=== PATIENT | female | born 1950 | race Two or more races ===

== ENCOUNTER 2023-10-11 14:41 | Outpatient (AMB) | payer OTHER, SELFPAY ==
--- NOTE | 2023-10-11 14:37 | HO.NEPHOV ---
HPI HPI Comments History of Present Illness Details 72-year-old woman with a history of for diabetes mellitus hypertension and CKD is here for follow-up. Her baseline serum creatinine is around 1.8-1.9 mg/dL with EGFR of about 30 mL/minute. Serum creatinine has been stable for the last several months. She was prescribed Farxiga several months ago but she did not tolerated due to itching and she has stopped taking it. She underwent colpocleisis She is complaining of constipation and she attributes this to amlodipine PFSH Surgical History (Updated 10/11/23 @ 14:47 by Vibha Alberto MA) Hx of cholecystectomy Family History (Updated 10/11/23 @ 14:48 by Vibha Alberto MA) Mother Diabetes Father Liver failure Social History (Updated 10/11/23 @ 14:47 by Vibha Alberto MA) Household Members: None Housing: Apartment Alcohol intake: never Patient Tobacco Use Status: Never used Tobacco Vital Signs 10/11/23 14:41 Height 5 ft 2 in Weight 143 lb BMI 26.2 BP 160/72 H Blood Pressure Location Rt brachial Position Sitting Pulse 68 Pulse Source Pulse Oximeter Pulse Oximetry (%) 98 Oxygen Delivery Method Room Air Physical Exam Vital Signs: Last Vital Signs Pulse 68 10/11/23 14:41 BP 160/72 H 10/11/23 14:41 Pulse Ox 98 10/11/23 14:41 Oxygen Delivery Method Room Air 10/11/23 14:41 BMI result Body Mass Index 26.2 Const General: comfortable; No acute distress Orientation/consciousness: patient oriented x3 Eyes General: appearance normal, both eyes and all related structures Visual Otero: normal visual otero by confrontation Neck Neck: Yes supple and Yes no JVD Resp Effort & Inspection: normal respiratory effort and respiratory effort not decreased Auscultation: rhonchi Cardio Palpation: no palpable S3 and no palpable S4 Heart sounds: no rubs GI Inspection: Yes normal to inspection Palpation (GI): Soft to palpation Percussion: Yes normal to percussion Auscultation: normal bowel sounds General: Yes no CVA tenderness Back/Spine/Pelvis Back: no CVA tenderness Skin General skin exam: no petechiae and no purpura Neuro General: patient oriented x3 and no focal motor deficits Extrem General: No clubbing and No edema Assessment & Plan Assessment & Plan (1) HTN (hypertension): Code(s): I10 - Essential (primary) hypertension (2) CKD (chronic kidney disease) stage 3, GFR 30-59 ml/min: Code(s): N18.30 - Chronic kidney disease, stage 3 unspecified (3) Proteinuria: Code(s): R80.9 - Proteinuria, unspecified (4) Anemia: Code(s): D64.9 - Anemia, unspecified Plan Elderly woman with CKD 3B in the setting of longstanding diabetes mellitus and hypertension. She has nephrotic range proteinuria most likely due to diabetic kidney disease. Currently renal function is stable. Goal is to slow the progression of disease. Continue with Gómez inhibition. Goals maintain the blood pressure is under 130/80 mmHg. Since she is unable tolerate amlodipine I will discontinue amlodipine. She will try hydralazine 20 mg p.o. twice a day and if he tolerates we can titrate the dose. Encouraged to stand low-sodium diet. Anemia is multifactorial. This may be due to underlying CKD. No indication for Epogen at this time. Orders: Orders Blood Urea Nitrogen 2 Weeks I10 - Essential (primary) hypertension, N18.30 - Chronic kidney disease, stage 3 unspecified Complete Blood Count no Diff 2 Weeks I10 - Essential (primary) hypertension, N18.30 - Chronic kidney disease, stage 3 unspecified Electrolytes 2 Weeks I10 - Essential (primary) hypertension, N18.30 - Chronic kidney disease, stage 3 unspecified Creatinine 2 Weeks I10 - Essential (primary) hypertension, N18.30 - Chronic kidney disease, stage 3 unspecified Calcium 2 Weeks I10 - Essential (primary) hypertension, N18.30 - Chronic kidney disease, stage 3 unspecified Parathyroid Hormone Intact 2 Weeks I10 - Essential (primary) hypertension, N18.30 - Chronic kidney disease, stage 3 unspecified Medications: New hydralazine 25 mg PO BID 60 tabs 1RF Coding Level of Care Code Est Pt Level 4 (41974) Diagnoses HTN (hypertension) I10 CKD (chronic kidney disease) stage 3, GFR 30-59 ml/min N18.30 Proteinuria R80.9 Anemia D64.9 Results Reviewed Results Reviewed: Lab results from August 23 was reviewed potassium 4.2 BUN 31 creatinine 1.8 Urine protein creatinine ratio was 4.3 back in August 2023 Nephrology Results: No Data to Display
[2023-10-11 14:41] VITALS: BP 160/72; PULSE 68; O2SAT 98; BMI 26.2
== END 2023-10-11 15:03 | disposition home or self-care (01) ==
LOC: HO.HKAS 14:41
PROVIDERS: PCP Internal Medicine; Visit Provider Internal Medicine Hypertension Specialist
DX: I10 Essential (primary) hypertension (principal); N18.30 Chronic kidney disease, stage 3 unspecified; R80.9 Proteinuria, unspecified; D64.9 Anemia, unspecified
CPT/HCPCS: 99214

== ENCOUNTER → 2023-10-11 14:41 | Outpatient (BNVA) | payer OTHER, SELFPAY | PROVIDERS: PCP Internal Medicine; Visit Provider Internal Medicine Hypertension Specialist | DX: I12.9 Hypertensive chronic kidney disease with stage 1 through stage 4 chronic kidney disease, or unspecified chronic kidney disease (principal); N18.30 Chronic kidney disease, stage 3 unspecified; R80.9 Proteinuria, unspecified; D64.9 Anemia, unspecified | CPT/HCPCS: 99212 ==

== ENCOUNTER → 2023-11-08 10:57 | Outpatient (BNVA) | payer OTHER, SELFPAY | PROVIDERS: PCP Internal Medicine; Visit Provider Internal Medicine Hypertension Specialist ==

== ENCOUNTER 2024-10-16 10:24 | Outpatient (AMB) | payer OTHER, SELFPAY ==
[2024-10-16 10:30] VITALS: BP 200/60; PULSE 62; O2SAT 99; BMI 24.1
--- NOTE | 2024-10-16 10:30 | HO.NEPHOV ---
Vital Signs 10/16/24 10:30 Height 5 ft 2 in Weight 132 lb BMI 24.1 BP 200/60 H Blood Pressure Location Lt brachial Position Sitting Pulse 62 Pulse Source Pulse Oximeter Pulse Oximetry (%) 99 Oxygen Delivery Method Room Air Intake Visit Reasons: Anemia/ LVM Project Geophysicist Required: No Accompanied by: Self / Same As Patient Allergies Iodinated Contrast Media Allergy (Intermediate, Verified 10/16/24 10:32) Rash Penicillins Allergy (Intermediate, Verified 10/16/24 10:32) thrush sulfamethoxazole [From Bactrim] Allergy (Intermediate, Verified 10/16/24 10:32) thrush trimethoprim [From Bactrim] Allergy (Intermediate, Verified 10/16/24 10:32) thrush Medication List - Last Reconciled 10/16/24 by Alexander Tavares MD acetaminophen ER 1,300 mg PO Q8H atorvastatin 40 mg PO DAILY dapagliflozin propanediol (Farxiga) 10 mg PO DAILY doxazosin mg PO esomeprazole magnesium 40 mg PO DAILY ferrous sulfate 325 mg PO Q OTHER DAY furosemide 20 mg PO DAILY PRN hydralazine 25 mg PO BID insulin aspart U-100 (Novolog FlexPen U-100 Insulin aspart) subcut insulin degludec (Tresiba FlexTouch U-100 insulin) units subcut levothyroxine 112 mcg PO DAILY lisinopril 40 mg PO DAILY metoprolol succinate ER 50 mg PO DAILY nifedipine ER 90 mg PO DAILY omega 5-iip-jzw-fish oil 300 mg (120 mg- 180mg)-1,000 mg caps PO HPI Comments Details: 72-year-old woman with a history of for diabetes mellitus hypertension and CKD is here for follow-up. Her baseline serum creatinine was around 1.8-1.9 mg/dL with EGFR of about 30 mL/minute back in 2021. She was prescribed Farxiga several months ago but she did not tolerated due to itching and she has stopped taking it. In May EGFR was 17 mL/minute and the recent EGFR is about 13 mL/minute. Creatinine is 3.67. She continues to have leg edema. Overall blood sugar seems to be well controlled. Blood pressure in the office has all he has been elevated however she tells me that home readings have been good and she has been monitoring it regularly. [facility] Surgical History Hx of cholecystectomy Family History Mother Diabetes Father Liver failure Social History Household Members: None Housing: Apartment Alcohol intake: never Patient Tobacco Use Status: Never used Tobacco Physical Exam Vital Signs: Last Vital Signs Pulse 62 10/16/24 10:30 BP 200/60 H 10/16/24 10:30 Pulse Ox 99 10/16/24 10:30 Oxygen Delivery Method Room Air 10/16/24 10:30 BMI result Body Mass Index 24.1 Comfortable Neck supple no JVD. Lungs entry equal no rales. Heart S1-S2 heard no gallop or rub. Abdomen soft nontender. Neuro alert awake oriented. No asterixis. Extremities 1+ edema. Results Reviewed Results Reviewed: Recent EGFR 13 mL/minute Hemoglobin 9.8. Iron stores are low. Urine protein creatinine ratio was 4.3 back in August 2023 Nephrology Results: No Data to Display Assessment & Plan Assessment & Plan (1) HTN (hypertension): Code(s): I10 - Essential (primary) hypertension Category: Medical (2) Proteinuria: Code(s): R80.9 - Proteinuria, unspecified Category: Medical (3) Anemia: Code(s): D64.9 - Anemia, unspecified Category: Medical (4) CKD (chronic kidney disease): Code(s): N18.9 - Chronic kidney disease, unspecified Category: Medical Plan Elderly woman with CKD 4 approaching CKD 5 in the setting of longstanding diabetes mellitus and hypertension. She has nephrotic range proteinuria most likely due to diabetic kidney disease. Goal is to slow the progression of disease. Continue with Farxiga Goals maintain the blood pressure is under 130/80 mmHg. Keep on current antihypertensive medications Office readings elevated most likely due to superimposed white coat effect. I have asked her to monitor blood pressure at home if home blood pressure readings are elevated with a systolic blood pressure more than 140 mm Hg I would increase hydralazine from 20 mg up to 50 mg t.i.d.. Encouraged to stand low-sodium diet. Anemia is multifactorial. This may be due to underlying CKD. No indication for Epogen at this time. Replace iron and recheck hemoglobin. Given the advanced CKD I discussed the possibility of requiring renal replacement therapy in the very near future. I will discuss this again in the next 6 weeks when she returns Orders: Orders Complete Blood Count no Diff 6 Weeks N18.9 - Chronic kidney disease, unspecified Parathyroid Hormone Intact 6 Weeks N18.9 - Chronic kidney disease, unspecified Basic Metabolic Panel 6 Weeks N18.9 - Chronic kidney disease, unspecified Coding Level of Care Code Est Pt Level 5 (20794) Diagnoses HTN (hypertension) I10 Proteinuria R80.9 Anemia D64.9 CKD (chronic kidney disease) N18.9
--- OUTSIDE RECORDS SUMMARY | 2024-10-17 00:25 | XMS_ITS | Data Portability ---
Author Organization [employer] [place] - [employer] Address [address] [place] [id number] Care Team Providers Care Pharmacy Informatics Specialist Name Role Phone NICOLMELISSA ALEKSANDRA Primary Care Provider [facility] Referring Provider [phone] Assessment Encounter Date Assessment Date Assessment LastModified by Organization Details LastModified Time 08/13/2023 08/13/2023 I provided real -time medical direction via phone for this encounter, and was available for additional phone based assistance as needed. I have reviewed and agree with the Assessment and Plan as documented by the Computer [employer] Markup Clerk. Patient given the opportunity to ask questions. Advised if develops CP/severe SOB/turning blue/severe headache or focal neuro changes /uncontrolled n/v/d or black/bloody emesis or stool/ AMS/ syncope/ hi fever to call 911- verbalized understanding of instructions [email or web address] Not available 08/14/2023 15:53:22 01/26/2024 01/26/2024 I provided real -time medical direction via phone for this encounter, and was available for additional phone based assistance as needed. I have reviewed and agree with the Assessment and Plan as documented by the Computer Forwarding System Markup Clerk. We discussed the diagnostic uncertainty of home visits and the risk associated with this. In this case the patient and I felt this to be an acceptable and reasonable amount of risk given the benefit of avoiding an ED visit. The patient /son given the opportunity to ask questions. Advised if develops CP/severe SOB/turning blue/uncontrolle d n/v/d or black/bloody emesis or stool/ AMS/ syncope/ hi fever / severe painful swelling or redness to legs to call 911- she verbalized understanding of instruction to the medic [email or web address] Not available 01/26/2024 13:52:56 Plan of Treatment Reminders Order Date Submit Date Provider Last Modified By Organization Details Last Modified Time Details Appointments None recorded. Lab urinalysis , dipstick 2022 023 [email or web address] 0 [facility], [address] [place] [address], [phone], 15:56:08 BMP, serum or plasma 2023 024 [email or web address] 0 [facility], [address] [place] [address], [phone], 13:51:39 Referral None recorded. Procedures None recorded. Surgeries None recorded. Imaging None recorded. Medication Orders Lasix 20 mg tablet 2023 024 [email or web address] 0 Not available 13:52:18 Patient TargetsNo targets recorded. Patient InstructionsNo instructions recorded. Reason for Referral None Reported. Results Created Date Observation Date Name Description Value Unit Range Abnormal Flag Note LastModifiedBy Organization Detail LastModifiedTime 08/14/2008/14/2023 urina lysis , dipst ick Leukocytes neg Not Available [facility] [address] [place] [address], [address], 08/14/2023 15:51:08 08/14/2008/14/2023 urina lysis , dipst ick Nitrite negati ve Not Available [facility] [address] [place] [address], [phone], 08/14/2023 15:51:08 08/14/2008/14/2023 urina lysis , dipst ick Urobilinogen neg Not Available [facility] [address] [place] [address], [phone], 08/14/2023 15:51:08 08/14/2008/14/2023 urina lysis , dipst ick Protein 2+ Not Available [facility] [address] [place] [address], [address], 08/14/2023 15:51:08 08/14/20 23 08/14/2023 urina lysis , dipst ick pH 7 Not Available [facility] [address] [place] [address], [address], 08/14/2023 15:51:08 08/14/20 23 08/14/2023 urina lysis , dipst ick Blood trace Not Available [facility] [address], [address], 08/14/2023 15:51:08 08/14/20 23 08/14/2023 urina lysis , dipst ick Specific [place] 1.005 Not Available [facility] [address] [place] [address], [address], 08/14/2023 15:51:08 08/14/20 23 08/14/2023 urina lysis , dipst ick Ketone neg Not Available [facility] [address], [address], 08/14/2023 15:51:08 08/14/20 23 08/14/2023 urina lysis , dipst ick Bilirubin neg Not Available [facility] [address] [place] [address], [address], 08/14/2023 15:51:08 08/14/20 23 08/14/2023 urina lysis , dipst ick Glucose neg Not Available [facility] [address], [address], 08/14/2023 15:51:08 08/14/20 23 08/14/2023 urina lysis , dipst ick Appearance Clear Not Available [facility] [address] [place] [address], [address], 08/14/2023 15:51:08 08/14/20 23 08/14/2023 urina lysis , dipst ick Color Pale yellow Not Available [facility] [address] [place] [address], [address], 08/14/2023 15:51:08 01/26/20 24 01/26/2024 BMP, serum or plasm a BUN 33(simone n from 40 on 3/19) Not Available [facility] [address] [place] [address], [address], 01/26/2024 13:16:10 01/26/20 24 01/26/2024 BMP, serum or plasm a Ca Ionize d calciu m 1.1 Not Available [facility] [address] [place] [address], [address], 01/26/2024 13:16:10 01/26/20 24 01/26/2024 BMP, serum or plasm a CI- 98 Not Available [facility] [address], [address], 01/26/2024 13:16:10 01/26/20 24 01/26/2024 BMP, serum or plasm a CRE 2.35( was 2.45- was 1.9 08/28) Not Available [facility] [address] [place] [address], [address], 01/26/2024 13:16:10 01/26/20 24 01/26/2024 BMP, serum or plasm a GLU 158 Not Available [facility] [address], [address], 01/26/2024 13:16:10 01/26/20 24 01/26/2024 BMP, serum or plasm a K+ 4.8 Not Available [facility] [address], [address], 01/26/2024 13:16:10 01/26/20 24 01/26/2024 BMP, serum or plasm a Na+ 129 Not Available [facility] [address], [address], 01/26/2024 13:16:10 01/26/20 24 01/26/2024 BMP, serum or plasm a tCO2 21.3 Not Available [facility] [address], [address], 01/26/2024 13:16:10 Result Notes None recorded. Medical Equipment None Reported. Allergies Allergen ID Allergen Name Allergen Category Reaction Reaction Severity Criticality Documentation Date Start Date Code Code System Note Provider Name and Address Organization Details Recorded Time 3467 Medicinal product containin g penicilli n and acting as antibacte rial agent (product) medicatio n Not available Not available Not available 08/13/2023 04764 05 SNOMED Not Available [facility] 4 03:42:03 3468 Bactrim medicatio n Not available Not available Not available 08/13/2023 55317 9 [facility] 03:42[facility]03 3469 codeine medicatio n Not available Not available Not available 08/13/2023 2670 RxNorm Justine Espinoza MD [address] [place] [address],[address], [place], [address], [email or web address] 3 15:37:47 3470 Iodinated contrast media (substanc e) medicatio n Not available Not available Not available 08/13/2023 53690 2004 SNOMED Justine Espinoza MD [address] [place] [address],[address], [place], [address], [email or web address] 3 15:38:00 8114 prednison e medicatio n Not available Not available Not available 09/03/2024 8640 RxNorm [facility] Available [facility] 03:[facility]:03 Medications Name Sig Start Date Stop Date Status Note LastModified by Organization Details LastModified Time nifedipine ER 30 mg tablet,exten ded release 24 hr TAKE 1 TABLET BY MOUTH DAILY active Not Available Not Available Not Available atorvastatin 40 mg tablet TAKE ONE TABLET BY MOUTH EVERY DAY AT BEDTIME active Not Available Not Available No t Available atorvastatin 80 mg tablet TAKE 1 TABLET BY MOUTH ONCE DAILY AT BEDTIME active Not Available Not Available No t Available metoprolol succinate ER 50 mg tablet,exten ded release 24 hr TAKE ONE TABLET BY MOUTH EVERY DAY active Not Available Not Available No t Available FreeStyle Lancets 28 gauge USE TO TEST BLOOD GLUCOSE THREE TIMES A DAY active Not Available Not Available No t Available acetaminophe n 500 mg tablet TAKE ONE TABLET BY MOUTH EVERY 4 HOURS NEEDED FOR PAIN active Not Available Not Available No t Available acetaminophe n ER 650 mg tablet,exten ded release TAKE TWO TABLETS BY MOUTH EVERY 8 HOURS DIRECTED active Not Available Not Available No t Available levothyroxin e 88 mcg tablet TAKE ONE TABLET BY MOUTH EVERY DAY active Not Available Not Available No t Available Deep Sea Nasal 0.65 % spray aerosol USE TWO SPRAYS IN EACH NOSTRIL FOUR TIMES A DAY NEEDED FOR DRY NASAL PASSAGES FOR 7 DAYS active Not Available Not Available N ot Available nifedipine ER 60 mg tablet,exten ded release 24 hr TAKE ONE TABLET BY MOUTH EVERY DAY DIRECTED active Not Available Not Available No t Available metronidazol e 0.75 % lotion APPLY A THIN LAYER TO AFFECTED AREAS TWO TIMES A DAY IN THE MORNING AND IN THE EVENING active Not Available Not Available No t Available amlodipine 10 mg tablet TAKE ONE TABLET BY MOUTH EVERY DAY active Not Available Not Available No t Available levothyroxin e 50 mcg tablet TAKE TWO TABLETS BY MOUTH TWICE A DAY active Not Available Not Available No t Available Lasix 20 mg tablet Take 1 tablet by oral route. 2023 active Not Available Not Available Not Avai lable cephalexin 500 mg capsule TAKE ONE CAPSULE BY MOUTH THREE TIMES A DAY DIRECTED FOR 7 DAYS active Not Available Not Available N ot Available esomeprazole magnesium 40 mg capsule,osiel yed release TAKE ONE CAPSULE BY MOUTH EVERY DAY active Not Available Not Available No t Available dexamethason e 4 mg tablet TAKE ONE TABLET BY MOUTH EVERY DAY DIRECTED FOR 5 DAYS active Not Available Not Available N ot Available metronidazol e 0.75 % topical cream APPLY A THIN LAYER TO AFFECTED AREAS TWO TIMES A DAY IN THE MORNING AND IN THE EVENING active Not Available Not Available No t Available docusate sodium 100 mg capsule TAKE ONE CAPSULE BY MOUTH TWICE A DAY NEEDED FOR CONSTIPATIO N active Not Available Not Available No t Available hydrocortiso ne 2.5 % topical cream APPLY TO THE FACE AND AFFECTED SKIN TWICE DAILY FOR 1 WEEK, BREAK 1 WEEK THEN REPEAT NEEDED FOR FLARES active Not Available Not Available No t Available bisacodyl 5 mg tablet,delay ed release TAKE 2 TABLETS BY MOUTH EVERY DAY NEEDED active Not Available Not Available No t Available alcohol swabs USE WITH EACH INJECTION FOUR TIMES A DAY active Not Available Not Available No t Available lisinopril 40 mg tablet TAKE ONE TABLET BY MOUTH EVERY DAY active Not Available Not Available No t Available oxycodone 5 mg tablet active Not Available Not Available No t Available Novolog FlexPen U-100 Insulin aspart 100 unit/mL (3 mL) subcutaneous INJECT 10 UNITS UNDER THE SKIN 3 TIMES PER DAY active Not Available Not Available No t Available Lubricant Eye Drops 0.5 % INSTILL TWO DROPS IN EACH EYE EVERY 4 TO 6 HOURS DIRECTED FOR 14 DAYS active Not Available Not Available Not Available BD Ultra-Fine Short Pen Needle 31 gauge x 5/16 USE TO INJECT INSULIN 3 TIMES DAILY active Not Available Not Available Not Available Fish Oil 340 mg-1,000 mg capsule TAKE ONE CAPSULE BY MOUTH EVERY DAY active Not Available Not Available No t Available FreeStyle Lite Strips USE TO TEST BLOOD GLUCOSE 5 TIMES DAILY active Not Available Not Available Not Available diclofenac 1 % topical gel APPLY 2 GRAMS TOPICALLY TO AFFECTED AREA S) FOUR TIMES DAILY active Not Available Not Available No t Available cholecalcife rol (vitamin D3) 50 mcg (2,000 unit) capsule TAKE ONE CAPSULE BY MOUTH EVERY DAY active Not Available Not Available No t Available ClearLax 17 gram/dose oral powder DISSOLVE 17 GRAMS IN WATER AND DRINK ONCE DAILY active Not Available Not Available No t Available Tresiba FlexTouch U-100 insulin 100 unit/mL (3 mL) subcutaneous pen INJECT 45 UNITS UNDER THE SKIN ONCE A DAY AT BEDTIME. BOX ____ OF 2 active Not Available Not Available No t Available Procto-Med HC 2.5 % topical cream perineal applicator APPLY A SMALL AMOUNT TO AFFECTED AREA TWO TIMES A DAY FOR HEMMERHOIDS active Not Available Not Available Not Available Rybelsus 3 mg tablet TAKE ONE TABLET BY MOUTH EVERY DAY DIRECTED active Not Available Not Available No t Available omega-3 300 mg-dha 120 mg-epa 180 mg-fish oil 1,000 mg capsule TAKE ONE CAPSULE BY MOUTH EVERY DAY active Not Available Not Available No t Available Vitals Date Recorded Oxygen saturation Oxygen saturation in Arterial blood by Pulse oximetry Body temperature Respiratory rate Heart rate Systolic blood pressure Diastolic blood pressure Provider Name and Address Organization Details Last Updated DateTime 3 98 % 98 % 98.6 [degF] 14 /min 66 /min 226 mm[Hg] 73 mm[Hg] Not Available [facility] 3 14:56:44 Date Recorded Respiratory rate Body temperature Body weight Heart rate Oxygen saturation Oxygen saturation in Arterial blood by Pulse oximetry Systolic blood pressure Diastolic blood pressure Provider Name and Address Organization Details Last Updated DateTime 4 16 /min 97.6 [degF] 95886.2 48 g 86 /min 96 % 96 % 160 mm[Hg] 68 mm[Hg] Not Available [facility] 13:11:29 Social History None recorded. Functional Status None recorded. Mental Status None recorded. Family History Nothing Reported. Medical History No medical history recorded. Gynecological HistoryNo gynecological history recorded. Obstetrics History GPAL:G 0 P 0 0 0 0 Past Encounters Encounter ID Performer Location Encounter Start Date Encounter Closed Date Diagnosis/Indication Diagnosis SNOMED-CT Code Diagnosis ICD10 Code [id number] Justine Espinoza MD [facility] [address] [place] [phone] 08/13/2023 14:56:36 08/15/2023 00:46:02 Acute retention of urine 958238268 R33.8 [id number] Justine Espinoza MD [facility] [address] [place] [phone] 01/26/2024 13:11:25 01/26/2024 17:59:41 Peripheral edema 630662593 R60.9 Health Concerns Section Related Observation LastModified by Organization Detai ls LastModified Time None Recorded Concern Status LastModified by Organization Details LastModified Time None Recorded Advance Directives Directive None Recorded Payers Encounter Date Sequence Insurance Name Policy Number Policy Tam Covered Member ID Tam Member ID Guarantor Name 08/13/2023 1 [facility] - DOS ON OR AFTER 2023 - DUAL ELIGIBLE - USP OPTIONS AND ONE CARE (MEDICARE REPLACEMENT/ADV ANTAGE - HMO) [employer] [id number] [employer] 01/26/2024 1 [facility] - DOS ON OR AFTER 2023 - DUAL ELIGIBLE - USP OPTIONS AND ONE CARE (MEDICARE REPLACEMENT/ADV ANTAGE - HMO) [employer] [id number] [employer] Notes Date Note Type Note Provider Name and Address Organization Details Recorded Time 08/13/2023 text/html [facility] Nursing Assessment: Reason For Request: UTI Chief Complaints: UTI/Pyelonephritis PMH: Diabetes, Hypertension, Other Allergies: Unknown Pain Assessment: Level 10 out of 10 Comments: Verified identity / address Member had SX on and was d/c Monday even. Member has a holder in place . Member has c/o abd pain and full bladder feeling . Urine C/y/u , no strong smell Member had bladder sling placed , does have a follow up next week. ................... ................... ................... ................... ................... ................... ................... ........ Computer [employer] System Markup Clerk Note From Taco Tobar: Pt reports bladder surgery last and began experiencing suprapubic pain and upper left thigh pain late evening. Pt sts she adjusted the Holder bag last night when re-dressing. Holder collection bag was emptied today at 11:00 am (unknown output). Pt currently has 20 cc of pale yellow urine in the collection bag. Pt denies CP, SOB, f/n/v/d. Surgeons office is supposed to call tomorrow for f/u appointment. Pt is alert, NAD. Hypertensive, VS otherwise stable. Afebrile. Lungs CTA. Suprapubic ABD feels firm and is tender on palpating. No CVAT. No LLE. [place] cath tubing was kinked when pt attatched it to the upper leg securing device. Tubing was realigned and pt had 900 cc of urine output. UA not indicative of infection. Pt endorses feeling much better after urine was drained. BP reassessed and is trending down. Pt instructed to seek emergent medical care for new or worsening sx, which are reviewed with her and to f/u with PCP later this week. ................... ................... ................... ................... ................... ................... ................... ........ Disposition: Janneth WEINER patient apparently had a bladder sling/mesh last . Not currently on antibiotics. Has a history of hypertension. Has taken all of her meds today. /She Complains of abdominal pain but no chest pain, no shortness of breath, no headache or neuro changes Justine Espinoza MD [address] [facility],[address], [place], [address], [employer] 08/14/2023 15:56:17 01/26/2024 text/html HPI: Call transferred to [facility] from [facility]. Member daughter in law, Gail calling with Greenlandic speaking member, c/o BLE edema. Reports first started Monday but has worsened since. Reports PCP visit Monday but legs were not that swollen at time, [facility] states members PCP told her that her kidney labs were elevated and was advised to increase fluids. Reports worsening sx since. Reports swelling extends from feet to thighs, equal bilaterally. Mbr is able to ambulate with difficulty d/t discomfort and heaviness of legs. Denies SOB, CP, open wounds or discoloration to legs. Agreeable to [employer] referral. Advised to call CRU back for new or worsening of sx. PMH includes but not limited: HTN hypertensive renal disease, HLD, CKD stg 3a, DM2, group home insulin use, mild mitral regurgitation, retinopathy, OA, GERD, Anemia, hypothyroid ................... ................... ................... ................... ................... ................... ................... ........ [facility] Nurse Triage Notes (Victorino Lares): Comments: Reviewed HPI ................... ................... ................... ................... ................... ................... ................... ........ Computer Forward[employer] System Markup Clerk Note From Keenan Rae: Pt co lower extremity edema. Pt seen on Monday by PCP. Swelling worse today. Pt denies fever sob cough cp redness or wheeping. Baseline vital? s assessed. No redness or wheeping visible. +1 pitting edema. Lungs clear bilaterally POc bloodwork. C contacted and 20mg lasix po. Pt advised to follow up with pcp. Pt sts has appt Monday. Pt education on signs indicating the ER. Computer [employer] System Markup Clerk Allergies: Penicillin, Prednisone, Bactrim ................... ................... ................... ................... ................... ................... ................... ........ Disposition: Fulfilled, The mL is 16 ounces hide there morning okay see you right but always find all of sorry I get that Genta going to obviously I did Yeah I think is not happening with the board the way of looking right 1 shift 70 Chito is the active I read back on sorry okay thanks navin right sleep SEGMD:. 08/08/2023 creatinine 1.9 BUN 29 with GFR 28 per old records. Patient is on nifedipine 90 mg daily for hypertension. She was taken off amlodipine due to edema. She does report she has edema with nifedipine but she was given the medication in the past. She denies fever, chills, chest pain, shortness of breath at rest or with exertion she denies orthopnea. She denies nausea, vomiting, diarrhea. Her legs are swollen but they are not painful or red.She states the edema began gradually 2 to 3 weeks ago. She saw her PCP on 01/22 and was told her labs were abnormal so she should increase her fluid intake and her edema has gotten worse sincePatient has been consuming 6- 8 x16 ounce bottles of water and extra Powerades a day, which is far more than her baseline fluid consumption. She does admit to being thirsty Justine Espinoza MD [address] [facility],[address], [place], [address], [employer] 01/26/2024 14:07:09 OBGyn Episode No OBEpisode recorded.
--- OUTSIDE RECORDS SUMMARY | 2024-10-17 00:27 | XMS_ITS | Continuity of Care Document ---
Author Organization [facility], Main Office Address [address] [facility] [address] [place] [address] Care Team Providers Care Police Superintendent Name Role Phone [facility] ORDERS Refe rring Provider CAMERON RAMSEY Circle Beveler JACK GUERIN Otr Van [employer] Truck Driver [facility] Urologist [facility] Orthopedist JULIANO KLINE Prefabricated Houses Trimmer RADHA HARO Referring Provider [phone] Beveler CAMILLA PALOMARES Contact Acid Plant Operator [phone] LAURA PARRISH Cashier Receptionist DEBBIE DRIVER Urologist CHEYANNE PAZ Primary Care Provider MAN BALLARD Urogynecologist [phone] Beveler Assessment No assessment recorded. Plan of Treatment Reminders Order Date Submit Date Provider Last Modified By Organization Details Last Modified Time Details Appointments UV30 2023 09:15A M Cheyanne Paz PA-C Not available Not available Not available Follow Up DM 30 2024 09:15A M Cheyanne Paz PA-C Not available Not available Not available Lab urinalysi s, complete 2023 024 [facility], [address], [address] , [place], [address], 09/27/2024 14:07:05 culture, urine 2023 024 [facility], [address] [facility], [address], [place], [address], 09/27/2024 14:07:08 hemoglobi n A1C, fingersti ck 2023 024 [email or web address] In-Office Order, Internal Use Only DO Not Attach Compendium DO Not Attach Compendium, Do Not Delete/merge, [id number] 09/25/2024 09:26:27 BMP, serum or plasma 2023 024 [facility], [address] , [facility] [address], [place], [address], 09/27/2024 14:07:01 microalbu min, urine 2023 024 [facility], [address] , [facility] [address], [place], [address], 09/27/2024 14:07:07 CBC w/ auto diff 2023 024 [facility], [address] , [facility] [address], [place], [address], 09/27/2024 14:07:05 vitamin B12 + folate, serum or blood 2023 024 [facility], [address] , [address], [place], [address], 09/27/2024 14:07:06 iron + TIBC + ferritin, serum 2023 024 [facility], [address] , [address], [place], [address], 09/27/2024 14:07:02 TSH + free T4, serum 2023 024 [facility], [address] , [address], [place], [address], 09/27/2024 14:07:03 Referral None recorded. Procedures None recorded. Surgeries None recorded. Imaging None recorded. Medication Orders Humalog KwikPen (U-100) Insulin 100 unit/mL subcutane ous 2023 [facility], [address] [place], [address], 09/25/2024 09:48:44 Tresiba FlexTouch U-100 insulin 100 unit/mL (3 mL) subcutane ous pen 2023 024 [email or web address] [facility], [address] [place], [address], 09/25/2024 10:59:36 Patient TargetsNo targets recorded. Patient Instructions Encounter Date Encounter Id Patient Instructions Last Modified By Organization Details Last Modified Time 09/25/2024 [id number] To call or retur n for worsening or concerns [email or web address] Not available 09/25/2024 09:49:59 Medications (OTC , herbal therapies, supplements) reviewed and reconciled with patient and or caregiver, including potential side effects, drug interactions, instructions, and the consequences of not taking medication. Reviewed potential barriers to medication adherence, such as side effects from medication or cost of medication. [email or web address] Not available 09/25/2024 09:11:14 Reason for Referral None Reported. Results Created Date Observation Date Name Description Value Unit Range Abnormal Flag Note LastModifiedBy Organization Detail LastModifiedTime 09/25/2009/25/2024 hemog lobin A1C, finge rstic k A1C 6.3 % 4-6 abnormal Not Available In-Office Order Internal Use Only DO Not Attach Compendium DO Not Attach Compendium, Do Not Delete/merge, [id number] 09/25/2024 09:11:51 09/27/2009/27/2024 H&P No observ ation record ed. [address], [address], 09/27/2024 12:39:46 Result Notes None recorded. Problems Name Problem SNOMED Code Status Onset Date Resolution Date Notes Provider Name and Address Organization Details Recorded Time Epigastr ic pain 17721139 Completed 200705/27/2014 RECORDED 10/01/20 08 2:26PM BY ISAÍAS HARDING, DANITA ON/ADDEN MEDHAT Paz, [facility] [address] [facility] [address], [place], [address], [facility] 6 13:35:33 Generali zed abdomina l pain 112314369 Completed 200705/27/2014 RECORDED 07/25/20 08 3:44PM BY JUANY DURANTATI ON/ADDEN MEDHAT Paz, [facility] [address] [facility] [address], [place], [address], [facility] 6 13:35:33 Abdomina l pain 28463583 Completed 201105/27/2014 RECORDED 06/07/20 12 10:02AM BY ALVIN OLMOS MA, DANITA ON/ADDEN DUM Alvin johnson MA [facility] 4 13:10:58 Diarrhea 53727407 Completed 201105/27/2014 RECORDED 06/07/20 12 10:02AM BY ALVIN OLMOS MA, JUANYATI ON/ADDEN DUM Aleksandra galeana MD [address] [facility] [address], [place], [address], [facility] 2 08:34:24 Acute lymphade nitis 91190777 Completed 200805/27/2014 RESOLVED DATE: 04/15/20 09; RECORDED 04/15/20 09 8:36AM BY ALEKSANDRA TORRES MD, ANNOTATI ON/ADDREBECCA Paz, [facility] [address] [facility] [address], [place], [address], [facility] 6 13:35:32 Patient status finding [id number] Completed 201205/27/2014 RECORDED 02/20/20 13 9:01AM BY CHARLENE KAY MA, ANNOTATI ON/ADDEN DUM Cheyanne Paz, [facility] [address] [facility] [address], [place], [address], [facility] 6 13:35:33 Retinopa thy Completed 08/03/2021 Removal Reason: Veronica galeana MD [address], [place], [address], [facility] 1 20:38:46 Digestiv e symptom [id number] Completed 201105/27/2014 RECORDED 06/07/20 12 10:02AM BY ALVIN OLMOS MA, ANNOTATI ON/ADDEN DUM Cheyanne Paz, [facility] [address] [facility] [address], [place], [address], [facility] 6 13:35:33 Screenin g for malignan t neoplasm of breast Completed 201105/27/2014 RECORDED 06/07/20 12 10:01AM BY ALVIN OLMOS MA, ANNOTATI ON/ADDEN DUM Cheyanne Paz, [facility] [address] [facility] [address], [place], [address], [facility] 6 13:35:33 Disorder of bursa of shoulder region 45854974 Active 2020 Ainsley Alva [place] null, [facility] 3 14:15:16 Kidney stone 98674078 Completed 201205/27/2014 RECORDED 11/19/19 13 9:28AM BY ALVIN OLMOS MA, ANNOTATI ON/ADDEN DUM Aleksandra galeana MD [address] [facility] [address], [place], [address], [facility] 2 08:35:45 Screenin g for malignan t neoplasm of cervix Completed 201105/27/2014 RECORDED 06/07/20 12 10:01AM BY ALVIN OLMOS MA, JUANYATI ON/ADDEN DUM Cheyanne Paz, [facility] [address] [facility] [address], [place], [address], [facility] 6 13:35:33 Chest pain 31562565 Completed 200805/27/2014 RECORDED 04/09/20 09 12:51PM BY ALVIN OLMOS MA, JUANYATI ON/ADDEN DUM Cheyanne Paz, [facility] [address] [facility] [address], [place], [address], [facility] 6 13:35:33 Chronic kidney disease stage 1 [id number] Completed 08/01/[address] Derrell Melvin CTJayson [address] [facility] [address], [place], [address], [facility] 8 16:02:06 Contact dermatit is [id number] Completed 201205/27/2014 RECORDED 01/17/20 13 12:53PM BY DANITA ALEX ON/ADDEN DUM Cheyanne Paz, [facility] [address] [facility] [address], [place], [address], [facility] 6 13:35:32 Cough 48972031 Completed 201205/27/2014 IMPRESSI ON: PT IS ALLERGIC TO CODEINE SO WILL STICK WIOTH OTC EXPECTOR ANT/COUG H SUPPRESS ANT. NO CURRENT EVIDENCE FOR BACTERIA L PROCESS BUT IF PERSISTA NT/WORSE OVER NEXT WEEK FURTHER EVAL AND COURSE OF ABX MAY BE WARRANTE D.; RECORDED 12/11/19 13 11:16AM BY DANITA ALEX ON/ADDEN DUM Kalpana Quigley MA null, [facility] 7 14:11:51 Disorder of eye due to type 2 diabetes mellitus 550831722 Active Ainsley Alva MA null, [facility] 3 14:15:16 Dizzines s and giddines s 265292113 Completed 200705/27/2014 RECORDED 07/25/20 08 3:44PM BY ADARSH OLMOS, JUANYATI ON/ADDEN DUM Cheyanne Paz, [facility] [address] [facility] [address], [place], [address], [facility] 6 13:35:33 Dysphagi a 84276073 Completed 200705/27/2014 RECORDED 10/24/20 08 10:16AM BY ALVIN OLMOS MA, DANITA ON/ADDEN DUM [facility]yanne Paz, [facility] [address] [address], [place], [address], [facility] 6 13:35:33 Dysuria 03413727 Completed 200705/27/2014 RECORDED 09/04/20 08 9:10AM BY ISAÍAS STEARNS, JUANYATI ON/ADDEN DUM Aleksandra galeana MD [address] [address], [place], [address], [facility] 2 08:34:36 Lymphade nopathy 67737498 Completed 200805/27/2014 RESOLVED DATE: 04/15/20 09; IMPRESSI ON: LEFT SIDED, MILD, NO CONCERNS , SEEMS VIRAL; RECORDED 04/15/20 09 8:37AM BY ALEKSANDRA TORRES MD, ANNOTATI ON/ADDEN DUM Cheyanne Paz, [facility] [address] [address], [place], [address], [facility] 6 13:35:33 Enthesop athy of hip region 54730233 Completed 200705/27/2014 RECORDED 09/04/20 08 9:32AM BY ISAÍAS HARDING, ANNOTATI ON/ADDEN DUM Cheyanne Paz, [facility] [address] [facility] [address], [place], [address], [facility] 6 13:35:33 Yvette black 40573912 Completed 201105/27/2014 RECORDED 06/07/20 12 10:02AM BY ALVIN OLMOS MA, ANNOTATI ON/ADDEN DUM Aileen Marcos null, [facility] 4 13:29:40 Ganglion and cyst of synovium , tendon and bursa Completed 201105/27/2014 RECORDED 07/10/20 12 1:49PM BY JENIFER PEACOCK I, JUANYATI ON/ADDEN DUM Cheyanne Paz, [facility] [address] [facility] [address], [place], [address], [facility] 6 13:35:33 Alopecia [id number] Completed 201309/18/2014 RECORDED 04/07/20 14 2:21PM BY JENIFER PEACOCK I, OFFICE VISIT Cheyanne Paz, [facility] [address] [facility] [address], [place], [address], [facility] 6 13:35:32 Headache 75362921 Active 2020 Ainsley Alva [place] null, [facility] 3 14:15:15 Headache 93049914 Completed 201105/27/2014 RECORDED 06/07/20 12 10:01AM BY ALVIN OLMOS MA, ANNOTATI ON/ADDEN DUM Aleksandra galeana MD [address] [facility] [address], [place], [address], [facility] 2 08:34:43 Hyperlip idemia 48560717 Active 2020 Aleksadnra galeana MD [address] [facility] [address], [place], [address], [facility] 3 09:54:26 Hypothyr oidism 09434882 Active 2020 Ainsley Alva [place] null, [facility] 3 14:15:16 Influenz a with respirat ory manifest ation other than pneumoni a Completed 201305/27/2014 IMPRESSI ON: RECOMMEN D SUPPORTI VE TX INCL. REST AND HYDRATIO N, START TAMIFLU; RECORDED 12/25/19 14 8:51AM BY DANITA ALEX ON/GORDON Paz, [facility] [address] [address], [place], [address], [facility] 6 13:35:32 Amputate d at hip 627330344 Completed 201105/27/2014 RECORDED 07/10/20 12 1:49PM BY DANITA ALEX ON/GORDON Paz, [facility] [address] [address], [place], [address], [facility] 6 13:35:33 Knee pain Completed 201105/27/2014 RECORDED 06/07/20 12 10:02AM BY ALVIN OLMOS MA, DANITA ON/GORDON Paz, [facility] [address] [address], [place], [address], [facility] 6 13:35:32 Sciatica 52833345 Completed 201105/27/2014 IMPRESSI ON: A HANDOUT WAS GIVEN WITH EXERCISE S. IF THIS DOESN'T HELP WE WILL DO A REFERRAL FOR A POSSIBLE INJECTIO N.; RECORDED 10/10/20 12 12:43PM BY DANITA ALEX ON/GORDON Paz, [facility] [address] [address], [place], [address], [facility] 6 13:35:32 Low back pain 124299280 Completed 201105/27/2014 IMPRESSI ON: X 2 DAYS, APPEARS MUSCULAR ; RECORDED 06/07/20 12 10:02AM BY ALVIN OLMOS MA, DANITA ON/ADDEN DUM Cheyanne Paz [facility] [address] [facility] [address], [place], [address], [facility] 6 13:35:32 Low back pain 253945600 Active 2020 Ainsley Alva [place] null, [facility] 3 14:15:15 Pain of breast 89847534 Completed 201205/27/2014 RECORDED 07/09/20 13 9:06AM BY JENIFER PEACOCK I, DANITA ON/ADDEN DUM Aleksandra galeana MD [address] [facility] [address], [place], [address], [facility] 3 09:55:20 Fibromyo sitis 15366483 Active 2020 Ainsley Alva [place] null, [facility] 3 14:15:15 Influenz a vaccine needed 94925319828 06 Completed 200905/27/2014 RECORDED 09/02/20 10 2:35PM BY ERICH GOMEZ , OFFICE VISIT [facility]az [facility] [address] [facility] [address], [place], [address], [facility] 6 13:35:33 Patient status finding [id number] Completed 201309/18/2014 RECORDED 04/07/20 14 2:21PM BY JENIFER PEACOCK I, OFFICE VISIT CATHIE Le [address] [facility] [address], [place], [address], [facility] 6 13:35:33 Examinat ion for suspecte d mental disorder Completed 201105/27/2014 RECORDED 06/07/20 12 10:01AM BY ALVIN OLMOS MA, DANITA ON/ADDEN DUM Cheyanne Paz, [facility] [address] [facility] [address], [place], [address], [facility] 6 13:35:33 Disorder of upper respirat ory system 958221015 Completed 200705/27/2014 RECORDED 09/04/20 08 9:11AM BY DANITA COLE ON/ADDEN DUM Cheyanne Paz, [facility] [address] [address], [place], [address], [facility] 6 13:35:33 Shoulder joint pain 659760744 Completed 201105/27/2014 IMPRESSI ON: PROBABLE ROTATOR CUFF TENDINIT IS. WE DISCUSSE D A REFERRAL FOR AN INJECTIO N AND PT BUT SHE IS NOT INTEREST ED IN EITHER. INSTEAD SHE WAS GIVEN A HANDOUT WITH EXERCISE S AND SHE WILL TRY THESE AT HOME.; RECORDED 06/07/20 12 10:02AM BY ALVIN OLMOS MA, DANITA ON/ADDEN DUM Cheyanne Paz, [facility] [address] [address], [place], [address], [facility] 6 13:35:32 Onychia of finger 31406941 Completed 200805/27/2014 RECORDED 05/07/20 09 11:41AM BY DANITA FINNEY ON/ADDEN DUM Cheyanne Paz, [facility] [address] [address], [place], [address], [facility] 6 13:35:32 Paronych ia of finger 088472695 Completed 200809/18/2014 RECORDED 05/07/20 09 11:41AM BY DANITA FINNEY ON/ADDEN DUM Cheyanne Paz, [facility] [address] [address], [place], [address], [facility] 6 13:35:32 Pneumoni a 207443942 Completed 200705/27/2014 RESOLVED DATE: 03/17/20 08; RECORDED 03/17/20 08 5:11PM BY ALEKSANDRA TORRES MD, ANNOTATI ON/ADDREBECCA Paz, [facility] [address] [facility] [address], [place], [address], [facility] 6 13:35:32 Pre-surg gonzalo evaluati on Completed 200705/27/2014 RECORDED 03/17/20 08 5:11PM BY ALEKSANDRA TORRES MD, ANNOTATI ON/ADDEN MEDHAT Paz, [facility] [address] [facility] [address], [facility] [place], [address], [facility] 6 13:35:33 Proteinu rogerio 83299871 Completed 200805/27/2014 RECORDED 10/21/20 09 10:20AM BY ALEKSANDRA TORRES MD, ANNOTATI ON/GORDON Paz, [facility] [address] [facility] [address], [place], [address], [facility] 6 13:35:33 Eruption [id number] Completed 201205/27/2014 IMPRESSI ON: WE WILL REFER HER TO HAKEEM BARRERA; RECORDED 07/09/20 13 9:06AM BY JENIFER PEACOCK I, JUANYATI ON/ADDEN MEDHAT Paz, [facility] [address] [facility] [address], [place], [address], [facility] 4 11:21:43 Pain in limb 73201043 Completed 201105/27/2014 RECORDED 06/07/20 12 10:02AM BY ALVIN OLMOS MA, ANNOTATI ON/ADDEN MEDHAT Paz, [facility] [address] [facility] [address], [place], [address], [facility] 6 13:35:33 Sulemasiddhartha 404472984 Active 2020 Ainsley Alva [place] [facility], [facility] 3 14:15:16 Adult health examinat ion Completed 201105/27/2014 RECORDED 06/07/20 12 10:02AM BY ALVIN OLMOS MA, DANITA ON/ADDEN DUM Cheyanne Paz, [facility] [address] [facility] [address], [place], [address], [facility] 6 13:35:33 Screenin g for malignan t neoplasm of colon Completed 200805/27/2014 RECORDED 07/16/20 09 9:24AM BY ISAÍAS NEVAREZ, DANITA ON/ADDEN DUM Cheyanne Paz, [facility] [address] [facility] [address], [place], [address], [facility] 6 13:35:33 Type 2 diabetes mellitus without complica tion 148271703 Completed 201205/27/2014 RECORDED 02/20/20 13 9:00AM BY CHARLENE KAY MA, DANITA ON/ADDEN MEDHAT Paz, [facility] [address] [facility] [address], [place], [address], [facility] 6 13:35:32 Uncontro lled type 2 diabetes mellitus 140024903 Completed 201205/27/2014 RECORDED 02/20/20 13 9:01AM BY CHARLENE KAY MA, DANITA ON/GORDON Paz, [facility] [address] [facility] [address], [place], [address], [facility] 4 11:58:55 Derangem ent of knee 23925727 Completed 200805/27/2014 RECORDED 05/07/20 09 11:41AM BY ISAÍAS NEVAREZ, JUANYATI ON/ADDEN DUM Cheyanne Paz, [facility] [address] [facility] [address], [place], [address], [facility] 6 13:35:32 Urinary tract infectio us disease 15719281 Completed 200705/27/2014 RECORDED 09/04/20 08 9:10AM BY ISAÍAS STEARNS, DANITA ON/ADDEN DUM Cheyanne Paz, [facility] [address] [facility] [address], [place], [address], [facility] 4 09:57:04 Immuniza tion refused Completed 201105/27/2014 RECORDED 06/07/20 12 10:02AM BY ALVIN OLMOS MA, DANITA ON/ADDEN DUM Cheyanne Paz, [facility] [address] [facility] [address], [place], [address], [facility] 6 13:35:33 Candidal vulvovag initis 11600413 Completed 200705/27/2014 RECORDED 07/25/20 08 3:44PM BY DANITA DURANT ON/ADDEN DUM Cheyanne Paz, [facility] [address] [facility] [address], [place], [address], [facility] 6 13:35:32 Eruption [id number] Completed 09/18/2014 Cheyanne Paz, [facility] [address] [facility] [address], [place], [address], [facility] 4 11:21:43 Epigastr ic pain 18952940 Completed 200706/16/2014 RECORDED 10/01/20 08 2:26PM BY DANITA ELLIOTT ON/ADDEN DUM Cheyanne Paz, [facility] [address], [place], [address], [facility] 6 13:35:33 Generali zed abdomina l pain 762783460 Completed 200706/16/2014 RECORDED 07/25/20 08 3:44PM BY JUANY DURANTATI ON/ADDEN DUM Cheyanne Paz, [facility] [address] [facility] [address], [place], [address], [facility] 6 13:35:33 Abdomina l pain 98771014 Completed 201106/16/2014 RECORDED 06/07/20 12 10:02AM BY ALVIN OLMOS MA, JUANYATI ON/ADDEN DUM Alvin johnson MA null, [facility] 4 13:10:58 Diarrhea 16817361 Completed 201106/16/2014 RECORDED 06/07/20 12 10:02AM BY ALVIN OLMOS MA, JUANYATI ON/ADDEN DUM Aleksandra galeana MD [address] [facility] [address], [place], [address], [facility] 2 08:34:24 Acute lymphade nitis 10956688 Completed 200806/16/2014 RESOLVED DATE: 04/15/20 09; RECORDED 04/15/20 09 8:36AM BY ALEKSANDRA TORRES MD, ANNOTATI ON/ADDEN DUM Cheyanne Paz, [facility] [address] [facility] [address], [place], [address], [facility] 6 13:35:32 Patient status finding [id number] Completed 201206/16/2014 RECORDED 02/20/20 13 9:01AM BY CHARLENE KAY MA, DANITA ON/ADDEN DUM Cheyanne Paz, [facility] [address] [facility] [address], [place], [address], [facility] 6 13:35:33 Digestiv e symptom 133350920 Completed 201106/16/2014 RECORDED 06/07/20 12 10:02AM BY ALVIN OLMOS MA, ANNOTATI ON/ADDEN DUM Cheyanne Paz, [facility] [address], [place], [address], [facility] 6 13:35:33 Screenin g for malignan t neoplasm of breast Completed 201106/16/2014 RECORDED 06/07/20 12 10:01AM BY ALVIN OLMOS MA, ANNOTATI ON/ADDEN DUM Cheyanne Paz, [facility] [address], [place], [address], [facility] 6 13:35:33 Kidney stone 55310713 Completed 201206/16/2014 RECORDED 11/19/19 13 9:28AM BY ALVIN OLMOS MA, ANNOTATI ON/ADDEN DUM Aleksandra galeana MD [address], [place], [address], [facility] 2 08:35:45 Screenin g for malignan t neoplasm of cervix Completed 201106/16/2014 RECORDED 06/07/20 12 10:01AM BY ALVIN OLMOS MA, ANNOTATI ON/ADDEN DUM Cheyanne Paz, [facility] [address], [place], [address], [facility] 6 13:35:33 Chest pain 80576910 Completed 200806/16/2014 RECORDED 04/09/20 09 12:51PM BY ALVIN OLMOS MA, ANNOTATI ON/ADDEN DUM Cheyanne Paz, [facility] [address], [place], [address], [facility] 6 13:35:33 Contact dermatit is 50894391 Completed 201206/16/2014 RECORDED 01/17/20 13 12:53PM BY DANITA ALEX ON/ADDEN DUM [facility]yanne Paz, [facility] [address] [facility] [address], [place], [address], [facility] 6 13:35:32 Cough [id number] Completed 201206/16/2014 IMPRESSI ON: PT IS ALLERGIC TO CODEINE SO WILL STICK WIOTH OTC EXPECTOR ANT/COUG H SUPPRESS ANT. NO CURRENT EVIDENCE FOR BACTERIA L PROCESS BUT IF PERSISTA NT/WORSE OVER NEXT WEEK FURTHER EVAL AND COURSE OF ABX MAY BE WARRANTE D.; RECORDED 12/11/19 13 11:16AM BY DANITA ALEX ON/ADDEN DUM Kalpana Quigley MA null, [facility] 7 14:11:51 Dizzines s and giddines s 221799205 Completed 200706/16/2014 RECORDED 07/25/20 08 3:44PM BY DANITA DURANT ON/ADDEN DUM Cheyanne Paz, [facility] [address] [facility] [address], [place], [address], [facility] 6 13:35:33 Dysphagi a 09964022 Completed 200706/16/2014 RECORDED 10/24/20 08 10:16AM BY ALVIN OLMOS MA, ANNOTATI ON/ADDEN DUM Cheyanne Paz, [facility] [address] [facility] [address], [place], [address], [facility] 6 13:35:33 Dysuria 87444674 Completed 200706/16/2014 RECORDED 09/04/20 08 9:10AM BY DANITA COLE ON/ADDEN MEDHAT galeana MD [address], [place], [address], [facility] 2 08:34:36 Lymphade nopathy 69478173 Completed 200806/16/2014 RESOLVED DATE: 04/15/20 09; IMPRESSI ON: LEFT SIDED, MILD, NO CONCERNS , SEEMS VIRAL; RECORDED 04/15/20 09 8:37AM BY ALEKSANDRA TORRES MD, ANNOTATI ON/ADDEN MEDHAT Paz, [facility] [address] [facility] [address], [place], [address], [facility] 6 13:35:33 Enthesop athy of hip region 42335414 Completed 200706/16/2014 RECORDED 09/04/20 08 9:32AM BY ISAÍAS HARDING, DANITA ON/GORDON Paz, [facility] [address] [facility] [address], [place], [address], [facility] 6 13:35:33 Ganglion and cyst of synovium , tendon and bursa Completed 201106/16/2014 RECORDED 07/10/20 12 1:49PM BY DANITA ALEX/GORDON Paz, [facility] [address] [facility] [address], [place], [address], [facility] 6 13:35:33 Alopecia [id number] Completed 201306/16/2014 RECORDED 04/07/20 14 8:04AM BY DANITA ALEX/GORDON Paz, [facility] [address] [facility] [address], [place], [address], [facility] 6 13:35:32 Headache [id number] Completed 201306/16/2014 RECORDED 04/07/20 14 8:04AM BY DANITA ALEX ON/ADDEN DUM Aleksandra galeana MD [address] [facility] [address], [place] [place], [address], [facility] 2 08:34:43 Influenz a with respirat ory manifest ation other than pneumoni a Completed 201306/16/2014 IMPRESSI ON: RECOMMEN D SUPPORTI VE TX INCL. REST AND HYDRATIO N, START TAMIFLU; RECORDED 12/25/19 14 8:51AM BY DANITA ALEX ON/ADDEN DUM Cheyanne Paz, [facility] [address] [facility] [address], [place], [address], [facility] 6 13:35:32 Amputate d at hip 130387169 Completed 201106/16/2014 RECORDED 07/10/20 12 1:49PM BY DANITA ALEX ON/GORDON Paz, [facility] [address] [facility] [address], [place], [address], [facility] 6 13:35:33 Knee pain Completed 201106/16/2014 RECORDED 06/07/20 12 10:02AM BY ALVIN OLMOS MA, DANITA ON/ADDEN DUM Cheyanne Paz, [facility] [address] [facility] [address], [place], [address], [facility] 6 13:35:32 Sciatica 47802977 Completed 201106/16/2014 IMPRESSI ON: A HANDOUT WAS GIVEN WITH EXERCISE S. IF THIS DOESN'T HELP WE WILL DO A REFERRAL FOR A POSSIBLE INJECTIO N.; RECORDED 10/10/20 12 12:43PM BY DANITA ALEX ON/GORDON Paz, [facility] [address] [facility] [address], [place], [address], [facility] 6 13:35:32 Low back pain 157855705 Completed 201106/16/2014 IMPRESSI ON: X 2 DAYS, APPEARS MUSCULAR ; RECORDED 06/07/20 12 10:02AM BY ALVIN OLMOS MA, JUANYATI ON/ADDEN DUM Cheyanne Paz, [facility] [address], [place], [address], [facility] 6 13:35:32 Pain of breast 38750099 Completed 201206/16/2014 RECORDED 07/09/20 13 9:06AM BY DANITA ALEX ON/ADDEN DUM Aleksandra galeana MD [address] [facility] [address], [place], [address], [facility] 3 09:55:20 Influenz a vaccine needed 15133523303 06 Completed 200906/16/2014 RECORDED 09/02/20 10 2:35PM BY ERICH GOMEZ , OFFICE VISIT Cheyanne Paz, [facility] [address] [facility] [address], [place], [address], [facility] 6 13:35:33 Examinat ion for suspecte d mental disorder Completed 201106/16/2014 RECORDED 06/07/20 12 10:01AM BY ALVIN OLMOS MA, DANITA ON/ADDEN DUM Cheyanne Paz, [facility] [address] [facility] [address], [place], [address], [facility] 6 13:35:33 Disorder of upper respirat ory system 190083714 Completed 200706/16/2014 RECORDED 09/04/20 08 9:11AM BY DANITA COLE ON/ADDEN DUM Cheyanne Paz, [facility] [address] [facility] [address], [place], [address], [facility] 6 13:35:33 Shoulder joint pain 557873465 Completed 201106/16/2014 IMPRESSI ON: PROBABLE ROTATOR CUFF TENDINIT IS. WE DISCUSSE Papito A REFERRAL FOR AN INJECTIO N AND PT BUT SHE IS NOT INTEREST ED IN EITHER. INSTEAD SHE WAS GIVEN A HANDOUT WITH EXERCISE S AND SHE WILL TRY THESE AT HOME.; RECORDED 06/07/20 12 10:02AM BY ALVIN OLMOS MA, JUANYATI ON/ADDREBECCA Paz, [facility] [address] [facility] [address], [place], [address], [facility] 6 13:35:32 Onychia of finger 04530554 Completed 200806/16/2014 RECORDED 05/07/20 09 11:41AM BY JUANY FINNEYATI ON/GORDON Paz, [facility] [address] [address], [place], [address], [facility] 6 13:35:32 Pneumoni a 385244864 Completed 200706/16/2014 RESOLVED DATE: 03/17/20 08; RECORDED 03/17/20 08 5:11PM BY ALEKSANDRA TORRES MD, ANNOTATI ON/GORDON Paz, [facility] [address] [address], [place], [address], [facility] 6 13:35:32 Pre-surg gonzalo evaluati on Completed 200706/16/2014 RECORDED 03/17/20 08 5:11PM BY ALEKSANDRA TORRES MD, ANNOTATI ON/GORDON Paz, [facility] [address] [address], [place], [address], [facility] 6 13:35:33 Proteinu rogerio 30836573 Completed 200806/16/2014 RECORDED 10/21/20 09 10:20AM BY ALEKSANDRA TORRES MD, ANNOTATI ON/ADDEN DUM Cheyanne Paz, [facility] [address], [place], [address], [facility] 6 13:35:33 Eruption 899490905 Completed 201206/16/2014 AKOSUAI ON: WE WILL REFER HER TO HAKEEM BARRERA; RECORDED 07/09/20 13 9:06AM BY JENIFER PEACOCK I, ANNOTATI ON/ADDEN DUM Cheyanne Paz, [facility] [address] [facility] [address], [place], [address], [facility] 4 11:21:43 Pain in limb 31374837 Completed 201106/16/2014 RECORDED 06/07/20 12 10:02AM BY ALVIN OLMOS MA, ANNOTATI ON/ADDEN MEDHAT Paz, [facility] [address] [facility] [address], [place], [address], [facility] 6 13:35:33 Adult health examinat ion Completed 201106/16/2014 RECORDED 06/07/20 12 10:02AM BY ALVIN OLMOS MA, DANITA ON/ADDEN DUM Cheyanne Paz, [facility] [address] [facility] [address], [place], [address], [facility] 6 13:35:33 Screenin g for malignan t neoplasm of colon Completed 200806/16/2014 RECORDED 07/16/20 09 9:24AM BY ISAÍAS NEVAREZ, JUANYATI ON/ADDREBECCA Paz, [facility] [address] [facility] [address], [place], [address], [facility] 6 13:35:33 Telogen effluviu m 11652397 Active 2020 Ainsley Alva MA null, [facility] 3 14:15:15 Type 2 diabetes mellitus without complica tion 642023168 Completed 201206/16/2014 RECORDED 02/20/20 13 9:00AM BY CHARLENE KAY MA, DANITA ON/ADDEN DUM Cheyanne Paz, [facility] [address], [place], [address], [facility] 6 13:35:32 Uncontro lled type 2 diabetes mellitus 005237847 Completed 201206/16/2014 RECORDED 02/20/20 13 9:01AM BY HCARLENE KAY MA, DANITA ON/ADDEN DUM Cheyanne Paz, [facility] [address], [place], [address], [facility] 4 11:58:55 Derangem ent of knee 20925179 Completed 200806/16/2014 RECORDED 05/07/20 09 11:41AM BY ISAÍAS NEVAREZ, DANITA ON/ADDEN DUM Cheyanne Pza, [facility] [address], [place], [address], [facility] 6 13:35:32 Urinary tract infectio us disease 68408359 Completed 200706/16/2014 RECORDED 09/04/20 08 9:10AM BY ISAÍAS STEARNS, DANITA ON/ADDEN DUM Cheyanne Paz, [facility] [address], [place], [address], [facility] 4 09:57:04 Immuniza tion refused Completed 201106/16/2014 RECORDED 06/07/20 12 10:02AM BY ALVIN OLMOS MA, DANITA ON/ADDEN DUM Cheyanne Paz, [facility] [address], [place], [address], [facility] 6 13:35:33 Candidal vulvovag initis 67781856 Completed 200706/16/2014 RECORDED 07/25/20 08 3:44PM BY DANITA DURANT ON/GORDON Paz [facility] [address], [place], [address], [facility] 6 13:35:32 Allergic rhinitis 74931214 Active 2020 ISAÍAS Manuel, [facility] 3 14:15:16 Otitis media 42655987 Completed 03/02/2017 ISAÍAS Contreras, [facility] 7 14:12:06 Acute allergic reaction 148994081 Completed 03/02/2017 ISAÍAS Contreras, [facility] 7 14:11:26 Peripher al neuropat hy due to type 2 diabetes mellitus 31728037176 07 Active 2020 ISAÍAS Manuel, [facility] 3 14:15:15 Muscle pain 13485727 Completed 03/02/2017 ISAÍAS Contreras, [facility] 7 14:12:10 Heel pain 9865722 Active 2014 Seen at [facility] ISAÍAS Manuel, [facility] 3 14:15:15 Calcanea l spur 25603640 Active 2020 ISAÍAS Manuel, [facility] 3 14:15:16 Pain of breast 08440401 Completed 202005/03/2023 Removal Reason: resolved Aleksandra galeana MD [address], [place], [address], [facility] 3 09:55:20 Acute upper respirat ory infectio n 09019785 Completed 03/02/2017 ISAÍAS Contreras, [facility] 7 14:11:55 Cough 98671750 Completed 03/02/2017 ISAÍAS Contreras, [facility] 7 14:11:51 Achilles tendinit is 97548460 Active 2014 Seen at [facility] and referred to PT ISAÍAS Manuel, [facility] 3 14:15:15 Abdomina l pain 72640137 Completed 12/11/2018 ISAÍAS Bradshaw, [facility] 4 13:10:58 Type 2 diabetes mellitus 99783168 Completed 02/09/2017 Aleksandra galeana MD [address], [place], [address], [facility] 7 06:38:11 Vitamin D deficien cy 98395067 Active 2015 on Vit D suppleme nt ISAÍAS Bradshaw, [facility] 7 09:12:15 Acute pharyngi tis 865716880 Completed 03/02/2017 ISAÍAS Contreras, [facility] 7 14:11:35 Diarrhea 49310053 Completed 03/02/2017 Aleksandra galeana MD [address], [place], [address], [facility] 2 08:34:24 Clostrid ioides difficil e infectio n 307188199 Completed 202005/03/2023 Removal Reason: resolved Aleksandra galeana MD [address], [place], [address], [facility] 3 09:54:06 Gastroes ophageal reflux disease 755906564 Active 2020 Aleksandra galeana MD [address], [place], [address], [facility] 3 09:54:21 Chronic diarrhea of unknown origin 27993215 Completed 202008/03/2021 Removal Reason: resolved Aleksandra galeana MD [address] [facility] [address], [facility] [place], [address], [facility] 1 20:24:38 Dysuria 15299928 Completed 03/02/2017 Aleksandra galeana MD [address] [facility] [address], [facility] [place], [address], [facility] 2 08:34:36 Uncontro lled type 2 diabetes mellitus 202688944 Completed 02/09/2017 Cheyanne Paz [facility] [address] [facility] [address], [facility] [place], [address], [facility] 4 11:58:55 Hyperten sive renal disease 77604568 Completed 08/03/2021 Removal Reason: duplicat e Aileen Rodríguez null, [facility] 1 14:20:22 Inflamma tion of joints of bilatera l shoulder regions 95068816107 91426 Active 2016 arthriti s L>R ISAÍAS Manuel, [facility] 3 14:15:15 Lumbar spondylo sis 788625948 Active 2017 Seen at [facility] and treated with medrol. ISAÍAS Manuel, [facility] 3 14:15:15 Dupuytre n's disease of palm 095343122 Active 2017 Left index finger. Seen at [facility] ISAÍAS Manuel [facility] 3 14:15:15 Acquired trigger finger 6566494 Active 2017 Right index and right small finger; injected . 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 24224179217 1 Completed 201708/03/2021 Removal Reason: differen t stage Aleksandra galeana MD [address] [facility] [address], [place], [address], [facility] 1 20:25:11 Chronic kidney disease stage 2 847733725 Completed 201705/04/2021 Removal Reason: CKD 3 based on GFRs Brando Samuels MD null, [facility] 1 16:16:03 Kidney stone 03269914 Active 2018 Followed by urology Ainsley Alva MA null, [facility] 3 14:15:16 Recurren t major depressi on in full remissio n 43074961 Active 2019 Ainsley Alva MA null, [facility] 3 14:15:16 Bilatera l arthriti s of knees 78932046910 44562 Active 2019 Seen at [facility] and injected ISAÍAS Manuel, [facility] 3 14:15:15 Cataract 190133136 Active 2020 ISAÍAS Manuel, [facility] 3 14:15:15 Mitral valve disorder 47407632 Active 2020 Ainsley Alva MA null, [facility] 3 14:15:15 Dupuytre n's contract ure of finger 861543626 Completed 202008/03/2021 bilatera l hands Removal Reason: Veronica galeana MD [address] [facility] [address], [place], [address], [facility] 1 20:37:59 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 42809304887 9109 Active 2020 Ainsley Alva MA null, [facility] 3 14:15:15 Proteinu rogerio 20960563 Completed 202005/28/2021 Kalpana Quigley MA null, [facility] 4 11:36:13 Renal osteodys trophy 81324926 Completed 202005/31/2021 Kalpana Quigley MA null, [facility] 4 11:36:13 Retinopa thy due to diabetes mellitus 0059323 Active 2020 Ainsley Alva MA null, [facility] 3 14:15:16 Chronic kidney disease due to benign hyperten sofia 64347415878 9106 Completed 202008/03/2021 Removal Reason: Veronica galeana MD [address] [facility] [address] [address], [facility] 3 09:53:49 Lichen sclerosu s 813775560 Active 2020 Ainsley Alva MA null, [facility] 3 14:15:16 Cystocel e 417470518 Active 2020 mild ISAÍAS Manuel, [facility] 3 14:15:15 Angiomyo lipoma of right kidney 01627281034 03553 Active 2020 ISAÍAS Manuel, [facility] 2 10:11:25 Hyperten sive renal disease 16809343 Active 2020 Ainsley Alva MA null, [facility] 3 14:15:15 Palpitat ions 75041989 Active 2021 Ainsley Alva MA null, [facility] 2 10:11:25 Constipa tion 31173174 Active 2021 Ainsley Alva MA null, [facility] 2 10:11:25 Iron deficien cy anemia 81875594 Active 2021 Ainsley Alva MA null, [facility] 2 10:11:25 Otalgia 31173402 Completed 202103/21/2024 Alvin johnson MA null, [facility] 4 10:02:07 Bilatera l cataract s 75105098 Active 2021 ISAÍAS Manuel, [facility] 2 09:54:06 Loss of hair 506363035 Active 2021 ISAÍAS Manuel, [facility] 2 09:54:06 Renal disorder due to type 2 diabetes mellitus 475644075 Active 2021 ISAÍAS Manuel, [facility] 3 14:15:16 Chronic kidney disease stage 3B 410882172 Active 2021 Followed by renal. 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 19664132 Active 2021 ISAÍAS Bradshaw, [facility] 2 09:24:54 Graves' disease 431483991 Active 2008 ISAÍAS Bradshaw, [facility] 2 09:24:54 Diarrhea 34666756 Completed 202109/05/2022 Removal Reason: resolved Aleksandra galeana MD [address], [place], [address], [facility] 2 08:34:24 Abdomina l pain 87804256 Completed 202102/01/2024 ISAÍAS Bradshaw, [facility] 4 13:10:58 Mitral valve stenosis 98857768 Active 2021 ISAÍAS Manuel, [facility] 3 14:15:16 Prolifer ative retinopa thy due to diabetes mellitus 45000603 Active 2021 ISAÍAS Manuel, [facility] 3 14:15:16 Dysuria 81330751 Completed 202109/05/2022 Removal Reason: resolved Aleksandra galeana MD [address], [place], [address], [facility] 2 08:34:36 Pain of right shoulder joint 58618036982 195461 Active 2021 ISAÍAS Manuel, [facility] 3 14:15:15 Bilatera l shoulder joint pain 74953645834 517675 Active 2021 Seen at [facility]. No treatmen t offered. She will return if she develops pain. ISAÍAS Manuel, [facility] 3 14:15:15 Pain in right foot 25377179930 9107 Completed 202103/21/2024 ISAÍAS Bradshaw, [facility] 4 10:02:16 Cellulit is of right foot 41637485506 462960 Completed 202105/03/2023 Removal Reason: resolved Aleksandra galeana MD [address], [place], [address], [facility] 3 09:53:57 Bone density finding 275652852 Active 2022 Ainsley Alva MA null, [facility] 3 14:15:15 Pain in left foot 52017819195 9107 Completed 202203/21/2024 Alvin johnson MA null, [facility] 4 10:02:30 Fatigue 12592978 Active 2022 Ainsley Alva MA null, [facility] 3 14:15:[address] [facility] [facility] calc[facility] 115851489 Active 2022 Ainsley Alva MA null, [facility] 3 14:15:15 Allergic reaction 558638011 Active 2022 Ainsley Alva MA null, [facility] 3 14:15:16 Cellulit is of periorbi rekha region of left eye 63820397673 9109 Active 2022 Ainsley Alva MA null, [facility] 3 14:15:15 Tear film insuffic iency 88802464 Active 2022 Ainsley Alva MA null, [facility] 3 14:15:16 Urinary tract infectio us disease 66852988 Completed 202203/21/2024 Cheyanne Paz, [facility] [address], [place], [address], [facility] 4 09:57:04 Atypical facial pain 56637900 Active 2022 Ainsley Alva MA null, [facility] 3 14:15:16 Pruritic rash 49247358 Active 2022 Ainsley Alva MA null, [facility] 3 14:15:16 Glaucoma suspect 304208356 Active [address] Guerin. Aleksandra galeana MD [address], [place], [address], [facility] 3 21:22:57 Pain in pelvis 21466989 Active 2022 Cheyanne Paz, [facility] [address] [facility] [address], [place], [address], [facility] 3 13:27:00 Uterovag inal prolapse 54528978 Active 2022 Cheyanne Paz, [facility] [address] [facility] [address], [place], [address], [facility] 3 13:31:37 Thyroid stimulat ing hormone level above referenc e range 798635346 Active 2022 Cheyanne Paz, [facility] [address] [facility] [address], [place], [address], [facility] 3 09:52:13 Pain in left lower limb 719544864 Completed 202203/21/2024 Alvin johnson MA null, [facility] 4 10:02:22 Pain of left knee joint 08047330955 4107 Active 2022 Cheyanne Paz, [facility] [address] [facility] [address], [place], [address], [facility] 3 14:17:10 Effusion of joint of left knee 24946505886 9105 Active 2022 CATHIE Le [address], [place], [address], [facility] 3 15:22:51 Herpes zoster 6327534 Active 2023 Avel Melvin PA-C [address], [place], [address], [facility] 4 20:19:57 Anemia 387740258 Active 2020 Kalpana Quigley MA null, [facility] 4 10:02:45 Chronic kidney disease due to benign hyperten sofia 88880252461 9106 Active 2020 Kalpana Quigley MA null, [facility] 4 10:02:45 Type 2 diabetes mellitus 18633913 Active 1981 Kalpana Quigley MA null, [facility] 4 10:02:45 Hypercal ciuria 62921674 Active 2021 Kalpana Quigley MA null, [facility] 4 10:02:46 Chronic kidney 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 94027088700 8 Completed 202005/31/2021 Kalpana Quigley MA null, [facility] 4 11:36:13 Postherp etic neuralgi a 4376619 Active 2023 CATHIE Le [address] [facility] [address], [place], [address], [facility] 4 10:38:04 Injury of toe 497783747 Active 2023 CATHIE Le [address] [facility] [address], [place], [address], [facility] 4 10:43:12 Edema of lower extremit y 282733290 Active 2023 CATHIE Le [address], [place], [address], [facility] 4 13:40:37 Posterio r rhinorrh ea 09746051 Active 2023 Cheyanne Paz, [facility] [address] [facility] [address], [place], [address], [facility] 4 13:43:26 Hyponatr emia 99216074 Active 2023 Cheyanne Paz, [facility] [address] [facility] [address], [place], [address], [facility] 4 11:57:03 Sacroili ac joint pain 917887655 Active 2023 [facility] [address] [facility] [address], [place], [address], [facility] 4 13:49:18 Heart murmur 92458120 Active 2023 Cheyanne Paz, [facility] [address] [facility] [address], [place], [address], [facility] 4 13:50:04 Abdomina l pain 58021422 Active 2021 Kalpana Quigley MA null, [facility] 4 11:30:12 Hyperten sofia monitori ng status 075790988 Active 2021 Kalpana Quigley MA null, [facility] 4 11:30:12 Unintent ional weight loss 490810926 Active 2023 Cheyanne Paz, [facility] [address] [facility] [address], [place], [address], [facility] 4 13:03:19 Eruption 379514255 Active 2023 [facility] P[facility] [address] [facility] [address], [place], [address], [facility] 4 11:21:43 Rosacea, papular type 62569323 Active 2023 Cheyanne Paz, [address] [facility] [address], [place], [address], [facility] 4 11:55:54 Chronic hoarsene ss 37861710987 05 Active 2023 Cheyanne Paz, [address], [place], [address], [facility] 4 10:27:37 Urinary tract infectio us disease 66298493 Active 2023 Cheyanne Paz, [address], [place], [address], [facility] 4 09:57:03 Urinary incontin ence 312587983 Active 2023 Cheyanne Paz, [address], [place], [address], [facility] 4 11:01:59 Uncontro lled type 2 diabetes mellitus 671039443 Active 2023 Cheyanne Paz, [address], [place], [address], [facility] 4 11:58:54 Notes:Some problems listed i n Documents: #[id number], #[id number] could not be added to this patient's chart. Please review these documents and add these problems to the patient's chart manually as needed. Problem Notes None recorded. Procedures Surgical History Date Name Laterality Status Provider Name and Address Organization Details Recorded Time 08/10 colpocleisis completed Alvin durán MA [facility] 3 13:19:53 05/03 Advanced Care Planning completed Aleksandra Polk MD [address] [facility] [address], [place], [address] , [facility] 3 09:57:20 05/03 Diabetic Foot Exam (Monofilament) completed Aleksandra Polk MD [address] [facility] [address], [place], [address] , [facility] 3 09:57:16 01/09 Most Recent Mammogram completed Luda Hurd [facility] 3 12:27:40 01/09 Mammogram Screening completed Luda Hurd [facility] 3 12:27:29 07/05 Date of Last Pap Smear completed Vika Kumar [facility] 2 14:54:53 12/30 esophagogastroduodenoscopy completed Grace Kumar [facility] 2 13:50:11 05/27 Diabetic Foot Exam (Monofilament) completed Mariaelena Stearns MA [facility] 1 09:15:50 11/11 Diabetic Foot Exam (Monofilament) completed Aleksandra Polk MD [address] [facility] [address], [place], [address] , [facility] 1 06:38:29 07/29 Diabetic Foot Exam (Monofilament) completed Aleksandra Polk MD [address] [facility] [address], [place], [address] , [facility] 0 12:59:27 04/28 Six-Item Cognitive Test completed Kalpana Quigley MA [facility] 0 11:43:00 02/13 Diabetic Foot Exam (Monofilament) completed iGssell Mccann [facility] 0 09:21:20 10/17 Gastric emptying imag study completed Minal Clayton [facility] 9 14:59:57 01/17 Mini-Cog Test completed Jenifer Guevara [facility] 9 14:26:04 03/27 Diabetic Foot Exam (Monofilament) completed Jenifer Guevara [facility] 8 14:37:59 12/18 Mini-Cog Test completed Jenifer Guevara [facility] 8 14:28:52 10/23 Fall Risk Assessment completed Jenifer Guevara [facility] 7 14:40:42 10/23 Mini-Cog Test completed Jenifer Guevara [facility] 7 14:40:54 11/18 Most Recent Bone Density completed Alvin durán MA [facility] 7 14:10:33 11/18 Dxa bone density study completed Alvin durán MA [facility] 7 14:10:24 05/18 Sigmoidoscopy for bleeding completed Janes Gudino [facility] 6 10:51:50 05/18 transabdominal gastroscopy completed Nelia durán MA [facility] 0 09:39:06 10/17 Date of Last Colonoscopy completed Merlyn Wahl [facility] 6 14:39:37 10/17 Colonoscopy completed Charlene Kay MA [facility] 6 13:11:33 11/06 lithotripsy completed Alvin durán MA [facility] 9 10:54:38 Cholecystectomy completed Alvin durán MA [facility] 1 10:29:35 Imaging Results None recorded. Procedure Notes None recorded. Medical Equipment None Reported. Allergies Allergen ID Allergen Name Allergen Category Reaction Reaction Severity Criticality Documentation Date Start Date Code Code System Note Provider Name and Address Organization Details Recorded Time 71478 codeine medicatio n other Not available Not available 05/20/20142020 2670 RxNorm Maria Teresa Nicholas mack [facility] 1 11:54:07 09163 Medicinal product containin g penicilli n and acting as antibacte rial agent (product) medicatio n Not available Not available Not available 05/20/2014 59798 05 SNOMED Cheyanne Paz, [address], [place], [address], [facility] 5 16:02:19 10366 Substance with sulfonami de structure and antibacte rial mechanism of action (substanc e) medicatio n Not available Not available Not available 12/19/2014 24009 8003 SNOMED Cheyanne Paz, [address] [facility] [address], [place], [phone], [facility] 5 16:02:19 82479 Iodinated contrast media (substanc e) medicatio n Not available Not available Not available 01/05/2016 77628 2004 SNOMED Anya giron [facility] 6 12:59:58 78282 prednison e medicatio n other Not available Not available 06/16/20172020 8640 RxNorm Maria Teresa Ferreirageorge giron [facility] 1 11:54:07 52759 blue dye medicatio n Not available Not available Not available 05/01/2020 ISAÍAS Bradshaw [facility] 0 16:28:50 52832 red dye food,medi cation Not available Not available Not available 05/01/2020 ISAÍAS Bradshaw [facility] 0 16:28:55 20520 yellow dye medicatio n Not available Not available Not available 05/01/2020 Alvin johnson ISAÍAS mack, [facility] 0 16:28:59 33165 amlodipin e medicatio n other Not available Not available 09/23/20202020 94449 RxNorm Kalpana Quigley MA mack, [facility] 4 10:02:32 30345 cortisone medicatio n other Not available Not available 05/31/20212020 2878 RxNorm Maria Teresa Nicholas mack, [facility] 1 11:54:07 52903 quinoline yellow Not available Not available Not available Not available 05/31/20212020 76579 64 [facility] Medications Name Sig Start Date Stop Date Status Note LastModified by Organization Details LastModified Time Prescript ion - Prior Authoriza tion Request 06/13 completed Not Available Not Available Not Available Pravachol 40 mg tablet Take 1 tablet every day by oral route for 90 days. 2013 active Not Available Not Available Not Avai lable losartan 50 mg tablet Take 1 tablet every day by oral route for 30 days. 2014 active Not Available Not Available Not Avai lable nifedipin e ER 30 mg tablet,ex tended release 24 hr TAKE 3 TABLETS BY MOUTH EVERY DAY 05/28 completed Not Available Not Available Not Available cyclobenz aprine 10 mg tablet Take 1 tablet 3 times a day by oral route for 7 days. 07/27 completed Not Available Not Available Not Available furosemid e 40 mg tablet TAKE 1 TABLET BY MOUTH EVERY DAY 06/27 completed Not Available Not Available Not Available atorvasta tin 40 mg tablet TAKE ONE TABLET BY MOUTH DAILY AT BEDTIME active Not Available Not Available No t Available ivermecti n 3 mg tablet TAKE 4 TABLETS BY MOUTH AND THEN REPEAT IN 1 WEEK 04/28 completed Not Available Not Available Not Available betametha sone valerate 0.1 % topical ointment Apply 1 applicat ion as needed by topical route as directed for 14 days. 07/24 completed Not Available Not Available Not Available atorvasta tin 80 mg tablet TAKE 1 TABLET BY MOUTH ONCE DAILY AT BEDTIME 11/22 completed Not Available Not Available Not Available ascorbic acid (vitamin C) 1,000 mg tablet Take 1 tablet every day by oral route. active Not Available Not Available No t Available rosiglita zone 8 mg tablet DAILY 2006 active RECORDED 09/25/20 07 8:53AM BY ALEKSANDRA TORRES MD, REFILL REQUEST; Not Available Not Available Not Available clonidine HCl 0.1 mg tablet Take 1 tablet twice a day by oral route. 01/17 completed Not Available Not Available Not Available doxycycli ne hyclate 100 mg capsule TAKE ONE CAPSULE BY MOUTH TWICE A DAY 05/02 completed Not Available Not Available Not Available atorvasta tin 20 mg tablet TAKE ONE TABLET BY MOUTH EVERY DAY 08/14 completed Not Available Not Available Not Available carvedilo l 12.5 mg tablet TAKE ONE TABLET BY MOUTH EVERY MORNING AND TAKE ONE TABLET BY MOUTH EVERY EVENING WITH MEALS active Not Available Not Available No t Available ketoconaz ole 2 % shampoo USE A SHAMPOO 2-3 TIMES A WEEK 02/23 completed Not Available Not Available Not Available torsemide 20 mg tablet TAKE ONE TABLET BY MOUTH EVERY DAY 02/23 completed Not Available Not Available Not Available clindamyc in HCl 300 mg capsule TAKE ONE CAPSULE BY MOUTH TWICE A DAY 07/19 completed Not Available Not Available Not Available Cardura 4 mg tablet Take 2 mg every day by oral route in the evening. 05/01 completed Not Available Not Available Not Available trazodone 50 mg tablet 09/08 completed RECORDED 09/08/20 10 10:38AM BY DANITA FLORES ON/GORDON DUM; Not Available Not Available Not Available diltiazem ER (XR/XT) 240 mg capsule,e xtended release 24 hr, controlle d 240 mg by oral route. 05/28 completed Not Available Not Available Not Available cetirizin e 10 mg tablet Take 1 tablet every day by oral route as directed for 30 days. 01/17 completed Not Available Not Available Not Available azithromy kierra 250 mg tablet TAKE 2 TABLETS ON FIRST DAY , THEN 1 TABLET DAILY FOR 4 DAYS 09/30 completed Not Available Not Available Not Available lidocaine 5 % topical cream APPLY THREE TIMES A DAY NEEDED 07/19 completed Not Available Not Available Not Available glyburide 5 mg tablet TWO TIMES DAILY 02/24 completed RECORDED 02/25/20 14 8:45AM BY ALEKSANDRA TORRES MD, ANNOTATI ON/ADDEN DUM; Not Available Not Available Not Available ibuprofen 800 mg tablet TAKE 1 TABLET 3 TIMES A DAY WITH MEALS 05/21 completed Not Available Not Available Not Available nifedipin e ER 90 mg tablet,ex tended release TAKE ONE TABLET BY MOUTH EVERY DAY DIRECTED active Not Available Not Available No t Available fluconazo le 150 mg tablet BERENICE AND PRN 08/29 completed RECORDED 09/01/20 08 7:41PM BY KADY RANGEL, MEDICATI ON AUTO-TONO CTIVATIO N; Not Available Not Available Not Available benzonata te 200 mg capsule Take 1 capsule 3 times a day by oral route as directed for 14 days. 2014 active Not Available Not Available Not Avai lable metoprolo l succinate ER 50 mg tablet,ex tended release 24 hr Take 1 tablet every day by oral route as directed for 30 days. 07/20 completed Not Available Not Available Not Available valacyclo vir 1 gram tablet TAKE ONE TABLET BY MOUTH THREE TIMES A DAY 12/08 completed Not Available Not Available Not Available hydrocodo ne 5 mg-acetam inophen 325 mg tablet TAKE 1 TABLET BY MOUTH EVERY 4 TO 6 HOURS NEEDED FOR SEVERE PAIN 01/02 completed Not Available Not Available Not Available senna 8.6 mg tablet TAKE TWO TABLETS BY MOUTH EVERY DAY NEEDED active Not Available Not Available No t Available diltiazem CD 240 mg capsule,e xtended release 24 hr TAKE ONE CAPSULE BY MOUTH EVERY DAY DIRECTED 05/21 completed Not Available Not Available Not Available sucralfat e 1 gram tablet Take 1 tablet twice a day by oral route for 7 days. 08/01 completed Not Available Not Available Not Available spironola ctone 25 mg-hydroc hlorothia zide 25 mg tablet TAKE 1 TABLET BY MOUTH ONCE DAILY 04/28 completed Not Available Not Available Not Available FreeStyle Lancets 28 gauge USE TO TEST BLOOD SUGAR 3 TIMES DAILY active Not Available Not Available No t Available ondansetr on HCl 4 mg tablet 02/06 completed Not Available Not Available Not Available famotidin e 40 mg tablet Take 1 tablet every day by oral route for 30 days. 04/28 completed Not Available Not Available Not Available prednison e 20 mg tablet Take 2 tablets every day by oral route as directed for 5 days. 2015 active Not Available Not Available Not Avai lable lovastati n 40 mg tablet DAILY 05/13 completed RECORDED 05/13/20 14 8:54AM BY ALEKSANDRA TORRES MD, DANITA ON/ DUM; Not Available Not Available Not Available doxycycli ne hyclate 50 mg capsule 04/28 completed Not Available Not Available Not Available pimecroli mus 1 % topical cream 04/28 completed Not Available Not Available Not Available clobetaso l 0.05 % topical cream APPLY A THIN LAYER TO THE AFFECTED AREA(S) BY TOPICAL ROUTE 2 TIMES PER DAY x 30 days 07/24 completed Not Available Not Available Not Available Lantus U-100 Insulin 100 unit/mL subcutane ous solution 6-18 units per sliding scale at night 06/27 completed Not Available Not Available Not Available clindamyc in HCl 150 mg capsule 09/23 completed Not Available Not Available Not Available pioglitaz one 45 mg tablet QD 02/25 completed RECORDED 02/26/20 08 1:18PM BY SRIDHAR Mcgaryr NP, DANITA ON/ DUM; Not Available Not Available Not Available topiramat e 25 mg tablet 04/28 completed Not Available Not Available Not Available hydralazi ne 25 mg tablet TAKE TWO TABLET BY MOUTH THREE TIMES A DAY 01/02 completed Not Available Not Available Not Available amlodipin e 2.5 mg tablet Take 1 tablet every day by oral route for 90 days. 01/18 completed Not Available Not Available Not Available Sudafed Sinus Extra Strength 30 mg-500 mg tablet BID 04/07 completed RECORDED 04/07/20 07 10:21AM BY ALEKSANDRA TORRES MD, MEDICATI ON AUTO-TONO CTIVATIO N; Not Available Not Available Not Available metronida zole 500 mg tablet Take by oral route for 14 days. 09/02 completed Not Available Not Available Not Available chlorthal idone 25 mg tablet Take 1 tablet every day by oral route. 04/10 completed Not Available Not Available Not Available ciproflox acin 250 mg tablet TAKE ONE TABLET BY MOUTH TWICE A DAY FOR 3 DAYS 05/27 completed Not Available Not Available Not Available amlodipin e 5 mg tablet TAKE ONE TABLET BY MOUTH EVERY DAY 03/29 completed Not Available Not Available Not Available chlorthal idone 50 mg tablet Take 1 tablet every day by oral route for 90 days. 04/10 completed Not Available Not Available Not Available Westcort 0.2 % topical cream TWO TIMES DAILY 09/08 completed RECORDED 09/08/20 10 10:38AM BY ALEXIS SIMON, ANNOTATI ON/GORDON MELÉNDEZ;THIS ORDER DISCONTI NUED PER MEDI-SPA N. Not Available Not Available Not Available valacyclo vir 500 mg tablet 1 tablet tid 01/22 completed Not Available Not Available Not Available ciproflox acin 500 mg tablet Take 1 tablet every 12 hours by oral route as directed for 5 days. 08/01 completed Not Available Not Available Not Available omeprazol e 40 mg capsule,d elayed release Take 1 capsule every day by oral route for 30 days. 04/28 completed Not Available Not Available Not Available doxycycli ne monohydra te 100 mg tablet 04/28 completed Not Available Not Available Not Available tramadol 50 mg tablet TAKE ONE TABLET BY MOUTH EVERY 6 HOURS DIRECTED FOR 5 DAYS FOR PAIN 01/02 completed Not Available Not Available Not Available acetamino phen 500 mg tablet TAKE ONE TABLET BY MOUTH EVERY 4 HOURS NEEDED FOR PAIN 05/28 completed Not Available Not Available Not Available triamcino lone acetonide 0.1 % topical cream Apply 1 applicat ion every day by topical route for 30 days. 05/21 completed Not Available Not Available Not Available spironola ctone 25 mg tablet 25 mg by oral route. 05/28 completed Not Available Not Available Not Available simvastat in 40 mg tablet DAILY 06/13 completed RECORDED 06/13/20 11 8:47AM BY ALEKSANDRA TORRES MD, DANITA ON/ADD DUM; Not Available Not Available Not Available carvedilo l 3.125 mg tablet TAKE ONE TABLET BY MOUTH TWICE A DAY WITH FOOD 06/27 completed Not Available Not Available Not Available levothyro xine 25 mcg tablet TAKE ONE TABLET BY MOUTH EVERY DAY 04/03 completed also takes 50 mcg tablet for total of 75 mcg Not Available Not Available Not Available acetamino phen ER 650 mg tablet,ex tended release TAKE TWO TABLETS BY MOUTH EVERY 8 HOURS DIRECTED active Not Available Not Available No t Available levothyro xine 75 mcg tablet TAKE ONE TABLET BY MOUTH EVERY DAY DIRECTED 05/27 completed Not Available Not Available Not Available ketorolac 0.5 % eye drops Instill 1 drop 4 times a day by ophthalm ic route for 40 days. 01/11 completed Not Available Not Available Not Available tetracycl ine 250 mg capsule BID 2007 active RECORDED 02/26/20 08 1:17PM BY SRIDHAR Mcgarry NP, DANITA ON/ADD DUM; Not Available Not Available Not Available meloxicam 7.5 mg tablet TAKE ONE TABLET BY MOUTH TWICE A DAY DIRECTED 10/12 completed Not Available Not Available Not Available levothyro xine 100 mcg tablet TAKE 1 TABLET BY MOUTH EVERY DAY 08/14 completed Not Available Not Available Not Available levothyro xine 88 mcg tablet TAKE ONE TABLET BY MOUTH EVERY DAY 03/03 completed Not Available Not Available Not Available Sure Comfort Insulin Syringe 1 mL 28 gauge x 1/2 USE TO INJECT INSULIN THREE TIMES DAILY 2014 active Not Available Not Available Not Avai lable clonidine HCl 0.2 mg tablet 1 tablet given in office 2014 active Not Available Not Available Not Avai lable Deep Sea Nasal 0.65 % spray aerosol USE TWO SPRAYS IN EACH NOSTRIL FOUR TIMES A DAY NEEDED FOR DRY NASAL PASSAGES FOR 7 DAYS 03/22 completed Not Available Not Available Not Available famotidin e 20 mg tablet Take 20 mg by oral route. 08/03 completed Headache s Not Available Not Available Not Available prednisol one acetate 1 % eye drops,[employer] INSTILL 1 DROP IN EACH EYE THREE TIMES DAILY FOR 1 WEEK THEN DECREASE TO TWICE DAILY 05/28 completed Not Available Not Available Not Available methocarb tata 750 mg tablet Take by oral route for 10 days. 02/25 completed Not Available Not Available Not Available famciclov ir 500 mg tablet TAKE ONE TABLET BY MOUTH TWICE A DAY 08/14 completed Not Available Not Available Not Available nifedipin e ER 60 mg tablet,ex tended release 24 hr TAKE ONE TABLET BY MOUTH EVERY MORNING 08/14 completed Not Available Not Available Not Available IBU 600 mg tablet TAKE 1 TABLET BY MOUTH EVERY 6 HOURS NEEDED FOR MODERATE PAIN SCALE 4-6 03/04 completed Not Available Not Available Not Available sodium bicarbona te 650 mg tablet DISSOLVE AND TAKE ONE TABLET BY MOUTH EVERY MORNING AND DISSOLVE AND TAKE ONE TABLET BY MOUTH EVERY EVENING active 07/04/24 pt is doing this 3 x daily Not Available Not Available Not Available metronida zole 0.75 % lotion APPLY A THIN LAYER TO AFFECTED AREAS EVERY MORNING AND EVERY EVENING NEEDED active Not Available Not Available No t Available amlodipin e 10 mg tablet 10 mg by oral route. 07/12 completed Not Available Not Available Not Available torsemide 5 mg tablet TAKE ONE TABLET BY MOUTH EVERY DAY 03/04 completed Not Available Not Available Not Available hydrocort isone 1 % topical cream APPLY TO THE AFFECTED AREA(S) BY TOPICAL ROUTE ONCE DAILY 01/21 completed Not Available Not Available Not Available gemfibroz il 600 mg tablet 03/02 completed RECORDED 03/02/20 10 9:13AM BY ISAÍAS STEARNS, OFFICE VISIT; Not Available Not Available Not Available levothyro xine 50 mcg tablet TAKE TWO TABLETS BY MOUTH TWICE A DAY active Not Available Not Available No t Available cephalexi n 500 mg capsule TAKE ONE CAPSULE BY MOUTH THREE TIMES A DAY 01/02 completed Not Available Not Available Not Available pantopraz ole 40 mg tablet,de layed release Take 1 tablet every day by oral route as needed. active Not Available Not Available No t Available erythromy kierra 5 mg/gram (0.5 %) eye ointment APPLY TO THE EYELIDS FOUR TIMES A DAY 01/22 completed Not Available Not Available Not Available oseltamiv ir 75 mg capsule TWO TIMES DAILY 12/15 completed RECORDED 12/25/19 14 8:51AM BY MEMO GAYLE PA-C, MEDICATI ON AUTO-TONO CTIVATIO N; Not Available Not Available Not Available ferrous sulfate 325 mg (65 mg iron) tablet Take 1 tablet every day by oral route. 08/14 completed Not Available Not Available Not Available metformin 1,000 mg tablet TAKE ONE TABLET(S ) BY MOUTH TWICE DAILY 2013 active Not Available Not Available Not Avai lable esomepraz ole magnesium 40 mg capsule,d elayed release TAKE ONE CAPSULE BY MOUTH EVERY DAY active Not Available Not Available No t Available ranitidin e 150 mg tablet Take 1 {tbl} by oral route. 02/23 completed Not Available Not Available Not Available dexametha sone 4 mg tablet TAKE ONE TABLET BY MOUTH EVERY DAY DIRECTED FOR 5 DAYS 03/22 completed Not Available Not Available Not Available ranitidin e 300 mg capsule Take 1 capsule every day by oral route for 90 days. 07/27 completed Not Available Not Available Not Available lidocaine 5 % topical patch APPLY ONE PATCH TOPICALL Y ONCE A DAY. MAY WEAR UP TO 12 HOURS active Not Available Not Available No t Available metronida zole 0.75 % topical cream APPLY A THIN LAYER TOPICALL Y TWICE DAILY TO AFFECTED AREAS IN THE MORNING AND EVENING NEEDED active Not Available Not Available No t Available hydrochlo rothiazid e 12.5 mg capsule 12.5 mg by oral route. 05/28 completed Not Available Not Available Not Available Demadex 10 mg tablet Take 1 tablet every day by oral route. 05/02 completed Not Available Not Available Not Available hydrocodo ne-homatr opine 5 mg-1.5 mg/5 mL oral syrup Take 5 mL every 4 hours by oral route as directed for 5 days. 2015 active Not Available Not Available Not Avai lable docusate sodium 100 mg capsule TAKE ONE CAPSULE BY MOUTH EVERY DAY NEEDED active Not Available Not Available No t Available gabapenti n 300 mg capsule TAKE ONE CAPSULE( S) TWICE A DAY DIRECTED 12/18 completed Not Available Not Available Not Available omeprazol e 20 mg capsule,d elayed release Take 1 capsule twice a day by oral route. 01/02 completed Not Available Not Available Not Available cephalexi n 500 mg tablet TID 02/14 completed RECORDED 02/15/20 07 10:44AM BY ALEKSANDRA TORRES MD, MEDICATI ON AUTO-TONO CTIVATIO N; Not Available Not Available Not Available hydrocort isone 2.5 % topical cream Apply 1 applicat ion every day by topical route as needed for 30 days. active Not Available Not Available No t Available Culturell e 10 billion cell capsule Take 1 capsule every day by oral route as directed for 30 days. 01/17 completed Not Available Not Available Not Available halobetas ol propionat e 0.05 % topical cream Apply 1 applicat ion every day by topical route for 7 days. 07/24 completed Not Available Not Available Not Available bisacodyl 5 mg tablet,de layed release TAKE 2 TABLETS BY MOUTH EVERY DAY NEEDED 11/22 completed Not Available Not Available Not Available hydralazi ne 50 mg tablet Take 1 tablet 3 times a day by oral route. active taking once daily Not Available Not Available Not Available desonide 0.05 % lotion 03/07 completed Not Available Not Available Not Available alcohol swabs USE WITH EACH INJECTIO N FOUR TIMES A DAY ___ OF 3 active Not Available Not Available No t Available hydrochlo rothiazid e 25 mg tablet Take 1 tablet every day by oral route for 90 days. 09/21 completed Not Available Not Available Not Available Diabetic Tussin DM 10 mg-100 mg/5 mL oral liquid EVERY FOUR HOURS, NEEDED 11/02 completed RECORDED 11/12/19 13 8:38AM BY GIRISH Hernandez MD, MEDICATI ON AUTO-TONO CTIVATIO N; Not Available Not Available Not Available furosemid e 20 mg tablet TAKE ONE TABLET BY MOUTH EVERY DAY DIRECTED active on hold Not Available Not Available No t Available gabapenti n 100 mg capsule TAKE ONE CAPSULE BY MOUTH EVERY DAY DIRECTED 05/01 completed Not Available Not Available Not Available clobetaso l 0.05 % topical ointment Apply 1 applicat ion every day by topical route for 30 days. active Not Available Not Available No t Available azelastin e 137 mcg (0.1 %) nasal spray 09/23 completed Not Available Not Available Not Available insulin lispro (U-100) 100 unit/mL subcutane ous solution 2-10 UX SC TID AC, PER SLIDING SCALE: 150-199= 2 UX, 200-249= 4 UX, 250-299= 6 UX, 300-349= 8 UX, 350-399= 10 UX, CALL MD IF 400 OR HIGHER 05/08 completed Not Available Not Available Not Available diazepam 10 mg tablet 1 po qd 12/01 completed Not Available Not Available Not Available Nasonex 50 mcg/actua tion Morning Sun EACH NOSTRIL DAILY 11/22 completed RECORDED 11/22/19 12 10:32AM BY ALEKSANDRA TORRES MD, MEDICATI ON AUTO-TONO CTIVATIO N; Not Available Not Available Not Available levofloxa kierra 500 mg tablet Take 1 tablet every 24 hours by oral route as directed for 10 days. 2015 active Not Available Not Available Not Avai lable scopolami ne 1 mg over 3 days transderm al patch Apply 1 patch every 72 hours by transder mal route as directed for 10 days. 04/28 completed Not Available Not Available Not Available ferrous sulfate 325 mg (65 mg iron) tablet,de layed release TAKE ONE TABLET BY MOUTH EVERY OTHER DAY. DO NOT CRUSH, CHEW OR SPLIT active Not Available Not Available No t Available hydrocort isone 2.5 % topical ointment APPLY A THIN LAYER TO AFFECTED AREA S) TWICE DAILY active Not Available Not Available No t Available ketoconaz ole 2 % topical cream TWO TIMES DAILY 09/08 completed RECORDED 09/08/20 10 10:38AM BY ALEXIS SIMON ANNOTATI ON/GORDON DUM; Not Available Not Available Not Available clobetaso l 0.05 % scalp solution APPLY TO SCALP ONCE DAILY FOR 2 WEEKS THEN APPLY AFTER SHAMPOOI NG FOR 2-3 TIMES WEEKLY 07/19 completed Not Available Not Available Not Available lisinopri l 40 mg tablet TAKE ONE TABLET BY MOUTH DAILY active Not Available Not Available No t Available ondansetr on 4 mg disintegr ating tablet DISSOLVE ONE TABLET BY MOUTH THREE TIMES A DAY NEEDED FOR 10 DAYS 01/02 completed Not Available Not Available Not Available fluticaso ne propionat e 50 mcg/actua tion nasal spray,[employer] INSTILL 2 SPRAYS INTO EACH NOSTRIL DAILY DIRECTED 05/08 completed Not Available Not Available Not Available dicyclomi ne 10 mg capsule 04/28 completed Not Available Not Available Not Available loratadin e 10 mg tablet Take 1 tablet every day by oral route. 01/17 completed Not Available Not Available Not Available naproxen 500 mg tablet Take 1 tablet twice a day by oral route as needed for 30 days. 08/01 completed Not Available Not Available Not Available mometason e 0.1 % topical cream TWO TIMES DAILY 01/10 completed RECORDED 01/17/20 13 12:53PM BY ALEKSANDRA TORRES MD, MEDICATI ON AUTO-TONO CTIVATIO N; Not Available Not Available Not Available diazepam 5 mg tablet Take 1 tablet twice a day by oral route as needed for 30 days. 11/19 completed Not Available Not Available Not Available doxazosin 2 mg tablet TAKE HALF TABLET BY MOUTH EVERY EVENING active Not Available Not Available No t Available levothyro xine 112 mcg tablet Take 1 tablet every day by oral route before meal(s) for 90 days. 01/22 completed Not Available Not Available Not Available minoxidil 2 % topical solution TWO TIMES DAILY 04/08 completed RECORDED 04/08/20 14 10:53AM BY ALEKSANDRA TORRES MD, ANNOTATI ON/GORDON DUM; Not Available Not Available Not Available Ventolin HFA 90 mcg/actua tion aerosol inhaler Inhale 2 puffs every 4 hours by inhalati on route as needed. 12/14 completed As needed Not Available Not Available Not Available tobramyci n 0.3 %-dexamet hasone 0.1 % eye drops,[employer] INSTILL ONE DROP INTO THE RIGHT EYE THREE TIMES A DAY FOR 2 WEEKS THEN TWO TIMES A DAY FOR 1 WEEK THEN ONE DROP DAILY FOR ONE WEEK, THEN STO active Not Available Not Available No t Available oxycodone 5 mg tablet TAKE ONE TABLET BY MOUTH EVERY SIX HOURS NEEDED FOR PAIN FOR 3 DAYS 08/24 completed Not Available Not Available Not Available neomycin 3.5 mg/g-poly myxin B 10,000 unit/g-de xameth 0.1 % eye oint APPLY TO THE AFFECTED EYE LID TWO TIMES A DAY 11/16 completed Not Available Not Available Not Available Stomach Relief 262 mg chewable tablet CHEW AND SWALLOW ONE TABLET BY MOUTH FOUR TIMES A DAY 05/02 completed nausea Not Available Not Available Not Available ezetimibe 10 mg tablet DAILY 11/12 completed RECORDED 11/12/19 13 12:48PM BY ALEKSANDRA TORRES MD, ANNOTATI ON/ADDEN DUM; Not Available Not Available Not Available Vitamin D3 25 mcg (1,000 unit) capsule Take 1 capsule every day by oral route. active Not Available Not Available No t Available Novolog FlexPen U-100 Insulin aspart 100 unit/mL (3 mL) subcutane ous Inject 6 units every day by sub-q route in the morning. 05/01 completed Not Available Not Available Not Available cyclobenz aprine 5 mg tablet 3 TIMES A DAY 05/17 completed RECORDED 06/12/20 09 11:12AM BY EL FELICIANO PA-C, MEDICATI ON AUTO-TONO CTIVATIO N; Not Available Not Available Not Available azelaic acid 15 % topical gel APPLY A THIN LAYER TOPICALL Y TO THE AFFECTED AREA(S) TWICE DAILY 02/25 completed Not Available Not Available Not Available minocycli ne 100 mg tablet TAKE ONE TABLET BY MOUTH TWICE A DAY 04/28 completed Not Available Not Available Not Available docosahex aenoic acid (dha)-epa 120 mg-180 mg capsule Take 1 {capsule } every day by oral route. 11/26 completed Not Available Not Available Not Available Premarin 0.625 mg/gram vaginal cream Insert 1 applicat ion every week by vaginal route for 30 days. 05/02 completed Not Available Not Available Not Available rosuvasta tin 10 mg tablet DAILY 06/13 completed RECORDED 06/13/20 11 8:47AM BY ALEKSANDRA TORRES MD, ANNOTATI ON/ADDEN DUM; Not Available Not Available Not Available rosuvasta tin 20 mg tablet DAILY 02/24 completed RECORDED 02/25/20 14 8:45AM BY ALEKSANDRA TORRES MD, DANITA ON/ADD DUM; Not Available Not Available Not Available Florastor 250 mg capsule 07/27 completed Not Available Not Available Not Available nitrofura ntoin monohydra te/macroc rystals 100 mg capsule TAKE ONE CAPSULE BY MOUTH EVERY 12 HOURS DIRECTED FOR 7 DAYS active Not Available Not Available No t Available Flovent HFA 110 mcg/actua tion aerosol inhaler Inhale 1 puff twice a day by inhalati on route as directed for 30 days. 01/17 completed Not Available Not Available Not Available Lubricant Eye Drops 0.5 % INSTILL TWO DROPS IN EACH EYE EVERY 4 TO 6 HOURS DIRECTED FOR 14 DAYS active prn Not Available Not Available No t Available pregabali n 50 mg capsule Take 1 capsule 3 times a day by oral route as needed for 30 days. 05/21 completed Not Available Not Available Not Available chlorhexi dine gluconate 0.12 % mouthwash RINSE WITH 15 MLS TWO TIMES A DAY active Not Available Not Available No t Available levothyro xine 75mcg daily by mouth 03/02 completed Not Available Not Available Not Available Flonase QD 04/02 completed RECORDED 04/03/20 09 12:59PM BY EL FELICIANO, SELVINC, MEDICATI ON AUTO-TONO CTIVATIO N; Not Available Not Available Not Available amitripty line QHS / HS 02/25 completed RECORDED 02/26/20 08 1:21PM BY SRIDHAR Mcgarry NP, DANITA ON/ADD DUM; Not Available Not Available Not Available FreeStyle Lancets THREE TIMES DAILY 2012 active RECORDED 04/18/20 13 11:28AM BY ALEKSANDRA TORRES MD, DANITA ON/ADD DUM; Not Available Not Available Not Available blood pressure monitor DAILY MONITORI NG OF BP FOR HTN 04/11 completed RECORDED 04/11/20 11 10:02AM BY DANITA FLORES ON/ADDEN DUM; Not Available Not Available Not Available Triamcino lone Acetate TWO TIMES DAILY 05/11 completed RECORDED 05/23/20 12 3:13PM BY ALEKSANDRA TORRES MD, MEDICATI ON AUTO-TONO CTIVATIO N; Not Available Not Available Not Available BD Syringe 1 mL DIRECTED 07/26 completed RECORDED 07/26/20 09 5:06PM BY ALEKSANDRA TORRES MD, REFILL REQUEST; THIS ORDER DISCONTI NUED PER MEDI-SPA N. Not Available Not Available Not Available BD Ultra-Fin e Short Pen Needle 31 gauge x 5/16 USE TO INJECT INSULIN THREE TIMES A DAY active Not Available Not Available No t Available Fish Oil 340 mg-1,000 mg capsule TAKE ONE CAPSULE BY MOUTH EVERY DAY 08/24 completed Not Available Not Available Not Available FreeStyle [place]cho kit DAILY 11/12 completed RECORDED 11/12/19 13 11:26AM BY DANITA FLORES ON/ADDEN DUM;DX=D M2 Not Available Not Available Not Available hydrochlo rothiazid e 12.5 mg tablet Take 1 tablet every day by oral route for 30 days. 10/18 completed Not Available Not Available Not Available esomepraz ole magnesium DR 40 mg granules delayed release for susp 03/02 completed RECORDED 03/02/20 10 9:14AM BY ISAÍAS STEARNS, OFFICE VISIT; Not Available Not Available Not Available FreeStyle Lite Strips USE TO TEST BLOOD SUGAR 5 TIMES DAILY active Not Available Not Available No t Available FreeStyle Lite Meter DAILY 01/30 completed RECORDED 04/11/20 11 10:03AM BY DANITA FLORES ON/ADDEN DUM;DX=D M2 USING INSULIN Not Available Not Available Not Available FreeStyle Lite Strips THREE TIMES DAILY 2013 active RECORDED 02/19/20 14 1:48PM BY ALEKSANDRA TORRES MD, REFILL REQUEST; Not Available Not Available Not Available Lantus Solostar U-100 Insulin 100 unit/mL (3 mL) subcutane ous pen Inject 20 units every day by sub-q route at bedtime for 30 days. 05/02 completed Not Available Not Available Not Available Cholestyr amine Light 4 gram oral powder Take 1 scoop 3 times a day by oral route. 2015 active Not Available Not Available Not Avai lable Lantus Solostar U-100 Insulin sliding scale 04/28 completed Not Available Not Available Not Available Stool Softener- Stimulant Laxative 8.6 mg-50 mg tablet Take 2 tablets every day by oral route for 30 days. 05/21 completed Not Available Not Available Not Available Humalog Mix 75-25 KwikPen U-100 insulin 100 unit/mL subcutane ous pen 07/27 completed Not Available Not Available Not Available trospium ER 60 mg capsule,e xtended release 24 hr TAKE ONE CAPSULE BY MOUTH EVERY MORNING active Not Available Not Available No t Available Humalog KwikPen (U-100) Insulin 100 unit/mL subcutane ous INJECT 5 UNITS 2 TO 10 PER SLIDING SCALE) UNDER THE SKIN 3 TIMES DAILY DIRECTED active Not Available Not Available No t Available omeprazol e 20 mg tablet,de layed release Take 1 tablet every day by oral route before meals for 30 days. 12/01 completed Not Available Not Available Not Available diclofena c 1 % topical gel APPLY 2 GRAMS TOPICALL Y TO AFFECTED AREA S) FOUR TIMES DAILY active Not Available Not Available No t Available cholecalc iferol (vitamin D3) 50 mcg (2,000 unit) capsule TAKE ONE CAPSULE BY MOUTH EVERY DAY active Not Available Not Available No t Available fenofibra te 54 mg tablet DAILY 11/12 completed RECORDED 11/12/19 13 12:48PM BY ALEKSANDRA TORRES MD, ANNOTATI ON/ADDEN DUM; Not Available Not Available Not Available bimatopro st 0.03 % drops with applicato r, eyelash base DAILY ALONG UPPER EYELID MARGIN AT BASE OF EYELASH 2012 active RECORDED 12/10/19 14 9:59AM BY ERICH FELICIANO MA, OFFICE VISIT; Not Available Not Available Not Available GaviLyte- G 236 gram-22.7 4 gram-6.74 gram-5.86 gram oral solution TAKE 8 OUNCES BY MOUTH DIRECTED PER PREP INSTRUCT IONS GIVEN BY DOCTORS OFFICE active COLON 09/27/24 Not Available Not Available Not Available ClearLax 17 gram/dose oral powder DISSOLVE 17 GRAMS IN WATER AND DRINK ONCE DAILY IF NEEDED 06/27 completed Not Available Not Available Not Available ClearLax 17 gram oral powder packet 08/03 completed Not Available Not Available Not Available Mucus Relief ER 600 mg tablet, extended release Take 1 tablet every 6 hours by oral route as needed for 5 days. 03/02 completed Not Available Not Available Not Available Fish Oil 100 mg-160 mg-1,000 mg capsule Take 1 capsule every day by oral route as directed for 90 days. 12/06 completed Not Available Not Available Not Available Farxiga 10 mg tablet TAKE ONE TABLET BY MOUTH EVERY DAY IN THE MORNING active Not Available Not Available No t Available Farxiga 5 mg tablet TAKE 1 TABLET BY MOUTH EVERY DAY 06/27 completed Not Available Not Available Not Available Levemir FlexTouch U-100 Insulin 100 unit/mL (3 mL) subcutane ous pen 07/27 completed Not Available Not Available Not Available Trulicity 0.75 mg/0.5 mL subcutane ous pen injector INJECT 0.5ML SUBCUTAN EOUSLY ONCE WEEKLY DIRECTED 04/28 completed Not Available Not Available Not Available ivermecti n 1 % topical cream APPLY A PEA-SIZE D AMOUNT BY TOPICAL ROUTE ONCE DAILY TO COVER AREAS OF FACE WITH THIN LAYER AVOIDING THE EYES AND LIPS 06/16 completed Not Available Not Available Not Available Jean Pierre SoloStar U-300 Insulin 300 unit/mL (1.5 mL) subcutane ous pen Inject 30 units every day by subcutan eous route for 30 days. 08/29 completed Not Available Not Available Not Available Tresiba FlexTouch U-100 insulin 100 unit/mL (3 mL) subcutane ous pen INJECT 5 UNITS UNDER THE SKIN AT BEDTIME active Not Available Not Available No t Available Aspercrem e (lidocain e HCl) 4 % topical Apply 1 applicat ion 3 times a day by topical route as directed for 30 days. 01/21 completed Not Available Not Available Not Available Procto-Me d HC 2.5 % topical cream perineal applicato r APPLY A SMALL AMOUNT TO AFFECTED AREA TWO TIMES A DAY FOR HEMMERHO IDS active prn Not Available Not Available No t Available Fish Oil 1,000 mg (120 mg-180 mg) capsule Take 1 capsule every day by oral route as directed for 90 days. 05/01 completed Not Available Not Available Not Available Tresiba U-100 Insulin 5 UX SC DAILY AT HS active Not Available Not Available No t Available Rybelsus 3 mg tablet TAKE ONE TABLET BY MOUTH EVERY DAY DIRECTED 01/11 completed Not Available Not Available Not Available Ensure Plant-Bas ed Protein oral liquid Take 300 mL every day by oral route as directed for 30 days. 08/14 completed Not Available Not Available Not Available omega-3 300 mg-dha 120 mg-epa 180 mg-fish oil 1,000 mg capsule TAKE ONE CAPSULE BY MOUTH EVERY DAY 06/27 completed Not Available Not Available Not Available Kerendia 10 mg tablet Take 1 tablet every day by oral route in the morning. 07/19 completed Not Available Not Available Not Available Vitals Date Recorded Body height Body mass index (BMI) Body weight Heart rate Oxygen saturation Oxygen saturation in Arterial blood by Pulse oximetry Body temperature Systolic blood pressure Diastolic blood pressure Provider Name and Address Organization Details Last Updated DateTime 4 156.21 cm 23.4 kg/m2 19616.3 4 g 68 /min 97 % 97 % 98.5 [degF] 200 mm[Hg] 63 mm[Hg] Nohemi Quinonez LPN [facility] 4 09:19:49 Date Recorded Systolic blood pressure Diastolic blood pressure Provider Name and Address Organization Details Last Updated DateTime 09/25/2024 140 mm[Hg] 60 mm[Hg] Cheyanne Paz, [facility] [address], [address], [facility] 09/25/2024 11:00:26 Social History Question Answer Notes LastModified by Organizat ion Details LastModified Time Tobacco Smoking Status Never Smoker Not Available [facility] 09/08/2020 03:36:40 Do You Have An Advance Directive? No [id number] Information not available 09/08/2020 What Is Your Level Of Alcohol Consumption? None [id number] Information not available 09/08/2020 Is Blood Transfusion Acceptable In An Emergency? Yes [id number] Information not available 09/08/2020 What Is Your Level Of Caffeine Consumption? Occasional Soda, Tea Information not available 05/02/2022 How Much Tobacco Do You Chew? None [id number] Information not available 09/08/2020 Are You Currently Employed? No Disabled [id number] Information not available 09/08/2020 What Type Of Diet Are You Following? VEGETARIAN Information not available 03/21/2024 Which Illicit Or Recreational Drugs Have You Used? None [id number] Information not available 09/08/2020 Do You Or Have You Ever Used E-cigarettes Or Vape? Never Used Electronic Cigarettes [id number] Information not available 09/08/2020 What Is Your Occupation? N/a [id number] Information not available 09/08/2020 Live Alone Or With Others? Alone [email or web address] Information not available 01/21/2015 Do You Take Precautions To Prevent Distracted Driving? Yes Information not available 02/09/2016 How Often Do You Need To Have Someone Help You When You Read Instructions, Pamphlets, Or Other Written Material From Your Doctor Or Pharmacy? Never Information not available 02/09/2016 Have You Served In The ? No [email or web address] Information not available 10/18/2016 Have You Or Anyone In Your Household Had Any Of The Following Symptoms In The Last 14 Days: Sore Throat, Cough, Chills, Body Aches For Unknown Reasons, Shortness Of Breath For Unknown Reasons, Loss Of Smell, Loss Of Taste, Fever At Or Greater Than 100 Degrees Fahrenheit? No [email or web address] Information not available 05/19/2020 Are You Or Anyone In Your Household A Health Care Provider Or Emergency Responder? No [email or web address] Information not available 05/19/2020 To The Best Of Your Knowledge Have You Been In Close Proximity To Any Individual Who Tested Positive For COVID-19? No [email or web address] Information not available 05/19/2020 *AWV ONLY* Are You Presently Prescribed Opioid Medication By PCP Or Specialist? If YES -Provider Assess The Benefit For Other, Non-opioid Pain Therapies Instead, Even If The Patient Does Not Have OUD But Is Possibly At Risk. No Information not available 01/07/2021 Have You Recently Traveled To A [place] [address] High Risk Area Or Gathering In The Last 10 Days? No Information not available 11/19/2020 What Was The Date Of Your Most Recent Tobacco Screening? 03/21/2024 Information not available 03/21/2024 How Many Children Do You Have? 6 5 Sons And 1 Daughter [email or web address] Information not available 05/04/2023 Do You Use Protection During Sex? No [id number] Information not available 09/08/2020 Seat Belts Used Routinely Yes Information not available 02/09/2016 Are You Sexually Active? Yes [id number] Information not available 09/08/2020 Smoke Alarm In Home Yes Information not available 02/09/2016 At What Age Did You Start Smoking Tobacco? 1 [id number] Information not available 09/08/2020 Are You Passively Exposed To Smoke? No Information not available 02/09/2016 Do You Or Have You Ever Used Smokeless Tobacco? Never Used Smokeless Tobacco [id number] Information not available 09/08/2020 How Much Tobacco Do You Smoke? No [id number] Information not available 09/08/2020 Do You Use Any Illicit Or Recreational Drugs? No Information not available 03/29/2022 Do You Use Sunscreen Routinely? No [id number] Information not available 09/08/2020 How Many Years Have You Smoked Tobacco? 0 [id number] Information not available 09/08/2020 Do You Or Have You Ever Used Any Other Forms Of Tobacco Or Nicotine? No Information not available 05/03/2023 Sex: Unknown Functional Status Question Answer Note LastModified by Organization D etails LastModified Time Are you able to walk? [email or web address] Information not available 08/19/2021 Are you able to care for yourself? Yes [id number] Information not available 09/08/2020 What is your exercise level? None [id number] Information not available 09/08/2020 Mental Status None recorded. Family History Relationship Description Onset Age of this Age Resolved Age Notes LastModified by Organization Details LastModified Time Mother Diabetes mellitus [email or web address] Not available 04/07 06:42:06 Mother History of hypertension 72 [email or web address] Not available 0 05/03/2023 10:03:09 Mother Coronary arterioscler osis 72 [email or web address] Not available 04/07 10:03:24 Father Hypertensive disorder [email or web address] Not available 2015 13:09:40 Father Cerebrovascu lar accident 47 [email or web address] Not available 0 05/03/2023 10:02:46 Brother Diabetes mellitus [email or web address] Not available 04/07 06:42:11 Brother Hypertensive disorder [email or web address] Not available 04/07 06:43:36 Brother Suicide 65 [email or web address] Not availa ble 05/03/2022 06:44:37 Daughter Diabetes mellitus [email or web address] Not available 04/07 06:42:16 Daughter Hypertensive disorder [email or web address] Not available 04/07 06:43:21 Son Diabetes mellitus [email or web address] Not available 04/07 06:42:24 Son Diabetes mellitus [email or web address] Not available 04/07 06:42:31 Son Diabetes mellitus [email or web address] Not available 04/07 06:42:38 Son Diabetes mellitus [email or web address] Not available 04/07 06:42:44 Son Diabetes mellitus [email or web address] Not available 04/07 06:42:52 Son Hypertensive disorder [email or web address] Not available 04/07 06:43:55 Son Hypertensive disorder [email or web address] Not available 04/07 06:43:44 Son Hypertensive disorder [email or web address] Not available 04/07 06:43:50 Son Hypertensive disorder [email or web address] Not available 04/07 06:44:03 Son Hypertensive disorder [email or web address] Not available 04/07 06:44:16 Medical History Condition Response Diabetes Y Hypertension Y Gynecological History Statement/Question Response Abnormal Pap N Age at Menarche 15 Current Control Method None Most Recent Mammogram 01/09/2023 Age at First Child 20 Date of Last Colonoscopy 10/17/2014 Most Recent Bone Density 11/18/2016 Sexually Active? Y Menses Monthly N Date of Last Pap Smear 07/05/2022 Sexual Problems? N LMP Unknown Desired Control Method N/A Obstetrics History GPAL:G 6 P 6 0 0 6 Type Value Full Term 6 Living 6 Total 6 Immunizations Vaccine Type Date Status Provider Name and Address Organization Details Recorded Time Pneumococcal conjugate PCV 13 03/27/2018 [facility]:03:05 pneumococcal polysaccharide PPV23 01/21/2015 [facility] 15:03:05 Tdap 09/17/2014 [facility] 15:03:05 pneumococcal polysaccharide PPV23 11/11/2020 [facility] 15:03:05 COVID-19, mRNA, LNP-S, PF, 30 mcg/0.3 mL dose 09/24/2021 [facility] 07:51:52 COVID-19, mRNA, LNP-S, PF, 30 mcg/0.3 mL dose 01/12/2021 [facility] 07:51:52 COVID-19, mRNA, LNP-S, PF, 30 mcg/0.3 mL dose 02/02/2021 [facility] 07:51:52 COVID-19, mRNA, LNP-S, PF, 30 mcg/0.3 mL dose 01/12/2021 [facility] 09:57:53 COVID-19, mRNA, LNP-S, PF, 30 mcg/0.3 mL dose 01/12/2021 completed Alvin Pinto MA null, [facility] 06/27/2024 09:57:53 COVID-19, mRNA, LNP-S, PF, 30 mcg/0.3 mL dose 02/02/2021 completed Katharine Ellis CPPM null, [facility] 09/25/2024 07:52:17 COVID-19, mRNA, LNP-S, PF, 30 mcg/0.3 mL dose 02/02/2021 completed Nohemi Quinonez LPN null, [facility] 09/25/2024 09:20:28 Influenza, high-dose, trivalent, PF 12/29/2017 cancelled Not Available [facility] 2019 02:22:04 Influenza, split virus, quadrivalent, PF 12/29/2017 cancelled Not Available [facility] 2019 02:22:08 Influenza, high-dose, quadrivalent, PF 09/03/2020 cancelled Mariaelena Stearns MA null, [facility] 09/03/2020 09:54:51 Past Encounters Encounter ID Performer Location Encounter Start Date Encounter Closed Date Diagnosis/Indication Diagnosis SNOMED-CT Code Diagnosis ICD10 Code [id number] CATHIE Le Main Office [address] [facility] [address] [facility] [place] [address] 09/25/2024 08:57:50 09/25/2024 10:04:58 Renal disorder due to type 2 diabetes mellitus 245469095 E11.22 Uncontroll ed type 2 diabetes mellitus 503913566 E11.65 Hypothyroidism 48007503 E03.9 Anemia 499876006 D64.9 Urinary tr act infectious disease 87688462 N39.0 Urinary incontinence 165 044949 R32 [facility] for falls 842073164 Z91.81 Health Concerns Section Related Observation LastModified by Organization Detai ls LastModified Time None Recorded Concern Status LastModified by Organization Details LastModified Time None Recorded Payers Encounter Date Sequence Insurance Name Policy Number Policy Tam Covered Member ID Tam Member ID Guarantor Name 09/25/2024 1 [facility] - DOS ON OR AFTER 2023 - DUAL ELIGIBLE - PENITENTIARY OPTIONS AND ONE CARE (MEDICARE REPLACEMENT/ADV ANTAGE - HMO) [employer] [id number] [employer] Notes Date Note Type Note Provider Name and Address Organization Details Recorded Time 09/25/2024 text/html Diabetes F/UReported bypatient.Notes: Presents for DM follow-up. and HTN follow-up. takes doxazosin in the morning and only 1/2 tab as she feels weak and her BP drops too low.BP on RPM has been normal. BP elevated today systolic but normal on RPM. Eating all day, eating well but losing weight, hoarse, feels like her thyroid is off again. sometimes has diarrhea. she is eating sweets, bread and high calorie foods but keeps losing weight. Lost 11 lbs since last visit. A1C today 6.3, has noticed if she takes insulin her sugar drops too much. Sometimes she does not take it, sometimes takes 1-2 units if needed. colo and endoscopy scheduled on monday CATHIE Le [address] [address], [place], [address], [place] [facility] 09/25/2024 11:59:15 OBGyn Episode No OBEpisode recorded.
--- OUTSIDE RECORDS SUMMARY | 2024-10-17 00:27 | XMS_ITS | Data Portability ---
Author Organization [facility], Main Office Address [address] [facility] [address] [place] [address] Care Team Providers Care Spike Machine Feeder Name Role Phone [facility] Refe rring Provider CAMERON RAMSEY Business Mail Entry Clerk JACK GUERIN Industrial Spraypainter [facility] Urologist [phone] [facility] Orth[facility]ist JULIANO KLINE Supervisor [employer] RADHA HARO Referring Provider SAGE MAYER Business Mail Entry Clerk CAMILLA PALOMARES Confectionery Drops Machine Operator [phone] LAURA PARRISH Sr. Manager DEBBIE DRIVER Urologist CHEYANNE PAZ Primary Care Provider [phone] MAN BALLARD Urogynecologist [phone] LYNN WYNN Business Mail Entry Clerk Assessment No assessment recorded. Plan of Treatment Reminders Order Date Submit Date Provider Last Modified By Organization Details Last Modified Time Details Appointments UV30 2023 09:15A M Cheyanne Paz PA-C Not available Not available Not available Follow Up DM 30 2024 09:15A M Cheyanne Paz PA-C Not available Not available Not available Lab BMP, serum or plasma 2023 024 [place] [facility], [address] [facility] [facility] [address], [place], [address], 06/15/2024 08:08:33 TSH + free T4, serum 2023 024 [facility], [address], [place], [address], 06/15/2024 08:08:34 T3, free, serum or plasma 2023 024 [place] [facility], [address], [address], [place], [address], 06/15/2024 08:08:34 CMP, serum or plasma 2023 024 [email or web address] [facility], [address], [address], [place], [address], 07/25/2024 09:05:32 CMP, serum or plasma 2023 024 [place] [facility], [address], [address], [place], [address], 07/02/2024 12:06:08 lipid panel, serum 2023 024 [place] [facility], [address], [address], [place], [address], 07/02/2024 12:06:15 microa lbumin , urine 2023 024 [place] [facility], [address], [address], [place], [address], 07/02/2024 12:06:17 HbA1c (hemog lobin A1c), blood 2023 024 [place] [facility], [address], [address], [place], [address], 07/02/2024 12:06:16 TSH + free T4, serum 2023 024 [place], [address], [address], [place], [address], 07/02/2024 12:06:11 CBC w/ auto diff 2023 024 [place] [facility], [address], [address], [place], [address], 07/02/2024 12:06:13 iron + TIBC + ferrit in, serum 2023 024 [place] [facility], [address], [address], [place], [address], 07/02/2024 12:06:10 BMP, serum or plasma 2023 024 [place] [facility], [address], [address], [place], [address], 08/15/2024 08:09:02 CBC w/ auto diff 2023 024 [place] [facility], [address], [address], [place], [address], 08/15/2024 08:09:05 iron + TIBC + ferrit in, serum 2023 024 [place] [facility], [address], [address], [place], [address], 08/15/2024 08:09:03 TSH + free T4, serum 2023 024 [place] [facility], [address], [address], [place], [address], 08/15/2024 08:09:04 urinal ysis, comple te 2023 024 [place] [facility], [address], [address], [place], [address], 09/27/2024 14:07:05 cultur e, urine 2023 024 [place] [facility], [address], [address], [place], [address], 09/27/2024 14:07:08 hemogl obin A1C, finger stick 2023 024 [email or web address] In-Office Order, Internal Use Only DO Not Attach Compendium DO Not Attach Compendium, Do Not Delete/merge, [id number] 09/25/2024 09:26:27 BMP, serum or plasma 2023 024 [place] [facility], [address], [address], [place], [address], 09/27/2024 14:07:01 microa lbumin , urine 2023 024 [place] [facility], [address], [address], [place], [address], 09/27/2024 14:07:07 CBC w/ auto diff 2023 024 [place] [facility], [address], [address], [place], [address], 09/27/2024 14:07:05 vitami n B12 + folate , serum or blood 2023 024 [place] [facility], [address], [address], [place], [address], 09/27/2024 14:07:06 iron + TIBC + ferrit in, serum 2023 024 [place] [facility], [address], [address], [place], [address], 09/27/2024 14:07:02 TSH + free T4, serum 2023 024 [place] [facility], [address], [address], [place], [address], 09/27/2024 14:07:03 Referral orthop jessica hernandez n referr al - left knee pain 2023 024 [facility], [address], [place], [address], 07/02/2024 10:32:50 Procedures None record ed. Surgeries None record ed. Imaging XR, lumbar spine - low back pain 2023 024 [facility], [address] , [place], [address], 07/02/2024 13:00:28 Medication Orders Ensure Plant- Based Protei n oral liquid 2023 024 [facility], [address] [place] [address], [address], 08/14/2024 10:37:34 metron idazol e 0.75 % lotion 2023 024 [place] [address] [facility], [address] [place] [address], [address], 09/25/2024 09:23:03 nifedi pine ER 90 mg tablet ,exten ded releas e 2023 024 [place] [facility], [address] [place] [address], [address], 06/27/2024 10:35:38 lidoca ine 5 % topica l patch 2023 024 [place] [facility], [address] [place] [address], [address], 06/27/2024 10:48:56 senna 8.6 mg tablet 2023 024 [place] [address] [facility], [address] [place] [address], [address], 09/25/2024 09:23:45 docusa te sodium 100 mg capsul e 2023 024 [place] [address] [facility], [address] [place] [address], [address], 09/25/2024 09:21:31 acetam inophe n ER 650 mg tablet ,exten ded releas e 2023 024 [place] [facility], [address] [place] [address], [address], 06/27/2024 10:41:29 furose mide 20 mg tablet 2023 [facility], [facility] [place], [address], 09/25/2024 09:56:41 Humalo g KwikPe n (U-100 ) Insuli n 100 unit/m L subcut aneous 2023 024 [place] [facility], [address] [place] [address], [address], 09/25/2024 09:48:44 Tresib a FlexTo uch U-100 insuli n 100 unit/m L (3 mL) subcut aneous pen 2023 024 [facility], [address] [place] [address], [address], 09/25/2024 10:59:36 Patient TargetsNo targets recorded. Patient Instructions Encounter Date Encounter Id Patient Instructions Last Modified By Organization Details Last Modified Time 05/28/2024 [id number] To call or retur n for worsening or concerns [email or web address] Not available 05/28/2024 15:24:10 At [facility] follow up visit, all current and discharge medications (OTC, herbal therapies, supplements) reviewed and reconciled with patient and or caregiver, including potential side effects, drug interactions, instructions, and the consequences of not taking medication. Reviewed potential barriers to medication adherence, such as side effects from medication or cost of medication. [email or web address] Not available 05/28/2024 14:44:50 06/27/2024 [id number] aprenda sobre la presi??n arterial kwadwo - [learning about high blood pressure] [email or web address] Not available 06/27/2024 10:35:33 presi??n arteria l kwadwo: instrucciones de cuidado - [high blood pressure: care instructions] jthabet Not available 06/27/2024 10:35:34 herpes z??ster (culebrilla): instrucciones de cuidado - [shingles: care instructions] jthabet Not available 06/27/2024 10:41:24 culebrilla del alessandro: instrucciones de cuidado - [shingles of the eye: care instructions] [email or web address] Not available 06/27/2024 10:41:24 neuralgia del trig??lisbeth: instrucciones de cuidado - [trigeminal neuralgia: care instructions] jthabet Not available 06/27/2024 10:41:24 low back pain: exercises jthabet Not available 06/27/2024 10:39:22 aprenda sobre el alivio del dolor de espalda - [learning about relief for back pain] jthabet Not available 06/27/2024 10:39:22 cuidado de la espalda y prevenci??n de lesiones: instrucciones de cuidado - [back care and preventing injuries: care instructions] jthabet Not available 06/27/2024 10:39:23 dolor en la part e baja de la espalda (lumbalgia): ejercicios - [low back pain: exercises] jthabet Not available 06/27/2024 10:39:23 enfermedad de reflujo gastroesof??gico (GERD): instrucciones de cuidado - [gastroesophageal reflux disease (GERD): care instructions] jthabet Not available 06/27/2024 10:35:33 preventing falls : care instructions jthabet Not available 06/27/2024 10:35:32 well visit, over 65: care instructions jthabet Not available 06/27/2024 10:35:33 medicare preventive services guide (female 74yrs and under) jthabet Not available 06/27/2024 10:35:34 colesterol alto: instrucciones de cuidado - [high cholesterol: care instructions] jthabet Not available 06/27/2024 10:35:33 dieta para personas con diabetes y enfermedad renal: instrucciones de cuidado - [diabetic renal diet: care instructions] jthabet Not available 06/27/2024 10:37:11 aprenda sobre la enfermedad renal cr??lisette y el potasio - [learning about chronic kidney disease and potassium] jthabet Not available 06/27/2024 10:37:11 aprenda sobre la enfermedad renal cr??lisette - [learning about chronic kidney disease] jthabet Not available 06/27/2024 10:37:11 diet for chronic kidney disease (before dialysis): care instructions jthabet Not available 06/27/2024 10:37:11 hipotiroidismo: instrucciones de cuidado - [hypothyroidism: care instructions] jthabet Not available 06/27/2024 10:35:33 anemia por deficiencia de usama: instrucciones de cuidado - [iron deficiency anemia: care instructions] jthabet Not available 06/27/2024 10:35:33 To call or retur n for worsening or concerns jthabet Not available 06/27/2024 10:39:42 08/14/2024 [id number] To call or retur n for worsening or concerns jthabet Not available 08/14/2024 10:27:22 09/25/2024 [id number] To call or retur n for worsening [...] Not available 09/25/2024 09:11:14 Reason for Referral Orthopedic Surgeon Referral for Pain of left knee joint left knee pain Referring Physician: Cheyanne Paz, Family Medicine, Encounter Date: 06/27/2024 Results Created Date Observation Date Name Description Value Unit Range Abnormal Flag Note LastModifiedBy Organization Detail LastModifiedTime 05/20/20 24 05/21/2024 TSH+F REE T4 TSH 0.585 uIU/m L 0.450- 4.500 Not Available [facility] ([facility]) [address] [facility], [place], [address], 05/21/2024 08:08:36 05/20/20 24 05/21/2024 TSH+F REE T4 T4,free(dire ct) 1.76 NG/dL 0.82-1 .77 Not Available [facility] ([facility]) [address] [facility], [place], [address], 05/21/2024 08:08:36 05/20/20 24 05/21/2024 CBC WITH DIFFE RENTI AL/PL ATELE T WBC 7.2 x10e3 /uL 3.4-10 .8 Not Available [facility] ([facility]) [address] [facility], [place], [address], 05/21/2024 08:08:38 05/20/20 24 05/21/2024 CBC WITH DIFFE RENTI AL/PL ATELE T RBC 3.35 x10e6 /uL 3.77-5 .28 below low normal Not Available [facility] ([facility]) [address] [facility], [place], [address], 05/21/2024 08:08:38 05/20/20 24 05/21/2024 CBC WITH DIFFE RENTI AL/PL ATELE T hemoglobin 9.6 g/dL 11.1-1 5.9 below low normal Not Available [facility] ([facility]) [address] [place], [address], 05/21/2024 08:08:38 05/20/20 24 05/21/2024 CBC WITH DIFFE RENTI AL/PL ATELE T hematocrit 30.2 % 34.0-4 6.6 below low normal Not Available [facility] ([facility]) [address] [place], [address], 05/21/2024 08:08:38 05/20/20 24 05/21/2024 CBC WITH DIFFE RENTI AL/PL ATELE T MCV 90 fL 79-97 Not Available [facility] ([facility]) [address] [facility], [place], [address], 05/21/2024 08:08:38 05/20/20 24 05/21/2024 CBC WITH DIFFE RENTI AL/PL ATELE T MCH 28.7 pg 26.6-3 3.0 Not Available [facility] ([facility]) [address] [facility], [place], [address], 05/21/2024 08:08:38 05/20/20 24 05/21/2024 CBC WITH DIFFE RENTI AL/PL ATELE T MCHC 31.8 g/dL 31.5-3 5.7 Not Available [facility] ([facility]) [address] [facility], [place], [address], 05/21/2024 08:08:38 05/20/20 24 05/21/2024 CBC WITH DIFFE RENTI AL/PL ATELE T RDW 13.2 % 11.7-1 5.4 Not Available [facility] ([facility]) [address] [facility], [place], [address], 05/21/2024 08:08:38 05/20/20 24 05/21/2024 CBC WITH DIFFE RENTI AL/PL ATELE T platelets 270 x10e3 /uL 150-45 0 Not Available [facility] ([facility]) [address] [facility], [place], [address], 05/21/2024 08:08:38 05/20/20 24 05/21/2024 CBC WITH DIFFE RENTI AL/PL ATELE T neutrophils 76 % not estab. Not Available [facility] ([facility]) [address] [facility], [place], [address], 05/21/2024 08:08:38 05/20/20 24 05/21/2024 CBC WITH DIFFE RENTI AL/PL ATELE T lymphs 16 % not estab. Not Available [facility] ([facility]) [address] [facility], [place], [address], 05/21/2024 08:08:38 05/20/20 24 05/21/2024 CBC WITH DIFFE RENTI AL/PL ATELE T monocytes 5 % not estab. Not Available [facility] ([facility]) [address] [facility], [place], [address], 05/21/2024 08:08:38 05/20/20 24 05/21/2024 CBC WITH DIFFE RENTI AL/PL ATELE T eos 2 % not estab. Not Available [facility] ([facility]) [address] [facility], [place], [address], 05/21/2024 08:08:38 05/20/20 24 05/21/2024 CBC WITH DIFFE RENTI AL/PL ATELE T basos 1 % not estab. Not Available [facility] ([facility]) [address] [facility], [place], [address], 05/21/2024 08:08:38 05/20/20 24 05/21/2024 CBC WITH DIFFE RENTI AL/PL ATELE T immature cells HEAD OF SALES Not Available [facility] ([facility]) [address] [facility], [place], [address], 05/21/2024 08:08:38 05/20/20 24 05/21/2024 CBC WITH DIFFE RENTI AL/PL ATELE T neutrophils (absolute) 5.5 x10e3 /uL 1.4-7. 0 Not Available [facility] ([facility]) [address] [facility], [place], [address], 05/21/2024 08:08:38 05/20/20 24 05/21/2024 CBC WITH DIFFE RENTI AL/PL ATELE T lymphs (absolute) 1.2 x10e3 /uL 0.7-3. 1 Not Available [facility] ([facility]) [address] [place], [address], 05/21/2024 08:08:38 05/20/20 24 05/21/2024 CBC WITH DIFFE RENTI AL/PL ATELE T monocytes(ab solute) 0.4 x10e3 /uL 0.1-0. 9 Not Available [facility] ([facility]) [address] [facility], [place], [address], 05/21/2024 08:08:38 05/20/20 24 05/21/2024 CBC WITH DIFFE RENTI AL/PL ATELE T eos (absolute) 0.2 x10e3 /uL 0.0-0. 4 Not Available [facility] ([facility]) [address] [facility], [place], [address], 05/21/2024 08:08:38 05/20/20 24 05/21/2024 CBC WITH DIFFE RENTI AL/PL ATELE T baso (absolute) 0.1 x10e3 /uL 0.0-0. 2 Not Available [facility] ([facility]) [address] [facility], [place], [address], 05/21/2024 08:08:38 05/20/20 24 05/21/2024 CBC WITH DIFFE RENTI AL/PL ATELE T immature granulocytes 0 % not estab. Not Available [facility] ([facility]) [address] [facility], [place], [address], 05/21/2024 08:08:38 05/20/20 24 05/21/2024 CBC WITH DIFFE RENTI AL/PL ATELE T immature grans (abs) 0.0 x10e3 /uL 0.0-0. 1 Not Available [facility] ([facility]) [address] [facility], [place], [address], 05/21/2024 08:08:38 05/20/20 24 05/21/2024 CBC WITH DIFFE RENTI AL/PL ATELE T NRBC HEAD OF SALES Not Available [facility] ([facility]) [address] [facility], [place], [address], 05/21/2024 08:08:38 05/20/20 24 05/21/2024 CBC WITH DIFFE ONOFRE AL/SEFERINO Stevens hematology comments: HEAD OF SALES Not Available [facility] ([facility]) [address] [facility], [place], [address], 05/21/2024 08:08:38 05/20/20 24 05/21/2024 COMP. METAB OLIC PANEL (14) glucose 135 mg/dL 70-99 above high normal Not Available [facility] ([facility]) [address] [facility], [place], [address], 05/21/2024 08:08:39 05/20/20 24 05/21/2024 COMP. METAB OLIC PANEL (14) BUN 57 mg/dL 8-27 above high normal Not Available [facility] ([facility]) [address] [facility], [place], [address], 05/21/2024 08:08:39 05/20/20 24 05/21/2024 COMP. METAB OLIC PANEL (14) creatinine 3.54 mg/dL 0.57-1 .00 above high normal Not Available [facility] ([facility]) [address] [facility], [place], [address], 05/21/2024 08:08:39 05/20/20 24 05/21/2024 COMP. METAB OLIC PANEL (14) eGFR 13 mL/mi n/1.7 3 >59 below low normal Not Available [facility] ([facility]) [address] [facility], [place], [address], 05/21/2024 08:08:39 05/20/20 24 05/21/2024 COMP. METAB OLIC PANEL (14) BUN/creatini ne ratio 16 12-28 Not Available [facility] ([facility]) [address] [facility], [place], [address], 05/21/2024 08:08:39 05/20/20 24 05/21/2024 COMP. METAB OLIC PANEL (14) sodium 129 mmol/ L 134-14 4 below low normal Not Available [facility] ([facility]) [address] [facility] [place], [address], 05/21/2024 08:08:39 05/20/20 24 05/21/2024 COMP. METAB OLIC PANEL (14) potassium 4.2 mmol/ L 3.5-5. 2 Not Available [facility] ([facility]) [address] [facility] [place], [address], 05/21/2024 08:08:39 05/20/20 24 05/21/2024 COMP. METAB OLIC PANEL (14) chloride 93 mmol/ L 96-106 below low normal Not Available [facility] ([facility]) [address] [facility] [place], [address], 05/21/2024 08:08:39 05/20/20 24 05/21/2024 COMP. METAB OLIC PANEL (14) carbon dioxide, total 22 mmol/ L 20-29 Not Available [facility] ([facility]) [address] [facility] [place], [address], 05/21/2024 08:08:39 05/20/20 24 05/21/2024 COMP. METAB OLIC PANEL (14) calcium 8.8 mg/dL 8.7-10 .3 Not Available [facility] ([facility]) [address] [facility] [place], [address], 05/21/2024 08:08:39 05/20/20 24 05/21/2024 COMP. METAB OLIC PANEL (14) protein, total 5.6 g/dL 6.0-8. 5 below low normal Not Available [facility] ([facility]) [address] [facility] [place], [address], 05/21/2024 08:08:39 05/20/20 24 05/21/2024 COMP. METAB OLIC PANEL (14) albumin 3.6 g/dL 3.8-4. 8 below low normal Not Available [facility] ([facility]) [address] [facility] [place], [address], 05/21/2024 08:08:39 05/20/20 24 05/21/2024 COMP. METAB OLIC PANEL (14) globulin, total 2.0 g/dL 1.5-4. 5 Not Available [facility] ([facility]) [address] [facility] [place], [address], 05/21/2024 08:08:39 05/20/20 24 05/21/2024 COMP. METAB OLIC PANEL (14) bilirubin, total 0.2 mg/dL 0.0-1. 2 Not Available [facility] ([facility]) [address] [facility] [place], [address], 05/21/2024 08:08:39 05/20/20 24 05/21/2024 COMP. METAB OLIC PANEL (14) alkaline phosphatase 52 IU/L 44-121 Not Available [facility] ([facility]) [address] [facility] [place], [address], 05/21/2024 08:08:39 05/20/20 24 05/21/2024 COMP. METAB OLIC PANEL (14) AST (SGOT) 16 IU/L 0-40 Not Available [facility] ([facility]) [address] [facility] [place], [address], 05/21/2024 08:08:39 05/20/20 24 05/21/2024 COMP. METAB OLIC PANEL (14) ALT (SGPT) 11 IU/L 0-32 Not Available [facility] ([facility]) [address] [facility] [place], [address], 05/21/2024 08:08:39 05/20/20 24 05/21/2024 IRON AND TIBC iron bind.cap.(TI BC) 245 ug/dL 250-45 0 below low normal Not Available [facility] ([facility]) [address] [facility], [place], [address], 05/21/2024 08:08:39 05/20/20 24 05/21/2024 IRON AND TIBC UIBC 206 ug/dL 118-36 9 Not Available [facility] ([facility]) [address] [facility] [place], [address], 05/21/2024 08:08:39 05/20/20 24 05/21/2024 IRON AND TIBC iron 39 ug/dL 27-139 Not Available [facility] ([facility]) [address] [facility] [place], [address], 05/21/2024 08:08:39 05/20/20 24 05/21/2024 IRON AND TIBC iron saturation 16 % 15-55 Not Available [facility] ([facility]) [address] [place], [address], 05/21/2024 08:08:39 05/20/20 24 05/21/2024 VITAM IN B12 AND FOLAT E vitamin B12 778 pg/mL 232-12 45 Not Available [facility] ([facility]) [address] [place], [address], 05/21/2024 08:08:40 05/20/20 24 05/21/2024 VITAM IN B12 AND FOLAT E folate (folic acid), serum 15.8 NG/mL >3.0 A serum folat e farzad ntrat ion of less than 3.1 ng/mL is consi dered to repre sent clini singh defic iency . Not Available [facility] ([facility]) [address] [place], [address], 05/21/2024 08:08:40 05/20/20 24 05/21/2024 HEMOG LOBIN A1C hemoglobin A1C 6.4 % 4.8-5. 6 above high normal Predi abete s: 5.7 - 6.4 Diabe stefanie: >6.4 Glyce pj contr ol for adult s with diabe stefanie: <7.0 Not Available [facility] ([facility]) [address] [place], [address], 05/21/2024 08:08:41 05/20/20 24 05/21/2024 SEAN TIN ferritin 41 NG/mL 15-150 Not Available [facility] ([facility]) [address] [place], [address], 05/21/2024 08:08:41 05/20/20 24 05/21/2024 TRIIO DOTHY SUZY E (T3), FREE triiodothyro nine (T3), free 1.6 pg/mL 2.0-4. 4 below low normal Not Available [facility] ([facility]) [address] [place], [address], 05/21/2024 08:08:42 06/14/20 24 06/15/2024 BMP7+ EGFR glucose 125 mg/dL 70-99 above high normal Not Available [facility] ([facility]) [address] [place], [address], 06/15/2024 08:08:33 06/14/20 24 06/15/2024 BMP7+ EGFR BUN 52 mg/dL 8-27 above high normal Not Available [facility] ([facility]) [address] [place], [address], 06/15/2024 08:08:33 06/14/20 24 06/15/2024 BMP7+ EGFR creatinine 3.11 mg/dL 0.57-1 .00 above high normal Not Available [facility] ([facility]) [address] [place], [address], 06/15/2024 08:08:33 06/14/20 24 06/15/2024 BMP7+ EGFR eGFR 15 mL/mi n/1.7 3 >59 below low normal Not Available [facility] ([facility]) [address] [facility] [place], [address], 06/15/2024 08:08:33 06/14/20 24 06/15/2024 BMP7+ EGFR sodium 139 mmol/ L 134-14 4 normal Not Available [facility] ([facility]) [address] [facility] [place], [address], 06/15/2024 08:08:33 06/14/20 24 06/15/2024 BMP7+ EGFR potassium 4.6 mmol/ L 3.5-5. 2 normal Not Available [facility] ([facility]) [address] [facility] [place], [address], 06/15/2024 08:08:33 06/14/2006/15/2024 BMP7+ EGFR chloride 101 mmol/ L 96-106 normal Not Available [facility] ([facility]) [address] [facility] [place], [address], 06/15/2024 08:08:33 06/14/20 24 06/15/2024 BMP7+ EGFR carbon dioxide, total 23 mmol/ L 20-29 normal Not Available [facility] ([facility]) [address] [facility] [place], [address], 06/15/2024 08:08:33 06/14/20 24 06/15/2024 TSH+F REE T4 TSH 0.915 uIU/m L 0.450- 4.500 normal Not Available [facility] ([facility]) [address] [facility] [place], [address], 06/15/2024 08:08:34 06/14/20 24 06/15/2024 TSH+F REE T4 T4,free(dire ct) 1.39 NG/dL 0.82-1 .77 normal Not Available [facility] ([facility]) [address] [facility] [place], [address], 06/15/2024 08:08:34 06/14/20 24 06/15/2024 TRIIO DOTHY SUZY E (T3), FREE triiodothyro nine (T3), free 1.7 pg/mL 2.0-4. 4 below low normal Not Available [facility] ([facility]) [address] [place], [address], 06/15/2024 08:08:34 07/01/20 24 07/01/2024 CMP14 +EGFR glucose 51 mg/dL 70-99 below low normal Not Available [facility] ([facility]) [address] [place], [address], 07/02/2024 12:06:08 07/01/20 24 07/01/2024 CMP14 +EGFR BUN 43 mg/dL 8-27 above high normal Not Available [facility] ([facility]) [address] [place], [address], 07/02/2024 12:06:08 07/01/20 24 07/01/2024 CMP14 +EGFR creatinine 3.34 mg/dL 0.57-1 .00 above high normal Not Available [facility] ([facility]) [address] [place], [address], 07/02/2024 12:06:08 07/01/20 24 07/01/2024 CMP14 +EGFR eGFR 14 mL/mi n/1.7 3 >59 below low normal Not Available [facility] ([facility]) [address] [place], [address], 07/02/2024 12:06:08 07/01/20 24 07/01/2024 CMP14 +EGFR BUN/creatini ne ratio 13 12-28 normal Not Available [facility] ([facility]) [address] [place], [address], 07/02/2024 12:06:08 07/01/20 24 07/01/2024 CMP14 +EGFR sodium 132 mmol/ L 134-14 4 below low normal Not Available [facility] ([facility]) [address] [place], [address], 07/02/2024 12:06:08 07/01/20 24 07/01/2024 CMP14 +EGFR potassium 5.0 mmol/ L 3.5-5. 2 normal Not Available [facility] ([facility]) [address] [facility] [place], [address], 07/02/2024 12:06:08 07/01/20 24 07/01/2024 CMP14 +EGFR chloride 99 mmol/ L 96-106 normal Not Available [facility] ([facility]) [address] [facility] [place], [address], 07/02/2024 12:06:08 07/01/20 24 07/01/2024 CMP14 +EGFR carbon dioxide, total 21 mmol/ L 20-29 normal Not Available [facility] ([facility]) [address] [facility] [place], [address], 07/02/2024 12:06:08 07/01/20 24 07/01/2024 CMP14 +EGFR calcium 8.7 mg/dL 8.7-10 .3 normal Not Available [facility] ([facility]) [address] [facility], [place], [address], 07/02/2024 12:06:08 07/01/20 24 07/01/2024 CMP14 +EGFR protein, total 5.8 g/dL 6.0-8. 5 below low normal Not Available [facility] ([facility]) [address] [facility] [place], [address], 07/02/2024 12:06:08 07/01/20 24 07/01/2024 CMP14 +EGFR albumin 3.5 g/dL 3.8-4. 8 below low normal Not Available [facility] ([facility]) [address] [facility] [place], [address], 07/02/2024 12:06:08 07/01/20 24 07/01/2024 CMP14 +EGFR globulin, total 2.3 g/dL 1.5-4. 5 Not Available [facility] ([facility]) [address] [place], [address], 07/02/2024 12:06:08 07/01/20 24 07/01/2024 CMP14 +EGFR bilirubin, total <0.2 mg/dL 0.0-1. 2 Not Available [facility] ([facility]) [address] [place], [address], 07/02/2024 12:06:08 07/01/20 24 07/01/2024 CMP14 +EGFR alkaline phosphatase 65 IU/L 44-121 normal Not Available [facility] ([facility]) [address] [facility], [place], [address], 07/02/2024 12:06:08 07/01/20 24 07/01/2024 CMP14 +EGFR AST (SGOT) 28 IU/L 0-40 normal Not Available [facility] ([facility]) [address] [facility], [place], [address], 07/02/2024 12:06:08 07/01/20 24 07/01/2024 CMP14 +EGFR ALT (SGPT) 27 IU/L 0-32 normal Not Available [facility] ([facility]) [address] [facility], [place], [address], 07/02/2024 12:06:08 07/01/20 24 07/02/2024 FE+TI BC+FE R iron bind.cap.(TI BC) 249 ug/dL 250-45 0 below low normal Not Available [facility] ([facility]) [address] [place], [address], 07/02/2024 12:06:10 07/01/20 24 07/02/2024 FE+TI BC+FE R UIBC 207 ug/dL 118-36 9 normal Not Available [facility] ([facility]) [address] [place], [address], 07/02/2024 12:06:10 07/01/20 24 07/02/2024 FE+TI BC+FE R iron 42 ug/dL 27-139 normal Not Available [facility] ([facility]) [address] [place], [address], 07/02/2024 12:06:10 07/01/20 24 07/02/2024 FE+TI BC+FE R iron saturation 17 % 15-55 normal Not Available [facility] ([facility]) [address] [place], [address], 07/02/2024 12:06:10 07/01/20 24 07/02/2024 FE+TI BC+FE R ferritin 40 NG/mL 15-150 normal Not Available [facility] ([facility]) [address] [place], [address], 07/02/2024 12:06:10 07/01/20 24 07/02/2024 TSH+F REE T4 TSH 4.500 uIU/m L 0.450- 4.500 normal Not Available [facility] ([facility]) [address] [place], [address], 07/02/2024 12:06:11 07/01/20 24 07/02/2024 TSH+F REE T4 T4,free(dire ct) 1.30 NG/dL 0.82-1 .77 normal Not Available [facility] ([facility]) [address] [place], [address], 07/02/2024 12:06:11 07/01/20 24 07/01/2024 CBC WITH DIFFE RENTI AL/PL ATELE T WBC 6.6 x10e3 /uL 3.4-10 .8 normal Not Available [facility] ([facility]) [address] [place], [address], 07/02/2024 12:06:13 07/01/20 24 07/01/2024 CBC WITH DIFFE RENTI AL/PL ATELE T RBC 3.27 x10e6 /uL 3.77-5 .28 below low normal Not Available [facility] ([facility]) [address] [place], [address], 07/02/2024 12:06:13 07/01/20 24 07/01/2024 CBC WITH DIFFE RENTI AL/PL ATELE T hemoglobin 9.2 g/dL 11.1-1 5.9 below low normal Not Available [facility] ([facility]) [address] [place], [address], 07/02/2024 12:06:13 07/01/20 24 07/01/2024 CBC WITH DIFFE RENTI AL/PL ATELE T hematocrit 29.0 % 34.0-4 6.6 below low normal Not Available [facility] ([facility]) [address] [place], [address], 07/02/2024 12:06:13 07/01/20 24 07/01/2024 CBC WITH DIFFE RENTI AL/PL ATELE T MCV 89 fL 79-97 normal Not Available [facility] ([facility]) [address] [place], [address], 07/02/2024 12:06:13 07/01/20 24 07/01/2024 CBC WITH DIFFE RENTI AL/PL ATELE T MCH 28.1 pg 26.6-3 3.0 normal Not Available [facility] ([facility]) [address] [place], [address], 07/02/2024 12:06:13 07/01/20 24 07/01/2024 CBC WITH DIFFE RENTI AL/PL ATELE T MCHC 31.7 g/dL 31.5-3 5.7 normal Not Available [facility] ([facility]) [address] [place], [address], 07/02/2024 12:06:13 07/01/20 24 07/01/2024 CBC WITH DIFFE RENTI AL/PL ATELE T RDW 13.2 % 11.7-1 5.4 Not Available [facility] ([facility]) [address] [facility], [place], [address], 07/02/2024 12:06:13 07/01/20 24 07/01/2024 CBC WITH DIFFE RENTI AL/PL ATELE T platelets 255 x10e3 /uL 150-45 0 normal Not Available [facility] ([facility]) [address] [facility], [place], [address], 07/02/2024 12:06:13 07/01/20 24 07/01/2024 CBC WITH DIFFE RENTI AL/PL ATELE T neutrophils 74 % not estab. normal Not Available [facility] ([facility]) [address] [facility], [place], [address], 07/02/2024 12:06:13 07/01/20 24 07/01/2024 CBC WITH DIFFE RENTI AL/PL ATELE T lymphs 17 % not estab. normal Not Available [facility] ([facility]) [address] [facility], [place], [address], 07/02/2024 12:06:13 07/01/20 24 07/01/2024 CBC WITH DIFFE RENTI AL/PL ATELE T monocytes 5 % not estab. normal Not Available [facility] ([facility]) [address] [facility], [place], [address], 07/02/2024 12:06:13 07/01/20 24 07/01/2024 CBC WITH DIFFE RENTI AL/PL ATELE T eos 3 % not estab. normal Not Available [facility] ([facility]) [address] [facility], [place], [address], 07/02/2024 12:06:13 07/01/20 24 07/01/2024 CBC WITH DIFFE RENTI AL/PL ATELE T basos 1 % not estab. normal Not Available [facility] ([facility]) [address] [place], [address], 07/02/2024 12:06:13 07/01/20 24 07/01/2024 CBC WITH DIFFE RENTI AL/PL ATELE T immature cells HEAD OF SALES Not Available [facility] ([facility]) [address] [place], [address], 07/02/2024 12:06:13 07/01/20 24 07/01/2024 CBC WITH DIFFE RENTI AL/PL ATELE T neutrophils (absolute) 4.8 x10e3 /uL 1.4-7. 0 normal Not Available [facility] ([facility]) [address] [place], [address], 07/02/2024 12:06:13 07/01/20 24 07/01/2024 CBC WITH DIFFE RENTI AL/PL ATELE T lymphs (absolute) 1.1 x10e3 /uL 0.7-3. 1 normal Not Available [facility] ([facility]) [address] [place], [address], 07/02/2024 12:06:13 07/01/20 24 07/01/2024 CBC WITH DIFFE RENTI AL/PL ATELE T monocytes(ab solute) 0.4 x10e3 /uL 0.1-0. 9 normal Not Available [facility] ([facility]) [address] [place], [address], 07/02/2024 12:06:13 07/01/20 24 07/01/2024 CBC WITH DIFFE RENTI AL/PL ATELE T eos (absolute) 0.2 x10e3 /uL 0.0-0. 4 normal Not Available [facility] ([facility]) [address] [place], [address], 07/02/2024 12:06:13 07/01/20 24 07/01/2024 CBC WITH DIFFE RENTI AL/PL ATELE T baso (absolute) 0.1 x10e3 /uL 0.0-0. 2 normal Not Available [facility] ([facility]) [address] [facility], [place], [address], 07/02/2024 12:06:13 07/01/20 24 07/01/2024 CBC WITH DIFFE RENTI AL/PL ATELE T immature granulocytes 0 % not estab. Not Available [facility] ([facility]) [address] [facility], [place], [address], 07/02/2024 12:06:13 07/01/20 24 07/01/2024 CBC WITH DIFFE RENTI AL/PL ATELE T immature grans (abs) 0.0 x10e3 /uL 0.0-0. 1 Not Available [facility] ([facility]) [address] [facility], [place], [address], 07/02/2024 12:06:13 07/01/20 24 07/01/2024 CBC WITH DIFFE RENTI AL/PL ATELE T NRBC [employer] OF SALES Not Available [facility] ([facility]) [address] [facility], [place], [address], 07/02/2024 12:06:13 07/01/20 24 07/01/2024 CBC WITH DIFFE RENTI AL/PL ATELE T hematology comments: HEAD OF SALES Not Available [facility] ([facility]) [address] [facility], [place], [address], 07/02/2024 12:06:13 07/01/20 24 07/01/2024 LIPID PANEL cholesterol, total 148 mg/dL 100-19 9 normal Not Available [facility] ([facility]) [address] [facility], [place], [address], 07/02/2024 12:06:15 07/01/20 24 07/01/2024 LIPID PANEL triglyceride s 65 mg/dL 0-149 normal Not Available [facility] ([facility]) [address] [place], [address], 07/02/2024 12:06:15 07/01/20 24 07/01/2024 LIPID PANEL HDL cholesterol 60 mg/dL >39 normal Not Available [facility] ([facility]) [address] [place], [address], 07/02/2024 12:06:15 07/01/20 24 07/01/2024 LIPID PANEL VLDL cholesterol singh 13 mg/dL 5-40 Not Available [facility] ([facility]) [address] [place], [address], 07/02/2024 12:06:15 07/01/20 24 07/01/2024 LIPID PANEL LDL chol calc ([facility]) 75 mg/dL 0-99 Not Available [facility] ([facility]) [address] [place], [address], 07/02/2024 12:06:15 07/01/20 24 07/01/2024 LIPID PANEL LDL calc comment: [employer] OF SALES Not Available [facility] ([facility]) [address] [place], [address], 07/02/2024 12:06:15 07/01/20 24 07/02/2024 HEMOG LOBIN A1C hemoglobin A1C 6.7 % 4.8-5. 6 above high normal Predi abete s: 5.7 - 6.4 Diabe stefanie: >6.4 Glyce pj contr ol for adult s with diabe stefanie: <7.0 Not Available [facility] ([facility]) [address] [place], [address], 07/02/2024 12:06:16 07/01/20 24 07/02/2024 ALBUM IN, RANDO M URINE albumin, urine 1100.2 ug/mL not estab. Resul ts confi rmed on dilut ion. Not Available [facility] ([facility]) [address] [facility], [place], [address], 07/02/2024 12:06:17 08/14/20 24 08/15/2024 BMP7+ EGFR glucose 172 mg/dL 70-99 above high normal Not Available [facility] ([facility]) [address] [facility] [place], [address], 08/15/2024 08:09:02 08/14/2008/15/2024 BMP7+ EGFR BUN 38 mg/dL 8-27 above high normal Not Available [facility] ([facility]) [address] [facility] [place], [address], 08/15/2024 08:09:02 08/14/20 24 08/15/2024 BMP7+ EGFR creatinine 3.09 mg/dL 0.57-1 .00 above high normal Not Available [facility] ([facility]) [address] [facility], [place], [address], 08/15/2024 08:09:02 08/14/2008/15/2024 BMP7+ EGFR eGFR 15 mL/mi n/1.7 3 >59 below low normal Not Available [facility] ([facility]) [address] [facility] [place], [address], 08/15/2024 08:09:02 08/14/2008/15/2024 BMP7+ EGFR sodium 137 mmol/ L 134-14 4 normal Not Available [facility] ([facility]) [address] [facility] [place], [address], 08/15/2024 08:09:02 08/14/2008/15/2024 BMP7+ EGFR potassium 5.0 mmol/ L 3.5-5. 2 normal Not Available [facility] ([facility]) [address] [facility] [place], [address], 08/15/2024 08:09:02 08/14/2008/15/2024 BMP7+ EGFR chloride 101 mmol/ L 96-106 normal Not Available [facility] ([facility]) [address] [place], [address], 08/15/2024 08:09:02 08/14/20 24 08/15/2024 BMP7+ EGFR carbon dioxide, total 19 mmol/ L 20-29 below low normal Not Available [facility] ([facility]) [address] [place], [address], 08/15/2024 08:09:02 08/14/2008/15/2024 FE+TI BC+FE R iron bind.cap.(TI BC) 246 ug/dL 250-45 0 below low normal Not Available [facility] ([facility]) [address] [place], [address], 08/15/2024 08:09:03 08/14/2008/15/2024 FE+TI BC+FE R UIBC 197 ug/dL 118-36 9 normal Not Available [facility] ([facility]) [address] [place], [address], 08/15/2024 08:09:03 08/14/20 24 08/15/2024 FE+TI BC+FE R iron 49 ug/dL 27-139 normal Not Available [facility] ([facility]) [address] [place], [address], 08/15/2024 08:09:03 08/14/2008/15/2024 FE+TI BC+FE R iron saturation 20 % 15-55 normal Not Available [facility] ([facility]) [address] [place], [address], 08/15/2024 08:09:03 08/14/20 24 08/15/2024 FE+TI BC+FE R ferritin 55 NG/mL 15-150 normal Not Available [facility] ([facility]) [address] [place], [address], 08/15/2024 08:09:03 08/14/2008/15/2024 TSH+F REE T4 TSH 9.830 uIU/m L 0.450- 4.500 above high normal Not Available [facility] ([facility]) [address] [facility], [place], [address], 08/15/2024 08:09:03 08/14/2008/15/2024 TSH+F REE T4 T4,free(dire ct) 1.19 NG/dL 0.82-1 .77 normal Not Available [facility] ([facility]) [address] [facility], [place], [address], 08/15/2024 08:09:03 08/14/20 24 08/14/2024 CBC WITH DIFFE RENTI AL/PL ATELE T WBC 6.6 x10e3 /uL 3.4-10 .8 normal Not Available [facility] ([facility]) [address] [facility], [place], [address], 08/15/2024 08:09:04 08/14/20 24 08/14/2024 CBC WITH DIFFE RENTI AL/PL ATELE T RBC 3.19 x10e6 /uL 3.77-5 .28 below low normal Not Available [facility] ([facility]) [address] [place], [address], 08/15/2024 08:09:04 08/14/20 24 08/14/2024 CBC WITH DIFFE RENTI AL/PL ATELE T hemoglobin 9.2 g/dL 11.1-1 5.9 below low normal Not Available [facility] ([facility]) [address] [place], [address], 08/15/2024 08:09:04 08/14/20 24 08/14/2024 CBC WITH DIFFE RENTI AL/PL ATELE T hematocrit 28.8 % 34.0-4 6.6 below low normal Not Available [facility] ([facility]) [address] [facility], [place], [address], 08/15/2024 08:09:04 08/14/20 24 08/14/2024 CBC WITH DIFFE RENTI AL/PL ATELE T MCV 90 fL 79-97 normal Not Available [facility] ([facility]) [address] [facility], [place], [address], 08/15/2024 08:09:04 08/14/20 24 08/14/2024 CBC WITH DIFFE RENTI AL/PL ATELE T MCH 28.8 pg 26.6-3 3.0 normal Not Available [facility] ([facility]) [address] [facility], [place], [address], 08/15/2024 08:09:04 08/14/20 24 08/14/2024 CBC WITH DIFFE RENTI AL/PL ATELE T MCHC 31.9 g/dL 31.5-3 5.7 normal Not Available [facility] ([facility]) [address] [facility], [place], [address], 08/15/2024 08:09:04 08/14/20 24 08/14/2024 CBC WITH DIFFE RENTI AL/PL ATELE T RDW 13.6 % 11.7-1 5.4 Not Available [facility] ([facility]) [address] [facility], [place], [address], 08/15/2024 08:09:04 08/14/20 24 08/14/2024 CBC WITH DIFFE RENTI AL/PL ATELE T platelets 247 x10e3 /uL 150-45 0 normal Not Available [facility] ([facility]) [address] [facility], [place], [address], 08/15/2024 08:09:04 08/14/20 24 08/14/2024 CBC WITH DIFFE RENTI AL/PL ATELE T neutrophils 73 % not estab. normal Not Available [facility] ([facility]) [address] [facility], [place], [address], 08/15/2024 08:09:04 08/14/20 24 08/14/2024 CBC WITH DIFFE RENTI AL/PL ATELE T lymphs 18 % not estab. normal Not Available [facility] ([facility]) [address] [facility], [place], [address], 08/15/2024 08:09:04 08/14/20 24 08/14/2024 CBC WITH DIFFE RENTI AL/PL ATELE T monocytes 6 % not estab. normal Not Available [facility] ([facility]) [address] [facility], [place], [address], 08/15/2024 08:09:04 08/14/20 24 08/14/2024 CBC WITH DIFFE RENTI AL/PL ATELE T eos 2 % not estab. normal Not Available [facility] ([facility]) [address] [facility], [place], [address], 08/15/2024 08:09:04 08/14/20 24 08/14/2024 CBC WITH DIFFE RENTI AL/PL ATELE T basos 1 % not estab. normal Not Available [facility] ([facility]) [address] [facility], [place], [address], 08/15/2024 08:09:04 08/14/20 24 08/14/2024 CBC WITH DIFFE RENTI AL/PL ATELE T immature cells HEAD OF SALES Not Available [facility] ([facility]) [address] [facility], [place], [address], 08/15/2024 08:09:04 08/14/20 24 08/14/2024 CBC WITH DIFFE RENTI AL/PL ATELE T neutrophils (absolute) 4.8 x10e3 /uL 1.4-7. 0 normal Not Available [facility] ([facility]) [address] [facility], [place], [address], 08/15/2024 08:09:04 08/14/20 24 08/14/2024 CBC WITH DIFFE RENTI AL/PL ATELE T lymphs (absolute) 1.2 x10e3 /uL 0.7-3. 1 normal Not Available [facility] ([facility]) [address] [facility], [place], [address], 08/15/2024 08:09:04 08/14/20 24 08/14/2024 CBC WITH DIFFE RENTI AL/PL ATELE T monocytes(ab solute) 0.4 x10e3 /uL 0.1-0. 9 normal Not Available [facility] ([facility]) [address] [facility], [place], [address], 08/15/2024 08:09:04 08/14/20 24 08/14/2024 CBC WITH DIFFE RENTI AL/PL ATELE T eos (absolute) 0.2 x10e3 /uL 0.0-0. 4 normal Not Available [facility] ([facility]) [address] [facility], [place], [address], 08/15/2024 08:09:04 08/14/20 24 08/14/2024 CBC WITH DIFFE RENTI AL/PL ATELE T baso (absolute) 0.1 x10e3 /uL 0.0-0. 2 normal Not Available [facility] ([facility]) [address] [facility], [place], [address], 08/15/2024 08:09:04 08/14/20 24 08/14/2024 CBC WITH DIFFE RENTI AL/PL ATELE T immature granulocytes 0 % not estab. Not Available [facility] ([facility]) [address] [facility], [place], [address], 08/15/2024 08:09:04 08/14/20 24 08/14/2024 CBC WITH DIFFE RENTI AL/PL ATELE T immature grans (abs) 0.0 x10e3 /uL 0.0-0. 1 Not Available [facility] ([facility]) [address], [place], [address], 08/15/2024 08:09:04 08/14/20 24 08/14/2024 CBC WITH DIFFE RENTI AL/PL ATELE T NRBC HEAD OF SALES Not Available [facility] ([facility]) [address], [place], [address], 08/15/2024 08:09:04 08/14/20 24 08/14/2024 CBC WITH DIFFE RENTI AL/PL ATELE T hematology comments: HEAD OF SALES Not Available [facility] ([facility]) [address], [place], [address], 08/15/2024 08:09:04 09/25/20 24 09/25/2024 BMP8+ EGFR creatinine 3.67 mg/dL 0.57-1 .00 above high normal Not Available [facility] ([facility]) [address] [facility], [place], [address], 09/27/2024 14:07:01 09/25/20 24 09/25/2024 BMP8+ EGFR eGFR 13 mL/mi n/1.7 3 >59 below low normal Not Available [facility] ([facility]) [address], [place], [address], 09/27/2024 14:07:01 09/25/20 24 09/25/2024 BMP8+ EGFR sodium 138 mmol/ L 134-14 4 normal Not Available [facility] ([facility]) [address] [facility], [place], [address], 09/27/2024 14:07:01 09/25/20 24 09/25/2024 BMP8+ EGFR chloride 104 mmol/ L 96-106 normal Not Available [facility] ([facility]) [address] [facility], [place], [address], 09/27/2024 14:07:01 09/25/20 24 09/26/2024 BMP8+ EGFR glucose 183 mg/dL 70-99 above high normal Not Available [facility] ([facility]) [address] [place], [address], 09/27/2024 14:07:01 09/25/20 24 09/26/2024 BMP8+ EGFR BUN 42 mg/dL 8-27 above high normal Not Available [facility] ([facility]) [address] [place], [address], 09/27/2024 14:07:01 09/25/20 24 09/26/2024 BMP8+ EGFR BUN/creatini ne ratio 11 12-28 below low normal Not Available [facility] ([facility]) [address] [place], [address], 09/27/2024 14:07:01 09/25/20 24 09/26/2024 BMP8+ EGFR potassium 4.4 mmol/ L 3.5-5. 2 normal Not Available [facility] ([facility]) [address] [place], [address], 09/27/2024 14:07:01 09/25/20 24 09/26/2024 BMP8+ EGFR carbon dioxide, total 18 mmol/ L 20-29 below low normal Not Available [facility] ([facility]) [address] [place], [address], 09/27/2024 14:07:01 09/25/20 24 09/26/2024 BMP8+ EGFR calcium 9.1 mg/dL 8.7-10 .3 normal Not Available [facility] ([facility]) [address] [place], [address], 09/27/2024 14:07:01 09/25/20 24 09/26/2024 FE+TI BC+FE R iron bind.cap.(TI BC) 222 ug/dL 250-45 0 below low normal Not Available [facility] ([facility]) [address] [facility], [address], 09/27/2024 14:07:02 09/25/20 24 09/26/2024 FE+TI BC+FE R UIBC 193 ug/dL 118-36 9 normal Not Available [facility] ([facility]) [address] [place], [address], 09/27/2024 14:07:02 09/25/20 24 09/26/2024 FE+TI BC+FE R iron 29 ug/dL 27-139 normal Not Available [facility] ([facility]) [address] [place], [address], 09/27/2024 14:07:02 09/25/20 24 09/26/2024 FE+TI BC+FE R iron saturation 13 % 15-55 below low normal Not Available [facility] ([facility]) [address] [place], [address], 09/27/2024 14:07:02 09/25/20 24 09/26/2024 FE+TI BC+FE R ferritin 74 NG/mL 15-150 normal Not Available [facility] ([facility]) [address] [place], [address], 09/27/2024 14:07:02 09/25/20 24 09/26/2024 TSH+F REE T4 TSH 3.010 uIU/m L 0.450- 4.500 normal Not Available [facility] ([facility]) [address] [place], [address], 09/27/2024 14:07:03 09/25/20 24 09/26/2024 TSH+F REE T4 T4,free(dire ct) 1.30 NG/dL 0.82-1 .77 normal Not Available [facility] ([facility]) [address] [place], [address], 09/27/2024 14:07:03 09/25/20 24 09/25/2024 CBC WITH DIFFE RENTI AL/PL ATELE T WBC 6.6 x10e3 /uL 3.4-10 .8 normal Eff ectiv e Decem junaid 2023 profi olena [id number] WBC will be made* * non-o rdera ble as a stand -ava e order code. Not Available [facility] ([facility]) [address] [facility], [place], [address], 09/27/2024 14:07:04 09/25/20 24 09/25/2024 CBC WITH DIFFE RENTI AL/PL ATELE T RBC 3.24 x10e6 /uL 3.77-5 .28 below low normal Not Available [facility] ([facility]) [address] [facility], [place], [address], 09/27/2024 14:07:04 09/25/20 24 09/25/2024 CBC WITH DIFFE RENTI AL/PL ATELE T hemoglobin 9.3 g/dL 11.1-1 5.9 below low normal Not Available [facility] ([facility]) [address] [place], [address], 09/27/2024 14:07:04 09/25/20 24 09/25/2024 CBC WITH DIFFE RENTI AL/PL ATELE T hematocrit 29.3 % 34.0-4 6.6 below low normal Not Available [facility] ([facility]) [address] [place], [address], 09/27/2024 14:07:04 09/25/20 24 09/25/2024 CBC WITH DIFFE RENTI AL/PL ATELE T MCV 90 fL 79-97 normal Not Available [facility] ([facility]) [address] [place], [address], 09/27/2024 14:07:04 09/25/20 24 09/25/2024 CBC WITH DIFFE RENTI AL/PL ATELE T MCH 28.7 pg 26.6-3 3.0 normal Not Available [facility] ([facility]) [address] [facility], [place], [address], 09/27/2024 14:07:04 09/25/20 24 09/25/2024 CBC WITH DIFFE RENTI AL/PL ATELE T MCHC 31.7 g/dL 31.5-3 5.7 normal Not Available [facility] ([facility]) [address] [facility], [place], [address], 09/27/2024 14:07:04 09/25/20 24 09/25/2024 CBC WITH DIFFE RENTI AL/PL ATELE T RDW 13.4 % 11.7-1 5.4 Not Available [facility] ([facility]) [address] [facility], [place], [address], 09/27/2024 14:07:04 09/25/20 24 09/25/2024 CBC WITH DIFFE RENTI AL/PL ATELE T platelets 267 x10e3 /uL 150-45 0 normal Not Available [facility] ([facility]) [address] [facility], [place], [address], 09/27/2024 14:07:04 09/25/20 24 09/25/2024 CBC WITH DIFFE RENTI AL/PL ATELE T neutrophils 72 % not estab. normal Not Available [facility] ([facility]) [address] [place], [address], 09/27/2024 14:07:04 09/25/20 24 09/25/2024 CBC WITH DIFFE RENTI AL/PL ATELE T lymphs 19 % not estab. normal Not Available [facility] ([facility]) [address] [place], [address], 09/27/2024 14:07:04 09/25/20 24 09/25/2024 CBC WITH DIFFE RENTI AL/PL ATELE T monocytes 6 % not estab. normal Not Available [facility] ([facility]) [address] [facility] [place], [address], 09/27/2024 14:07:04 09/25/20 24 09/25/2024 CBC WITH DIFFE RENTI AL/PL ATELE T eos 2 % not estab. normal Not Available [facility] ([facility]) [address] [facility], [place], [address], 09/27/2024 14:07:04 09/25/20 24 09/25/2024 CBC WITH DIFFE RENTI AL/PL ATELE T basos 1 % not estab. normal Not Available [facility] ([facility]) [address] [place], [address], 09/27/2024 14:07:04 09/25/20 24 09/25/2024 CBC WITH DIFFE RENTI AL/PL ATELE T immature cells HEAD OF SALES Not Available [facility] ([facility]) [address] [place], [address], 09/27/2024 14:07:04 09/25/20 24 09/25/2024 CBC WITH DIFFE RENTI AL/PL ATELE T neutrophils (absolute) 4.7 x10e3 /uL 1.4-7. 0 normal Not Available [facility] ([facility]) [address] [place], [address], 09/27/2024 14:07:04 09/25/20 24 09/25/2024 CBC WITH DIFFE RENTI AL/PL ATELE T lymphs (absolute) 1.2 x10e3 /uL 0.7-3. 1 normal Not Available [facility] ([facility]) [address] [place], [address], 09/27/2024 14:07:04 09/25/20 24 09/25/2024 CBC WITH DIFFE RENTI AL/PL ATELE T monocytes(ab solute) 0.4 x10e3 /uL 0.1-0. 9 normal Not Available [facility] ([facility]) [address] [place], [address], 09/27/2024 14:07:04 09/25/20 24 09/25/2024 CBC WITH DIFFE RENTI AL/PL ATELE T eos (absolute) 0.1 x10e3 /uL 0.0-0. 4 normal Not Available [facility] ([facility]) [address] [facility], [place], [address], 09/27/2024 14:07:04 09/25/20 24 09/25/2024 CBC WITH DIFFE RENTI AL/PL ATELE T baso (absolute) 0.0 x10e3 /uL 0.0-0. 2 normal Not Available [facility] ([facility]) [address] [facility], [place], [address], 09/27/2024 14:07:04 09/25/20 24 09/25/2024 CBC WITH DIFFE RENTI AL/PL ATELE T immature granulocytes 0 % not estab. Not Available [facility] ([facility]) [address] [facility], [place], [address], 09/27/2024 14:07:04 09/25/20 24 09/25/2024 CBC WITH DIFFE RENTI AL/PL ATELE T immature grans (abs) 0.0 x10e3 /uL 0.0-0. 1 Not Available [facility] ([facility]) [address] [place], [address], 09/27/2024 14:07:04 09/25/20 24 09/25/2024 CBC WITH DIFFE RENTI AL/PL ATELE T NRBC HEAD OF SALES Not Available [facility] ([facility]) [address] [place], [address], 09/27/2024 14:07:04 09/25/20 24 09/25/2024 CBC WITH DIFFE RENTI AL/PL ATELE T hematology comments: HEAD OF SALES Not Available [facility] ([facility]) [address] [place], [address], 09/27/2024 14:07:04 09/25/20 24 09/26/2024 URINA LYSIS , COMPL ETE specific gravity 1.011 1.005- 1.030 normal Not Available [facility] ([facility]) [address] [facility], [place], [address], 09/27/2024 14:07:05 09/25/2009/26/2024 URINA LYSIS , COMPL ETE pH 6.5 5.0-7. 5 normal Not Available [facility] ([facility]) [address] [place], [address], 09/27/2024 14:07:05 09/25/2009/26/2024 URINA LYSIS , COMPL ETE urine-color Yellow yellow Not Available [facility] ([facility]) [address] [place], [address], 09/27/2024 14:07:05 09/25/20 24 09/26/2024 URINA LYSIS , COMPL ETE appearance Clear clear Not Available [facility] ([facility]) [address] [place], [address], 09/27/2024 14:07:05 09/25/20 24 09/26/2024 URINA LYSIS , COMPL ETE WBC esterase Negati ve negati ve Not Available [facility] ([facility]) [address] [place], [address], 09/27/2024 14:07:05 09/25/20 24 09/26/2024 URINA LYSIS , COMPL ETE protein 3+ negati ve/tra ce abnormal Not Available [facility] ([facility]) [address] [place], [address], 09/27/2024 14:07:05 09/25/20 24 09/26/2024 URINA LYSIS , COMPL ETE glucose 2+ negati ve abnormal Not Available [facility] ([facility]) [address] [facility], [place], [address], 09/27/2024 14:07:05 09/25/20 24 09/26/2024 URINA LYSIS , COMPL ETE ketones Negati ve negati ve Not Available [facility] ([facility]) [address] [facility], [place], [address], 09/27/2024 14:07:05 09/25/20 24 09/26/2024 URINA LYSIS , COMPL ETE occult blood Negati ve negati ve Not Available [facility] ([facility]) [address] [facility], [place], [address], 09/27/2024 14:07:05 09/25/20 24 09/26/2024 URINA LYSIS , COMPL ETE bilirubin Negati ve negati ve Not Available [facility] ([facility]) [address] [facility], [place], [address], 09/27/2024 14:07:05 09/25/20 24 09/26/2024 URINA LYSIS , COMPL ETE urobilinogen ,semi-qn 0.2 mg/dL 0.2-1. 0 normal Not Available [facility] ([facility]) [address] [facility], [place], [address], 09/27/2024 14:07:05 09/25/20 24 09/26/2024 URINA LYSIS , COMPL ETE nitrite, urine Negati ve negati ve Not Available [facility] ([facility]) [address] [place], [address], 09/27/2024 14:07:05 09/25/20 24 09/26/2024 URINA LYSIS , COMPL ETE microscopic examination See below: Micro scopi c was indic ated and was perfo rmed. Not Available [facility] ([facility]) [address] [place], [address], 09/27/2024 14:07:05 09/25/20 24 09/26/2024 URINA LYSIS , COMPL ETE WBC 0-5 /hpf 0 - 5 Not Available [facility] ([facility]) [address] [facility], [place], [address], 09/27/2024 14:07:05 09/25/20 24 09/26/2024 URINA LYSIS , COMPL ETE RBC None seen /hpf 0 - 2 Not Available [facility] ([facility]) [address] [facility], [place], [address], 09/27/2024 14:07:05 09/25/20 24 09/26/2024 URINA LYSIS , COMPL ETE epithelial cells (non renal) None seen /hpf 0 - 10 Not Available [facility] ([facility]) [address] [facility], [place], [address], 09/27/2024 14:07:05 09/25/20 24 09/26/2024 URINA LYSIS , COMPL ETE epithelial cells (renal) HEAD OF SALES Not Available [facility] ([facility]) [address] [facility], [place], [address], 09/27/2024 14:07:05 09/25/20 24 09/26/2024 URINA LYSIS , COMPL ETE casts None seen /lpf none seen Not Available [facility] ([facility]) [address] [facility], [place], [address], 09/27/2024 14:07:05 09/25/20 24 09/26/2024 URINA LYSIS , COMPL ETE cast type HEAD OF SALES Not Available [facility] ([facility]) [address] [facility], [place], [address], 09/27/2024 14:07:05 09/25/20 24 09/26/2024 URINA LYSIS , COMPL ETE crystals HEAD OF SALES Not Available [facility] ([facility]) [address] [facility], [place], [address], 09/27/2024 14:07:05 09/25/20 24 09/26/2024 URINA LYSIS , COMPL ETE crystal type HEAD OF SALES Not Available [facility] ([facility]) [address] [facility], [place], [address], 09/27/2024 14:07:05 09/25/20 24 09/26/2024 URINA LYSIS , COMPL ETE mucus threads HEAD OF SALES Not Available [facility] ([facility]) [address] [facility], [place], [address], 09/27/2024 14:07:05 09/25/2009/26/2024 URINA LYSIS , COMPL ETE bacteria None seen none seen/f ew Not Available [facility] ([facility]) [address] [facility], [place], [address], 09/27/2024 14:07:05 09/25/20 24 09/26/2024 URINA LYSIS , COMPL ETE yeast HEAD OF SALES Not Available [facility] ([facility]) [address] [facility], [place], [address], 09/27/2024 14:07:05 09/25/20 24 09/26/2024 URINA LYSIS , COMPL ETE trichomonas HEAD OF SALES Not Available [facility] ([facility]) [address] [facility], [place], [address], 09/27/2024 14:07:05 09/25/20 24 09/26/2024 URINA LYSIS , COMPL ETE comment HEAD OF SALES Not Available [facility] ([facility]) [address] [facility], [place], [address], 09/27/2024 14:07:05 09/25/20 24 09/26/2024 URINA LYSIS , COMPL ETE microscopic examination HEAD OF SALES Not Available [facility] ([facility]) [address] [facility], [place], [address], 09/27/2024 14:07:05 09/25/20 24 09/26/2024 VITAM IN B12 AND FOLAT E vitamin B12 662 pg/mL 232-12 45 normal Not Available [facility] ([facility]) [address] [facility], [place], [address], 09/27/2024 14:07:06 09/25/20 24 09/26/2024 VITAM IN B12 AND FOLAT E folate (folic acid), serum 13.3 NG/mL >3.0 normal A serum folat e farzad ntrat ion of less than 3.1 ng/mL is consi dered to repre sent clini singh defic iency . Not Available [facility] ([facility]) [address] [facility], [place], [address], 09/27/2024 14:07:06 09/25/20 24 09/26/2024 ALBUM IN, RANDO M URINE albumin, urine 1972.5 ug/mL not estab. Resul ts confi rmed on dilut ion. Not Available [facility] ([facility]) [address] [facility], [place], [address], 09/27/2024 14:07:07 09/25/20 24 09/27/2024 URINE CULTU RE,CO MPREH ENSIV E urine culture,comp rehensive Final report abnormal Not Available [facility] ([facility]) [address] [facility], [place], [address], 09/27/2024 14:07:08 09/25/20 24 09/27/2024 URINE CULTU RE,CO MPREH ENSIV E result 1 COMMEN T abnormal Beta hemol ytic Strep tococ cus, group B 10,00 0-25, 000 colon y formi ng units per mL The CLSI does not advis e routi ne susce ptibi lity testi ng of urina ry tract isola stefanie of Staph yloco ccus sapro phyti cus, becau se acute , uncom plica rhoda urina ry tract infec tions cause d by this organ ism respo nd to farzad ntrat ions achie gerardo in urine of antim icrob ial agent s commo nly used to treat these infec tions , such as nitro furan toin, a fluor oquin olone , or trime thopr im with or witho ut sulfa metho xazol e. CLSI, M100- S15, 2005. Not Available [facility] ([facility]) [address] [facility], [place], [address], 09/27/2024 14:07:08 09/25/20 24 09/25/2024 hemog lobin A1C, finge rstic k A1C 6.3 % 4-6 abnormal Not Available In-Office Order Internal Use Only DO Not Attach Compendium DO Not Attach Compendium, Do Not Delete/merge, [id number] 09/25/2024 09:11:51 09/30/20 24 10/01/2024 TSH+F REE T4 TSH 6.350 uIU/m L 0.450- 4.500 above high normal Not Available [facility] ([facility]) [address] [facility], [place], [address], 10/01/2024 06:07:37 09/30/20 24 10/01/2024 TSH+F REE T4 T4,free(dire ct) 1.23 NG/dL 0.82-1 .77 normal Not Available [facility] ([facility]) [address] [place], [address], 10/01/2024 06:07:37 05/30/20 24 05/30/2024 US, head + neck, soft tissu e US Soft Tissue Head/N ghassan Reason : Hypoth yroidi sm. Clinic al Questi on(s): Thyroi d nodule s. COMPAR BEATRIZ: None FINDIN GS: RIGHT THYROI D LOBE: 2.9 x 0.8 x 0.6 cm, volume 0.7 cc. Diffus jie hetero geneou s echote xture. Diffus jie decrea sed parenc hymal vascul arity. No right nodule s. LEFT THYROI D LOBE: 2.3 x 0.9 x 0.7 cm, volume 0.8 cc. Diffus jie hetero geneou s echote xture. Diffus jie decrea sed parenc hymal vascul arity. No left nodule s. ISTHMU S: Thickn ess: 0.2 cm. ADDITI ONAL FINDIN GS: A few scatte red bilate ral echoge jena foci, likely repres enting small calcif icatio ns. IMPRES SOFIA: Diminu tive, hetero geneou s thyroi d gland with decrea sed vascul arity. Findin gs can be seen in the settin g of late chroni c thyroi ditis. Correl ation with thyroi d labora tory values is recomm ended. No nodule s. I have person ally review ed the images and I agree with this report . WSN: [id number] Orderi ng Physic jessica: Brandi MELENDEZ, Zeferino Hensley Dictat ed By: Linh Garcia MD Dictat ed Date/T yovana: 2:55 pm Review ed By: Burke Porter MD Signed By: Burke Porter MD Signed Date/T yovana: 3:00 pm Transc ribed By: CHARMAINE Transc ribed Date/T yovana: 1:13 pm Patien t Class: Outpat ient [facility] (Outpt Imaging) [address] [place] [address], [address], 06/05/2024 14:55:50 07/02/20 24 07/01/2024 XR, lumba r spine PROCED URE: Lumbar Spine 2 or 3 Views CLINIC AL INDICA TION: 73 years old Female with Reason : low back pain. TECHNI QUE: AP, latera l and latera l spot views of the lumbar spine are obtain ed. COMPAR BEATRIZ: Lumbar spine radiog raphs April 18, 2023.. FINDIN GS: Bones: Five lumbar type non-ri b-bear ing verteb joaquin are noted. No eviden ce of fractu re or disloc ation. No eviden ce of spondy lolist hesis. Mild dextro scolio sis. Mild diffus e osteop enia again noted. Mild degene rative endpla te change s again seen at L2-L3 withou t loss of disc height . Unchan ged grade 1 spondy losis is likely degene rative at L4-L5 second lorna to facet degene rative change s. Mild to modera te bilate ral facet hypert rophy seen at L4-L5 and L5-S1 unchan ged. Soft Tissue s: Modera te arteri al calcif icatio ns. LEFT pelvic phlebo liths. Surgic al clips noted to the RIGHT of the L2 verteb ral body and in the RIGHT pelvis . IMPRES SOFIA: 1. No eviden ce of acute bony injuri es. 2. Mild degene rative change s in the lumbar spine. 3. Mild dextro scolio sis. 4. Mild osteop enia. 5. Modera te arteri al calcif icatio ns. 6. Postop erativ e change s RIGHT pelvis and RIGHT parasp inal region . Thank you for alec hill me to partic ipate in the care of this patien t. WSN: [id number] Orderi ng Physic jessica: Zeferino Paz Dictat ed By: Shree Oswald MD Dictat ed Date/T yovana: 12:42 p Review ed By: Shree Oswald MD Signed By: Shree Oswald MD Signed Date/T yovana: 12:42 pm Transc ribed By: CHARMAINE Transc ribed Date/T yovana: 12:40 pm Patien t Class: Outpat ient [facility] ([facility]) [address] [place], [address], 07/03/2024 14:37:39 09/27/20 24 09/27/2024 H&P No observ ation record ed. [address], [address], 09/27/2024 12:39:46 Result Notes None recorded. Problems Name Problem SNOMED Code Status Onset Date Resolution Date Notes Provider Name and Address Organization Details Recorded Time Epigastr ic pain 19322856 Completed 200705/27/2014 RECORDED 10/01/20 08 2:26PM BY ISAÍAS HARDING, JUANYATI ON/ADDEN DUM Cheyanne Paz, [facility] [address] [facility] [address], [place], [address], [facility] 6 13:35:33 Generali zed abdomina l pain [id number] Completed 200705/27/2014 RECORDED 07/25/20 08 3:44PM BY ADARSH OLMOS, ANNOTATI ON/ADDEN DUM Cheyanne Paz, [facility] [address] [facility] [address], [place], [address], [facility] 6 13:35:33 Abdomina l pain 82462551 Completed 201105/27/2014 RECORDED 06/07/20 12 10:02AM BY ALVIN OLMOS MA, ANNOTATI ON/ADDEN DUM Alvin johnson MA [facility], [facility] 4 13:10:58 Diarrhea 81981739 Completed 201105/27/2014 RECORDED 06/07/20 12 10:02AM BY ALVIN OLMOS MA, ANNOTATI ON/ADDEN DUM Aleksandra galeana MD [address] [facility] [address], [place], [address], [facility] 2 08:34:24 Acute lymphade nitis 03216981 Completed 200805/27/2014 RESOLVED DATE: 04/15/20 09; RECORDED 04/15/20 09 8:36AM BY ALEKSANDRA TORRES MD, ANNOTATI ON/ADDEN DUM Cheyanne Paz, [facility] [address] [facility] [address], [place], [address], [facility] 6 13:35:32 Patient status finding [id number] Completed 201205/27/2014 RECORDED 02/20/20 13 9:01AM BY CHARLENE MOBLEY MA, ANNOTATI ON/ADDEN DUM Cheyanne Paz, [facility] [address] [facility] [address], [place], [address], [facility] 6 13:35:33 Retinopa thy Completed 08/03/2021 Removal Reason: jenniferlicantionette Jose Carlos galeana MD [address] [facility] [address], [place], [address], [facility] 1 20:38:46 Digestiv e symptom [id number] Completed 201105/27/2014 RECORDED 06/07/20 12 10:02AM BY ALVIN OLMOS MA, ANNOTATI ON/ADDEN DUM Cheyanne Paz, [facility] [address] [facility] [address], [place], [address], [facility] 6 13:35:33 Screenin g for malignan t neoplasm of breast Completed 201105/27/2014 RECORDED 06/07/20 12 10:01AM BY ALVIN OLMOS MA, ANNOTATI ON/ADDEN DUM Cheyanne Paz, [facility] [address] [facility] [address], [place], [address], [facility] 6 13:35:33 Disorder of bursa of shoulder region 12196590 Active 2020 Ainsley Alva MA [facility], [facility] 3 14:15:16 Kidney stone 54882875 Completed 201205/27/2014 RECORDED 11/19/19 13 9:28AM BY ALVIN OLMOS MA, ANNOTATI ON/ADDEN DUM Aleksandra galeana MD [address] [facility] [address], [place], [address], [facility] 2 08:35:45 Screenin g for malignan t neoplasm of cervix Completed 201105/27/2014 RECORDED 06/07/20 12 10:01AM BY ALVIN OLMOS MA, DANITA ON/ADDEN DUM Cheyanne Paz, [facility] [address], [place], [address], [facility] 6 13:35:33 Chest pain 08950410 Completed 200805/27/2014 RECORDED 04/09/20 09 12:51PM BY ALVIN OLMOS MA, DANITA ON/ADDEN DUM Cheyanne Paz, [facility] [address], [place], [address], [facility] 6 13:35:33 Chronic kidney disease stage 1 951189805 Completed 08/01/[address] Derrell Melvin [facility] [address] [facility] [address], [place], [address], [facility] 8 16:02:06 Contact dermatit is [id number] Completed 201205/27/2014 RECORDED 01/17/20 13 12:53PM BY DANITA ALEX ON/ADDEN DUM Cheyanne Paz, [facility] [address] [facility], [place], [address], [facility] 6 13:35:32 Cough 58043686 Completed 201205/27/2014 IMPRESSI ON: PT IS ALLERGIC TO CODEINE SO WILL STICK WIOTH OTC EXPECTOR ANT/COUG H SUPPRESS ANT. NO CURRENT EVIDENCE FOR BACTERIA L PROCESS BUT IF PERSISTA NT/WORSE OVER NEXT WEEK FURTHER EVAL AND COURSE OF ABX MAY BE WARRANTE D.; RECORDED 12/11/19 13 11:16AM BY DANITA ALEX ON/ADDEN MEDHAT Quigley MA null, [facility] 7 14:11:51 Disorder of eye due to type 2 diabetes mellitus 556934859 Active Ainsley Alva MA null, [facility] 3 14:15:16 Dizzines s and giddines s 250424737 Completed 200705/27/2014 RECORDED 07/25/20 08 3:44PM BY DANITA DURANT ON/ADDEN DUM Cheyanne Paz, [facility] [address], [place], [address], [facility] 6 13:35:33 Dysphagi a [id number] Completed 200705/27/2014 RECORDED 10/24/20 08 10:16AM BY ALVIN LOMOS MA, DANITA ON/ADDEN DUM Cheyanne Paz, [facility] [address], [place], [address], [facility] 6 13:35:33 Dysuria 58905561 Completed 200705/27/2014 RECORDED 09/04/20 08 9:10AM BY ISAÍAS STEARNS, DANITA ON/ADDEN DUM Aleksandra galeana MD [address], [place], [address], [facility] 2 08:34:36 Lymphade nopathy 58846729 Completed 200805/27/2014 RESOLVED DATE: 04/15/20 09; IMPRESSI ON: LEFT SIDED, MILD, NO CONCERNS , SEEMS VIRAL; RECORDED 04/15/20 09 8:37AM BY ALEKSANDRA TORRES MD, DANITA ON/ADDEN DUM Cheyanne Paz, [facility] [address], [place], [address], [facility] 6 13:35:33 Enthesop athy of hip region 12762596 Completed 200705/27/2014 RECORDED 09/04/20 08 9:32AM BY ISAÍAS HARDING, DANITA ON/ADDEN DUM Cheyanne Paz, [facility] [address], [place], [address], [facility] 6 13:35:33 Essentia l hyperten sofia 40113940 Completed 201105/27/2014 RECORDED 06/07/20 12 10:02AM BY ALVIN OLMOS MA, ANNOTATI ON/ADDEN DUM Aileen Rodríguez null, [facility] 4 13:29:40 Ganglion and cyst of synovium , tendon and bursa Completed 201105/27/2014 RECORDED 07/10/20 12 1:49PM BY JENIFER PEACOCK I, JUANYATI ON/ADDEN DUM Cheyanne Paz, [facility] [address], [place], [address], [facility] 6 13:35:33 Alopecia [id number] Completed 201309/18/2014 RECORDED 04/07/20 14 2:21PM BY JENIFER PEACOCK I, OFFICE VISIT Cheyanne Paz, [facility] [address], [place], [address], [facility] 6 13:35:32 Headache 17321965 Active 2020 Ainsley Alva MA null, [facility] 3 14:15:15 Headache 83680252 Completed 201105/27/2014 RECORDED 06/07/20 12 10:01AM BY ALVIN OLMOS MA, ANNOTATI ON/ADDEN DUM Aleksandra galeana MD [address], [place], [address], [facility] 2 08:34:43 Hyperlip idemia 19019798 Active 2020 Aleksandra galeana MD [address], [place], [address], [facility] 3 09:54:26 Hypothyr oidism 50189293 Active 2020 Ainsley Alva MA null, [facility] 3 14:15:16 Influenz a with respirat ory manifest ation other than pneumoni a Completed 201305/27/2014 IMPRESSI ON: RECOMMEN D SUPPORTI VE TX INCL. REST AND HYDRATIO N, START TAMIFLU; RECORDED 12/25/19 14 8:51AM BY DANITA ALEX ON/GORDON Paz, [facility] [address] [facility] [address], [place], [address], [facility] 6 13:35:32 Amputate d at hip 987425446 Completed 201105/27/2014 RECORDED 07/10/20 12 1:49PM BY DANITA ALEX ON/GORDON Paz, [facility] [address] [facility] [address], [place], [address], [facility] 6 13:35:33 Knee pain Completed 201105/27/2014 RECORDED 06/07/20 12 10:02AM BY ALVIN OLMOS MA, DANITA ON/GORDON Paz, [facility] [address] [facility] [address], [place], [address], [facility] 6 13:35:32 Sciatica 39529612 Completed 201105/27/2014 IMPRESSI ON: A HANDOUT WAS GIVEN WITH EXERCISE S. IF THIS DOESN'T HELP WE WILL DO A REFERRAL FOR A POSSIBLE INJECTIO N.; RECORDED 10/10/20 12 12:43PM BY DANITA ALEX/GORDON Paz, [facility] [address] [facility] [address], [facility] [place], [address], [facility] 6 13:35:32 Low back pain 563564949 Completed 201105/27/2014 IMPRESSI ON: X 2 DAYS, APPEARS MUSCULAR ; RECORDED 06/07/20 12 10:02AM BY ALVIN OLMOS MA, JUANYATI ON/ADDEN DUM CATHIE Le [address] [facility] [address], [place], [phone], [facility] 6 13:35:32 Low back pain [id number] Active 2020 Ainsley Alva MA null, [facility] 3 14:15:15 Pain of breast [id number] Completed 201205/27/2014 RECORDED 07/09/20 13 9:06AM BY JENIFER PEACOCK I, JUANYATI ON/ADDEN Aleksandra galeana MD [address] [facility] [address], [place], [phone], [facility] 3 09:55:20 Fibromyo sitis [id number] Active 2020 Ainsley Alva MA null, [place] [facility] 14:15:15 Influenz a vaccine needed [id number] 06 Completed 200905/27/2014 RECORDED 09/02/20 10 2:35PM BY ERICH GOMEZ , OFFICE VISIT Cheyanne Paz [facility] [address] [address], [place], [address], [facility] 6 13:35:33 Patient status finding [id number] Completed 201309/18/2014 RECORDED 04/07/20 14 2:21PM BY JENIFER PEACOCK I, OFFICE VISIT CATHIE Le [address] [address], [place], [address], [facility] 6 13:35:33 Examinat ion for suspecte d mental disorder Completed 201105/27/2014 RECORDED 06/07/20 12 10:01AM BY ALVIN OLMOS MA, ANNOTATI ON/ADDEN DUM Cheyanne Paz, [facility] [address] [facility] [address], [place], [address], [facility] 6 13:35:33 Disorder of upper respirat ory system 490267270 Completed 200705/27/2014 RECORDED 09/04/20 08 9:11AM BY DANITA COLE ON/ADDEN DUM Cheyanne Paz, [facility] [address] [facility] [address], [place], [address], [facility] 6 13:35:33 Shoulder joint pain 564310122 Completed 201105/27/2014 IMPRESSI ON: PROBABLE ROTATOR CUFF TENDINIT IS. WE DISCUSSE D A REFERRAL FOR AN INJECTIO N AND PT BUT SHE IS NOT INTEREST ED IN EITHER. INSTEAD SHE WAS GIVEN A HANDOUT WITH EXERCISE S AND SHE WILL TRY THESE AT HOME.; RECORDED 06/07/20 12 10:02AM BY ALVIN OLMOS MA, DANITA ON/ADDEN DUM Cheyanne Paz, [facility] [address] [facility] [address], [place], [address], [facility] 6 13:35:32 Onychia of finger 44349368 Completed 200805/27/2014 RECORDED 05/07/20 09 11:41AM BY DANITA FINNEY ON/ADDEN MEDHAT Paz, [facility] [address] [facility] [address], [place], [address], [facility] 6 13:35:32 Paronych ia of finger 525328781 Completed 200809/18/2014 RECORDED 05/07/20 09 11:41AM BY DANITA FINNEY ON/ADDEN DUM Cheyanne Paz, [facility] [address] [facility] [address], [place], [address], [facility] 6 13:35:32 Pneumoni a 434870155 Completed 200705/27/2014 RESOLVED DATE: 03/17/20 08; RECORDED 03/17/20 08 5:11PM BY ALEKSANDRA TORRES MD, ANNOTATI ON/ADDEN MEDHAT Paz, [facility] [address], [place], [place], [address], [facility] 6 13:35:32 Pre-surg gonzalo evaluati on Completed 200705/27/2014 RECORDED 03/17/20 08 5:11PM BY ALEKSANDRA TORRES MD, ANNOTATI ON/ADDEN MEDHAT Paz, [facility] [address], [place], [address], [facility] 6 13:35:33 Proteinu rogerio [id number] Completed 200805/27/2014 RECORDED 10/21/20 09 10:20AM BY ALEKSANDRA TORRES MD, ANNOTATI ON/ADDEN MEDHAT Paz, [facility] [address], [place], [address], [facility] 6 13:35:33 Eruption [id number] Completed 201205/27/2014 IMPRESSI ON: WE WILL REFER HER TO HAKEEM BARRERA; RECORDED 07/09/20 13 9:06AM BY JENIFER PEACOCK I, JUANYATI ON/ADDEN MEDHAT Paz, [facility] [address], [place], [address], [facility] 4 11:21:43 Pain in limb 53840932 Completed 201105/27/2014 RECORDED 06/07/20 12 10:02AM BY ALVIN OLMOS MA, ANNOTATI ON/ADDEN MEDHAT Paz, [facility] [address], [place], [address], [facility] 6 13:35:33 Dm [id number] Active 2020 Ainsley Alva MA null, [facility] 3 14:15:16 Adult health examinat ion Completed 201105/27/2014 RECORDED 06/07/20 12 10:02AM BY ALVIN OLMOS MA, JUANYATI ON/ADDEN MEDHAT Paz, [facility] [address], [place], [address], [facility] 6 13:35:33 Screenin g for malignan t neoplasm of colon Completed 200805/27/2014 RECORDED 07/16/20 09 9:24AM BY ISAÍAS NEVAREZ, DANITA ON/ADDEN MEDHAT Paz, [facility] [address] [facility] [address], [place], [address], [facility] 6 13:35:33 Type 2 diabetes mellitus without complica tion 145008255 Completed 201205/27/2014 RECORDED 02/20/20 13 9:00AM BY CHARLENE MOBLEY MA, DANITA ON/GORDON Paz, [facility] [address] [facility] [address], [place], [address], [facility] 6 13:35:32 Uncontro lled type 2 diabetes mellitus 946820832 Completed 201205/27/2014 RECORDED 02/20/20 13 9:01AM BY CHARLENE MOBLEY MA, DANITA ON/ADDEN MEDHAT Paz, [facility] [address] [facility] [address], [place], [address], [facility] 4 11:58:55 Derangem ent of knee 67111234 Completed 200805/27/2014 RECORDED 05/07/20 09 11:41AM BY DANITA FINNEY ON/ADDEN DUM Cheyanne Paz, [facility] [address] [facility] [address], [place], [address], [facility] 6 13:35:32 Urinary tract infectio us disease 35203285 Completed 200705/27/2014 RECORDED 09/04/20 08 9:10AM BY ISAÍAS STEARNS, DANITA ON/ADDEN DUM Cheyanne Paz, [facility] [address] [facility] [address], [place], [address], [facility] 4 09:57:04 Immuniza tion refused Completed 201105/27/2014 RECORDED 06/07/20 12 10:02AM BY ALVIN OLMOS MA, DANITA ON/ADDEN DUM Cheyanne Paz, [facility] [address] [facility] [address], [place], [address], [facility] 6 13:35:33 Candidal vulvovag initis 95382681 Completed 200705/27/2014 RECORDED 07/25/20 08 3:44PM BY DANITA DURANT ON/ADDREBECCA DUM Cheyanne Paz, [facility] [address] [facility] [address], [place], [address], [facility] 6 13:35:32 Eruption 798153033 Completed 09/18/2014 Cheyanne Paz, [facility] [address] [facility] [address], [place], [address], [facility] 4 11:21:43 Epigastr ic pain 38051413 Completed 200706/16/2014 RECORDED 10/01/20 08 2:26PM BY DANITA ELLIOTT ON/ADDEN DUM Cheyanne Paz, [facility] [address] [facility] [address], [place], [address], [facility] 6 13:35:33 Generali zed abdomina l pain 091893405 Completed 200706/16/2014 RECORDED 07/25/20 08 3:44PM BY DANITA DURANT ON/ADDEN DUM Cheyanne Paz, [facility] [address] [facility] [address], [place], [address], [facility] 6 13:35:33 Abdomina l pain 23699775 Completed 201106/16/2014 RECORDED 06/07/20 12 10:02AM BY ALVIN OLMOS MA, ANNOTATI ON/ADDEN DUM Alvin johnson MA [facility] 4 13:10:58 Diarrhea 69788495 Completed 201106/16/2014 RECORDED 06/07/20 12 10:02AM BY ALVIN OLMOS MA, JUANYATI ON/ADDEN DUM Aleksandra galeana MD [address], [place], [address], [facility] 2 08:34:24 Acute lymphade nitis 64524310 Completed 200806/16/2014 RESOLVED DATE: 04/15/20 09; RECORDED 04/15/20 09 8:36AM BY ALEKSANDRA TORRES MD, DANITA ON/ADDEN DUM Cheyanne Paz, [facility] [address] [facility] [address], [place], [address], [facility] 6 13:35:32 Patient status finding [id number] Completed 201206/16/2014 RECORDED 02/20/20 13 9:01AM BY CHARLENE MOBLEY MA, DANITA ON/ADDEN DUM Cheyanne Paz, [facility] [address] [facility] [address], [place], [address], [facility] 6 13:35:33 Digestiv e symptom 705053200 Completed 201106/16/2014 RECORDED 06/07/20 12 10:02AM BY ALVIN OLMOS MA, ANNOTATI ON/ADDEN DUM Cheyanne Paz, [facility] [address], [place], [address], [facility] 6 13:35:33 Screenin g for malignan t neoplasm of breast Completed 201106/16/2014 RECORDED 06/07/20 12 10:01AM BY ALVIN OLMOS MA, ANNOTATI ON/ADDEN DUM Cheyanne Paz, [facility] [address], [place], [address], [facility] 6 13:35:33 Kidney stone 61691387 Completed 201206/16/2014 RECORDED 11/19/19 13 9:28AM BY ALVIN OLMOS MA, ANNOTATI ON/ADDEN DUM Aleksandra galeana MD [address], [facility] [place], [address], [facility] 2 08:35:45 Screenin g for malignan t neoplasm of cervix Completed 201106/16/2014 RECORDED 06/07/20 12 10:01AM BY ALVIN OLMOS MA, DANITA ON/ADDEN DUM Cheyanne Paz, [facility] [address], [facility] [place], [address], [facility] 6 13:35:33 Chest pain 32457471 Completed 200806/16/2014 RECORDED 04/09/20 09 12:51PM BY ALVIN OLMOS MA, ANNOTATI ON/ADDEN DUM Cheyanne Paz, [facility] [address], [place], [address], [facility] 6 13:35:33 Contact dermatit is 41005405 Completed 201206/16/2014 RECORDED 01/17/20 13 12:53PM BY DANITA ALEX ON/ADDEN DUM Cheyanne Paz, [facility] [address] [facility] [address], [place], [address], [facility] 6 13:35:32 Cough 04605968 Completed 201206/16/2014 IMPRESSI ON: PT IS ALLERGIC TO CODEINE SO WILL STICK WIOTH OTC EXPECTOR ANT/COUG H SUPPRESS ANT. NO CURRENT EVIDENCE FOR BACTERIA L PROCESS BUT IF PERSISTA NT/WORSE OVER NEXT WEEK FURTHER EVAL AND COURSE OF ABX MAY BE WARRANTE D.; RECORDED 12/11/19 13 11:16AM BY DANITA ALEX ON/ADDEN DUM [facility] 7 14:11:51 Dizzines s and giddines s 702925608 Completed 200706/16/2014 RECORDED 07/25/20 08 3:44PM BY DANITA DURANT ON/ADDEN DUM Cheyanne Paz, [facility] [address] [facility] [address], [place], [address], [facility] 6 13:35:33 Dysphagi a 79017711 Completed 200706/16/2014 RECORDED 10/24/20 08 10:16AM BY ALVIN OLMOS MA, ANNOTATI ON/ADDEN DUM Cheyanne Paz, [facility] [address] [facility] [address], [place], [address], [facility] 6 13:35:33 Dysuria 30772030 Completed 200706/16/2014 RECORDED 09/04/20 08 9:10AM BY DANITA COLE ON/ADDEN DUM Aleksandra galeana MD [address] [facility] [address], [place], [address], [facility] 2 08:34:36 Lymphade nopathy 71538527 Completed 200806/16/2014 RESOLVED DATE: 04/15/20 09; IMPRESSI ON: LEFT SIDED, MILD, NO CONCERNS , SEEMS VIRAL; RECORDED 04/15/20 09 8:37AM BY ALEKSANDRA TORRES MD, ANNOTATI ON/ADDEN DUM Cheyanne Paz, [facility] [address] [facility] [address], [place], [address], [facility] 6 13:35:33 Enthesop athy of hip region 77425956 Completed 200706/16/2014 RECORDED 09/04/20 08 9:32AM BY ISAÍAS HARDING, DANITA ON/ADDEN DUM Cheyanne Paz, [facility] [address] [facility] [address], [place], [address], [facility] 6 13:35:33 Ganglion and cyst of synovium , tendon and bursa Completed 201106/16/2014 RECORDED 07/10/20 12 1:49PM BY DANITA ALEX ON/ADDEN MEDHAT Paz, [facility] [address] [facility] [address], [place], [address], [facility] 6 13:35:33 Alopecia 62564091 Completed 201306/16/2014 RECORDED 04/07/20 14 8:04AM BY DANITA ALEX ON/ADDEN DUM Cheyanne Paz, [facility] [address] [facility] [address], [place], [address], [facility] 6 13:35:32 Headache 89620501 Completed 201306/16/2014 RECORDED 04/07/20 14 8:04AM BY DANITA ALEX ON/ADDEN MEDHAT galeana MD [address] [facility] [address], [place], [address], [facility] 2 08:34:43 Influenz a with respirat ory manifest ation other than pneumoni a Completed 201306/16/2014 IMPRESSI ON: RECOMMEN D SUPPORTI VE TX INCL. REST AND HYDRATIO N, START TAMIFLU; RECORDED 12/25/19 14 8:51AM BY DANITA ALEX/GORDON Paz, [facility] [address] [facility] [address], [place], [address], [facility] 6 13:35:32 Amputate d at hip 314443961 Completed 201106/16/2014 RECORDED 07/10/20 12 1:49PM BY DANITA ALEX/GORDON Paz, [facility] [address] [address], [place], [address], [facility] 6 13:35:33 Knee pain Completed 201106/16/2014 RECORDED 06/07/20 12 10:02AM BY ALVIN OLMOS MA, DANITA ON/GORDON Paz, [facility] [address] [facility] [address], [place], [address], [facility] 6 13:35:32 Sciatica 00580562 Completed 201106/16/2014 IMPRESSI ON: A HANDOUT WAS GIVEN WITH EXERCISE S. IF THIS DOESN'T HELP WE WILL DO A REFERRAL FOR A POSSIBLE INJECTIO N.; RECORDED 10/10/20 12 12:43PM BY DANITA ALEX/GORDON Paz, [facility] [address] [facility] [address], [place], [address], [facility] 6 13:35:32 Low back pain 941594239 Completed 201106/16/2014 IMPRESSI ON: X 2 DAYS, APPEARS MUSCULAR ; RECORDED 06/07/20 12 10:02AM BY ALVIN OLMOS MA, ANNOTATI ON/ADDEN DUM Cheyanne Paz, [facility] [address] [facility] [address], [place], [address], [facility] 6 13:35:32 Pain of breast 43080062 Completed 201206/16/2014 RECORDED 07/09/20 13 9:06AM BY DANITA ALEX ON/ADDEN DUM Aleksandra galeana MD [address] [facility] [address], [place], [address], [facility] 3 09:55:20 Influenz a vaccine needed 28874185019 06 Completed 200906/16/2014 RECORDED 09/02/20 10 2:35PM BY ERICH GOMEZ , OFFICE VISIT Cheyanne Paz, [facility] [address] [facility] [address], [place], [address], [facility] 6 13:35:33 Examinat ion for suspecte d mental disorder Completed 201106/16/2014 RECORDED 06/07/20 12 10:01AM BY ALVIN OLMOS MA, DANITA ON/ADDEN DUM Cheyanne Paz, [facility] [address] [facility] [address], [place], [address], [facility] 6 13:35:33 Disorder of upper respirat ory system 964431101 Completed 200706/16/2014 RECORDED 09/04/20 08 9:11AM BY DANITA COLE ON/ADDEN MEDHAT Paz, [facility] [address] [facility] [address], [place], [address], [facility] 6 13:35:33 Shoulder joint pain 973335624 Completed 201106/16/2014 IMPRESSI ON: PROBABLE ROTATOR CUFF TENDINIT IS. WE DISCUSSE D A REFERRAL FOR AN INJECTIO N AND PT BUT SHE IS NOT INTEREST ED IN EITHER. INSTEAD SHE WAS GIVEN A HANDOUT WITH EXERCISE S AND SHE WILL TRY THESE AT HOME.; RECORDED 06/07/20 12 10:02AM BY ALVIN OLMOS MA, DANITA ON/ADDEN MEDHAT Paz, [facility] [address] [facility] [address], [place], [address], [facility] 6 13:35:32 Onychia of finger 44219691 Completed 200806/16/2014 RECORDED 05/07/20 09 11:41AM BY ISAÍAS NEVAREZ, DANITA ON/ADDREBECCA Paz, [facility] [address] [facility] [address], [place], [address], [facility] 6 13:35:32 Pneumoni a 914780200 Completed 200706/16/2014 RESOLVED DATE: 03/17/20 08; RECORDED 03/17/20 08 5:11PM BY ALEKSANDRA TORRES MD, DANITA ON/ADDREBECCA Paz, [address] [address], [place], [address], [facility] 6 13:35:32 Pre-surg gonzalo evaluati on Completed 200706/16/2014 RECORDED 03/17/20 08 5:11PM BY ALEKSANDRA TORRES MD, DANITA ON/GORDON Paz, [facility] [address] [facility] [address], [place], [address], [facility] 6 13:35:33 Proteinu rogerio 19521134 Completed 200806/16/2014 RECORDED 10/21/20 09 10:20AM BY ALEKSANDRA TORRES MD, DANITA ON/GORDON Paz, [facility] [address] [address], [facility] [place], [address], [facility] 6 13:35:33 Eruption 165816220 Completed 201206/16/2014 FRANCOIS ON: WE WILL REFER HER TO HAKEEM BARRERA; RECORDED 07/09/20 13 9:06AM BY DANITA ALEX ON/ADDRBEECCA Paz, [facility] [address], [place], [address], [facility] 4 11:21:43 Pain in limb 68501020 Completed 201106/16/2014 RECORDED 06/07/20 12 10:02AM BY ALVIN OLMOS MA, DANITA ON/ADDEN MEDHAT Paz, [facility] [address], [place], [address], [facility] 6 13:35:33 Adult health examinat ion Completed 201106/16/2014 RECORDED 06/07/20 12 10:02AM BY ALVIN OLMOS MA, DANITA ON/ADDEN MEDHAT Paz, [facility] [address], [place], [address], [facility] 6 13:35:33 Screenin g for malignan t neoplasm of colon Completed 200806/16/2014 RECORDED 07/16/20 09 9:24AM BY DANITA FINNEY ON/ADDEN DUM Cheyanne Paz, [facility] [address], [place], [address], [facility] 6 13:35:33 Telogen effluviu m 44137424 Active 2020 Ainsley Alva MA null, [facility] 3 14:15:15 Type 2 diabetes mellitus without complica tion 380880722 Completed 201206/16/2014 RECORDED 02/20/20 13 9:00AM BY CHARLENE MOBLEY MA, JUANYATI ON/ADDEN MEDHAT Paz, [facility] [address], [place], [address], [facility] 6 13:35:32 Uncontro lled type 2 diabetes mellitus 036216508 Completed 201206/16/2014 RECORDED 02/20/20 13 9:01AM BY CHARLENE MOBLEY MA, DANITA ON/ADDEN DUM Cheyanne Paz, [facility] [address] [facility] [address], [place], [address], [facility] 4 11:58:55 Derangem ent of knee 10215236 Completed 200806/16/2014 RECORDED 05/07/20 09 11:41AM BY ISAÍAS NEVAREZ, DANITA ON/GORDON Paz, [facility] [address] [facility] [address], [place], [address], [facility] 6 13:35:32 Urinary tract infectio us disease 25686269 Completed 200706/16/2014 RECORDED 09/04/20 08 9:10AM BY ISAÍAS STEARNS, DANITA ON/GORDON Paz, [facility] [address] [facility] [address], [place], [address], [facility] 4 09:57:04 Immuniza tion refused Completed 201106/16/2014 RECORDED 06/07/20 12 10:02AM BY ALVIN OLMOS MA, DANITA ON/GORDON Paz, [facility] [address] [facility] [address], [place], [address], [facility] 6 13:35:33 Candidal vulvovag initis 42416001 Completed 200706/16/2014 RECORDED 09/19/20 08 3:44PM BY DANITA DURANT ON/GORDON Paz [facility] [address], [place], [address], [facility] 6 13:35:32 Allergic rhinitis 70378453 Active 2020 ISAÍAS Manuel, [facility] 3 14:15:16 Otitis media 92243063 Completed 03/02/2017 ISAÍAS Contreras, [facility] 7 14:12:06 Acute allergic reaction 751865353 Completed 03/02/2017 ISAÍAS Contreras, [facility] 7 14:11:26 Peripher al neuropat hy due to type 2 diabetes mellitus 22248792422 07 Active 2020 ISAÍAS Manuel, [facility] 3 14:15:15 Muscle pain 72173415 Completed 03/02/2017 ISAÍAS Contreras, [facility] 7 14:12:10 Heel pain 3338549 Active 2014 [address] [facility] ISAÍAS Manuel, [facility] 3 14:15:15 Calcanea l spur 96172085 Active 2020 ISAÍAS Manuel, [facility] 3 14:15:16 Pain of breast 67569142 Completed 202005/03/2023 Removal Reason: resolved Aleksandra galeana MD [address], [place], [address], [facility] 3 09:55:20 Acute upper respirat ory infectio n 44940438 Completed 03/02/2017 ISAÍAS Contreras, [facility] 7 14:11:55 Cough 15016754 Completed 03/02/2017 ISAÍAS Contreras, [facility] 7 14:11:51 Achilles tendinit is 89119948 Active [address] [facility] and referred to PT [facility]AS Manuel, [facility] 3 14:15:15 Abdomina l pain 05314186 Completed 12/11/2018 ISAÍAS Bradshaw, [facility] 4 13:10:58 Type 2 diabetes mellitus 77548027 Completed 02/09/2017 Aleksandra galeana MD [address], [place], [address], [facility] 7 06:38:11 Vitamin D deficien cy 41701064 Active 2015 on Vit D suppleme nt ISAÍAS Bradshaw, [facility] 7 09:12:15 Acute pharyngi tis 828165015 Completed 03/02/2017 ISAÍAS Contreras, [facility] 7 14:11:35 Diarrhea 75612356 Completed 03/02/2017 Aleksandra galeana MD [address], [place], [address], [facility] 2 08:34:24 Clostrid ioides difficil e infectio n 325610614 Completed 202005/03/2023 Removal Reason: resolved Aleksandra galeana MD [address], [place], [address], [facility] 3 09:54:06 Gastroes ophageal reflux disease 101979438 Active 2020 Aleksandra galeana MD [address], [place], [address], [facility] 3 09:54:21 Chronic diarrhea of unknown origin 44080510 Completed 202008/03/2021 Removal Reason: resolved Aleksandra galeana MD [address], [place], [address], [facility] 1 20:24:38 Dysuria 53280128 Completed 03/02/2017 Aleksandra galeana MD [address], [place], [address], [facility] 2 08:34:36 Uncontro lled type 2 diabetes mellitus 443202598 Completed 02/09/2017 Cheyanne Paz [facility] [address], [place], [address], [facility] 4 11:58:55 Hyperten sive renal disease 51727045 Completed 08/03/2021 Removal Reason: duplicat e Aileen Rodríguez mack, [facility] 1 14:20:22 Inflamma tion of joints of bilatera l shoulder regions 00552947269 87557 Active 2016 arthriti s L>R ISAÍAS Manuel, [facility] 3 14:15:15 Lumbar spondylo sis 820721703 Active [address] [facility] and treated with medrol. ISAÍAS Manuel [facility] 3 14:15:15 Dupuytre n's disease of palm 015345071 Active 2017 Left index finger. Seen at [facility] ISAÍAS Manuel [facility] 3 14:15:15 Acquired trigger finger 9153174 Active 2017 Right index and right small finger; injected . Seen at [facility] ISAÍAS Manuel [facility] 3 14:15:15 Noncompl iance with medicati on regimen 775981610 Active 2017 ISAÍAS Manuel, [facility] 3 14:15:15 Chronic kidney disease stage 2 due to type 2 diabetes mellitus 83022424692 1 Completed 201708/03/2021 Removal Reason: differen t stage Aleksandra galeana MD [address] [facility] [address], [facility] [place], [address], [facility] 1 20:25:11 Chronic kidney disease stage 2 356295085 Completed 201705/04/2021 Removal Reason: CKD 3 based on GFRs Brando Samuels MD null, [facility] 1 16:16:03 Kidney stone 31024432 Active 2018 Followed by urology Ainsley Alva MA null, [facility] 3 14:15:16 Recurren t major depressi on in full remissio n 59284831 Active 2019 Ainsley Alva MA null, [facility] 3 14:15:16 Bilatera l arthriti s of knees 11822223296 [address]16 Active [address] 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 [id number] 9109 Active 2020 Ainsley Alva MA null, [facility] 3 14:15:15 Proteinu rogerio 98323693 Completed 202005/28/2021 Kalpana Quigley MA null, [facility] 4 11:36:13 Renal osteodys trophy 11383569 Completed 202005/31/2021 Kalpana Quigley MA null, [facility] 4 11:36:13 Retinopa thy due to diabetes mellitus 0652898 Active 2020 Ainsley Alva MA null, [facility] 3 14:15:16 Chronic kidney disease due to benign hyperten sofia [id number] 9106 Completed 202008/03/2021 Removal Reason: Veronica galeana MD [address] [facility] [address] [address], [facility] 3 09:53:49 Lichen sclerosu s 655239532 Active 2020 Ainsley Alva MA null, [facility] 3 14:15:16 Cystocel e 028703746 Active 2020 mild Ainsley Alva MA null, [facility] 3 14:15:15 Angiomyo lipoma of right kidney 31027161915 60201 Active 2020 Ainsley Alva MA null, [facility] 2 10:11:25 Hyperten sive renal disease 86431062 Active 2020 ISAÍAS Manuel, [facility] 3 14:15:15 Palpitat ions 74515896 Active 2021 Ainsley Alva MA null, [facility] 2 10:11:25 Constipa tion 54100583 Active 2021 Ainsley Alva MA null, [facility] 2 10:11:25 Iron deficien cy anemia 87462311 Active 2021 ISAÍAS Manuel, [facility] 2 10:11:25 Otalgia 63741792 Completed 202103/21/2024 ISAÍAS Bradshaw, [facility] 4 10:02:07 Bilatera l cataract s 25636876 Active 2021 ISAÍAS Manuel, [facility] 2 09:54:06 Loss of hair 513571657 Active 2021 ISAÍAS Manuel, [facility] 2 09:54:06 Renal disorder due to type 2 diabetes mellitus 392168527 Active 2021 ISAÍAS Manuel, [facility] 3 14:15:16 Chronic kidney disease stage 3B 201680532 Active 2021 Followed by renal. 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 69471371 Active 2021 ISAÍAS Bradshaw, [facility] 2 09:24:54 Graves' disease 805133456 Active 2008 Alvin johnson MA null, [facility] 2 09:24:54 Diarrhea 00699519 Completed 202109/05/2022 Removal Reason: resolved Aleksandra galeana MD [address], [place], [address], [facility] 2 08:34:24 Abdomina l pain 38679132 Completed 202102/01/2024 ISAÍAS Bradshaw, [facility] 4 13:10:58 Mitral valve stenosis 54568675 Active 2021 ISAÍAS Manuel, [facility] 3 14:15:16 Prolifer ative retinopa thy due to diabetes mellitus 72305487 Active 2021 ISAÍAS Manuel, [facility] 3 14:15:16 Dysuria 41305696 Completed 202109/05/2022 Removal Reason: resolved Aleksandra galeana MD [address], [place], [address], [facility] 2 08:34:36 Pain of right shoulder joint 39687407167 939816 Active 2021 ISAÍAS Manuel, [facility] 3 14:15:15 Bilatera l shoulder joint pain 10023662633 781185 Active 2021 [address] [facility]. No treatmen t offered. She will return if she develops pain. ISAÍAS Manuel, [facility] 3 14:15:15 Pain in right foot 18454193745 9107 Completed 202103/21/2024 ISAÍAS Bradshaw, [facility] 4 10:02:16 Cellulit is of right foot 16057224144 170152 Completed 202105/03/2023 Removal Reason: resolved Aleksandra galeana MD [address], [place], [address], [facility] 3 09:53:57 Bone density finding 397945217 Active 2022 Ainsley Alva MA null, [facility] 3 14:15:15 Pain in left foot 55024470930 9107 Completed 202203/21/2024 Alvin johnson MA null, [facility] 4 10:02:30 Fatigue 61254235 Active 2022 Ainsley Alva MA null, [facility] 3 14:15:16 Radiogra phic calcific ation 885876757 Active 2022 Ainsley Alva MA null, [facility] 3 14:15:15 Allergic reaction 046021588 Active 2022 Ainsley Alva MA null, [facility] 3 14:15:16 Cellulit is of periorbi rekha region of left eye 92074849636 9109 Active 2022 Ainsley Alva MA null, [facility] 3 14:15:15 Tear film insuffic iency 75626155 Active 2022 Ainsley Alva MA null, [facility] 3 14:15:16 Urinary tract infectio us disease 52354115 Completed 202203/21/2024 CATHIE Le [address] [facility] [address], [place], [address], [facility] 4 09:57:04 Atypical facial pain 22111249 Active 2022 Ainsley Alva MA null, [facility] 3 14:15:16 Pruritic rash 80905081 Active 2022 Ainsley Alva MA null, [facility] 3 14:15:16 Glaucoma suspect 946016785 Active [address] Guerin. Aleksandra galeana MD [address] [facility] [address], [place], [address], [facility] 3 21:22:57 Pain in pelvis 04153260 Active 2022 Cheyanne Paz PASUP [address] [facility] [address], [place], [address], [facility] 3 13:27:00 Uterovag inal prolapse 69485778 Active 2022 CATHIE Le [address] [facility] [address], [place], [address], [facility] 3 13:31:37 Thyroid stimulat ing hormone level above referenc e range 574592930 Active 2022 CATHIE Le [address] [facility] [address], [place], [address], [facility] 3 09:52:13 Pain in left lower limb 069627719 Completed 202203/21/2024 Alvin johnson MA null, [facility] 4 10:02:22 Pain of left knee joint 48421388191 4107 Active 2022 Cheyanne Paz PASUP [address] [facility] [address], [place], [address], [facility] 3 14:17:10 Effusion of joint of left knee 73347921274 9105 Active 2022 Cheyanne Paz PASJARRET [address] [facility] [address], [place], [address], [facility] 3 15:22:51 Herpes zoster 0030525 Active 2023 Avel Melvin PA-C [address] [facility] [address], [place], [address], [facility] 4 20:19:57 Anemia 285343553 Active 2020 Kalpana Quigley MA null, [facility] 4 10:02:45 Chronic kidney disease due to benign hyperten sofia 16857696844 9106 Active 2020 Kalpana Quigley MA null, [facility] 4 10:02:45 Type 2 diabetes mellitus 40642997 Active 1981 Kalpana Quigley MA null, [facility] 4 10:02:45 Hypercal ciuria 10813261 Active 2021 Kalpana uQigley MA null, [facility] 4 10:02:46 Chronic kidney 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 14053404082 8 Completed 202005/31/2021 Kalpana Quigley MA null, [facility] 4 11:36:13 Postherp etic neuralgi a 3315515 Active 2023 CATHIE Le [address] [facility] [address], [place], [address], [facility] 4 10:38:04 Injury of toe 081331723 Active 2023 CATHIE Le [address] [facility] [address], [place], [address], [facility] 4 10:43:12 Edema of lower extremit y 855798657 Active 2023 CATHIE Le [address] [facility] [address], [place], [address], [facility] 4 13:40:37 Posterio r rhinorrh ea 08604537 Active 2023 Cheyanne Paz, [facility] [address], [place], [address], [facility] 4 13:43:26 Hyponatr emia 13473266 Active 2023 Cheyanne Paz, [facility] [address] [facility] [address], [place], [address], [facility] 4 11:57:03 Sacroili ac joint pain 145490116 Active 2023 Cheyanne Paz, [facility] [address] [facility] [address], [place], [address], [facility] 4 13:49:18 Heart murmur 52010222 Active 2023 [facility]yanne Paz, [facility] [address] [facility] [address], [place], [address], [facility] 4 13:50:04 Abdomina l pain 01656782 Active 2021 Kalpana Quigley MA null, [facility] 4 11:30:12 Hyperten sofia monitori ng status 966717649 Active 2021 Kalpana Quigley MA null, [facility] 4 11:30:12 Unintent ional weight loss 219506437 Active 2023 Cheyanne Paz, [facility] [address] [facility] [address], [place], [address], [facility] 4 13:03:19 Eruption 616246049 Active 2023 Cheyanne Paz PASUP [address] [facility] [address], [place], [address], [facility] 4 11:21:43 Rosacea, papular type 28704194 Active 2023 Cheyanne Paz, [facility] [address] [facility] [address], [place], [address], [facility] 4 11:55:54 Chronic hoarsene ss 75180421372 05 Active 2023 Cheyanne Paz, [facility] [address] [facility] [address], [place], [address], [facility] 4 10:27:37 Urinary tract infectio us disease 06365463 Active 2023 Cheyanne Paz, [facility] [address] [facility] [address], [place], [address], [facility] 4 09:57:03 Urinary incontin ence 007834996 Active 2023 Cheyanne Paz [address], [place], [address], [facility] 4 11:01:59 Uncontro lled type 2 diabetes mellitus 679437649 Active 2023 Cheyanne Paz, [facility] [address] [place] [address], [place], [address], [facility] 4 11:58:54 Notes:Some problems listed i n Documents: #[id number], #[id number] could not be added to this patient's chart. Please review these documents and add these problems to the patient's chart manually as needed. Problem Notes None recorded. Procedures Surgical History Date Name Laterality Status Provider Name and Address Organization Details Recorded Time 08/10 colpocleisis completed Alvin durán MA [facility] 3 13:19:53 05/03 Advanced Care Planning completed Aleksandra Polk MD [address] [facility] [address], [place], [address] , [facility] 3 09:57:20 05/03 Diabetic Foot Exam (Monofilament) completed Aleksandra Polk MD [address], [place], [address] , [facility] 3 09:57:16 01/09 Most Recent Mammogram completed Luda Hurd [facility] 3 12:27:40 01/09 Mammogram Screening completed Luda Hurd [facility] 3 12:27:29 07/05 Date of Last Pap Smear completed Vika Kumar [facility] 2 14:54:53 12/30 esophagogastroduodenoscopy completed Grace Kumar [facility] 2 13:50:11 05/27 Diabetic Foot Exam (Monofilament) completed Mariaelena Stearns MA [facility] 1 09:15:50 11/11 Diabetic Foot Exam (Monofilament) completed Aleksandra Polk MD [address], [place], [address] , [facility] 1 06:38:29 07/29 Diabetic Foot Exam (Monofilament) completed Aleksandra Polk MD [address], [place], [address] , [facility] 0 12:59:27 04/28 Six-Item Cognitive Test completed Kalpana Quigley MA [facility] 0 11:43:00 02/13 Diabetic Foot Exam (Monofilament) completed Gissell Mccann [facility] 0 09:21:20 10/17 Gastric emptying imag study completed Minal Clayton [facility] 9 14:59:57 01/17 Mini-Cog Test completed Jenifer Guevara [facility] 9 14:26:04 03/27 Diabetic Foot Exam (Monofilament) completed Jenifer Guevara [facility] 8 14:37:59 12/18 Mini-Cog Test completed Jenifer Guevara [facility] 8 14:28:52 10/23 Fall Risk Assessment completed Jenifer Guevara [facility] 7 14:40:42 10/23 Mini-Cog Test completed Jenifer Guevara [facility] 7 14:40:54 11/18 Most Recent Bone Density completed Alvin durán MA [facility] 7 14:10:33 11/18 Dxa bone density study completed Alvin durán MA [facility] 7 14:10:24 05/18 Sigmoidoscopy for bleeding completed Janes Gudino [facility] 6 10:51:50 05/18 transabdominal gastroscopy completed Nelia durán MA [facility] 0 09:39:06 10/17 Date of Last Colonoscopy completed Merlyn Wahl [facility] 6 14:39:37 10/17 Colonoscopy completed Charlene Mobley MA [facility] 6 13:11:33 11/06 lithotripsy completed Alvin durán MA [facility] 9 10:54:38 Cholecystectomy completed Alvin durán MA [facility] 1 10:29:35 Imaging Results Imaging Date Name Status LastModified by Organiz ation Details LastModified Time 05/30/2024 US, head + neck, soft tissue completed [facility] [address] [place] [address], [address], 06/05/2024 14:55:50 07/01/2024 XR, lumbar spine completed [facility] [address] [facility] [place], [address], 07/03/2024 14:37:39 09/27/2024 H&P completed [facility] [address] [place], [address], 09/27/2024 12:39:46 Procedure Notes None recorded. Medical Equipment None Reported. Allergies Allergen ID Allergen Name Allergen Category Reaction Reaction Severity Criticality Documentation Date Start Date Code Code System Note Provider Name and Address Organization Details Recorded Time 10028 codeine medicatio n other Not available Not available 05/20/20142020 2670 RxNorm Maria Teresa giron [facility] 1 11:54:07 74520 Medicinal product containin g penicilli n and acting as antibacte rial agent (product) medicatio n Not available Not available Not available 05/20/2014 75284 05 SNOMED CATHIE Le [address] [facility] [address], [place], [address], [facility] 5 16:02:19 48365 Substance with sulfonami de structure and antibacte rial mechanism of action (substanc e) medicatio n Not available Not available Not available 12/19/2014 38328 8003 SNVICTORIANO Paz PASUP [address] [facility] [address], [place], [address], [facility] 5 16:02:19 17844 Iodinated contrast media (substanc e) medicatio n Not available Not available Not available 01/05/2016 40072 2004 SNVICTORIANO giron [facility] 6 12:59:58 89288 prednison e medicatio n other Not available Not available 06/16/20172020 8640 RxNorm Maria Teresa giron [facility] 1 11:54:07 49282 blue dye medicatio n Not available Not available Not available 05/01/2020 Alvin Chandan johnson ISAÍAS mack, [facility] 0 16:28:50 78034 red dye food,medi cation Not available Not available Not available 05/01/2020 Alvin johnson ISAÍAS mack, [facility] 0 16:28:55 41948 yellow dye medicatio n Not available Not available Not available 05/01/2020 Alvinfernanda johnson ISAÍAS mack, [facility] 0 16:28:59 29705 amlodipin e medicatio n other Not available Not available 09/23/20202020 43479 RxNorm [facility]ISA[facility]AS [facility] 4 10:02:32 96919 cortisone medicatio n other Not available Not available 05/31/20212020 2878 RxNorm Maria Teresa giron [facility] 1 11:54:07 70451 quinoline yellow Not available Not available Not available Not available 05/31/20212020 83413 64 RxNorm [facility] 1 11:54:07 Medications Name Sig Start Date [...] RECORDED 09/08/20 10 10:38AM BY ALEXIS SIMON, JUANYATI ON/ADDEN DUM; Not Available Not Available Not [...] 02/25/20 14 8:45AM BY ALEKSANDRA TORRES MD, JUANYATI ON/ADDEN DUM; Not Available Not Available Not [...] 05/13/20 14 8:54AM BY ALEKSANDRA TORRES MD, ANNOTATI ON/GORDON MELÉNDEZ; Not Available Not Available Not Available doxycycli [...] completed RECORDED 02/26/20 08 1:18PM BY SRIDHAR Mcgarry NP, JUANYATI ON/ADDEN DUM; Not Available Not Available Not [...] RECORDED 09/08/20 10 10:38AM BY ALEXIS SIMON, DANTIA ON/ADD DUM;THIS ORDER DISCONTI NUED PER MEDI-SPA N. Not [...] 11 8:47AM BY ALEKSANDRA TORRES MD, DANITA ON/ DUM; [...] 12/15 completed RECORDED 12/25/19 14 8:51AM BY VONNIE GAYLE PA-C, MEDICATI ON AUTO-TONO CTIVATIO N; [...] 11/02 completed RECORDED 11/12/19 13 8:38AM BY TONI Hernandez MD, MEDICATI ON AUTO-TONO CTIVATIO N; [...] Available Not Available Nasonex 50 mcg/actua tion [place] EACH NOSTRIL DAILY 11/22 completed RECORDED 11/22/19 [...] 10 10:38AM BY ALEXIS SIMON, ANNOTATI ON/GORDON DUM; Not Available Not Available [...] 14 10:53AM BY ALEKSANDRA TORRES MD, ANNOTATI ON/ADDEN DUM; [...] completed RECORDED 04/03/20 09 12:59PM BY EL MANUEL CZ, PAJaysonC, MEDICATI ON AUTO-TONO CTIVATIO N; Not Available Not Available Not Available amitripty line QHS / HS 02/25 completed RECORDED 02/26/20 08 1:21PM BY SRIDHAR Mcgarry NP, DANITA ON/ADDEN DUM; Not Available Not Available Not [...] Not Available Not Available Not Available FreeStyle [place] kit DAILY 11/12 completed RECORDED 11/12/19 13 [...] completed RECORDED 04/11/20 11 10:03AM BY DANITA FLORES/GORDON MELÉNDEZ;DX=D M2 USING INSULIN Not Available Not Available [...] 13 12:48PM BY ALEKSANDRA TORRES MD, ANNOTATI ON/GORDON MELÉNDEZ; Not Available Not Available Not Available bimatopro [...] Available Not Available Not Available Jean Pierre Arce[employer] U-300 Insulin 300 unit/mL (1.5 mL) subcutane [...] Details Last Updated DateTime 4 156.21 cm 23.7 kg/m2 40403.3 3 g 74 /min 98 % 98 % 98 [degF] 170 mm[Hg] 55 mm[Hg] Vonnie Vanegas MA [facility] 14:51:41 Date Recorded Heart rate Systolic blood pressure Diastolic blood pressure Provider Name and Address Organization Details Last Updated DateTime 05/28/2024 66 /min 174 mm[Hg] 61 mm[Hg] Not Available [facility] 05/28/2024 22:58:03 Date Recorded Heart rate Heart rate Systolic blood pressure Diastolic blood pressure Systolic blood pressure Diastolic blood pressure Provider Name and Address Organization Details Last Updated DateTime 69 /min 67 /min 149 mm[Hg] 54 mm[Hg] 136 mm[Hg] 49 mm[Hg] Not Available [facility] 22:52:05 Date Recorded Heart rate Systolic blood pressure Diastolic blood pressure Provider Name and Address Organization Details Last Updated DateTime 05/31/2024 64 /min 120 mm[Hg] 65 mm[Hg] Not Available [facility] 05/31/2024 06:39:10 Date Recorded Heart rate Systolic blood pressure Diastolic blood pressure Provider Name and Address Organization Details Last Updated DateTime 06/01/2024 67 /min 142 mm[Hg] 75 mm[Hg] Not Available [facility] 06/01/2024 17:06:03 Date Recorded Heart rate Systolic blood pressure Diastolic blood pressure Provider Name and Address Organization Details Last Updated DateTime 06/02/2024 69 /min 124 mm[Hg] 46 mm[Hg] Not Available [facility] 06/03/2024 13:30:04 Date Recorded Heart rate Systolic blood pressure Diastolic blood pressure Provider Name and Address Organization Details Last Updated DateTime 06/03/2024 70 /min 145 mm[Hg] 48 mm[Hg] Not Available [facility] 06/03/2024 13:30:05 Date Recorded Heart rate Systolic blood pressure Diastolic blood pressure Provider Name and Address Organization Details Last Updated DateTime 06/07/2024 66 /min 126 mm[Hg] 64 mm[Hg] Not Available [facility] 06/07/2024 07:44:05 Date Recorded Heart rate Heart rate Heart rate Heart rate Systolic blood pressure Diastolic blood pressure Systolic blood pressure Diastolic blood pressure Systolic blood pressure Diastolic blood pressure Systolic blood pressure Diastolic blood pressure Provider Name and Address Organization Details Last Updated DateTime 53 /min 59 /min 58 /min 59 /min 165 mm[Hg] 96 mm[Hg] 139 mm[Hg] 77 mm[Hg] 133 mm[Hg] 74 mm[Hg] 154 mm[Hg] 98 mm[Hg] Not Available [facility] 4 21:56:04 Date Recorded Heart rate Heart rate Heart rate Heart rate Systolic blood pressure Diastolic blood pressure Systolic blood pressure Diastolic blood pressure Systolic blood pressure Diastolic blood pressure Systolic blood pressure Diastolic blood pressure Provider Name and Address Organization Details Last Updated DateTime 4 52 /min 56 /min 52 /min 55 /min 120 mm[Hg] 73 mm[Hg] 140 mm[Hg] 70 mm[Hg] 135 mm[Hg] 80 mm[Hg] 148 mm[Hg] 73 mm[Hg] Not Available [facility] 4 21:37:03 Date Recorded Heart rate Heart rate Heart rate Heart rate Systolic blood pressure Diastolic blood pressure Systolic blood pressure Diastolic blood pressure Systolic blood pressure Diastolic blood pressure Systolic blood pressure Diastolic blood pressure Provider Name and Address Organization Details Last Updated DateTime 4 53 /min 53 /min 53 /min 53 /min 133 mm[Hg] 72 mm[Hg] 149 mm[Hg] 75 mm[Hg] 148 mm[Hg] 83 mm[Hg] 144 mm[Hg] 82 mm[Hg] Not Available [facility] 4 21:29:09 Date Recorded Heart rate Heart rate Heart rate Heart rate Heart rate Systolic blood pressure Diastolic blood pressure Systolic blood pressure Diastolic blood pressure Systolic blood pressure Diastolic blood pressure Systolic blood pressure Diastolic blood pressure Systolic blood pressure Diastolic blood pressure Provider Name and Address Organization Details Last Updated DateTime 4 48 /min 56 /min 54 /min 56 /min 52 /min 113 mm[Hg] 53 mm[Hg] 174 mm[Hg] 97 mm[Hg] 178 mm[Hg] 85 mm[Hg] 140 mm[Hg] 56 mm[Hg] 144 mm[Hg] 87 mm[Hg] Not Available [facility] 4 23:51:03 Date Recorded Heart rate Heart rate Systolic blood pressure Diastolic blood pressure Systolic blood pressure Diastolic blood pressure Provider Name and Address Organization Details Last Updated DateTime 4 54 /min 54 /min 109 mm[Hg] 57 mm[Hg] 147 mm[Hg] 78 mm[Hg] Not Available [facility] 4 21:56:05 Date Recorded Heart rate Heart rate Systolic blood pressure Diastolic blood pressure Systolic blood pressure Diastolic blood pressure Provider Name and Address Organization Details Last Updated DateTime 4 58 /min 60 /min 152 mm[Hg] 90 mm[Hg] 151 mm[Hg] 95 mm[Hg] Not Available [facility] 4 20:05:03 Date Recorded Heart rate Heart rate Systolic blood pressure Diastolic blood pressure Systolic blood pressure Diastolic blood pressure Provider Name and Address Organization Details Last Updated DateTime 4 60 /min 53 /min 141 mm[Hg] 86 mm[Hg] 130 mm[Hg] 63 mm[Hg] Not Available [facility] 4 22:00:04 Date Recorded Heart rate Heart rate Heart rate Heart rate Heart rate Heart rate Heart rate Systolic blood pressure Diastolic blood pressure Systolic blood pressure Diastolic blood pressure Systolic blood pressure Diastolic blood pressure Systolic blood pressure Diastolic blood pressure Systolic blood pressure Diastolic blood pressure Systolic blood pressure Diastolic blood pressure Systolic blood pressure Diastolic blood pressure Provider Name and Address Organization Details Last Updated DateTime 4 52 /min 56 /min 52 /min 52 /min 57 /min 54 /min 60 /min 77 mm[Hg] 52 mm[Hg] 102 mm[Hg] 59 mm[Hg] 126 mm[Hg] 80 mm[Hg] 134 mm[Hg] 83 mm[Hg] 146 mm[Hg] 68 mm[Hg] 161 mm[Hg] 68 mm[Hg] 148 mm[Hg] 91 mm[Hg] Not Available [facility] 4 09:20:05 Date Recorded Heart rate Heart rate Systolic blood pressure Diastolic blood pressure Systolic blood pressure Diastolic blood pressure Provider Name and Address Organization Details Last Updated DateTime 4 54 /min 56 /min 143 mm[Hg] 85 mm[Hg] 166 mm[Hg] 84 mm[Hg] Not Available [facility] 4 16:14:08 Date Recorded Heart rate Systolic blood pressure Diastolic blood pressure Provider Name and Address Organization Details Last Updated DateTime 06/17/2024 52 /min 138 mm[Hg] 68 mm[Hg] Not Available [facility] 06/17/2024 18:46:01 Date Recorded Heart rate Heart rate Systolic blood pressure Diastolic blood pressure Systolic blood pressure Diastolic blood pressure Provider Name and Address Organization Details Last Updated DateTime 4 54 /min 55 /min 107 mm[Hg] 61 mm[Hg] 153 mm[Hg] 98 mm[Hg] Not Available [facility] 4 19:10:03 Date Recorded Heart rate Heart rate Systolic blood pressure Diastolic blood pressure Systolic blood pressure Diastolic blood pressure Provider Name and Address Organization Details Last Updated DateTime 4 54 /min 54 /min 152 mm[Hg] 82 mm[Hg] 117 mm[Hg] 60 mm[Hg] Not Available [facility] 4 21:11:08 Date Recorded Heart rate Heart rate Systolic blood pressure Diastolic blood pressure Systolic blood pressure Diastolic blood pressure Provider Name and Address Organization Details Last Updated DateTime 4 53 /min 57 /min 129 mm[Hg] 79 mm[Hg] 184 mm[Hg] 56 mm[Hg] Not Available [facility] 4 19:44:04 Date Recorded Heart rate Systolic blood pressure Diastolic blood pressure Provider Name and Address Organization Details Last Updated DateTime 06/22/2024 55 /min 113 mm[Hg] 74 mm[Hg] Not Available [facility] 06/22/2024 05:31:06 Date Recorded Heart rate Heart rate Heart rate Systolic blood pressure Diastolic blood pressure Systolic blood pressure Diastolic blood pressure Systolic blood pressure Diastolic blood pressure Provider Name and Address Organization Details Last Updated DateTime 4 58 /min 55 /min 53 /min 144 mm[Hg] 68 mm[Hg] 168 mm[Hg] 101 mm[Hg] 174 mm[Hg] 109 mm[Hg] Not Available [facility] 4 21:11:04 Date Recorded Heart rate Systolic blood pressure Diastolic blood pressure Provider Name and Address Organization Details Last Updated DateTime 06/24/2024 56 /min 148 mm[Hg] 97 mm[Hg] Not Available [facility] 06/24/2024 20:27:05 Date Recorded Body height Body mass index (BMI) Body weight Heart rate Oxygen saturation Oxygen saturation in Arterial blood by Pulse oximetry Body temperature Systolic blood pressure Diastolic blood pressure Provider Name and Address Organization Details Last Updated DateTime 4 156.21 cm 24.7 kg/m2 37006.7 9 g 60 /min 100 % 100 % 97.2 [degF] 165 mm[Hg] 54 mm[Hg] Alvin johnson MA [facility] 4 10:10:43 Date Recorded Heart rate Heart rate Systolic blood pressure Diastolic blood pressure Systolic blood pressure Diastolic blood pressure Provider Name and Address Organization Details Last Updated DateTime 4 57 /min 53 /min 109 mm[Hg] 47 mm[Hg] 126 mm[Hg] 52 mm[Hg] Not Available [facility] 4 14:30:07 Date Recorded Heart rate Heart rate Heart rate Systolic blood pressure Diastolic blood pressure Systolic blood pressure Diastolic blood pressure Systolic blood pressure Diastolic blood pressure Provider Name and Address Organization Details Last Updated DateTime 4 57 /min 56 /min 49 /min 158 mm[Hg] 81 mm[Hg] 130 mm[Hg] 59 mm[Hg] 140 mm[Hg] 68 mm[Hg] Not Available [facility] 4 19:40:03 Date Recorded Heart rate Systolic blood pressure Diastolic blood pressure Provider Name and Address Organization Details Last Updated DateTime 06/30/2024 59 /min 159 mm[Hg] 87 mm[Hg] Not Available [facility] 07/01/2024 14:09:03 Date Recorded Heart rate Systolic blood pressure Diastolic blood pressure Provider Name and Address Organization Details Last Updated DateTime 07/01/2024 68 /min 125 mm[Hg] 46 mm[Hg] Not Available [facility] 07/01/2024 14:09:06 Date Recorded Heart rate Heart rate Heart rate Systolic blood pressure Diastolic blood pressure Systolic blood pressure Diastolic blood pressure Systolic blood pressure Diastolic blood pressure Provider Name and Address Organization Details Last Updated DateTime 4 60 /min 66 /min 67 /min 133 mm[Hg] 95 mm[Hg] 171 mm[Hg] 60 mm[Hg] 160 mm[Hg] 55 mm[Hg] Not Available [facility] 4 06:26:02 Date Recorded Heart rate Heart rate Systolic blood pressure Diastolic blood pressure Systolic blood pressure Diastolic blood pressure Provider Name and Address Organization Details Last Updated DateTime 4 69 /min 66 /min 138 mm[Hg] 106 mm[Hg] 153 mm[Hg] 56 mm[Hg] Not Available [facility] 4 06:32:02 Date Recorded Heart rate Heart rate Heart rate Systolic blood pressure Diastolic blood pressure Systolic blood pressure Diastolic blood pressure Systolic blood pressure Diastolic blood pressure Provider Name and Address Organization Details Last Updated DateTime 4 65 /min 66 /min 61 /min 198 mm[Hg] 59 mm[Hg] 160 mm[Hg] 69 mm[Hg] 133 mm[Hg] 48 mm[Hg] Not Available [facility] 4 19:18:04 Date Recorded Heart rate Systolic blood pressure Diastolic blood pressure Provider Name and Address Organization Details Last Updated DateTime 07/05/2024 64 /min 155 mm[Hg] 54 mm[Hg] Not Available [facility] 07/05/2024 18:40:04 Date Recorded Heart rate Systolic blood pressure Diastolic blood pressure Provider Name and Address Organization Details Last Updated DateTime 07/06/2024 66 /min 149 mm[Hg] 56 mm[Hg] Not Available [facility] 07/06/2024 18:41:02 Date Recorded Heart rate Heart rate Systolic blood pressure Diastolic blood pressure Systolic blood pressure Diastolic blood pressure Provider Name and Address Organization Details Last Updated DateTime 4 67 /min 65 /min 120 mm[Hg] 45 mm[Hg] 109 mm[Hg] 63 mm[Hg] Not Available [facility] 4 14:55:06 Date Recorded Heart rate Systolic blood pressure Diastolic blood pressure Provider Name and Address Organization Details Last Updated DateTime 07/08/2024 65 /min 133 mm[Hg] 50 mm[Hg] Not Available [facility] 07/08/2024 16:22:04 Date Recorded Heart rate Systolic blood pressure Diastolic blood pressure Provider Name and Address Organization Details Last Updated DateTime 07/09/2024 66 /min 129 mm[Hg] 78 mm[Hg] Not Available [facility] 07/09/2024 14:41:06 Date Recorded Heart rate Systolic blood pressure Diastolic blood pressure Provider Name and Address Organization Details Last Updated DateTime 07/11/2024 65 /min 138 mm[Hg] 65 mm[Hg] Not Available [facility] 07/12/2024 16:45:03 Date Recorded Heart rate Systolic blood pressure Diastolic blood pressure Provider Name and Address Organization Details Last Updated DateTime 07/12/2024 59 /min 138 mm[Hg] 49 mm[Hg] Not Available [facility] 07/12/2024 16:45:05 Date Recorded Heart rate Systolic blood pressure Diastolic blood pressure Provider Name and Address Organization Details Last Updated DateTime 07/13/2024 63 /min 128 mm[Hg] 64 mm[Hg] Not Available [facility] 07/13/2024 14:16:07 Date Recorded Heart rate Heart rate Heart rate Systolic blood pressure Diastolic blood pressure Systolic blood pressure Diastolic blood pressure Systolic blood pressure Diastolic blood pressure Provider Name and Address Organization Details Last Updated DateTime 70 /min 71 /min 65 /min 152 mm[Hg] 112 mm[Hg] 158 mm[Hg] 114 mm[Hg] 124 mm[Hg] 75 mm[Hg] Not Available [facility] 19:07:06 Date Recorded Heart rate Systolic blood pressure Diastolic blood pressure Provider Name and Address Organization Details Last Updated DateTime 07/15/2024 67 /min 132 mm[Hg] 84 mm[Hg] Not Available [facility] 07/15/2024 14:12:02 Date Recorded Heart rate Systolic blood pressure Diastolic blood pressure Provider Name and Address Organization Details Last Updated DateTime 07/16/2024 69 /min 166 mm[Hg] 61 mm[Hg] Not Available [facility] 07/16/2024 14:01:03 Date Recorded Heart rate Systolic blood pressure Diastolic blood pressure Provider Name and Address Organization Details Last Updated DateTime 07/19/2024 65 /min 154 mm[Hg] 57 mm[Hg] Not Available [facility] 07/19/2024 17:55:03 Date Recorded Heart rate Systolic blood pressure Diastolic blood pressure Provider Name and Address Organization Details Last Updated DateTime 07/17/2024 61 /min 130 mm[Hg] 76 mm[Hg] Not Available [facility] 07/19/2024 17:56:01 Date Recorded Heart rate Systolic blood pressure Diastolic blood pressure Provider Name and Address Organization Details Last Updated DateTime 07/20/2024 62 /min 137 mm[Hg] 68 mm[Hg] Not Available [facility] 07/20/2024 14:19:04 Date Recorded Heart rate Systolic blood pressure Diastolic blood pressure Provider Name and Address Organization Details Last Updated DateTime 07/22/2024 64 /min 160 mm[Hg] 83 mm[Hg] Not Available [facility] 07/22/2024 19:33:05 Date Recorded Heart rate Systolic blood pressure Diastolic blood pressure Provider Name and Address Organization Details Last Updated DateTime 07/23/2024 60 /min 139 mm[Hg] 84 mm[Hg] Not Available [facility] 07/24/2024 16:03:02 Date Recorded Heart rate Heart rate Systolic blood pressure Diastolic blood pressure Systolic blood pressure Diastolic blood pressure Provider Name and Address Organization Details Last Updated DateTime 4 76 /min 71 /min 112 mm[Hg] 47 mm[Hg] 149 mm[Hg] 62 mm[Hg] Not Available [facility] 4 19:36:02 Date Recorded Heart rate Heart rate Systolic blood pressure Diastolic blood pressure Systolic blood pressure Diastolic blood pressure Provider Name and Address Organization Details Last Updated DateTime 4 64 /min 70 /min 147 mm[Hg] 69 mm[Hg] 164 mm[Hg] 64 mm[Hg] Not Available [facility] 4 14:12:01 Date Recorded Heart rate Systolic blood pressure Diastolic blood pressure Provider Name and Address Organization Details Last Updated DateTime 07/26/2024 68 /min 133 mm[Hg] 65 mm[Hg] Not Available [facility] 07/26/2024 14:12:05 Date Recorded Heart rate Systolic blood pressure Diastolic blood pressure Provider Name and Address Organization Details Last Updated DateTime 07/28/2024 68 /min 119 mm[Hg] 55 mm[Hg] Not Available [facility] 07/28/2024 01:19:01 Date Recorded Heart rate Heart rate Systolic blood pressure Diastolic blood pressure Systolic blood pressure Diastolic blood pressure Provider Name and Address Organization Details Last Updated DateTime 4 66 /min 69 /min 103 mm[Hg] 48 mm[Hg] 126 mm[Hg] 62 mm[Hg] Not Available [facility] 4 08:05:07 Date Recorded Heart rate Heart rate Systolic blood pressure Diastolic blood pressure Systolic blood pressure Diastolic blood pressure Provider Name and Address Organization Details Last Updated DateTime 4 66 /min 61 /min 201 mm[Hg] 122 mm[Hg] 122 mm[Hg] 62 mm[Hg] Not Available [facility] 4 16:45:02 Date Recorded Heart rate Systolic blood pressure Diastolic blood pressure Provider Name and Address Organization Details Last Updated DateTime 08/01/2024 72 /min 112 mm[Hg] 85 mm[Hg] Not Available [facility] 08/01/2024 19:10:05 Date Recorded Heart rate Heart rate Systolic blood pressure Diastolic blood pressure Systolic blood pressure Diastolic blood pressure Provider Name and Address Organization Details Last Updated DateTime 65 /min 68 /min 157 mm[Hg] 59 mm[Hg] 121 mm[Hg] 50 mm[Hg] Not Available [facility] 13:38:13 Date Recorded Heart rate Systolic blood pressure Diastolic blood pressure Provider Name and Address Organization Details Last Updated DateTime 08/02/2024 71 /min 128 mm[Hg] 61 mm[Hg] Not Available [facility] 08/05/2024 08:08:10 Date Recorded Heart rate Heart rate Systolic blood pressure Diastolic blood pressure Systolic blood pressure Diastolic blood pressure Provider Name and Address Organization Details Last Updated DateTime 64 /min 72 /min 121 mm[Hg] 71 mm[Hg] 132 mm[Hg] 49 mm[Hg] Not Available [facility] 13:00:04 Date Recorded Heart rate Systolic blood pressure Diastolic blood pressure Provider Name and Address Organization Details Last Updated DateTime 08/09/2024 65 /min 126 mm[Hg] 46 mm[Hg] Not Available [facility] 08/09/2024 13:00:04 Date Recorded Heart rate Systolic blood pressure Diastolic blood pressure Provider Name and Address Organization Details Last Updated DateTime 08/10/2024 64 /min 132 mm[Hg] 80 mm[Hg] Not Available [facility] 08/10/2024 15:31:04 Date Recorded Heart rate Systolic blood pressure Diastolic blood pressure Provider Name and Address Organization Details Last Updated DateTime 08/11/2024 63 /min 121 mm[Hg] 44 mm[Hg] Not Available [facility] 08/11/2024 20:08:03 Date Recorded Heart rate Systolic blood pressure Diastolic blood pressure Provider Name and Address Organization Details Last Updated DateTime 08/13/2024 68 /min 145 mm[Hg] 53 mm[Hg] Not Available [facility] 08/13/2024 19:26:03 Date Recorded Heart rate Systolic blood pressure Diastolic blood pressure Provider Name and Address Organization Details Last Updated DateTime 08/12/2024 67 /min 132 mm[Hg] 59 mm[Hg] Not Available [facility] 08/13/2024 19:26:04 Date Recorded Body height Body mass index (BMI) Body weight Heart rate Oxygen saturation Oxygen saturation in Arterial blood by Pulse oximetry Body temperature Systolic blood pressure Diastolic blood pressure Provider Name and Address Organization Details Last Updated DateTime 156.21 cm 25.5 kg/m2 75434.1 5 g 70 /min 98 % 98 % 98.4 [degF] 173 mm[Hg] 57 mm[Hg] Allison puente MA [facility] 09:59:23 Date Recorded Heart rate Systolic blood pressure Diastolic blood pressure Provider Name and Address Organization Details Last Updated DateTime 08/15/2024 69 /min 164 mm[Hg] 87 mm[Hg] Not Available [facility] 08/15/2024 07:53:05 Date Recorded Heart rate Systolic blood pressure Diastolic blood pressure Provider Name and Address Organization Details Last Updated DateTime 08/16/2024 69 /min 114 mm[Hg] 44 mm[Hg] Not Available [facility] 08/16/2024 13:57:04 Date Recorded Heart rate Systolic blood pressure Diastolic blood pressure Provider Name and Address Organization Details Last Updated DateTime 08/17/2024 66 /min 160 mm[Hg] 54 mm[Hg] Not Available [facility] 08/20/2024 13:33:05 Date Recorded Heart rate Systolic blood pressure Diastolic blood pressure Provider Name and Address Organization Details Last Updated DateTime 08/20/2024 63 /min 123 mm[Hg] 67 mm[Hg] Not Available [facility] 08/20/2024 13:34:02 Date Recorded Heart rate Systolic blood pressure Diastolic blood pressure Provider Name and Address Organization Details Last Updated DateTime 08/21/2024 65 /min 124 mm[Hg] 52 mm[Hg] Not Available [facility] 08/21/2024 11:04:06 Date Recorded Heart rate Systolic blood pressure Diastolic blood pressure Provider Name and Address Organization Details Last Updated DateTime 08/24/2024 67 /min 116 mm[Hg] 88 mm[Hg] Not Available [facility] 08/24/2024 15:37:03 Date Recorded Heart rate Systolic blood pressure Diastolic blood pressure Provider Name and Address Organization Details Last Updated DateTime 08/27/2024 68 /min 122 mm[Hg] 84 mm[Hg] Not Available [facility] 08/27/2024 14:34:03 Date Recorded Heart rate Systolic blood pressure Diastolic blood pressure Provider Name and Address Organization Details Last Updated DateTime 08/26/2024 67 /min 119 mm[Hg] 79 mm[Hg] Not Available [facility] 08/27/2024 14:34:06 Date Recorded Heart rate Systolic blood pressure Diastolic blood pressure Provider Name and Address Organization Details Last Updated DateTime 08/28/2024 63 /min 143 mm[Hg] 85 mm[Hg] Not Available [facility] 08/28/2024 14:49:06 Date Recorded Heart rate Heart rate Systolic blood pressure Diastolic blood pressure Systolic blood pressure Diastolic blood pressure Provider Name and Address Organization Details Last Updated DateTime 4 69 /min 67 /min 127 mm[Hg] 48 mm[Hg] 136 mm[Hg] 64 mm[Hg] Not Available [facility] 4 13:02:09 Date Recorded Heart rate Heart rate Systolic blood pressure Diastolic blood pressure Systolic blood pressure Diastolic blood pressure Provider Name and Address Organization Details Last Updated DateTime 67 /min 70 /min 138 mm[Hg] 71 mm[Hg] 142 mm[Hg] 88 mm[Hg] Not Available [facility] 14:51:02 Date Recorded Heart rate Systolic blood pressure Diastolic blood pressure Provider Name and Address Organization Details Last Updated DateTime 09/03/2024 69 /min 133 mm[Hg] 52 mm[Hg] Not Available [facility] 09/03/2024 14:29:03 Date Recorded Heart rate Heart rate Systolic blood pressure Diastolic blood pressure Systolic blood pressure Diastolic blood pressure Provider Name and Address Organization Details Last Updated DateTime 4 70 /min 63 /min 127 mm[Hg] 47 mm[Hg] 200 mm[Hg] 92 mm[Hg] Not Available [facility] 4 18:56:06 Date Recorded Heart rate Systolic blood pressure Diastolic blood pressure Provider Name and Address Organization Details Last Updated DateTime 09/05/2024 67 /min 147 mm[Hg] 77 mm[Hg] Not Available [facility] 09/05/2024 14:23:04 Date Recorded Heart rate Systolic blood pressure Diastolic blood pressure Provider Name and Address Organization Details Last Updated DateTime 09/06/2024 68 /min 133 mm[Hg] 48 mm[Hg] Not Available [facility] 09/06/2024 13:41:02 Date Recorded Heart rate Systolic blood pressure Diastolic blood pressure Provider Name and Address Organization Details Last Updated DateTime 09/09/2024 67 /min 146 mm[Hg] 54 mm[Hg] Not Available [facility] 09/10/2024 14:17:02 Date Recorded Heart rate Systolic blood pressure Diastolic blood pressure Provider Name and Address Organization Details Last Updated DateTime 09/10/2024 63 /min 155 mm[Hg] 68 mm[Hg] Not Available [facility] 09/10/2024 14:17:05 Date Recorded Heart rate Systolic blood pressure Diastolic blood pressure Provider Name and Address Organization Details Last Updated DateTime 09/12/2024 66 /min 132 mm[Hg] 70 mm[Hg] Not Available [facility] 09/12/2024 13:40:03 Date Recorded Heart rate Systolic blood pressure Diastolic blood pressure Provider Name and Address Organization Details Last Updated DateTime 09/14/2024 64 /min 130 mm[Hg] 51 mm[Hg] Not Available [facility] 09/14/2024 16:54:04 Date Recorded Heart rate Systolic blood pressure Diastolic blood pressure Provider Name and Address Organization Details Last Updated DateTime 09/16/2024 63 /min 118 mm[Hg] 49 mm[Hg] Not Available [facility] 09/19/2024 15:05:04 Date Recorded Heart rate Systolic blood pressure Diastolic blood pressure Provider Name and Address Organization Details Last Updated DateTime 09/19/2024 63 /min 158 mm[Hg] 57 mm[Hg] Not Available [facility] 09/19/2024 15:05:04 Date Recorded Heart rate Systolic blood pressure Diastolic blood pressure Provider Name and Address Organization Details Last Updated DateTime 09/20/2024 64 /min 137 mm[Hg] 52 mm[Hg] Not Available [facility] 09/20/2024 14:57:04 Date Recorded Heart rate Systolic blood pressure Diastolic blood pressure Provider Name and Address Organization Details Last Updated DateTime 09/23/2024 67 /min 121 mm[Hg] 71 mm[Hg] Not Available [facility] 09/23/2024 13:37:04 Date Recorded Body height Body mass index (BMI) Body weight Heart rate Oxygen saturation Oxygen saturation in Arterial blood by Pulse oximetry Body temperature Systolic blood pressure Diastolic blood pressure Provider Name and Address Organization Details Last Updated DateTime 156.21 cm 23.4 kg/m2 36860.3 4 g 68 /min 97 % 97 % 98.5 [degF] 200 mm[Hg] 63 mm[Hg] Nohemi Quinonez LPN [facility] 09:19:49 Date Recorded Systolic blood pressure Diastolic blood pressure Provider Name and Address Organization Details Last Updated DateTime 09/25/2024 140 mm[Hg] 60 mm[Hg] Cheyanne Paz, [facility] [address], [id number], [facility] 09/25/2024 11:00:26 Date Recorded Heart rate Systolic blood pressure Diastolic blood pressure Provider Name and Address Organization Details Last Updated DateTime 09/28/2024 66 /min 144 mm[Hg] 68 mm[Hg] Not Available [facility] 09/28/2024 20:43:02 Date Recorded Heart rate Systolic blood pressure Diastolic blood pressure Provider Name and Address Organization Details Last Updated DateTime 09/26/2024 66 /min 126 mm[Hg] 49 mm[Hg] Not Available [facility] 09/28/2024 20:43:04 Date Recorded Heart rate Systolic blood pressure Diastolic blood pressure Provider Name and Address Organization Details Last Updated DateTime 09/29/2024 60 /min 126 mm[Hg] 66 mm[Hg] Not Available [facility] 09/29/2024 16:39:05 Date Recorded Heart rate Systolic blood pressure Diastolic blood pressure Provider Name and Address Organization Details Last Updated DateTime 10/01/2024 62 /min 132 mm[Hg] 46 mm[Hg] Not Available [facility] 10/01/2024 14:58:03 Date Recorded Heart rate Systolic blood pressure Diastolic blood pressure Provider Name and Address Organization Details Last Updated DateTime 10/04/2024 68 /min 130 mm[Hg] 75 mm[Hg] Not Available [facility] 10/06/2024 14:42:01 Date Recorded Heart rate Systolic blood pressure Diastolic blood pressure Provider Name and Address Organization Details Last Updated DateTime 10/06/2024 64 /min 131 mm[Hg] 54 mm[Hg] Not Available [facility] 10/06/2024 14:42:03 Date Recorded Heart rate Heart rate Systolic blood pressure Diastolic blood pressure Systolic blood pressure Diastolic blood pressure Provider Name and Address Organization Details Last Updated DateTime 63 /min 63 /min 145 mm[Hg] 56 mm[Hg] 127 mm[Hg] 68 mm[Hg] Not Available [facility] 18:55:05 Date Recorded Heart rate Systolic blood pressure Diastolic blood pressure Provider Name and Address Organization Details Last Updated DateTime 10/11/2024 65 /min 142 mm[Hg] 67 mm[Hg] Not Available [facility] 10/12/2024 15:29:01 Date Recorded Heart rate Systolic blood pressure Diastolic blood pressure Provider Name and Address Organization Details Last Updated DateTime 10/12/2024 65 /min 127 mm[Hg] 45 mm[Hg] Not Available [facility] 10/12/2024 15:29:03 Date Recorded Heart rate Systolic blood pressure Diastolic blood pressure Provider Name and Address Organization Details Last Updated DateTime 10/13/2024 67 /min 126 mm[Hg] 48 mm[Hg] Not Available [facility] 10/13/2024 15:05:04 Date Recorded Heart rate Systolic blood pressure Diastolic blood pressure Provider Name and Address Organization Details Last Updated DateTime 10/14/2024 63 /min 144 mm[Hg] 53 mm[Hg] Not Available [facility] 10/14/2024 14:53:03 Social History Question Answer Notes LastModified by Organizat ion Details LastModified Time Tobacco Smoking Status Never Smoker Not Available [facility] 09/08/2020 03:36:40 Do You Have An Advance Directive? No [id number] Information not available 09/08/2020 What Is Your Level Of Alcohol Consumption? None [id number] Information not available 09/08/2020 Is Blood Transfusion Acceptable In An Emergency? Yes [id number] Information not available 09/08/2020 What Is Your Level Of Caffeine Consumption? Occasional Soda, Tea Information not available 05/02/2022 How Much Tobacco Do You Chew? None [id number] Information not available 09/08/2020 Are You Currently Employed? No Disabled [id number] Information not available 09/08/2020 What Type Of Diet Are You Following? VEGETARIAN Information not available 03/21/2024 Which Illicit Or Recreational Drugs Have You Used? None [id number] Information not available 09/08/2020 Do You Or Have You Ever Used E-cigarettes Or Vape? Never Used Electronic Cigarettes [id number] Information not available 09/08/2020 What Is Your Occupation? N/a [id number] Information not available 09/08/2020 Live Alone Or With Others? Alone [email or web address] Information not available 01/21/2015 Do You Take [...] Or Greater Than 100 Degrees Fahrenheit? No [email or web address] Information not available 05/19/2020 Are You Or Anyone In Your Household A Health Care Provider Or Emergency Responder? No [email or web address] Information not available 05/19/2020 To The Best Of Your Knowledge Have You Been In Close Proximity To Any Individual Who Tested Positive For COVID-19? No Information not available 05/19/2020 *AWV ONLY* Are You Presently Prescribed Opioid Medication By PCP Or Specialist? If YES -Provider Assess The Benefit For Other, Non-opioid Pain Therapies Instead, Even If The Patient Does Not Have OUD But Is Possibly At Risk. No Information not available 01/07/2021 Have You Recently Traveled To A COVID-19 High Risk Area Or Gathering In The Last 10 Days? No Information not available 11/19/2020 What Was The Date Of Your Most Recent Tobacco Screening? 03/21/2024 Information not available 03/21/2024 How Many Children Do You Have? 6 5 Sons And 1 Daughter [email or web address] Information not available 05/04/2023 Do You Use Protection During Sex? No [id number] Information not available 09/08/2020 Seat Belts Used Routinely Yes Information not available 02/09/2016 Are You Sexually Active? Yes [id number] Information not available 09/08/2020 Smoke Alarm In Home Yes Information not available 02/09/2016 At What Age Did You Start Smoking Tobacco? 1 [id number] Information not available 09/08/2020 Are You Passively Exposed To Smoke? No Information not available 02/09/2016 Do You Or Have You Ever Used Smokeless Tobacco? Never Used Smokeless Tobacco [id number] Information not available 09/08/2020 How Much Tobacco Do You Smoke? No [id number] Information not available 09/08/2020 Do You Use Any Illicit Or Recreational Drugs? No Information not available 03/29/2022 Do You Use Sunscreen Routinely? No [id number] Information not available 09/08/2020 How Many Years Have You Smoked Tobacco? 0 [id number] Information not available 09/08/2020 Do You Or Have You Ever Used Any Other Forms Of Tobacco Or Nicotine? No Information not available 05/03/2023 Sex: Unknown Functional Status Question Answer Note LastModified by Organization D etails LastModified Time Are you able to walk? YESWOREST Information not available 08/19/2021 Are you able to care for yourself? Yes [id number] Information not available 09/08/2020 What is your exercise level? None [id number] Information not available 09/08/2020 Mental Status None [...] Time Pneumococcal conjugate PCV 13 03/27/2018 completed Vonnie Reymnudo [place], [place] null, [facility] 05/28/2024 15:03:05 pneumococcal polysaccharide PPV23 01/21/2015 completed Vonnie Vanegas MA null, [facility] 05/28/2024 15:03:05 Tdap 09/17/2014 completed Vonnie Vanegas MA null, [facility] 05/28/2024 15:03:05 pneumococcal polysaccharide PPV23 11/11/2020 completed ISAÍAS Escobar, [facility] 05/28/2024 15:03:05 COVID-19, mRNA, LNP-S, PF, 30 mcg/0.3 mL dose 09/24/2021 completed Katharine Ellis CPPM null, [facility] 09/25/2024 07:51:52 COVID-19, mRNA, LNP-S, PF, 30 mcg/0.3 mL dose 01/12/2021 completed Katharine Ellis CPPM null, [facility] 09/25/2024 07:51:52 COVID-19, mRNA, LNP-S, PF, 30 mcg/0.3 mL dose 02/02/2021 completed Katharine Ellis CPPM null, [facility] 09/25/2024 07:51:52 COVID-19, mRNA, LNP-S, PF, 30 mcg/0.3 mL dose 01/12/2021 completed Alvin Pinto MA null, [facility] 06/27/2024 09:57:53 COVID-19, mRNA, LNP-S, PF, 30 mcg/0.3 mL dose 01/12/2021 completed ISAÍAS Norton, [facility] 06/27/2024 09:57:53 COVID-19, mRNA, LNP-S, PF, 30 mcg/0.3 mL dose 02/02/2021 completed Katharine Ellis CPPM null, [facility] 09/25/2024 07:52:17 COVID-19, mRNA, LNP-S, PF, 30 mcg/0.3 mL dose 02/02/2021 completed PRAVEEN Hauser, [facility] 09/25/2024 09:20:28 Influenza, high-dose, trivalent, PF 12/29/2017 cancelled Not Available [facility] 2019 02:22:04 Influenza, split virus, quadrivalent, PF 12/29/2017 cancelled Not Available [facility] 2019 02:22:08 Influenza, high-dose, quadrivalent, PF 09/03/2020 cancelled ISAÍAS Tineo, [facility] 09/03/2020 09:54:51 Past Encounters Encounter ID Performer Location Encounter Start Date Encounter Closed Date Diagnosis/Indication Diagnosis SNOMED-CT Code Diagnosis ICD10 Code [id number] Jenifer Murraytamera Main Office [address] [facility] [address] [place] [address] 06/03/2014 14:04:03 06/03/2014 15:05:05 Renal disorder due to type 2 diabetes mellitus 951931397 Chronic ki dney disease stage 1 [id number] Essential hypertension 51664026 Eruption [id number] Hyperlipidemia [id number] auto[facility]Comm erce [address] [facility] [place] [address] 05/22/2006 00:00:00 [id number] auto[facility]Comm erce [address] [facility] [place] [address] 05/22/2006 00:00:00 [id number] auto[facility]Comm erce [address] [facility] [place] [address] 03/21/2006 00:00:00 [id number] auto[facility]Comm erce [address] [facility] [place] [address] 03/21/2006 00:00:00 [id number] auto[facility]Comm erce [address] [facility] [place] [address] 2 03/02/2006 00:00:00 [id number] auto[facility]Comm erce [address] [facility] [place] [address] 03/02/2006 00:00:[id number] [address] [address] [place] [address] 03/02/2006 00:00:00 [id number] [address] erce [address] [place] [address] 02/01/2007 00:00:00 [id number] [facility] erce [address] [place] [address] 02/07/2007 00:00:00 [id number] auto[facility]Comm erce [address] [place] [address] 2 02/07/2007 00:00:00 [id number] [facility]Comm erce [address] [place] [address] 2 02/07/2007 00:00:00 [id number] auto[facility]Comm erce [address] [facility] [address] [place] [address] 02/13/2007 00:00:00 [id number] auto[facility]Comm erce [address] [facility] [address] [place] [address] 2 02/13/2007 00:00:00 [id number] auto[facility]Comm erce [address] [facility] [address] [place] [address] 03/28/2007 00:00:00 [id number] auto[facility]Comm erce [address] [facility] [address] [place] [address] 2 03/28/2007 00:00:00 [id number] auto[facility]Comm erce [address] [facility] [address] [place] [address] 04/03/2007 00:00:00 [id number] auto[facility]Comm erce [address] [place] [address] 04/03/2007 00:00:00 [id number] auto[facility]Comm erce [address] [facility] [address] [place] [address] 2 04/03/2007 00:00:00 [id number] auto[facility]Comm erce [address] [place] [address] 2 06/28/2007 00:00:00 [id number] auto[facility]Comm erce [address] [place] [address] 2 06/28/2007 00:00:00 [id number] auto[facility]Comm erce [address] [facility] [address] [place] [address] 2 06/28/2007 00:00:00 [id number] auto[facility]Comm erce [address] [place] [address] 2 07/16/2007 00:00:00 [id number] autoEComm erce [address] [facility] [address] [place] [address] 07/16/2007 00:00:00 [id number] autoEComm erce [address] [facility] [place] [address] 07/16/2007 00:00:00 [id number] autoEComm erce [address] [facility] [place] [address] 2 07/16/2007 00:00:00 [id number] auto[facility]Comm erce [address] [facility] [place] [address] 2 08/31/2007 00:00:00 [id number] autoEComm erce [address] [facility] [place] [address] 2 08/31/2007 00:00:00 [id number] autoEComm erce [address] [facility] [place] [address] 2 08/31/2007 00:00:00 [id number] auto[facility]Comm erce [address] [place] [address] 08/31/2007 00:00:00 [id number] autoEComm erce [address] [facility] [address] [place] [address] 2 09/13/2007 00:00:00 [id number] autoEComm erce [address] [facility] [place] [address] 2 09/13/2007 00:00:00 [id number] auto[facility]Comm erce [address] [place] [address] 09/13/2007 00:00:00 [id number] autoEComm erce [address] [place] [address] 2 09/13/2007 00:00:00 [id number] autoEComm erce [address] [facility] [address] [place] [address] 2 11/01/2007 00:00:00 [id number] autoEComm erce [address] [facility] [address] [place] [address] 11/01/2007 00:00:00 [id number] autoEComm erce [address] [facility] [address] [place] [address] 2 11/01/2007 00:00:00 [id number] autoEComm erce [address] [facility] [place] [address] 11/01/2007 00:00:00 [id number] autoEComm erce [address] [facility] [place] [address] 2 11/20/2007 00:00:00 [id number] autoEComm erce [address] [facility] [address] [place] [address] 11/20/2007 00:00:00 [id number] autoEComm erce [address] [facility] [place] [address] 2 11/20/2007 00:00:00 [id number] autoEComm erce [address] [facility] [place] [address] 2 12/11/2007 00:00:00 [id number] autoEComm erce [address] [facility] [address] [place] [address] 12/11/2007 00:00:00 [id number] autoEComm erce [address] [facility] [place] [address] 01/02/2008 00:00:00 [id number] auto[facility]Comm erce [address] [place] [address] 01/02/2008 00:00:00 [id number] auto[facility]Comm erce [address] [place] [address] 2 01/21/2008 00:00:00 [id number] autoEComm erce [address] [facility] [address] [place] [address] 01/21/2008 00:00:00 [id number] autoEComm erce [address] [facility] [address] [place] [address] 2 02/26/2008 00:00:00 [id number] autoEComm erce [address] [facility] [address] [place] [address] 2 02/26/2008 00:00:00 [id number] autoEComm erce [address] [facility] [place] [address] 2 03/03/2008 00:00:00 [id number] autoEComm erce [address] [facility] [place] [address] 2 03/03/2008 00:00:00 [id number] autoEComm erce [address] [facility] [place] [address] 2 03/03/2008 00:00:00 [id number] autoEComm erce [address] [facility] [place] [address] 2 03/17/2008 00:00:00 [id number] autoEComm erce [address] [facility] [place] [address] 2 03/17/2008 00:00:00 [id number] autoEComm erce [address] [facility],[address] [place] [address] 2 03/17/2008 00:00:00 [id number] autoEComm erce [address] [facility] [place] [address] 2 06/03/2008 00:00:00 [id number] autoEComm erce [address] [facility],[address] [place] [address] 2 07/25/2008 00:00:00 [id number] auto[facility]Comm erce [address] [place] [address] 2 07/25/2008 00:00:00 [id number] autoEComm erce [address] [place] [address] 2 08/28/2008 00:00:00 [id number] autoEComm erce [address] [place] [address] 08/28/2008 00:00:00 [id number] autoEComm erce [address] [facility] [address] [place] [address] 09/04/2008 00:00:00 [id number] autoEComm erce [address] [facility] [address] [place] [address] 2 09/04/2008 00:00:00 [id number] autoEComm erce [address] [facility] [place] [address] 2 09/04/2008 00:00:00 [id number] autoEComm erce [address] [facility],[address] [place] [address] 2 09/04/2008 00:00:00 [id number] autoEComm erce [address] [facility] [address] [place] [address] 09/12/2008 00:00:00 [id number] autoEComm erce [address] [facility] [place] [address] 2 09/12/2008 00:00:00 [id number] autoEComm erce [address] [facility] [place] [address] 2 09/12/2008 00:00:00 [id number] autoEComm erce [address] [facility] [address] [place] [address] 2 09/22/2008 00:00:00 [id number] autoEComm erce [address] [facility] [place] [address] 2 10/01/2008 00:00:00 [id number] autoEComm erce [address] [place] [address] 2 10/01/2008 00:00:00 [id number] autoEComm erce [address] [place] [address] 2 10/24/2008 00:00:00 [id number] autoEComm erce [address] [facility] [address] [place] [address] 2 10/24/2008 00:00:00 [id number] autoEComm erce [address] [place] [address] 2 10/24/2008 00:00:00 [id number] autoEComm erce [address] [facility] [address] [place] [address] 2 12/17/2008 00:00:00 [id number] autoEComm erce [address] [facility] [place] [address] 2 12/24/2008 00:00:00 [id number] autoEComm erce [address] [facility] [address] [place] [address] 2 12/24/2008 00:00:00 [id number] autoEComm erce [address] [facility] [place] [address] 2 12/24/2008 00:00:00 [id number] autoEComm erce [address] [facility] [place] [address] 2 03/03/2009 00:00:00 [id number] autoEComm erce [address] [facility] [place] [address] 2 04/09/2009 00:00:00 [id number] auto[facility]Comm erce [address] [place] [address] 2 04/09/2009 00:00:00 [id number] autoEComm erce [address] [facility] [address] [place] [address] 2 04/09/2009 00:00:00 [id number] autoEComm erce [address] [facility] [place] [address] 2 04/09/2009 00:00:00 [id number] auto[facility]Comm erce [address] [place] [address] 2 05/07/2009 00:00:00 [id number] autoEComm erce [address] [place] [address] 2 05/07/2009 00:00:00 [id number] autoEComm erce [address] [place] [address] 2 05/07/2009 00:00:00 [id number] autoEComm erce [address] [facility] [address] [place] [address] 2 05/07/2009 00:00:00 [id number] autoEComm erce [address] [facility] [address] [place] [address] 2 07/16/2009 00:00:00 [id number] autoEComm erce [address] [facility] [address] [place] [address] 2 07/16/2009 00:00:00 [id number] autoEComm erce [address] [facility] [place] [address] 2 07/16/2009 00:00:00 [id number] autoEComm erce [address] [facility] [address] [place] [address] 2 07/16/2009 00:00:00 [id number] autoEComm erce [address] [facility] [place] [address] 2 10/21/2009 00:00:00 [id number] autoEComm erce [address] [facility] [place] [address] 2 10/21/2009 00:00:00 [id number] autoEComm erce [address] [facility] [address] [place] [address] 2 10/21/2009 00:00:00 [id number] autoEComm erce [address] [facility],[address] [place] [address] 2 12/23/2009 00:00:00 [id number] auto[facility]Comm erce [address] [place] [address] 2 12/23/2009 00:00:00 [id number] auto[facility]Comm erce [address] [place] [address] 2 01/08/2010 00:00:00 [id number] autoEComm erce [address] [place] [address] 2 01/08/2010 00:00:00 [id number] autoEComm erce [address] [place] [address] 2 03/02/2010 00:00:00 [id number] autoEComm erce [address] [place] [address] 2 03/02/2010 00:00:00 [id number] autoEComm erce [address] [facility] [address] [place] [address] 2 05/03/2010 00:00:00 [id number] autoEComm erce [address] [place] [address] 2 06/01/2010 00:00:00 [id number] autoEComm erce [address] [facility] [address] [place] [address] 2 06/01/2010 00:00:00 [id number] autoEComm erce [address] [facility] [address] [place] [address] 2 06/01/2010 00:00:00 [id number] autoEComm erce [address] [place] [address] 2 07/23/2010 00:00:00 [id number] autoEComm erce [address] [place] [address] 2 08/06/2010 00:00:00 [id number] autoEComm erce [address] [place] [address] 2 08/06/2010 00:00:00 [id number] autoEComm erce [address] [place] [address] 2 09/02/2010 00:00:00 [id number] autoEComm erce [address] [place] [address] 2 09/02/2010 00:00:00 [id number] autoEComm erce [address] [place] [address] 2 09/13/2010 00:00:00 [id number] autoEComm erce [address] [place] [address] 2 09/13/2010 00:00:00 [id number] autoEComm erce [address] [place] [address] 2 09/22/2010 00:00:00 [id number] autoEComm erce [address] [place] [address] 2 09/22/2010 00:00:00 [id number] autoEComm erce [address] [facility] [address] [place] [address] 2 12/09/2010 00:00:00 [id number] autoEComm erce [address] [facility] [address] [place] [address] 2 12/09/2010 00:00:00 [id number] autoEComm erce [address] [facility] [address] [place] [address] 2 12/21/2010 00:00:00 [id number] autoEComm erce [address] [facility] [address] [place] [address] 2 03/09/2011 00:00:00 [id number] auto[facility]Comm erce [address] [place] [address] 2 03/09/2011 00:00:00 [id number] autoEComm erce [address] [place] [address] 2 06/09/2011 00:00:00 [id number] autoEComm erce [address] [facility] [address] [place] [address] 2 06/09/2011 00:00:00 [id number] auto[facility]Comm erce [address] [place] [address] 2 07/20/2011 00:00:00 [id number] autoEComm erce [address] [place] [address] 2 07/20/2011 00:00:00 [id number] autoEComm erce [address] [place] [address] 2 10/11/2011 00:00:00 [id number] autoEComm erce [address] [place] [address] 2 10/11/2011 00:00:00 [id number] autoEComm erce [address] [place] [address] 2 10/11/2011 00:00:00 [id number] autoEComm erce [address] [place] [address] 2 11/15/2011 00:00:00 [id number] autoEComm erce [address] [place] [address] 2 11/15/2011 00:00:00 [id number] autoEComm erce [address] [place] [address] 2 11/15/2011 00:00:00 [id number] autoEComm erce [address] [facility] [address] [place] [address] 2 01/10/2012 00:00:00 [id number] autoEComm erce [address] [place] [address] 2 04/11/2012 00:00:00 [id number] autoEComm erce [address] [place] [address] 2 04/11/2012 00:00:00 [id number] autoEComm erce [address] [place] [address] 2 04/11/2012 00:00:00 [id number] autoEComm erce [address] [place] [address] 2 06/07/2012 00:00:00 [id number] autoEComm erce [address] [place] [address] 2 06/07/2012 00:00:00 [id number] autoEComm erce [address] [place] [address] 2 07/12/2012 00:00:00 [id number] autoEComm erce [address] [place] [address] 2 07/12/2012 00:00:00 [id number] autoEComm erce [address] [place] [address] 2 10/10/2012 00:00:00 [id number] autoEComm erce [address] [place] [address] 2 10/26/2012 00:00:00 [id number] autoEComm erce [address] [facility] [address] [place] [address] 2 10/26/2012 00:00:00 [id number] autoEComm erce [address] [facility] [place] [address] 2 12/11/2012 00:00:00 [id number] autoEComm erce [address] [facility] [address] [place] [address] 2 12/11/2012 00:00:00 [id number] autoEComm erce [address] [facility] [place] [address] 2 01/16/2013 00:00:00 [id number] autoEComm erce [address] [facility] [address] [place] [address] 2 01/16/2013 00:00:00 [id number] autoEComm erce [address] [facility] [address] [place] [address] 2 01/25/2013 00:00:00 [id number] autoEComm erce [address] [facility] [place] [address] 2 02/19/2013 00:00:00 [id number] autoEComm erce [address] [place] [address] 2 02/19/2013 00:00:00 [id number] autoEComm erce [address] [place] [address] 2 04/18/2013 00:00:00 [id number] autoEComm erce [address] [place] [address] 2 04/18/2013 00:00:00 [id number] autoEComm erce [address] [place] [address] 2 07/09/2013 00:00:00 [id number] autoEComm erce [address] [place] [address] 2 07/09/2013 00:00:00 [id number] autoEComm erce [address] [place] [address] 2 10/09/2013 00:00:00 [id number] autoEComm erce [address] [place] [address] 2 12/10/2013 00:00:00 [id number] autoEComm erce [address] [place] [address] 2 12/10/2013 00:00:00 [id number] autoEComm erce [address] [place] [address] 2 01/29/2014 00:00:00 [id number] autoEComm erce [address] [place] [address] 2 01/29/2014 00:00:00 [id number] autoEComm erce [address] [place] [address] 2 03/20/2014 00:00:00 [id number] autoEComm erce [address] [place] [address] 2 03/20/2014 00:00:00 [id number] autoEComm erce [address] [place] [address] 2 03/20/2014 00:00:00 [id number] autoEComm erce [address] [facility] [place] [address] 2 04/07/2014 00:00:00 [id number] Aleksandra Polk MD Main Office [address] [address] [place] [address] 09/17/2014 13:21:44 09/17/2014 14:19:03 Renal disorder due to type 2 diabetes mellitus [id number] Hypothyroidism [id number] Administra tion of diphtheria, pertussis, and tetanus vaccine 968209879 Essential hypertension 58249992 Low back pain 775046059 Hyperlipidemia 97549090 Allergic rhinitis 630277 04 [id number] Anya Blanco [place] Main Office [address] [address] [place] [address] 12/09/2014 12:40:55 12/09/2014 13:09:01 Acute upper respiratory infection [id number] Jenifer Guevara Main Office [address] [address] [place] [address] 12/25/2014 15:56:02 12/25/2014 16:20:39 Otitis media 33698081 Essential hypertension 17342977 Allergic rhinitis 203220 04 [id number] Aleksandra Polk MD Main Office [address] [address] [place] [address] 01/21/2015 12:52:53 01/21/2015 14:11:01 Adult health examination [id number] Renal diso rder due to type 2 diabetes mellitus 360643375 Essential hypertension 90005825 Administra tion of pneumococcal vaccine 26480915 Hyperlipidemia 48650861 [id number] Aleksandra Polk MD Main Office [address] [address] [place] [address] 01/31/2015 11:35:01 01/31/2015 12:47:39 Acute allergic reaction 959233454 Essential hypertension 22095168 [id number] Aleksandra Polk MD Main Office [address] [address] [place] [address] 9 02/04/2015 12:43:43 02/04/2015 13:22:32 Essential hypertension 65122893 [id number] Aleksandra Polk MD Main Office [address] [address] [place] [address] 9 05/07/2015 10:29:00 05/07/2015 12:00:45 Essential hypertension 08943420 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 532688770 Hyperlipidemia 36520035 Rosacea 525547133 [id number] Aleksandra Polk MD Main Office [address] [address] [place] [address] 06/06/2015 08:51:11 06/06/2015 09:29:38 Peripheral neuropathy due to type 2 diabetes mellitus 2593021236 107 Muscle pain 89942718 [id number] Charlene Mobley MA Main Office [address] [address] [place] [address] 9 06/18/2015 15:33:40 06/18/2015 16:09:24 Heel pain 7856615 [id number] Aleksandra Polk MD Main Office [address] [address] [place] [address] 9 07/09/2015 09:31:49 07/09/2015 11:21:17 Acute upper respiratory infection 56758301 Peripheral neuropathy due to type 2 diabetes mellitus [id number] 107 [id number] Anya Blanco [place] Main Office [address] [address] [place] [address] 07/30/2015 13:23:07 07/30/2015 13:50:43 Cough 79244632 Allergic rhinitis 001578 04 Achilles tendinitis 1165 4001 [id number] Jaime Prakash Main Office [address] [address] [place] [address] 08/07/2015 12:37:30 08/07/2015 13:40:16 Renal disorder due to type 2 diabetes mellitus 431964103 E11.29 Cough 43086590 R05 Hypothyroidism 53817771 E03.9 Chronic ki dney disease stage 1 145759007 N18.1 [id number] Aleksandra Polk MD Main Office [address] [address] [place] [address] 09/22/2015 13:23:11 09/22/2015 13:56:51 Abdominal pain 13904544 R10.9 Calcaneal spur 88828791 M77.32 Rosacea 623420689 L71.9 [id number] Aleksandra Polk MD Main Office [address] [place] [address] 11/10/2015 12:51:48 11/10/2015 14:22:17 Type 2 diabetes mellitus 12793141 E11.9 Renal diso rder due to type 2 diabetes mellitus 724182995 E11.29 Abdominal pain 56655386 R10.9 [id number] Aleksandra Polk MD Main Office [address] [place] [address] 11/17/2015 13:24:06 11/17/2015 13:56:07 Cough 39688412 R05 Vitamin D deficiency 347 95825 E55.9 Hyperlipidemia 04617858 E78.5 [id number] Aleksandra Polk MD Main Office [address] [facility] [address] [place] [address] 11/27/2015 13:29:20 11/27/2015 14:00:52 Cough 92622916 R05 Allergic rhinitis 612308 04 J30.9 Otitis media 68389973 H6 6.90 [id number] Aleksandra Polk MD Main Office [address] [facility] [address] [place] [address] 12/22/2015 14:58:30 12/22/2015 15:40:56 Acute pharyngitis 912429295 J02.9 Cough 37787284 R05 Hypothyroidism 04665025 E03.9 [id number] Aleksandra Polk MD Main Office [address] [facility] [address] [place] [address] 01/05/2016 09:16:12 01/05/2016 10:42:56 Abdominal pain 41222199 R10.9 Diarrhea 14425942 R19.7 [id number] Cameron abdi Main Office [address] [place] [address] 01/12/2016 14:39:17 01/12/2016 15:19:37 Clostridioides difficile infection 805954669 A04.7 Essential hypertension 52558289 I10 Type 2 hortencia betes mellitus 56689645 E11.65 Acute pharyngitis 667745 003 J02.9 [id number] Aleksandra Polk MD Main Office [address] [address] [place] [address] 02/01/2016 10:37:05 02/01/2016 11:28:18 Diarrhea 22210069 R19.7 [id number] Aleksandra Polk MD Main Office [address] [address] [place] [address] 02/09/2016 12:54:11 02/09/2016 14:04:09 Low back pain 719147770 M54.5 Gastroesop hageal reflux disease 339312724 K21.9 [id number] Aleksandra Polk MD Main Office [address] [address] [place] [address] 02/24/2016 13:21:28 02/24/2016 14:03:01 Dysuria 85479896 R30.0 Abdominal pain 07869902 R10.9 [id number] Aleksandra Polk MD Main Office [address] [address] [place] [address] 03/14/2016 12:56:05 03/14/2016 14:25:06 Disorder of eye due to type 2 diabetes mellitus 285326507 E11.39 Peripheral neuropathy due to type 2 diabetes mellitus 5005765764 107 E11.42 Uncontroll ed type 2 diabetes mellitus 729561113 E11.65 Dysuria 24887417 R30.0 [id number] Aleksandra Polk MD Main Office [address] [address] [place] [address] 9 05/05/2016 13:00:16 05/05/2016 13:51:44 Gastroesophageal reflux disease 023776778 K21.9 Essential hypertension 25115094 I10 Hypothyroidism 45726400 E03.9 Hyperlipidemia 70543191 E78.5 Uncontroll ed type 2 diabetes mellitus 435205226 E11.65 [id number] Aleksandra Polk MD Main Office [address] [address] [place] [address] 06/01/2016 15:07:28 06/01/2016 15:41:25 Peripheral neuropathy due to type 2 diabetes mellitus 7180622884 107 E11.42 Renal diso rder due to type 2 diabetes mellitus 322543281 E11.22 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 348947083 E11.39 Uncontroll ed type 2 diabetes mellitus 983202102 E11.65 Noncomplia nce with medication regimen 533231525 Z91.14 [id number] Aileen Rodríguez Main Office [address] [address] 06/20/2016 13:03:47 06/20/2016 14:05:00 Peripheral neuropathy due to type 2 diabetes mellitus 2081829959 107 E11.42 Renal diso rder due to type 2 diabetes mellitus 991559463 E11.22 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 228636555 E11.39 Chronic ki dney disease stage 1 885853680 N18.1 Uncontroll ed type 2 diabetes mellitus 817726325 E11.65 Hypertensi ve renal disease 72569035 I12.9 [id number] Aleksandra Polk MD Main Office [address] [address] 07/06/2016 13:31:15 07/06/2016 14:49:51 Peripheral neuropathy due to type 2 diabetes mellitus 0040253435 107 E11.42 Varicella vaccination 68 008174 Z23 Recurrent major depressive episodes 275272758 F33.9 Low back pain 929771776 M54.5 Essential hypertension 72454155 I10 [id number] Aleksandra Polk MD Main Office [address] [address] 07/27/2016 13:56:01 07/27/2016 14:33:24 Dysuria 24876122 R30.0 [id number] Aleksandra Polk MD Main Office [address] [address] 08/29/2016 15:54:29 08/29/2016 16:22:36 Peripheral neuropathy due to type 2 diabetes mellitus 4118551536 107 E11.42 Renal diso rder due to type 2 diabetes mellitus 170855996 E11.22 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 927433834 E11.39 Uncontroll ed type 2 diabetes mellitus 848349099 E11.65 Tuberculos is screening 321910430 Z11.1 Seasonal a llergic rhinitis 024750838 J30.2 [id number] Aleksandra Polk MD Main Office [address] [address] 09/12/2016 14:44:58 09/12/2016 15:25:12 Uncontrolled type 2 diabetes mellitus 160333291 E11.65 Renal diso rder due to type 2 diabetes mellitus 385443621 E11.22 Essential hypertension 87672783 I10 [id number] CATHIE Le Main Office [address] [address] [place] [address] 10/18/2016 12:58:29 10/18/2016 13:47:10 Adult health examination 187549338 Z00.00 Hypertensi ve renal disease 12725741 I12.9 Renal diso rder due to type 2 diabetes mellitus 637312548 E11.22 Hyperlipidemia 67749838 E78.5 Essential hypertension 18196657 I10 Cough 78631485 R05 Hypothyroidism 91345156 E03.9 Allergic rhinitis 370508 04 J30.9 Menopause present 243883 006 Z78.0 Chronic ki dney disease stage 2 713700772 N18.2 [id number] Cameron abdi Main Office [address] [place] [address] 11/01/2016 13:38:55 11/01/2016 14:30:54 Renal disorder due to type 2 diabetes mellitus 747259491 E11.22 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 50943634 E11.3593 [id number] Aleksandra Polk MD Main Office [address] [address] [place] [address] 12/06/2016 12:59:46 12/06/2016 13:29:38 Abnormal liver function 09481800 K76.89 Otalgia 47120057 H92.02 Contact dermatitis 33511 004 L25.9 [id number] Aleksandra Polk MD Main Office [address] [address] [place] [address] 02/08/2017 13:27:18 02/08/2017 14:10:58 Renal disorder due to type 2 diabetes mellitus 050024645 E11.29 Recurrent major depressive episodes 591618453 F33.9 Essential hypertension 16682307 I10 Hyperlipidemia 91374660 E78.5 [id number] Aleksandra Polk MD Main Office [address] [address] [place] [address] 03/02/2017 14:05:25 03/02/2017 14:58:03 Dysuria 20562902 R30.0 Knee pain 86898199 M25.5 62 Urinary tr act infectious disease 16817283 N39.0 [id number] Aileen Rodríguez Main Office [address] [address] [place] [address] 06/13/2017 13:56:39 06/13/2017 14:24:28 Knee pain 64498467 M25.562 Shoulder pain 74761617 M 25.511 M25.512 Peripheral neuropathy due to type 2 diabetes mellitus 5286325091 107 E11.42 [id number] Aileen Rodríguez Main Office [address] [address] [place] [address] 08/03/2017 13:50:52 08/03/2017 14:39:58 Shoulder pain 89694929 M25.511 M25.512 Inflammati on of joints of bilateral shoulder regions 0247432228 520738 M13.812 Essential hypertension 66706862 I10 Fibromyositis 00077254 M 79.7 Fatigue 03317888 R53.83 Headache 37888890 R51 [id number] Aleksandra Polk MD Main Office [address] [address] [place] [address] 09/06/2017 15:50:06 09/06/2017 16:38:45 Dupuytren's disease of palm 572056660 M72.0 Peripheral neuropathy due to type 2 diabetes mellitus 5396858253 107 E11.42 [id number] Aleksandra Polk MD Main Office [address] [address] [place] [address] 10/23/2017 14:16:21 10/23/2017 15:22:43 Wheezing 63110034 R06.2 Reactive a irway disease 3883038299 06 J45.909 [id number] Aleksandra Polk MD Main Office [address] [address] [place] [address] 12/01/2017 08:52:34 12/01/2017 09:54:25 Allergic rhinitis 10564177 J30.9 Wheezing 74774729 R06.2 Hip pain 74799764 M25.55 1 Hypothyroidism 37334889 E03.9 Uncontroll ed type 2 diabetes mellitus 707204244 E11.65 Essential hypertension 96451517 I10 [id number] Aleksandra Polk MD Main Office [address] 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 91119890 E11.3593 Recurrent major depressive episodes 721180861 F33.9 Peripheral neuropathy due to type 2 diabetes mellitus 5619841233 107 E11.42 [id number] Aileen Rodríguez Main Office [address] [address] [place] [address] 12/29/2017 11:13:52 12/29/2017 12:07:13 Renal disorder due to type 2 diabetes mellitus 415083243 E11.22 Essential hypertension 67788025 I10 Hypothyroidism 32592252 E03.9 Immunization refused 275 426334 Z28.21 Seasonal a llergic rhinitis 407383856 J30.2 Hip pain 91272747 M25.55 1 Chronic ki dney disease stage 1 916815380 N18.1 [id number] Aleksandra Polk MD Main Office [address] [address] [place] [address] 01/18/2018 10:10:37 01/18/2018 10:54:53 Hip pain 70676467 M25.551 Essential hypertension 63390016 I10 Anemia 213399905 D64.9 Hypothyroidism 46394499 E03.9 [id number] Aleksandra Polk MD Main Office [address] [address] [place] [address] 01/23/2018 09:42:06 01/23/2018 12:26:27 [id number] Aleksandra Polk MD Main Office [address] [address] [place] [address] 9 02/06/2018 12:52:27 02/06/2018 13:45:23 Pain of breast 15176231 N64.4 [id number] Aleksandra Polk MD Main Office [address] [address] [place] [address] 9 03/27/2018 14:25:33 03/27/2018 16:01:35 Renal disorder due to type 2 diabetes mellitus 565738237 E11.29 Administra tion of pneumococcal vaccine 45164126 Z23 Chronic ki dney disease stage 1 459992585 N18.1 Essential hypertension 13429069 I10 Lumbar spondylosis 98036 0009 M47.26 [id number] Toni Cristina MD Main Office [address] [address] 05/24/2018 13:45:15 05/24/2018 14:33:48 Knee pain 84618027 M25.561 Microalbuminuria 4163637 06 R80.9 Hand pain 74718125 M79.6 41 M79.642 [id number] Aleksandra Polk MD Main Office [address] [address] [place] [address] 07/24/2018 10:40:43 07/24/2018 11:10:44 Dysuria 68236373 R30.0 Allergic rhinitis 337773 04 J30.9 Urinary tr act infectious disease 81358442 N39.0 [id number] Aleksandra Polk MD Main Office [address] [place] [address] 08/01/2018 14:48:55 08/01/2018 15:39:48 Renal disorder due to type 2 diabetes mellitus 734349513 E11.22 Noncomplia nce with medication regimen 009237307 Z91.14 Chronic ki dney disease stage 2 due to type 2 diabetes mellitus 9053509361 E11.22 N18.2 Essential hypertension 13131446 I10 [id number] Aileen Rodríguez Main Office [address] [address] 09/13/2018 13:35:50 09/13/2018 14:47:12 Chronic kidney disease stage 2 due to type 2 diabetes mellitus 1603000007 01 E11.22 Fall W19.XXXA Injury of head 53501270 S09.90XA Chronic ki dney disease stage 2 563486015 N18.2 [id number] Aleksandra Polk MD Main Office [address] [address] 09/19/2018 13:44:29 09/19/2018 16:02:57 Renal disorder due to type 2 diabetes mellitus 800766394 E11.22 Chronic ki dney disease stage 2 026732080 N18.2 Malignant essential hypertension 02159055 I10 Body mass index 25-29 - overweight 775293247 E66.3 Z68.25 [id number] Carly Melvin PA-C Main Office [address] [address] [place] [address] 09/20/2018 09:20:36 09/21/2018 11:53:42 [id number] Carly Melvin PA-C Main Office [address] [address] [place] [address] 09/21/2018 09:07:21 09/21/2018 11:52:28 [id number] Aleksandra Polk MD Main Office [address] [address] [place] [address] 09/21/2018 13:52:34 09/21/2018 15:18:21 Essential hypertension 35345934 I10 [id number] Carly Melvin PA-C Main Office [address] [place] [address] 11/12/2018 13:31:31 11/12/2018 15:54:56 Essential hypertension 34440053 I10 Renal diso rder due to type 2 diabetes mellitus 429604195 E11.22 Chronic ki dney disease stage 2 554096805 N18.2 Peripheral neuropathy due to type 2 diabetes mellitus 6797288787 107 E11.42 [id number] Aileen Rodríguez Main Office [address] [place] [address] 12/11/2018 10:47:05 12/11/2018 11:24:25 Muscle spasm of cervical muscle of neck 3020575767 04 M62.838 Fibromyositis 49391051 M 79.7 Renal diso rder due to type 2 diabetes mellitus 419212538 E11.22 Chronic ki dney disease stage 2 146845745 N18.2 Essential hypertension 89172240 I10 [id number] Aleksandra Polk MD Main Office [address] [address] [place] [address] 01/17/2019 14:03:45 01/17/2019 15:18:49 Adult health examination 594930442 Z00.00 Hypothyroidism 77477776 E03.9 Hyperlipidemia 68212816 E78.5 Renal diso rder due to type 2 diabetes mellitus 794924588 E11.29 Recurrent major depressive episodes 584094552 F33.9 Essential hypertension 62977882 I10 [id number] Jeniferolena Murraytamera Main Office [address] [address] [place] [address] 02/25/2019 08:53:35 02/25/2019 09:31:13 Essential hypertension 29212200 I10 [id number] Jenifer Territamera Main Office [address] [address] [place] [address] 9 02/26/2019 08:50:42 02/26/2019 09:13:54 [id number] Aleksandra Polk MD Main Office [address] [address] [place] [address] 03/04/2019 13:21:43 03/04/2019 14:25:58 Essential hypertension 75783039 I10 Chronic ki dney disease stage 2 due to type 2 diabetes mellitus 0330247245 01 E11.22 Chronic ki dney disease stage 2 377712021 N18.2 [id number] Aleksandra Polk MD Main Office [address] [address] [place] [address] 9 04/03/2019 13:26:54 04/03/2019 14:19:10 Essential hypertension 18429824 I10 Constipation 43205521 K5 9.00 Irritable bowel syndrome characterized by constipation 073637033 K58.1 [id number] Aileen Rodríguez Main Office [address] [place] [address] 07/02/2019 13:22:20 07/02/2019 14:18:30 Inflammation of joints of bilateral shoulder regions 8852190147 147279 M13.812 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 581067805 E11.39 Menopause present 185898 006 Z78.0 Anemia 085989365 D64.9 Hypothyroidism 33990004 E03.9 Neck pain 44245356 M54.2 Renal diso rder due to type 2 diabetes mellitus 689335541 E11.22 Peripheral neuropathy due to type 2 diabetes mellitus 9867695855 107 E11.42 Chronic ki dney disease stage 2 262132769 N18.2 [id number] Aleksandra Polk MD Main Office [address] [address] [place] [address] 07/22/2019 12:54:30 07/22/2019 14:20:36 Essential hypertension 61699838 I10 Chronic ki dney disease stage 2 due to type 2 diabetes mellitus 5033614188 01 E11.22 Chronic ki dney disease stage 2 396704329 N18.2 [id number] Cheyanne Paz [facility] Main Office [address] [address] [place] [address] 08/06/2019 11:24:10 08/06/2019 12:10:15 Hyperlipidemia 23486803 E78.5 Headache 82266603 R51 Muscle spa sm of cervical muscle of neck 7791053249 04 M62.838 Posterior rhinorrhea 758 97324 R09.82 Vaginal dryness 15498466 N89.8 Heart murmur 78294675 R0 1.1 Abdominal pain 65543433 R10.9 [id number] [facility] Main Office [address] [address] [place] [address] 08/20/2019 13:57:29 08/20/2019 15:06:43 Rosacea 452699738 L71.9 Edema of l ower extremity 208061477 R60.0 Palpitations 32300196 R0 0.2 [id number] CATHIE Le Main Office [address] [address] [place] [address] 08/23/2019 10:57:51 08/23/2019 11:46:20 Rosacea, papular type 34016240 L71.9 Motion sickness 62442810 T75.3XXA [id number] Aleksandra Polk MD Main Office [address] [address] [place] [address] 02/14/2020 09:00:40 02/14/2020 13:10:03 Renal disorder due to type 2 diabetes mellitus 182828405 E11.29 Chronic ki dney disease stage 2 043123976 N18.2 Allergic rhinitis 690857 04 J30.9 Essential hypertension 42448004 I10 Hypothyroidism 51663347 E03.9 [id number] Aileen Rodríguez Main Office [address] [place] [address] 04/28/2020 11:02:13 04/28/2020 13:06:05 Adult health examination 391624795 Z00.00 Chronic ki dney disease stage 2 due to type 2 diabetes mellitus 4465513665 01 E11.22 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 112501199 E11.39 Hyperlipidemia 44549829 E78.5 Hypothyroidism 99868960 E03.9 Vitamin D deficiency 347 91313 E55.9 Essential hypertension 43194029 I10 Constipation 05502989 K5 9.00 Recurrent major depression in full remission 67352977 F33.42 Chronic ki dney disease stage 2 400228859 N18.2 [id number] Aleksandra Polk MD Main Office [address] [address] [place] [address] 05/19/2020 11:16:30 05/19/2020 11:51:14 Acute otitis media 1998709 H66.92 [id number] Aileen Rodríguez [address] [address] [place] [address] 05/28/2020 08:13:49 05/28/2020 10:49:50 Otitis media 70915402 H66.92 Allergic rhinitis 749850 04 J30.9 [id number] CATHIE Le Main Office [address] [address] [place] [address] 9 06/12/2020 14:55:42 06/12/2020 15:36:27 Otitis media 18232852 H66.92 Otalgia 69137380 H92.02 [id number] Aleksandra Polk MD Main Office [address] [address] [place] [address] 9 07/29/2020 11:24:34 07/29/2020 12:10:05 Chronic kidney disease stage 2 due to type 2 diabetes mellitus 1537868390 E11.22 Hyperlipidemia 19143943 E78.5 Chronic ki dney disease stage 2 297324138 N18.2 Essential hypertension 85862568 I10 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 87445150 E11.3593 [id number] CATHIE Le [address] [address] [place] [address] 9 09/03/2020 08:36:26 09/03/2020 11:43:50 Influenza vaccine needed 3895671766 106 Z23 Bilateral knee pain 1187 983918 4669093 M25.561 M25.562 [id number] Aileen Rodríguez [facility] [address] [facility] [address] [place] [address] 09/23/2020 07:15:50 09/23/2020 10:39:25 Essential hypertension 61739078 I10 Chronic ki dney disease stage 2 due to type 2 diabetes mellitus 0384105486 01 E11.22 Hypothyroidism 22075679 E03.9 Cough 68209310 R05 Anemia 848252483 D64.9 Fibromyositis 25240002 M 79.7 Chronic ki dney disease stage 2 363820365 N18.2 [id number] Aileen Rodríguez Main Office [address] [address] [place] [address] 9 09/30/2020 12:45:40 09/30/2020 14:30:06 Chronic kidney disease stage 2 091388241 N18.2 Chronic ki dney disease stage 2 due to type 2 diabetes mellitus 3316732869 01 E11.22 Hyperlipidemia 27236821 E78.5 Hypertensi ve renal disease 62550271 I12.9 [id number] Aleksandra Polk MD Main Office [address] [address] [place] [address] 11/11/2020 09:46:48 11/11/2020 10:41:21 Chronic kidney disease stage 2 due to type 2 diabetes mellitus 3670987330 01 E11.22 Administra tion of pneumococcal vaccine 48547707 Z23 Hyperlipidemia 95116803 E78.5 Hypothyroidism 39840785 E03.9 Chronic ki dney disease stage 2 865571483 N18.2 Hypertensi ve renal disease 87723928 I12.9 [id number] CATHIE Le [facility] [address] [address] [place] [address] 9 11/19/2020 08:45:31 11/19/2020 11:51:59 Pain in right hand 1314918215 11004 M79.641 Rib pain 361707142 R07.8 1 Multiple joint pain 3567 8005 M25.50 [id number] Aileen Rodríguez Main Office [address] [facility] [address] [place] [address] 9 12/15/2020 13:24:39 12/15/2020 15:10:28 Chronic kidney disease stage 2 due to type 2 diabetes mellitus 4263688304 E11.22 Cataract 199266983 H26.9 Hyperlipidemia 68214331 E78.5 Hypertensi ve renal disease 94597089 I12.9 Hypothyroidism 12057642 E03.9 Noncomplia nce with medication regimen 295844483 Z91.14 Diarrhea 01765800 R19.7 Irritable bowel syndrome 90602760 K58.9 Mitral valve stenosis 79 787923 I34.0 Pre-surger y evaluation 474491952 Z01.818 Chronic ki dney disease stage 2 721525802 N18.2 [id number] Cheyanne Paz [facility] [address] [address] [place] [address] 9 01/07/2021 14:45:47 01/08/2021 08:24:21 Dupuytren's disease of palm 941768717 M72.0 Hypothyroidism 80769505 E03.9 Essential hypertension 16066235 I10 [id number] Cheyanne Paz [facility] [address] [address] [place] [address] 9 01/13/2021 08:14:19 01/13/2021 10:49:04 Muscle spasm of cervical muscle of neck 7569897223 04 M62.838 Fibromyositis 03505287 M 79.7 Pain in left arm 9907492 00 M79.602 [id number] Aleksandra Polk MD Main Office [address] [address] [place] [address] 9 02/09/2021 09:49:31 02/09/2021 10:46:32 Chronic kidney disease stage 2 due to type 2 diabetes mellitus 2305180295 E11.22 Chronic ki dney disease stage 2 790145467 N18.2 Hypertensi ve renal disease 91483854 I12.9 Hypothyroidism 04214962 E03.9 Hyperlipidemia 54452126 E78.5 Nausea 709878235 R11.0 [id number] Aileen Skaggshealt h [address] [place] [address] 02/25/2021 09:11:42 02/25/2021 10:57:48 Venous varices 164572012 I83.92 Chronic ki dney disease stage 2 due to type 2 diabetes mellitus 1903939652 01 E11.22 Hypertensi ve renal disease 66427881 I12.9 [id number] CATHIE Le Main Office [address] [address] 04/09/2021 14:54:17 04/09/2021 15:20:57 Pain in finger 08075660 M79.644 Essential hypertension 38164184 I10 [id number] Aleksandra Polk MD Main Office [address] [place] [address] 9 04/29/2021 09:12:49 04/29/2021 10:27:12 Adult health examination 393431966 Z00.00 Hyperlipidemia 44108878 E78.5 Chronic ki dney disease stage 2 350850132 N18.2 Chronic ki dney disease stage 2 due to type 2 diabetes mellitus 2324072049 E11.22 Hypertensi ve renal disease 41533788 I12.9 Hypothyroidism 32902428 E03.9 Mitral valve disorder 11 417273 I05.0 [id number] Arabella Damico MD Main Office [address] [address] 05/21/2021 08:57:42 05/21/2021 09:42:46 Resistant hypertensive disorder 6849346290 79241 I10 Hyponatremia 56718774 E8 7.1 Hyperlipidemia 71582839 E78.5 Vitamin D deficiency 347 64608 E55.9 Constipation 09719687 K5 9.00 Allergic rhinitis 783696 04 J30.9 Hypothyroidism 67425409 E03.9 [id number] Aleksandra Polk MD Main Office [address] [place] [address] 9 05/27/2021 09:07:46 05/27/2021 10:01:39 Disorder of eye due to type 2 diabetes mellitus 417468899 E11.39 Hypertensi ve renal disease 88066849 I12.9 Hypothyroidism 36253436 E03.9 Urinary tr act infectious disease 34908061 N39.0 Hyponatremia 13096574 E8 7.1 [id number] Aileen Rodríguez [facility] [address] [place] [address] 06/03/2021 08:32:19 06/03/2021 10:05:49 Hypothyroidism 11607609 E03.9 Chronic ki dney disease stage 2 due to type 2 diabetes mellitus 1758956150 01 E11.22 Urinary tr act infectious disease 80455196 N39.0 Bilateral knee pain 1187 651642 1678686 M25.561 M25.562 Chronic ki dney disease stage 3 026587427 N18.30 [id number] Aleksandra Polk MD Main Office [address] [place] [address] 9 08/03/2021 10:20:52 08/03/2021 11:18:28 Peripheral neuropathy due to type 2 diabetes mellitus 2635187849 107 E11.42 Hypertensi ve renal disease 53123942 I12.9 Hyperlipidemia 53189559 E78.5 Hypothyroidism 98888676 E03.9 Chronic ki dney disease stage 3 435356318 N18.30 Unintentio nal weight loss 092473905 R63.4 Chronic ki dney 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 6936141630 08 E11.22 [id number] Aileen Sosao Main Office [address] [place] [address] 08/19/2021 14:47:55 08/19/2021 16:15:24 Dysuria 96288435 R30.0 Lichen sclerosus 8958641 01 L90.0 Cystocele 808376074 N81. 10 Angiomyoli maria c of right kidney [id number] 963457 D17.71 Increased frequency of urination 386962398 R35.0 Chronic ki dney 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 [id number] 08 E11.22 Chronic ki dney disease stage 3 402450111 N18.30 Essential hypertension 58072476 I10 [id number] CATHIE Le [facility] [address] [place] [address] 10/12/2021 13:59:28 10/12/2021 14:32:55 Bursitis of shoulder 073909933 M75.50 Inflammati on of joints of bilateral shoulder regions 5033511154 417190 M13.812 [id number] Aleksandra Polk MD Main Office [address] [address] [place] [address] 11/16/2021 09:11:40 11/16/2021 10:23:30 Chronic kidney 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 9785886032 08 E11.22 Hypertensi ve renal disease 50238367 I12.9 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 49813532 E11.3593 Dysuria 26269288 R30.9 Chronic ki dney disease stage 3 806160365 N18.30 Hyperlipidemia 84441257 E78.5 Hypothyroidism 62256995 E03.9 [id number] Aileen Rodríguez Main Office [address] [address] [place] [address] 11/26/2021 14:09:29 11/26/2021 15:01:25 Hypertensive renal disease 88799838 I12.9 Essential hypertension 60226495 I10 Palpitations 34423046 R0 0.2 Constipation 03813472 K5 9.00 Iron defic iency anemia 77230350 D50.9 Otalgia 39075797 H92.02 [id number] Aileen Rodríguez Main Office [address] [address] [place] [address] 01/21/2022 10:57:17 01/21/2022 12:21:11 Pre-surgery evaluation 973661356 Z01.818 Bilateral cataracts 9572 2003 H26.9 Chronic ki dney 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 3829415084 08 E11.22 Hypothyroidism 96163818 E03.9 Hypertensi ve renal disease 52745022 I12.9 Chronic ki dney disease stage 3 015919152 N18.30 [id number] Aileen Rodríguez [facility] [address] [address] [place] [address] 02/23/2022 07:53:54 02/23/2022 14:48:47 Loss of hair 622111727 L65.9 Hypothyroidism 83292362 E03.9 Anemia 157611047 D64.9 Vitamin D deficiency 347 18794 E55.9 Renal diso rder due to type 2 diabetes mellitus 383923194 E11.22 Chronic ki dney disease stage 3 956096613 N18.30 [id number] CATHIE Le [facility] [address] [address] [place] [address] 03/29/2022 08:18:37 03/29/2022 14:04:50 Diarrhea 95111108 R19.7 Abdominal pain 48706969 R10.9 Mitral valve stenosis 79 948588 I34.0 [id number] Aleksandra Polk MD Main Office [address] [address] [place] [address] 05/02/2022 09:51:05 05/02/2022 10:47:55 Adult health examination 361553536 Z00.00 Chronic ki dney disease stage 3B 039043603 N18.32 Chronic ki dney 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 8150535770 08 E11.22 Hyperlipidemia 85886767 E78.5 Hypertensi ve renal disease 32742051 I12.9 Hypothyroidism 32816077 E03.9 Recurrent major depression in full remission 03857844 F33.42 Gastropare sis syndrome 320489179 K31.84 [id number] Aileen Rodríguez Main Office [address] [address] [place] [address] 07/19/2022 13:19:59 07/19/2022 14:05:23 History of fall 613530755 Z91.81 Pain of ri ght knee joint 7989831168 23954 M25.561 Essential hypertension 31172389 I10 Bursitis of shoulder 239 944685 M75.50 [id number] CATHIE Le Main Office [address] [address] [place] [address] 08/12/2022 13:49:06 08/12/2022 14:23:29 Inflammation of joints of bilateral shoulder regions 5657206294 374906 M13.812 Bilateral shoulder joint pain 0336550212 1397678 M25.511 M25.512 Anemia 910637921 D64.9 [id number] Aileen Rodríguez Main Office [address] [place] [address] 09/02/2022 14:40:56 09/02/2022 15:22:41 Pain in right foot 1981868753 00968 M79.671 Cellulitis of right foot 4781381148 3023989 L03.115 Hypertensi ve renal disease 18296072 I12.9 Renal diso rder due to type 2 diabetes mellitus 080931432 E11.22 Chronic ki dney disease stage 3 708193466 N18.30 [id number] Cheyanne Paz [facility] Main Office [address] [place] [address] 11/29/2022 11:16:13 11/29/2022 12:00:11 Essential hypertension 12092186 I10 Bone density finding 385 037061 M85.89 Pain in left foot 148630 9745 19433 M79.672 Hypothyroidism 05291422 E03.9 Fatigue 79842353 R53.83 Anemia 541980876 D64.9 [id number] Cheyanne Paz [address] [place] [address] 01/11/2023 08:34:34 01/11/2023 09:38:05 Constipation 98727327 K59.00 Hypothyroidism 09699217 E03.9 [id number] Cheyanne Paz [facility] Main Office [address] [place] [address] 03/03/2023 15:18:17 03/03/2023 16:11:46 Rosacea, papular type 10915977 L71.9 Allergic reaction 765331 005 T78.40XA Cellulitis of periorbital region of left eye 8454795322 09721 L03.213 Tear film insufficiency 36666160 H04.129 [id number] Cheyanne Paz [address] [address] [facility] [address] 03/22/2023 12:28:38 03/22/2023 14:09:29 Urinary tract infectious disease 36082550 N39.0 Pruritic rash 17985738 L 28.2 [id number] Aileen Rodríguez Main Office [address] 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 10 Uterovaginal prolapse 18 757338 N81.4 [id number] Aileen Rodríguez Main Office [address] [facility] 207 [place] [address] 07/20/2023 08:49:41 07/20/2023 09:48:37 Pre-surgery evaluation 933099322 Z01.818 Cystocele 388731113 N81. 10 Uterovaginal prolapse 18 095044 N81.4 Hypertensi ve renal disease 30678349 I12.9 Hypothyroidism 45659517 E03.9 Renal diso rder due to type 2 diabetes mellitus 743020071 E11.22 [id number] CATHIE Le Main Office [address] [facility] [address] [place] [address] 08/17/2023 08:18:37 08/24/2023 09:25:48 [id number] CATHIE Le Main Office [address] [address] [place] [address] 08/24/2023 13:00:18 08/24/2023 14:01:22 Urinary tract infectious disease 46109428 N39.0 Postoperative visit 1836 71043 Z09 Chronic ki dney disease stage 3B 961500673 N18.32 Hypertensi ve renal disease 32287879 I12.9 Iron defic iency anemia 36610176 D50.9 [id number] Mariaelena Stearns [place] Main Office [address] [address] [place] [address] 09/22/2023 13:51:40 09/22/2023 14:24:15 Pain in left lower limb 073200981 M79.605 Chronic ki dney disease stage 3B 626045344 N18.32 Hypertensi ve renal disease 50480070 I12.9 Pain of le ft knee joint 5039362408 65539 M25.562 Mitral valve stenosis 79 019259 I34.0 [id number] Avel Melvin PA-C Main Office [address] [address] [place] [address] 11/22/2023 11:00:23 11/22/2023 12:12:13 Herpes zoster 9260867 B02.9 Nausea and vomiting 1693 2000 R11.2 Chronic ki dney disease stage 3B 391353884 N18.32 Hypertensi ve renal disease 75075060 I12.9 [id number] Katharine Ellis [facility] Main Office [address] [address] [place] [address] 12/07/2023 08:20:38 01/10/2024 09:56:11 [id number] Aileen Rodríguez Main Office [address] [address] [place] [address] 01/02/2024 09:58:55 01/02/2024 11:13:08 Hypertensive renal disease 35790965 I12.9 Chronic ki dney disease stage 3B 700449829 N18.32 Hypothyroidism 31797185 E03.9 Herpes zoster 5666488 B0 2.9 Injury of toe 251549912 S99.922A Constipation 56662851 K5 9.00 [id number] [facility]yanne [facility]az [facility] Main Office [address] [place] [address] 01/23/2024 12:56:35 01/23/2024 13:46:57 Hypothyroidism 94366201 E03.9 Edema of l ower extremity 076202645 R60.0 Posterior rhinorrhea 758 25067 R09.82 [id number] Aileen Rodríguez Main Office [address] [address] [place] [address] 02/01/2024 12:55:20 02/01/2024 13:55:53 Edema of lower extremity 646500234 R60.0 Hypothyroidism 99719233 E03.9 Hypertensi ve renal disease 29314039 I12.9 Sacroiliac joint pain 20 2211491 M53.3 Heart murmur 63332227 R0 1.1 Chronic ki dney disease stage 3B 516609101 N18.32 [id number] Cheyanne Paz [facility] Main Office [address] [address] [place] [address] 03/01/2024 08:33:13 03/05/2024 08:48:49 [id number] CATHIE Le Main Office [address] [address] [place] [address] 03/07/2024 11:26:02 03/07/2024 12:08:32 Hypothyroidism 41825271 E03.9 Herpes zoster 7450032 B0 2.9 Hypertensi ve renal disease 23185036 I12.9 Chronic ki dney disease stage 3B 815651472 N18.32 Pain of le ft knee joint 8003482461 01406 M25.562 Anemia 983320568 D64.9 Unintentio nal weight loss 464929034 R63.4 Transition from acute care to self-care 7929860660 19567 Z76.89 [id number] Cheyanne Paz [facility] Main Office [address] [address] [place] [address] 03/21/2024 09:53:40 03/21/2024 10:43:38 Hypertensive renal disease 31945931 I12.9 Hypothyroidism 00239456 E03.9 Herpes zoster 7186589 B0 2.9 Chronic ki dney disease stage 3B 966950139 N18.32 Anemia 133821106 D64.9 Unintentio nal weight loss 073058670 R63.4 Hyperlipidemia 37939261 E78.5 [id number] Cheyanne Paz [facility] Main Office [address] [address] [place] [address] 04/25/2024 08:59:05 05/07/2024 08:54:15 [id number] Cheyanne Paz [facility] [address] Office [address] [address] 05/08/2024 10:41:03 05/08/2024 11:25:28 Edema of lower extremity 707481808 R60.0 Hypertensi ve renal disease 90649775 I12.9 Chronic ki dney disease stage 3B 867611239 N18.32 Hypothyroidism 12747948 E03.9 Retinopath y due to diabetes mellitus 1870649 E11.319 Renal diso rder due to type 2 diabetes mellitus 706405367 E11.22 Peripheral neuropathy due to type 2 diabetes mellitus 4077983641 107 E11.42 Anemia 299888306 D64.9 Hyperlipidemia 39552866 E78.5 Rosacea, papular type 75 058774 L71.9 Eruption 096791691 R21 [id number] Cheyanne Paz [facility] Office [address] [place] [address] 05/27/2024 14:18:55 05/28/2024 13:33:49 [id number] Cheyanne Paz [facility] Office [address] [address] 05/28/2024 14:30:49 05/28/2024 15:30:14 Edema of lower extremity 048213668 R60.0 Hypertensi ve renal disease 75292720 I12.9 Chronic ki dney disease stage 3B 681002116 N18.32 Hypothyroidism 14215714 E03.9 Retinopath y due to diabetes mellitus 5908441 E11.319 Renal diso rder due to type 2 diabetes mellitus 866775065 E11.22 Peripheral neuropathy due to type 2 diabetes mellitus 1451578674 107 E11.42 Rosacea, papular type 75 278755 L71.9 Heart murmur 26348089 R0 1.1 Hyponatremia 95436846 E8 7.1 Unintentio nal weight loss 886016149 R63.4 [id number] CATHIE Le Main Office [address] [place] [address] 06/27/2024 09:53:59 06/27/2024 10:52:41 Adult health examination 526961509 Z00.00 Chronic ki dney disease stage 3B 745732244 N18.32 Hypertensi ve renal disease 77786089 I12.9 Hyperlipidemia 44708970 E78.5 Gastroesop hageal reflux disease 402150755 K21.9 Hypothyroidism 88010368 E03.9 Iron defic iency anemia 16305021 D50.9 Renal diso rder due to type 2 diabetes mellitus 893628910 E11.22 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 93659757 E11.3593 Constipation 28992803 K5 9.00 Low back pain 910051402 M54.50 Postherpet ic neuralgia 5724604 B02.29 Bilateral arthritis of knees 8898806049 989218 M13.861 Pain of le ft knee joint 3288712567 86373 M25.562 [id number] CATHIE Le Main Office [address] [place] [address] 08/14/2024 09:44:54 08/14/2024 10:41:42 Chronic hoarseness 5752126173 105 R49.0 Hypothyroidism 70566686 E03.9 Anemia 097451033 D64.9 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 4591344744 54679 N18.4 Hypertensi ve renal disease 96598218 I12.9 Pain of le ft knee joint 9280756938 18482 M25.562 Type 2 hortencia betes mellitus 45902230 E11.65 Edema of l ower extremity 955571580 R60.0 [id number] Cheyanne Paz [facility] Main Office [address] [place] [address] 09/25/2024 08:57:50 09/25/2024 10:04:58 Renal disorder due to type 2 diabetes mellitus 826070971 E11.22 Uncontroll ed type 2 diabetes mellitus 623396634 E11.65 Hypothyroidism 65807239 E03.9 Anemia 003646457 D64.9 Urinary tr act infectious disease 94689773 N39.0 Urinary incontinence 165 285358 R32 [facility] 483909269 Z91.81 Health Concerns Section Related Observation LastModified by Organization Detai ls LastModified Time None Recorded Concern Status LastModified by Organization Details LastModified Time None Recorded Advance Directives Directive N: Payers Encounter Date Sequence Insurance Name Policy Number Policy Tam Covered Member ID Tam Member ID Guarantor Name 05/27/2024 1 [facility] DOS ON OR AFTER 2023 - DUAL ELIGIBLE - GROUP HOME OPTIONS AND ONE CARE (MEDICARE REPLACEMENT/ADV ANTAGE - HMO) Guerline Willoughby [id number] Guerline Willoughby 05/28/2024 1 [facility] DOS ON OR AFTER 2023 - DUAL ELIGIBLE - GROUP HOME OPTIONS AND ONE CARE (MEDICARE REPLACEMENT/ADV ANTAGE - HMO) Guerline Willoughby [id number] Guerline Willoughby 06/27/2024 1 [facility] DOS ON OR AFTER 2023 - DUAL ELIGIBLE - GROUP HOME OPTIONS AND ONE CARE (MEDICARE REPLACEMENT/ADV ANTAGE - HMO) Guerline Willoughby [id number] Guerline Willoughby 08/14/2024 1 [facility] DOS ON OR AFTER 2023 - DUAL ELIGIBLE - GROUP HOME OPTIONS AND ONE CARE (MEDICARE REPLACEMENT/ADV ANTAGE - HMO) Guerline Willoughby [id number] Guerline Willoughby 09/25/2024 1 [facility] DOS ON OR AFTER 2023 - DUAL ELIGIBLE - GROUP HOME OPTIONS AND ONE CARE (MEDICARE REPLACEMENT/ADV ANTAGE - HMO) Guerline Willoughby [id number] Guerline Willoughby Notes Date Note Type Note Provider Name and Address Organization Details Recorded Time 05/27/2024 text/html Hospitalization Contact RecordReported bypatient.Follow UpHospital[facility]; admit date: (Please enter in format 'MM/DD/YYYY') (05/13/2024); date of discharge: (Please enter in format 'MM/DD/YYYY') (05/17/2024); date of contact: (Please enter in format 'MM/DD/YYYY') (05/27/2024)Notes:Medic are covered inpatient stay? yesMedicare WAYLON with in 48 working hours? noHigh Complexity code valid on or before:MayModerate Complexity code valid on or before:MayHCP on file? noMOLST on file? noDischarge Summary available? yesPt with PMH sig for HFpREF, HTN, hyperlipidemia, CKD stage IV, DM, FeSo4 anemia, and hypothyroidism on levothyroxine. 3 mnths ago she was on Levothyroxine 75 mcg, but this was increased to 150 mcg by her pcp, recent admission for CHF exacerbation. Since then, she has been c/o night sweats, weight loss (30 lbs), cold intolerance and hair loss. In the ER, her TSH was suppressed and FT4 was elevated. She was also hyponatremic (Na 124) and hyperkalemic (K 5.3).Hyponatremia was likely due to hypovolemia and resolved after 1250 ml IVF over 48 hrs. She was admitted and seen by endocrine and her levothyroxine dose was lowered to 100 mcg from 150 mcg. HEr course has been complicated by MICHELLE in the setting of hypovolemia and she was seen by renal. Renal doppler did not show any renal artery stenosis, but did show bilateral atrophy of kidneys compared with prior imaging. Course also complicated by hypertensive urgency (with SBP>200) and her blood pressure medication regimen was adjusted (nifedipine increased to 90 mg) MEDS STARTEDNONE MEDS DISCONTINUEDPLEASE DO NOT TAKE FUROSEMIDE 40 MG AND DAPAGLIFLOZIN 5 MG UNTIL 48 HRS AFTER YOUR DISCHARGE DOSES CHANGEDNIFEDIPINE INCREASED TO 90 MGLEVOTHYROXINE DECREASED TO 100 MG PCP FOLLOW UP/HEADS UPREPEAT TSH AND T4 IN 4-6 WEEKSREPEAT BMP TO MONITOR CREATININE IN 3-5 DAYS MEDS RECONCILED CATHIE Le [address] [address], [place], [address], [facility] 05/28/2024 13:33:46 05/28/2024 text/html Hospitalization Contact RecordReported bypatient.Follow UpHospital: [facility]; admit date: (Please enter in format 'MM/DD/YYYY') (05/13/2024); date of discharge: (Please enter in format 'MM/DD/YYYY') (05/17/2024); date of contact: (Please enter in format 'MM/DD/YYYY') (05/27/2024)Notes:Medic are covered inpatient stay? yesMedicare WAYLON with in 48 working hours? noHigh Complexity code valid on or before:MayModerate Complexity code valid on or before:MayHCP on file? noMOLST on file? noDischarge Summary available? yesPt with PMH sig for HFpREF, HTN, hyperlipidemia, CKD stage IV, DM, FeSo4 anemia, and hypothyroidism on levothyroxine. 3 mnths ago she was on Levothyroxine 75 mcg, but this was increased to 150 mcg by her pcp, recent admission for CHF exacerbation. Since then, she has been c/o night sweats, weight loss (30 lbs), cold intolerance and hair loss. In the ER, her TSH was suppressed and FT4 was elevated. She was also hyponatremic (Na 124) and hyperkalemic (K 5.3).Hyponatremia was likely due to hypovolemia and resolved after 1250 ml IVF over 48 hrs. She was admitted and seen by endocrine and her levothyroxine dose was lowered to 100 mcg from 150 mcg. HEr course has been complicated by MICHELLE in the setting of hypovolemia and she was seen by renal. Renal doppler did not show any renal artery stenosis, but did show bilateral atrophy of kidneys compared with prior imaging. Course also complicated by hypertensive urgency (with SBP>200) and her blood pressure medication regimen was adjusted (nifedipine increased to 90 mg) MEDS STARTEDNONE MEDS DISCONTINUEDPLEASE DO NOT TAKE FUROSEMIDE 40 MG AND DAPAGLIFLOZIN 5 MG UNTIL 48 HRS AFTER YOUR DISCHARGE DOSES CHANGEDNIFEDIPINE INCREASED TO 90 MGLEVOTHYROXINE DECREASED TO 100 MG PCP FOLLOW UP/HEADS UPREPEAT TSH AND T4 IN 4-6 WEEKSREPEAT BMP TO MONITOR CREATININE IN 3-5 DAYS MEDS RECONCILED Presents in f/u as above.At this most recent discharge carvedilol was added back to med list but this had been stopped at a previous ED visit due to bradycardia, it was administered in hospital but she has not been taking it at home, she got rid of it at last visit. levothyroxine 100mcg. TSH was 0.14 on 05/13, recheck 05/20 which had been ordered here previously was 0.585. Creatinine 05/20 3.54- decreased from 4 in hospital needs repeat labs in 4 weeks. Has renal f/u 06/14/24.BP at home 140s/ 150s Cheyanne Paz, [facility] [address], [address], [facility] 05/29/2024 09:37:30 06/27/2024 text/html Medicare Annual Wellness VisitReported bypatient.Diet and Nutrition:high carbohydrate meals;low calcium intake; discussed diet improvement Fracture Risk:no history of fractures Physical Activity:does not exercise on a regular basis Depression Risk:never feels sad, empty, or tearful; no loss of interest in activities; no significant changes in weight; no sleep disturbances or insomnia; no agitation; no loss of energy; no feelings of worthlessness or guilt; no thoughts of suicide; no history of depression; no history of mood disorders Orientation:no disorientation to time; no disorientation to date; no disorientation to place Concentration and Memory:no decreased concentrating ability; no memory lapses or loss; does not forget words Speech/Motor difficulties:no speech difficulties; no difficulty expressing formulated concepts; no difficulty with fine manipulative tasks; no difficulty writing/copying; no slowed reaction time Hearing:no loss of hearing Vision:no vision problems Activities of Daily Living:able to bathe with limited or no assistance; able to contol urination and bowels; able to dress with limited or no assistance; able to feed self with limited or no assistance; able to get out of chair or bed with limited or no assistance; able to groom with limited or no assistance; able to toilet with limited or no assistance Instrumental Activities of Daily Living:able to do house work with limited or no assistance; able to grocery shop with limited or no assistance; able to manage medications with limited or no assistance; able to manage money with limited or no assistance; able to prepare meals with limited or no assistance; able to use the phone with limited or no assistance Falls Risk Assessment:no frequent falls while walkingNotes:Saw endocrinology 2 weeks ago for abnormal thyroid functions that fluctuates a lot. Continued at 100mcg, still has feelings of cold and hoarseness. f/u in 6 months. Saw nephrology yesterday, ceasar stopped- new med, she has not started it yet and is unsure of what it is.-on nifedipine 90mg daily, hydralazine TID( she notes she only takes it twice daily as she feels she is on too many pills), carvedilol 12.5mg BID- recent change by cardiology, doxazosin 2mg at bedtime. Takes farxiga and sodium bicarb.She feels every time she goes to ED meds are changed and she is unsure what she should be taking. Nephro notes reviewed from yesterday's visit and I tried to update med list. Saw cardiology about 2 weeks ago- carvedilol increased. c/o left knee pain- chronic, low back pain, headaches and numbness / tingling to her forehead and scalp from shingles. CATHIE Le [address] [address], [place], [address], [facility] 06/27/2024 11:19:53 08/14/2024 text/html Generic HPI TemplateReported bypatient.Notes:Present s with c/o left knee pain and swelling that goes down the entire left leg. Having vein surgery 08/21, unsure which leg, upstairs. saw orthopedics, arthritis in knee, waiting to see of gel is covered for injection.Declines cortisone and does not feel PT will be helpful.wakes up normally in am and then as the day goes on gets swelling up to the thigh.Has compression stockings- thigh high but has not started using them. BP- has been lower at home- on RPM. she is changing meds on her own- does not feel dizzy or lightheaded but feels off. Currently Taking in am: nifedipine 90mg, doxazosin 2mg, farxiga, pantoprazole.PM: hydralazine 50mg and doxazosin 2mg. - feels hoarse, in am wakes up with sensation of something stuck in her throat, and has been very cold. feels may be her thyroid RIA LeUP [address] [facility] [address], [place], [address], [facility] 08/14/2024 16:03:18 09/25/2024 text/html Diabetes F/URepo rted bypatient.Notes:Present s for DM follow-up. and HTN follow-up. takes [...] needed. colo and endoscopy scheduled on monday Cheyanne Paz, [facility] [address] [facility] [address], [place], [address], [facility] 09/25/2024 11:59:15 OBGyn Episode No OBEpisode recorded.
--- OUTSIDE RECORDS SUMMARY | 2024-10-17 00:28 | XMS_ITS | Continuity of Care Document ---
Author Organization [facility], Main Office Address [address] [facility] [address] [place] [address] Care Team Providers Care Supervisor [place] Name Role Phone [facility] ORDERS Refe rring Provider CAMERON RAMSEY Sales Driver JACK GUERIN Condominium Manager [facility] UROLOGY Urologist [facility] Orthopedist JULIANO KLINE Structures Mechanic RADHA HARO Referring Provider [phone] SAGE MAYER Sales Driver CAMILLA PALOMARES Security Strategist LAURA PARRISH Court Messenger DEBBIE DRIVER Urologist CHEYANNE PAZ Primary Care Provider MAN BALLARD Urogynecologist [phone] LYNN WYNN Sales Driver Assessment No assessment recorded. Plan of Treatment Reminders Order Date Submit Date Provider Last Modified By Organization Details Last Modified Time Details Appointments UV30 2023 09:15A M Cheyanne Paz PA-C Not available Not available Not available Follow Up DM 30 2024 09:15A M Cheyanne Paz PA-C Not available Not available Not available Lab BMP, serum or plasma 2023 024 [place] [facility], [address] [facility], [facility] [address], [place], [address], 08/15/2024 08:09:02 CBC w/ auto diff 2023 024 [place] [facility], [address] [facility], [address] [address], [place], [address], 08/15/2024 08:09:05 iron + TIBC + ferritin, serum 2023 024 [place] [facility], [address] [facility], [address] [address], [place], [address], 08/15/2024 08:09:03 TSH + free T4, serum 2023 024 [place] [facility], [address] [facility], [facility] [address], [place], [address], 08/15/2024 08:09:04 Referral None recorded. Procedures None recorded. Surgeries None recorded. Imaging None recorded. Medication Orders furosemid e 20 mg tablet 2023 024 [id number], [address] [place], [address], 09/25/2024 09:56:41 Patient TargetsNo targets recorded. Patient Instructions Encounter Date Encounter Id Patient Instructions Last Modified By Organization Details Last Modified Time 08/14/2024 [id number] To call or retur n for worsening or concerns [facility] Not available 08/14/2024 10:27:22 Reason for Referral None Reported. Results Created Date Observation Date Name Description Value Unit Range Abnormal Flag Note LastModifiedBy Organization Detail LastModifiedTime 09/27/20 24 09/27/2024 H&P No observ ation record ed. [address], [address], 09/27/2024 12:39:46 Result Notes None recorded. Problems Name Problem SNOMED Code Status Onset Date Resolution Date Notes Provider Name and Address Organization Details Recorded Time Epigastr ic pain 65563598 Completed 200705/27/2014 RECORDED 10/01/20 08 2:26PM BY ISAÍAS HARDING, JUANYATI ON/RIA [facility] [address], [place], [address], [facility] 6 13:35:33 Generali zed abdomina l pain [id number] Completed 200705/27/2014 RECORDED 07/25/20 08 3:44PM BY JUANY DURANTATI ON/ADDEN DUM Cheyanne Paz, [facility] [address], [place], [address], [facility] 6 13:35:33 Abdomina l pain 55696842 Completed 201105/27/2014 RECORDED 06/07/20 12 10:02AM BY ALVIN OLMOS MA, ANNOTATI ON/ADDEN DUM Alvin johnson MA [facility] 4 13:10:58 Diarrhea 54568959 Completed 201105/27/2014 RECORDED 06/07/20 12 10:02AM BY ALVIN OLMOS MA, ANNOTATI ON/ADDEN DUM Aleksandra galeana MD [address], [place], [address], [facility] 2 08:34:24 Acute lymphade nitis 61835687 Completed 200805/27/2014 RESOLVED DATE: 04/15/20 09; RECORDED 04/15/20 09 8:36AM BY ALEKSANDRA TORRES MD, ANNOTATI ON/ADDEN DUM Cheyanne Paz, [facility] [address], [place], [address], [facility] 6 13:35:32 Patient status finding [id number] Completed 201205/27/2014 RECORDED 02/20/20 13 9:01AM BY CHARLENE KAY MA, ANNOTATI ON/ADDEN DUM Cheyanne Paz, [facility] [address], [place], [address], [facility] 6 13:35:33 Retinopa thy Completed 08/03/2021 Removal Reason: Veronica galeana MD [address], [place], [address], [facility] 1 20:38:46 Digestiv e symptom 216726320 Completed 201105/27/2014 RECORDED 06/07/20 12 10:02AM BY ALVIN OLMOS MA, ANNOTATI ON/ADDEN DUM Cheyanne Paz, [facility] [address] [facility] [address], [place], [address], [facility] 6 13:35:33 Screenin g for malignan t neoplasm of breast Completed 201105/27/2014 RECORDED 06/07/20 12 10:01AM BY ALVIN OLMOS MA, ANNOTATI ON/ADDEN DUM Cheyanne Paz, [facility] [address] [facility] [address], [place], [address], [facility] 6 13:35:33 Disorder of bursa of shoulder region 31758460 Active 2020 Ainsley Alva [place] null, [facility] 3 14:15:16 Kidney stone 02631676 Completed 201205/27/2014 RECORDED 11/19/19 13 9:28AM BY ALVIN OLMOS MA, ANNOTATI ON/ADDEN DUM Aleksandra galeana MD [address] [facility] [address], [place], [address], [facility] 2 08:35:45 Screenin g for malignan t neoplasm of cervix Completed 201105/27/2014 RECORDED 06/07/20 12 10:01AM BY ALVIN OLMOS MA, ANNOTATI ON/ADDEN DUM Cheyanne Paz, [facility] [address] [facility] [address], [place], [address], [facility] 6 13:35:33 Chest pain 06845427 Completed 200805/27/2014 RECORDED 04/09/20 09 12:51PM BY ALVIN OLMOS MA, DANITA ON/ADD DUM Cheyanne Paz, [facility] [address] [facility] [address], [place], [address], [facility] 6 13:35:33 Chronic kidney disease stage 1 [id number] Completed 08/01/[address] Derrell Melvin SDJayson [address] [facility] [address], [place], [address], [facility] 8 16:02:06 Contact dermatit is 39691822 Completed 201205/27/2014 RECORDED 01/17/20 13 12:53PM BY DANITA ALEX ON/ADD DUM Cheyanne Paz, [facility] [address] [facility] [address], [facility] [place], [address], [facility] 6 13:35:32 Cough [id number] Completed 201205/27/2014 IMPRESSI ON: PT IS ALLERGIC TO CODEINE SO WILL STICK WIOTH OTC EXPECTOR ANT/COUG H SUPPRESS ANT. NO CURRENT EVIDENCE FOR BACTERIA L PROCESS BUT IF PERSISTA NT/WORSE OVER NEXT WEEK FURTHER EVAL AND COURSE OF ABX MAY BE WARRANTE D.; RECORDED 12/11/19 13 11:16AM BY DANITA ALEX ON/ADD DUM Kalpana Quigley MA [facility], [facility] 7 14:11:51 Disorder of eye due to type 2 diabetes mellitus 123279857 Active Ainsley Alva [place] null, [facility] 3 14:15:16 Dizzines s and giddines s 278468219 Completed 200705/27/2014 RECORDED 07/25/20 08 3:44PM BY ADARSH OLMOS, JUANYATI ON/ADDEN DUM Cheyanne Paz, [facility] [address], [place], [address], [facility] 6 13:35:33 Dysphagi a 64600100 Completed 200705/27/2014 RECORDED 10/24/20 08 10:16AM BY ALVIN OLMOS MA, JUANYATI ON/ADDEN DUM Cheyanne Paz, [facility] [address] [facility] [address], [place], [address], [facility] 6 13:35:33 Dysuria 82138894 Completed 200705/27/2014 RECORDED 09/04/20 08 9:10AM BY ISAÍAS STEARNS, JUANYATI ON/ADDEN DUM Aleksandra galeana MD [address], [place], [address], [facility] 2 08:34:36 Lymphade nopathy 88739743 Completed 200805/27/2014 RESOLVED DATE: 04/15/20 09; IMPRESSI ON: LEFT SIDED, MILD, NO CONCERNS , SEEMS VIRAL; RECORDED 04/15/20 09 8:37AM BY ALEKSANDRA TORRES MD, ANNOTATI ON/ADDEN DUM Cheyanne Paz, [facility] [address] [facility] [address], [place], [address], [facility] 6 13:35:33 Enthesop athy of hip region 72124599 Completed 200705/27/2014 RECORDED 09/04/20 08 9:32AM BY ISAÍAS HARDING, DNAITA ON/ADDEN DUM Cheyanne Paz, [facility] [address], [place], [address], [facility] 6 13:35:33 Essentia l hyperten sofia 29734363 Completed 201105/27/2014 RECORDED 06/07/20 12 10:02AM BY ALVIN OLMOS MA, ANNOTATI ON/ADDEN DUM Aileen Rodríguez mack, [facility] 4 13:29:40 Ganglion and cyst of synovium , tendon and bursa Completed 201105/27/2014 RECORDED 07/10/20 12 1:49PM BY JENIFER PEACOCK I, JUANYATI ON/ADDEN DUM Cheyanne Paz, [facility] [address] [facility] [address], [place], [address], [facility] 6 13:35:33 Alopecia [id number] Completed 201309/18/2014 RECORDED 04/07/20 14 2:21PM BY JENIFER PEACOCK I, OFFICE VISIT Cheyanne Paz [facility] [address] [facility] [address], [place], [address], [facility] 6 13:35:32 Headache 79055858 Active 2020 ISAÍAS Manuel, [facility] 3 14:15:15 Headache 76170392 Completed 201105/27/2014 RECORDED 06/07/20 12 10:01AM BY ALVIN OLMOS MA, ANNOTALEXANDRIA ON/ADDEN DUM Aleksandra galeana MD [address] [facility] [address], [place], [address], [facility] 2 08:34:43 Hyperlip idemia 82218179 Active 2020 Aleksandra galeana MD [address] [facility] [address], [place], [address], [facility] 3 09:54:26 Hypothyr oidism 55062445 Active 2020 ISAÍAS Manuel, [facility] 3 14:15:16 Influenz a with respirat ory manifest ation other than pneumoni a Completed 201305/27/2014 IMPRESSI ON: RECOMMEN D SUPPORTI VE TX INCL. REST AND HYDRATIO N, START TAMIFLU; RECORDED 12/25/19 14 8:51AM BY DANITA ALEX ON/GORDON Paz, [facility] [address] [address], [place], [address], [facility] 6 13:35:32 Amputate d at hip 416233530 Completed 201105/27/2014 RECORDED 07/10/20 12 1:49PM BY DANITA ALEX ON/GORDON Paz, [facility] [address] [address], [place], [address], [facility] 6 13:35:33 Knee pain Completed 201105/27/2014 RECORDED 06/07/20 12 10:02AM BY ALVIN OLMOS MA, DANITA ON/GORDON Paz, [facility] [address] [address], [place], [address], [facility] 6 13:35:32 Sciatica 69065485 Completed 201105/27/2014 IMPRESSI ON: A HANDOUT WAS GIVEN WITH EXERCISE S. IF THIS DOESN'T HELP WE WILL DO A REFERRAL FOR A POSSIBLE INJECTIO N.; RECORDED 10/10/20 12 12:43PM BY DANITA ALEX ON/GORDON Paz, [facility] [address] [address], [place], [address], [facility] 6 13:35:32 Low back pain 340317682 Completed 201105/27/2014 IMPRESSI ON: X 2 DAYS, APPEARS MUSCULAR ; RECORDED 06/07/20 12 10:02AM BY ALVIN OLMOS MA, ANNOTATI ON/ADDEN DUM Cheyanne Paz [facility] [address] [address], [place], [address], [facility] 6 13:35:32 Low back pain 744696760 Active 2020 Ainsley Alva [place] null, [facility] 3 14:15:15 Pain of breast 47930625 Completed 201205/27/2014 RECORDED 07/09/20 13 9:06AM BY JENIFER PEACOCK I, ANNOTATI ON/ADDEN DUM Aleksandra galeana MD [address] [address], [place], [address], [facility] 3 09:55:20 Fibromyo sitis 35876851 Active 2020 Ainsley Alva [place] null, [facility] 3 14:15:15 Influenz a vaccine needed 16596633873 06 Completed 200905/27/2014 RECORDED 09/02/20 10 2:35PM BY ERICH GOMEZ , OFFICE VISIT Cheyanne Paz [facility] [address] [address], [place], [address], [facility] 6 13:35:33 Patient status finding [id number] Completed 201309/18/2014 RECORDED 04/07/20 14 2:21PM BY JENIFER PEACOCK I, OFFICE VISIT CATHIE Le [address] [address], [place], [address], [facility] 6 13:35:33 Examinat ion for suspecte d mental disorder Completed 201105/27/2014 RECORDED 06/07/20 12 10:01AM BY ALVIN OLMOS MA, ANNOTATI ON/ADDEN DUM Cheyanne Paz [facility] [address] [place], [address], [facility] 6 13:35:33 Disorder of upper respirat ory system 628643479 Completed 200705/27/2014 RECORDED 09/04/20 08 9:11AM BY DANITA COLE ON/GORDON Pza, [facility] [address] [facility] [address], [place], [address], [facility] 6 13:35:33 Shoulder joint pain 703156329 Completed 201105/27/2014 IMPRESSI ON: PROBABLE ROTATOR CUFF TENDINIT IS. WE DISCUSSE D A REFERRAL FOR AN INJECTIO N AND PT BUT SHE IS NOT INTEREST ED IN EITHER. INSTEAD SHE WAS GIVEN A HANDOUT WITH EXERCISE S AND SHE WILL TRY THESE AT HOME.; RECORDED 06/07/20 12 10:02AM BY ALVIN OLMOS MA, DNAITA ON/GORDON Paz, [facility] [address] [address], [place], [address], [facility] 6 13:35:32 Onychia of finger 91764724 Completed 200805/27/2014 RECORDED 05/07/20 09 11:41AM BY DANITA FINNEY ON/GORDON Paz, [facility] [address] [address], [place], [address], [facility] 6 13:35:32 Paronych ia of finger 608267886 Completed 200809/18/2014 RECORDED 05/07/20 09 11:41AM BY DANITA FINNEY ON/GORDON Paz, [facility] [address] [facility] [address], [place], [address], [facility] 6 13:35:32 Pneumoni a 271562668 Completed 200705/27/2014 RESOLVED DATE: 03/17/20 08; RECORDED 03/17/20 08 5:11PM BY ALEKSANDRA TORRES MD, ANNOTATI ON/ADDEN DUM Cheyanne Paz, [facility] [address], [place], [address], [facility] 6 13:35:32 Pre-surg gonzalo evaluati on Completed 200705/27/2014 RECORDED 03/17/20 08 5:11PM BY ALEKSANDRA TORRES MD, ANNOTATI ON/ADDEN DUM Cheyanne Paz, [facility] [address], [place], [address], [facility] 6 13:35:33 Proteinu rogerio 86728891 Completed 200805/27/2014 RECORDED 10/21/20 09 10:20AM BY ALEKSANDRA TORRES MD, ANNOTATI ON/ADDEN DUM Cheyanne Paz, [facility] [address], [place], [address], [facility] 6 13:35:33 Eruption [id number] Completed 201205/27/2014 AKOSUAI ON: WE WILL REFER HER TO HAKEEM BARRERA; RECORDED 07/09/20 13 9:06AM BY JENIFER PEACOCK I, ANNOTATI ON/ADDEN DUM Cheyanne Paz, [facility] [address] [facility] [address], [place], [address], [facility] 4 11:21:43 Pain in limb 10793679 Completed 201105/27/2014 RECORDED 06/07/20 12 10:02AM BY ALVIN OLMOS MA, ANNOTATI ON/ADDEN MEDHAT Paz, [facility] [address], [place], [address], [facility] 6 13:35:33 Rosasiddhartha 330085137 Active 2020 Ainsley Alva [place] null, [facility] 3 14:15:16 Adult health examinat ion Completed 201105/27/2014 RECORDED 06/07/20 12 10:02AM BY ALVIN OLMOS MA, JUANYATI ON/ADDEN DUM Cheyanne Paz, [facility] [address], [place], [address], [facility] 6 13:35:33 Screenin g for malignan t neoplasm of colon Completed 200805/27/2014 RECORDED 07/16/20 09 9:24AM BY ISAÍAS NEVAREZ, DANITA ON/ADDEN MEDHAT Paz, [facility] [address], [place], [address], [facility] 6 13:35:33 Type 2 diabetes mellitus without complica tion 051671548 Completed 201205/27/2014 RECORDED 02/20/20 13 9:00AM BY CHARLENE KAY MA, DANITA ON/ADDEN DUM Cheyanne Paz, [facility] [address] [facility] [address], [place], [address], [facility] 6 13:35:32 Uncontro lled type 2 diabetes mellitus 854564382 Completed 201205/27/2014 RECORDED 02/20/20 13 9:01AM BY CHARLENE KAY MA, DANITA ON/ADDEN DUM Cheyanne Paz, [facility] [address], [place], [address], [facility] 4 11:58:55 Derangem ent of knee 92930164 Completed 200805/27/2014 RECORDED 05/07/20 09 11:41AM BY DANITA FINNEY ON/ADDEN DUM Cheyanne Paz, [facility] [address], [place], [address], [facility] 6 13:35:32 Urinary tract infectio us disease 66811837 Completed 200705/27/2014 RECORDED 09/04/20 08 9:10AM BY DANITA COLE ON/ADDEN DUM Cheyanne Paz, [facility] [address] [facility] [address], [place], [address], [facility] 4 09:57:04 Immuniza tion refused Completed 201105/27/2014 RECORDED 06/07/20 12 10:02AM BY ALVIN OLMOS MA, DNAITA ON/ADDEN DUM Cheyanne Paz, [facility] [address] [facility] [address], [place], [address], [facility] 6 13:35:33 Candidal vulvovag initis 34531334 Completed 200705/27/2014 RECORDED 07/25/20 08 3:44PM BY DANITA DURANT ON/ADDEN DUM Cheyanne Paz, [facility] [address] [facility] [address], [place], [address], [facility] 6 13:35:32 Eruption 251792609 Completed 09/18/2014 Cheyanne Paz, [facility] [address] [facility] [address], [place], [address], [facility] 4 11:21:43 Epigastr ic pain 91378466 Completed 200706/16/2014 RECORDED 10/01/20 08 2:26PM BY DANITA ELLIOTT ON/ADDEN DUM Cheyanne Paz, [facility] [address] [facility] [address], [place], [address], [facility] 6 13:35:33 Generali zed abdomina l pain 774427474 Completed 200706/16/2014 RECORDED 07/25/20 08 3:44PM BY DANITA DURANT ON/ADDEN DUM Cheyanne Paz, [facility] [address] [facility] [address], [place], [address], [facility] 6 13:35:33 Abdomina l pain 01426941 Completed 201106/16/2014 RECORDED 06/07/20 12 10:02AM BY ALVIN OLMOS MA, JUANYATI ON/ADDEN DUM [facility] 4 13:10:58 Diarrhea 28324705 Completed 201106/16/2014 RECORDED 06/07/20 12 10:02AM BY ALVIN OLMOS MA, ANNOTATI ON/ADDEN DUM Aleksandra galeana MD [address] [facility] [address], [place], [address], [facility] 2 08:34:24 Acute lymphade nitis 55200011 Completed 200806/16/2014 RESOLVED DATE: 04/15/20 09; RECORDED 04/15/20 09 8:36AM BY ALEKSANDRA TORRES MD, DANITA ON/ADDEN DUM Cheyanne Paz, [facility] [address] [facility] [address], [place], [address], [facility] 6 13:35:32 Patient status finding [id number] Completed 201206/16/2014 RECORDED 02/20/20 13 9:01AM BY CHARLENE KAY MA, DANITA ON/ADDEN DUM Cheyanne Paz, [facility] [address] [facility] [address], [place], [address], [facility] 6 13:35:33 Digestiv e symptom 285644177 Completed 201106/16/2014 RECORDED 06/07/20 12 10:02AM BY ALVIN OLMOS MA, ANNOTATI ON/ADDEN DUM Cheyanne Paz, [facility] [address], [place], [address], [facility] 6 13:35:33 Screenin g for malignan t neoplasm of breast Completed 201106/16/2014 RECORDED 06/07/20 12 10:01AM BY ALVIN OLMOS MA, ANNOTATI ON/ADDEN DUM Cheyanne Paz, [facility] [address], [facility] [place], [address], [facility] 6 13:35:33 Kidney stone 17848159 Completed 201206/16/2014 RECORDED 11/19/19 13 9:28AM BY ALVIN OLMOS MA, ANNOTATI ON/ADDEN DUM Aleksandra galeana MD [address], [facility] [place], [address], [facility] 2 08:35:45 Screenin g for malignan t neoplasm of cervix Completed 201106/16/2014 RECORDED 06/07/20 12 10:01AM BY ALVIN OLMOS MA, ANNOTATI ON/ADDEN DUM Cheyanne Paz, [facility] [address], [place], [address], [facility] 6 13:35:33 Chest pain 82853753 Completed 200806/16/2014 RECORDED 04/09/20 09 12:51PM BY ALVIN OLMOS MA, ANNOTALEXANDRIA ON/ADDEN DUM Cheyanne Paz, [facility] [address], [place], [address], [facility] 6 13:35:33 Contact dermatit is 10037732 Completed 201206/16/2014 RECORDED 01/17/20 13 12:53PM BY DANITA ALEX ON/ADDEN DUM Cheyanne Paz, [facility] [address] [facility] [address], [place], [address], [facility] 6 13:35:32 Cough 97302080 Completed 201206/16/2014 IMPRESSI ON: PT IS ALLERGIC TO CODEINE SO WILL STICK WIOTH OTC EXPECTOR ANT/COUG H SUPPRESS ANT. NO CURRENT EVIDENCE FOR BACTERIA L PROCESS BUT IF PERSISTA NT/WORSE OVER NEXT WEEK FURTHER EVAL AND COURSE OF ABX MAY BE WARRANTE D.; RECORDED 12/11/19 13 11:16AM BY DANITA ALEX ON/ADDEN DUM Kalpana Quigley [facility] 7 14:11:51 Dizzines s and giddines s 602090924 Completed 200706/16/2014 RECORDED 07/25/20 08 3:44PM BY DANITA DURANT ON/ADDEN DUM Cheyanne Paz, [facility] [address] [address], [place], [address], [facility] 6 13:35:33 Dysphagi a 26021158 Completed 200706/16/2014 RECORDED 10/24/20 08 10:16AM BY ALVIN OLMOS MA, ANNOTATI ON/ADDEN DUM Cheyanne Paz, [facility] [address] [address], [place], [address], [facility] 6 13:35:33 Dysuria 73479589 Completed 200706/16/2014 RECORDED 09/04/20 08 9:10AM BY DANITA COLE ON/ADDEN DUM Aleksandra galeana MD [address] [facility] [address], [place], [address], [facility] 2 08:34:36 Lymphade nopathy 71360699 Completed 200806/16/2014 RESOLVED DATE: 04/15/20 09; IMPRESSI ON: LEFT SIDED, MILD, NO CONCERNS , SEEMS VIRAL; RECORDED 04/15/20 09 8:37AM BY ALEKSANDRA TORRES MD, DANITA ON/ADDEN DUM Cheyanne Paz, [facility] [address], [place], [address], [facility] 6 13:35:33 Enthesop athy of hip region 27962439 Completed 200706/16/2014 RECORDED 09/04/20 08 9:32AM BY ISAÍAS HARDING, DANITA ON/ADDEN MEDHAT Paz, [facility] [address], [place], [address], [facility] 6 13:35:33 Ganglion and cyst of synovium , tendon and bursa Completed 201106/16/2014 RECORDED 07/10/20 12 1:49PM BY DANITA ALEX ON/ADDEN DUM Cheyanne Paz, [facility] [address] [facility] [address], [facility] [place], [address], [facility] 6 13:35:33 Alopecia 29181928 Completed 201306/16/2014 RECORDED 04/07/20 14 8:04AM BY DANITA ALEX ON/ADDEN DUM Cheyanne Paz, [facility] [address] [facility] [address], [place], [address], [facility] 6 13:35:32 Headache 89925843 Completed 201306/16/2014 RECORDED 04/07/20 14 8:04AM BY DANITA ALEX ON/ADDEN DUM Aleksandra galeana MD [address], [place], [address], [facility] 2 08:34:43 Influenz a with respirat ory manifest ation other than pneumoni a Completed 201306/16/2014 IMPRESSI ON: RECOMMEN D SUPPORTI VE TX INCL. REST AND HYDRATIO N, START TAMIFLU; RECORDED 12/25/19 14 8:51AM BY DANITA ALEX ON/ADDEN MEDHAT Paz, [facility] [address] [facility] [address], [place], [address], [facility] 6 13:35:32 Amputate d at hip 348127073 Completed 201106/16/2014 RECORDED 07/10/20 12 1:49PM BY DANITA ALEX ON/GORDON Paz, [facility] [address] [facility] [address], [place], [address], [facility] 6 13:35:33 Knee pain Completed 201106/16/2014 RECORDED 06/07/20 12 10:02AM BY ALVIN OLMOS MA, ANNOTATI ON/ADDEN DUM Cheyanne Paz, [facility] [address] [facility] [address], [place], [address], [facility] 6 13:35:32 Sciatica [id number] Completed 201106/16/2014 IMPRESSI ON: A HANDOUT WAS GIVEN WITH EXERCISE S. IF THIS DOESN'T HELP WE WILL DO A REFERRAL FOR A POSSIBLE INJECTIO N.; RECORDED 10/10/20 12 12:43PM BY DANITA ALEX ON/GORDON Paz, [facility] [address] [facility] [address], [place], [address], [facility] 6 13:35:32 Low back pain 974721218 Completed 201106/16/2014 IMPRESSI ON: X 2 DAYS, APPEARS MUSCULAR ; RECORDED 06/07/20 12 10:02AM BY ALVIN OLMOS MA, ANNOTATI ON/ADDEN DUM Cheyanne Paz, [facility] [address] [facility] [address], [place], [address], [facility] 6 13:35:32 Pain of breast 86447446 Completed 201206/16/2014 RECORDED 07/09/20 13 9:06AM BY DANITA ALEX ON/ADDEN DUM Aleksandra galeana MD [address] [facility] [address], [place], [address], [facility] 3 09:55:20 Influenz a vaccine needed [id number] 06 Completed 200906/16/2014 RECORDED 09/02/20 10 2:35PM BY ERICH GOMEZ , OFFICE VISIT Cheyanne Paz, [facility] [address] [facility] [address], [place], [address], [facility] 6 13:35:33 Examinat ion for suspecte d mental disorder Completed 201106/16/2014 RECORDED 06/07/20 12 10:01AM BY ALVIN OLMOS MA, DANITA ON/ADDEN DUM Cheyanne Paz, [facility] [address] [facility] [address], [place], [address], [facility] 6 13:35:33 Disorder of upper respirat ory system 600719998 Completed 200706/16/2014 RECORDED 09/04/20 08 9:11AM BY DANITA COLE ON/ADDEN DUM Cheyanne Paz, [facility] [address] [facility] [address], [place], [address], [facility] 6 13:35:33 Shoulder joint pain 246597456 Completed 201106/16/2014 IMPRESSI ON: PROBABLE ROTATOR CUFF TENDINIT IS. WE DISCUSSE D A REFERRAL FOR AN INJECTIO N AND PT BUT SHE IS NOT INTEREST ED IN EITHER. INSTEAD SHE WAS GIVEN A HANDOUT WITH EXERCISE S AND SHE WILL TRY THESE AT HOME.; RECORDED 06/07/20 12 10:02AM BY ALVIN OLMOS MA, ANNOTATI ON/ADDEN DUM Cheyanne Paz, [facility] [address] [facility] [address], [place], [address], [facility] 6 13:35:32 Onychia of finger 21430446 Completed 200806/16/2014 RECORDED 05/07/20 09 11:41AM BY ISAÍAS NEVAREZ, JUANYATI ON/ADDEN DUM Cheyanne Paz, [facility] [address] [facility] [address], [place] [place], [address], [facility] 6 13:35:32 Pneumoni a 644580303 Completed 200706/16/2014 RESOLVED DATE: 03/17/20 08; RECORDED 03/17/20 08 5:11PM BY ALEKSANDRA TORRES MD, ANNOTATI ON/ADDEN DUM Cheyanne Paz, [facility] [address] [facility] [address], [place], [address], [facility] 6 13:35:32 Pre-surg gonzalo evaluati on Completed 200706/16/2014 RECORDED 03/17/20 08 5:11PM BY ALEKSANDRA TORRES MD, ANNOTATI ON/ADDEN DUM Cheyanne Paz, [place] [address] [facility] [address], [place], [address], [facility] 6 13:35:33 Proteinu rogerio 85342689 Completed 200806/16/2014 RECORDED 10/21/20 09 10:20AM BY ALEKSANDRA TORRES MD, ANNOTALEXANDRIA ON/ADDEN DUM Cheyanne aPz, [facility] [address] [facility] [address], [place], [address], [facility] 6 13:35:33 Eruption [id number] Completed 201206/16/2014 AKOSUAI ON: WE WILL REFER HER TO HAKEEM BARRERA; RECORDED 07/09/20 13 9:06AM BY DANITA ALEX ON/ADDEN MEDHAT Paz, [facility] [address], [place], [address], [facility] 4 11:21:43 Pain in limb 34642359 Completed 201106/16/2014 RECORDED 06/07/20 12 10:02AM BY ALVIN OLMOS MA, DANITA ON/ADDEN MEDHAT Paz, [facility] [address], [place], [address], [facility] 6 13:35:33 Adult health examinat ion Completed 201106/16/2014 RECORDED 06/07/20 12 10:02AM BY ALVIN OLMOS MA, DANITA ON/ADDEN DUM Cheyanne Paz, [facility] [address], [place], [address], [facility] 6 13:35:33 Screenin g for malignan t neoplasm of colon Completed 200806/16/2014 RECORDED 07/16/20 09 9:24AM BY ISAÍAS NEVAREZ, DANITA ON/ADDEN MEDHAT Paz, [facility] [address] [facility] [address], [place], [address], [facility] 6 13:35:33 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 ISAÍAS Manuel, [facility] 3 14:15:15 Type 2 diabetes mellitus without complica tion 710386287 Completed 201206/16/2014 RECORDED 02/20/20 13 9:00AM BY CHARLENE KAY MA, DANITA ON/ADDEN MEDHAT Paz, [facility] [address], [place], [address], [facility] 6 13:35:32 Uncontro lled type 2 diabetes mellitus 194049907 Completed 201206/16/2014 RECORDED 02/20/20 13 9:01AM BY CHARLENE KAY MA, JUANYATI ON/ADDEN MEDHAT Paz, [facility] [address] [facility] [address], [place], [address], [facility] 4 11:58:55 Derangem ent of knee 39306935 Completed 200806/16/2014 RECORDED 05/07/20 09 11:41AM BY ISAÍAS NEVAREZ, DANITA ON/VISHALEN MEDHAT Paz, [facility] [address] [facility] [address], [place], [address], [facility] 6 13:35:32 Urinary tract infectio us disease 12236892 Completed 200706/16/2014 RECORDED 09/04/20 08 9:10AM BY ISAÍAS STEARNS, DANITA ON/GORDON Paz, [facility] [address] [facility] [address], [place], [address], [facility] 4 09:57:04 Immuniza tion refused Completed 201106/16/2014 RECORDED 06/07/20 12 10:02AM BY ALVIN OLMOS MA, DANITA ON/ADDEN MEDHAT Paz, [facility] [address] [facility] [address], [place], [address], [facility] 6 13:35:33 Candidal vulvovag initis 02342564 Completed 200706/16/2014 RECORDED 07/25/20 08 3:44PM BY DANITA DURANT [facility] [address], [place], [address], [facility] 6 13:35:32 Allergic rhinitis 52964504 Active 2020 ISAÍAS Manuel, [facility] 3 14:15:16 Otitis media 17773094 Completed 03/02/2017 ISAÍAS Contreras, [facility] 7 14:12:06 Acute allergic reaction 692256622 Completed 03/02/2017 ISAÍAS Contreras, [facility] 7 14:11:26 Peripher al neuropat hy due to type 2 diabetes mellitus 18009302262 07 Active 2020 ISAÍAS Manuel, [facility] 3 14:15:15 Muscle pain 24511965 Completed 03/02/2017 ISAÍAS Contreras, [facility] 7 14:12:10 Heel pain 8372324 Active 2014 Seen at [facility] ISAÍAS Manuel, [facility] 3 14:15:15 Calcanea l spur 75802723 Active 2020 ISAÍAS Manuel, [facility] 3 14:15:16 Pain of breast 26182486 Completed 202005/03/2023 Removal Reason: resolved Aleksandra galeana MD [address], [place], [address], [facility] 3 09:55:20 Acute upper respirat ory infectio n 44508449 Completed 03/02/2017 ISAÍAS Contreras, [facility] 7 14:11:55 Cough 05878390 Completed 03/02/2017 ISAÍAS Contreras, [facility] 7 14:11:51 Achilles tendinit is 57263912 Active 2014 Seen at [facility] and referred to PT ISAÍAS Manuel, [facility] 3 14:15:15 Abdomina l pain 46209313 Completed 12/11/2018 ISAÍAS Bradshaw, [facility] 4 13:10:58 Type 2 diabetes mellitus 92430772 Completed 02/09/2017 Aleksandra galeana MD [address] [address], [place], [address], [facility] 7 06:38:11 Vitamin D deficien cy 36622707 Active 2015 on Vit D suppleme nt ISAÍAS Bradshaw, [facility] 7 09:12:15 Acute pharyngi tis 901461140 Completed 03/02/2017 ISA[facility]AS Contreras, [facility] 7 14:11:35 Diarrhea 75137904 Completed 03/02/2017 Aleksandra galeana MD [address] [address], [place], [address], [facility] 2 08:34:24 Clostrid ioides difficil e infectio n 550370064 Completed 202005/03/2023 Removal Reason: resolved Aleksandra galeana MD [address] [address], [place], [address], [facility] 3 09:54:06 Gastroes ophageal reflux disease 165106272 Active 2020 Aleksandra galeana MD [address] [address], [place], [address], [facility] 3 09:54:21 Chronic diarrhea of unknown origin 86648462 Completed 202008/03/2021 Removal Reason: resolved Aleksandra galeana MD [address], [place], [address], [facility] 1 20:24:38 Dysuria 85820727 Completed 03/02/2017 Aleksandra galeana MD [address], [place], [address], [facility] 2 08:34:36 Uncontro lled type 2 diabetes mellitus 205613258 Completed 02/09/2017 Cheyanne Paz [facility] [address], [place], [address], [facility] 4 11:58:55 Hyperten sive renal disease 42970344 Completed 08/03/2021 Removal Reason: duplicat e Aileen Rodríguez mack, [facility] 1 14:20:22 Inflamma tion of joints of bilatera l shoulder regions 95348889419 36773 Active 2016 arthriti s L>R ISAÍAS Manuel, [facility] 3 14:15:15 Lumbar spondylo sis 600049782 Active 2017 Seen at [facility] and treated with medrol. ISAÍAS Manuel [facility] 3 14:15:15 Dupuytre n's disease of palm 099749908 Active 2017 Left index finger. Seen at [facility] ISAÍAS Manuel [facility] 3 14:15:15 Acquired trigger finger 6273098 Active 2017 Right index and right small finger; injected . 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 98527260135 1 Completed 201708/03/2021 Removal Reason: differen t stage Aleksandra galeana MD [address] [facility] [address], [place], [address], [facility] 1 20:25:11 Chronic kidney disease stage 2 327942612 Completed 201705/04/2021 Removal Reason: CKD 3 based on GFRs Brando Samuels MD null, [facility] 1 16:16:03 Kidney stone 09521323 Active 2018 Followed by urology ISAÍAS Manuel, [facility] 3 14:15:16 Recurren t major depressi on in full remissio n 83878030 Active 2019 ISAÍAS Manuel, [facility] 3 14:15:16 Bilatera l arthriti s of knees 54125972895 76703 Active 2019 Seen at [facility] and injected ISAÍAS Manuel, [facility] 3 14:15:15 Cataract 632318753 Active 2020 ISAÍAS Manuel, [facility] 3 14:15:15 Mitral valve disorder 61761694 Active 2020 ISAÍAS Manuel, [facility] 3 14:15:15 Dupuytre n's contract ure of finger 661481881 Completed 202008/03/2021 bilatera l hands Removal Reason: Veronica galeana MD [address] [facility] [address], [place], [address], [facility] 1 20:37:59 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 12493788577 9109 Active 2020 ISAÍAS Manuel, [facility] 3 14:15:15 Proteinu rogerio 13938960 Completed 202005/28/2021 Kalpana Quigley MA null, [facility] 4 11:36:13 Renal osteodys trophy 55737108 Completed 202005/31/2021 Kalpana Quigley MA null, [facility] 4 11:36:13 Retinopa thy due to diabetes mellitus 5978611 Active 2020 Ainsley Alva MA null, [facility] 3 14:15:16 Chronic kidney disease due to benign hyperten sofia 45781066162 9106 Completed 202008/03/2021 Removal Reason: Veronica galeana MD [address] [facility] [address], [place], [address] 3 09:53:49 Lichen sclerosu s 374614417 Active 2020 Ainsley Alva MA null, [facility] 3 14:15:16 Cystocel e 132642134 Active 2020 mild Ainsley Alva MA null, [facility] 3 14:15:15 Angiomyo lipoma of right kidney 93753211568 32989 Active 2020 Ainsley Alva MA null, [facility] 2 10:11:25 Hyperten sive renal disease 68160485 Active 2020 Ainsley Alva MA null, [facility] 3 14:15:15 Palpitat ions 10932448 Active 2021 Ainsley Alva MA null, [facility] 2 10:11:25 Constipa tion 35122668 Active 2021 ISAÍAS Manuel, [facility] 2 10:11:25 Iron deficien cy anemia 51638439 Active 2021 ISAÍAS Manuel, [facility] 2 10:11:25 Otalgia 84691201 Completed 202103/21/2024 ISAÍAS Bradshaw, [facility] 4 10:02:07 Bilatera l cataract s 02641243 Active 2021 ISAÍAS Manuel, [facility] 2 09:54:06 Loss of hair 201110811 Active 2021 ISAÍAS Manuel, [facility] 2 09:54:06 Renal disorder due to type 2 diabetes mellitus 702444576 Active 2021 ISAÍAS Manuel, [facility] 3 14:15:16 Chronic kidney disease stage 3B 553450574 Active 2021 Followed by renal. 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 92288024 Active 2021 ISAÍAS Bradshaw, [facility] 2 09:24:54 Graves' disease 913327033 Active 2008 ISAÍAS Bradshaw, [facility] 2 09:24:54 Diarrhea 09086710 Completed 202109/05/2022 Removal Reason: resolved Aleksandra galeana MD [address], [place], [address], [facility] 2 08:34:24 Abdomina l pain 31869229 Completed 202102/01/2024 ISAÍAS Bradshaw, [facility] 4 13:10:58 Mitral valve stenosis 10126172 Active 2021 ISAÍAS Manuel, [facility] 3 14:15:16 Prolifer ative retinopa thy due to diabetes mellitus 96645257 Active 2021 ISAÍAS Manuel, [facility] 3 14:15:16 Dysuria 65247351 Completed 202109/05/2022 Removal Reason: resolved Aleksandra galeana MD [address], [place], [address], [facility] 2 08:34:36 Pain of right shoulder joint 13554031629 266499 Active 2021 ISAÍAS Manuel, [facility] 3 14:15:15 Bilatera l shoulder joint pain 58171923333 103025 Active 2021 Seen at [facility]. No treatmen t offered. She will return if she develops pain. ISAÍAS Manuel, [facility] 3 14:15:15 Pain in right foot 11706612611 9107 Completed 202103/21/2024 ISAÍAS Bradshaw, [facility] 4 10:02:16 Cellulit is of right foot 88356443361 125802 Completed 202105/03/2023 Removal Reason: resolved Aleksandra galeana MD [address], [place], [address], [place] [facility] 3 09:53:57 Bone density finding 873586023 Active 2022 Ainsley Alva MA null, [facility] 3 14:15:15 Pain in left foot 83686123341 9107 Completed 202203/21/2024 Alvin johnson MA null, [facility] 4 10:02:30 Fatigue 59133914 Active 2022 Ainsley Alva MA null, [facility] 3 14:15:16 Radiogra phic calcific ation 582896981 Active 2022 Ainsley Alva MA null, [facility] 3 14:15:15 Allergic reaction 348880709 Active 2022 Ainsley Alva MA null, [facility] 3 14:15:16 Cellulit is of periorbi rekha region of left eye 32116938050 9109 Active 2022 Ainsley Alva MA null, [facility] 3 14:15:15 Tear film insuffic iency 32452464 Active 2022 Ainsley Alva MA null, [facility] 3 14:15:16 Urinary tract infectio us disease 67052621 Completed 202203/21/2024 Cheyanne Paz [facility] [address], [place], [address], [facility] 4 09:57:04 Atypical facial pain 37025934 Active 2022 Ainsley Alva MA null, [facility] 3 14:15:16 Pruritic rash 90363174 Active 2022 Ainsley Alva MA null, [facility] 3 14:15:16 Glaucoma suspect 846167669 Active [address] Guerin. Aleksandra galeana MD [address], [place], [address], [facility] 3 21:22:57 Pain in pelvis 32061776 Active 2022 Cheyanne Paz, [facility] [address], [place], [address], [facility] 3 13:27:00 Uterovag inal prolapse 86163672 Active 2022 Cheyanne Paz, [facility] [address], [place], [address], [facility] 3 13:31:37 Thyroid stimulat ing hormone level above referenc e range 349966812 Active 2022 Cheyanne Paz, [facility] [address], [place], [address], [facility] 3 09:52:13 Pain in left lower limb 979502655 Completed 202203/21/2024 Alvin johnson MA null, [facility] 4 10:02:22 Pain of left knee joint 03063340491 4107 Active 2022 Cheyanne Paz, [facility] [address], [place], [address], [facility] 3 14:17:10 Effusion of joint of left knee 01676024923 9105 Active 2022 Cheyanne Paz, [facility] [address], [place], [address], [facility] 3 15:22:51 Herpes zoster 9238719 Active 2023 Avel Melvin PA-C [address] [facility] [address], [place], [address], [facility] 4 20:19:57 Anemia 320739812 Active 2020 Kalpana Quigley MA null, [facility] 4 10:02:45 Chronic kidney disease due to benign hyperten sofia 33664986153 9106 Active 2020 Kalpana Quigley MA null, [facility] 4 10:02:45 Type 2 diabetes mellitus 26520368 Active 1981 Kalpana Quigley MA null, [facility] 4 10:02:45 Hypercal ciuria 21846519 Active 2021 Kalpana Quigley MA null, [facility] 4 10:02:46 Chronic kidney 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 63209113344 8 Completed 202005/31/2021 Kalpana Quigley MA null, [facility] 4 11:36:13 Postherp etic neuralgi a 8055656 Active 2023 Cheyanne Paz [facility] [address] [facility] [address], [place], [address], [facility] 4 10:38:04 Injury of toe 644501853 Active 2023 Cheyanne Paz [facility] [address] [facility] [address], [place], [address], [facility] 4 10:43:12 Edema of lower extremit y 258892283 Active 2023 Cheyanne Paz [facility] [address] [facility] [address], [place], [address], [facility] 4 13:40:37 Posterio r rhinorrh ea 91656950 Active 2023 Cheyanne Paz, [facility] [address] [facility] [address], [place], [address], [facility] 4 13:43:26 Hyponatr emia 26556958 Active 2023 Cheyanne Paz, [facility] [address] [facility] [address], [place], [address], [facility] 4 11:57:03 Sacroili ac joint pain 958935355 Active 2023 Cheyanne Paz, [facility] [address] [place] [address] [address], [place], [address], [facility] 4 13:49:18 Heart murmur 85084147 Active 2023 Cheyanne Paz, [address], [place], [address], [facility] 4 13:50:04 Abdomina l pain 94219068 Active 2021 Kalpana Quigley MA null, [facility] 4 11:30:12 Hyperten sofia monitori ng status 983005528 Active 2021 Kalpana Quigley MA null, [facility] 4 11:30:12 Unintent ional weight loss 910048986 Active 2023 Cheyanne Paz, [facility] [address] [facility] [address], [place], [address], [facility] 4 13:03:19 Eruption 565261388 Active 2023 Cheyanne Paz [facility] [address] [facility] [address], [place], [address], [facility] 4 11:21:43 Rosacea, papular type 64848341 Active 2023 Cheyanne Paz [facility] [address] [facility] [address], [place], [address], [facility] 4 11:55:54 Chronic hoarsene ss 59212587846 05 Active 2023 Cheyanne Paz, [facility] [address] [facility] [address], [place], [address], [facility] 4 10:27:37 Urinary tract infectio us disease 98693616 Active 2023 Cheyanne Paz, [facility] [address] [place] [address] [address], [place], [address], [facility] 4 09:57:03 Urinary incontin ence 045829937 Active 2023 Cheyanne Paz, [address], [place], [address], [facility] 4 11:01:59 Uncontro lled type 2 diabetes mellitus 791702603 Active 2023 Cheyanne Paz, [facility] [address] [place] [address], [place], [address], [facility] 4 11:58:54 Notes:Some problems listed i n Documents: #[id number], #[id number] could not be added to this patient's chart. Please review these documents and add these problems to the patient's chart manually as needed. Problem Notes None recorded. Procedures Surgical History Date Name Laterality Status Provider Name and Address Organization Details Recorded Time 08/10 colpocleisis completed Alvin durán MA [facility] 3 13:19:53 05/03 Advanced Care Planning completed Aleksandra Polk MD [address] [facility] [address], [place], [address] , [facility] 3 09:57:20 05/03 Diabetic Foot Exam (Monofilament) completed Aleksandra Polk MD [address], [place], [address] , [facility] 3 09:57:16 01/09 Most Recent Mammogram completed Luda Hurd [facility] 3 12:27:40 01/09 Mammogram Screening completed Luda Hurd [facility] 3 12:27:29 07/05 Date of Last Pap Smear completed Vika Kumar [facility] 2 14:54:53 12/30 esophagogastroduodenoscopy completed Grace Kumar [facility] 2 13:50:11 05/27 Diabetic Foot Exam (Monofilament) completed Mariaelena Stearns MA [facility] 1 09:15:50 11/11 Diabetic Foot Exam (Monofilament) completed Aleksandra Polk MD [address], [place], [address] , [facility] 1 06:38:29 07/29 Diabetic Foot Exam (Monofilament) completed Aleksandra Polk MD [address], [place], [address] , [facility] 0 12:59:27 04/28 Six-Item Cognitive Test completed Kalpana Quigley MA [facility] 0 11:43:00 02/13 Diabetic Foot Exam (Monofilament) completed Gissell Mccann [facility] 0 09:21:20 10/17 Gastric emptying imag study completed Minal Clayton [facility] 9 14:59:57 01/17 Mini-Cog Test completed Jenifer Guevara [facility] 9 14:26:04 03/27 Diabetic Foot Exam (Monofilament) completed Jenifer Guevara [facility] 8 14:37:59 12/18 Mini-Cog Test completed Jenifer Guevara [facility] 8 14:28:52 10/23 Fall Risk Assessment completed Jenifer Guevara [facility] 7 14:40:42 10/23 Mini-Cog Test completed Jenifer Guevara [facility] 7 14:40:54 11/18 Most Recent Bone Density completed Alvin durán MA [facility] 7 14:10:33 11/18 Dxa bone density study completed Alvin durán MA [facility] 7 14:10:24 05/18 Sigmoidoscopy for bleeding completed Janes Gudino [facility] 6 10:51:50 05/18 transabdominal gastroscopy completed Nelia durán MA [facility] 0 09:39:06 10/17 Date of Last Colonoscopy completed Merlyn Wahl [facility] 6 14:39:37 10/17 Colonoscopy completed Charlene Kay MA [facility] 6 13:11:33 11/06 lithotripsy completed Alvin durán MA [facility] 9 10:54:38 Cholecystectomy completed Alvin durán MA [facility] 1 10:29:35 Imaging Results None recorded. Procedure Notes None recorded. Medical Equipment None Reported. Allergies Allergen ID Allergen Name Allergen Category Reaction Reaction Severity Criticality Documentation Date Start Date Code Code System Note Provider Name and Address Organization Details Recorded Time 61394 codeine medicatio n other Not available Not available 05/20/20142020 0160 RxNorm Maria Teresa Yu null, [facility] 1 11:54:07 78778 Medicinal product containin g penicilli n and acting as antibacte rial agent (product) medicatio n Not available Not available Not available 05/20/2014 89989 05 SNOMED Cheyanne aPz, PASUP [address], [place], [address], [facility] 5 16:02:19 26209 Substance with sulfonami de structure and antibacte rial mechanism of action (substanc e) medicatio n Not available Not available Not available 12/19/2014 95044 8003 SNOMED Cheyanne Paz, PASUP [address], [place], [address], [facility] 5 16:02:19 53058 Iodinated contrast media (substanc e) medicatio n Not available Not available Not available 01/05/2016 49828 2004 SNOMED Anya Blanco ISAÍAS giron [facility] 6 12:59:58 04486 prednison e medicatio n other Not available Not available 06/16/20172020 8640 RxNorm Maria Teresa Ferreirageorge giron [facility] 1 11:54:07 29534 blue dye medicatio n Not available Not available Not available 05/01/2020 ISAÍAS Bradshaw [facility] 0 16:28:50 33483 red dye food,medi cation Not available Not available Not available 05/01/2020 ISAÍAS Bradshaw [facility] 0 16:28:55 13173 yellow dye medicatio n Not available Not available Not available 05/01/2020 ISAÍAS Bradshaw, [facility] 0 16:28:59 12862 amlodipin e medicatio n other Not available Not available 09/23/20202020 15271 RxNorm Kalpana Quigley MA null, [facility] 4 10:02:32 05652 cortisone medicatio n other Not available Not available 05/31/20212020 2878 RxNorm Marai Teresa giron, [facility] 1 11:54:07 32001 quinoline yellow Not available Not available Not available Not available 05/31/20212020 03431 64 RxNorm Maria Teresa Nicholas [facility], [facility] 1 11:54:07 Medications Name Sig [...] 09/08/20 10 10:38AM BY DANITA FLORES ON/GORDON MELÉNDEZ; Not Available Not Available Not Available diltiazem [...] 2015 active Not Available Not Available Not Dakotageneva usha lovastati n 40 mg tablet DAILY 05/13 completed RECORDED 05/13/20 14 8:54AM BY ALEKSANDRA TORRES MD, ANNOTATI ON/ DUM; Not Available Not Available Not [...] 02/26/20 08 1:18PM BY SRIDHAR Mcgarry NP, ANNOTATI ON/; Not Available Not Available Not Available topiramat [...] RECORDED 09/08/20 10 10:38AM BY DANITA FLORES ON/ADDEN DUM;THIS ORDER DISCONTI NUED PER [facility] N. Not Available Not Available Not Available [...] 02/26/20 08 1:17PM BY SRIDHAR Mcgarry NP, ANNOTATI ON/GORDON DUM; Not Available Not Available [...] Take by oral route for 10 days. 04/22 /2021 completed Not Available Not Available Not Available [...] Available Not Available Nasonex 50 mcg/actua tion [place] EACH NOSTRIL DAILY 11/22 completed RECORDED 11/22/19 [...] 11/12/19 13 12:48PM BY ALEKSANDRA TORRES MD, DANITA ON/ DUM; [...] completed RECORDED 06/12/20 09 11:12AM BY EL FELICIANO, INDER, MEDICATI ON AUTO-TONO CTIVATIO N; Not Available [...] RECORDED 04/03/20 09 12:59PM BY EL FELICIANO, PAJaysonC, MEDICATI ON AUTO-TONO CTIVATIO N; Not Available Not Available Not Available amitripty line QHS / HS 02/25 completed RECORDED 02/26/20 08 1:21PM BY SRIDHAR Mcgarry NP, JUANYATI ON/ADDEN DUM; Not Available Not Available Not Available FreeStyle Lancets THREE TIMES DAILY 2012 active RECORDED 04/18/20 13 11:28AM BY ALEKSANDRA TORRES MD, ANNOTATI ON/ADDEN DUM; [...] REFILL REQUEST; THIS ORDER DISCONTI NUED PER [facility] N. Not Available Not Available Not Available BD Ultra-Fin e Short Pen Needle 31 gauge x 5/16 USE TO INJECT INSULIN THREE TIMES A DAY active Not Available Not Available No t Available Fish Oil 340 mg-1,000 mg capsule TAKE ONE CAPSULE BY MOUTH EVERY DAY 08/24 completed Not Available Not Available Not Available FreeStyle [place] kit DAILY 11/12 completed RECORDED 11/12/19 13 11:26AM BY DANITA FLORES ON/GORDON DUM;DX=D M2 Not Available Not Available Not [...] RECORDED 04/11/20 11 10:03AM BY DANITA FLORES/GORDON DUM;DX=D M2 USING INSULIN Not Available Not [...] 13 12:48PM BY ALEKSANDRA TORRES MD, ANNOTATI ON/ADDREBECCA DUM; Not Available Not Available Not Available [...] completed Not Available Not Available Not Available Toujeo SoloStar U-300 Insulin 300 unit/mL (1.5 mL) [...] Details Last Updated DateTime 4 156.21 cm 25.5 kg/m2 50493.1 5 g 70 /min 98 % 98 % 98.4 [degF] 173 mm[Hg] 57 mm[Hg] Allison puente MA [facility] 4 09:59:23 Social History Question Answer Notes LastModified by Organizat ion Details LastModified Time Tobacco Smoking Status Never Smoker Not Available [employer] 09/08/2020 03:36:40 Do You Have An Advance Directive? No [id number] Information not available 09/08/2020 What Is Your Level Of Alcohol Consumption? None [id number] Information not available 09/08/2020 Is Blood Transfusion Acceptable In An Emergency? Yes [id number] Information not available 09/08/2020 What Is Your Level Of Caffeine Consumption? Occasional Soda, Tea Information not available 05/02/2022 How Much Tobacco Do You Chew? None [id number] Information not available 09/08/2020 Are You Currently Employed? No Disabled [id number] Information not available 09/08/2020 What Type Of Diet Are You Following? VEGETARIAN Information not available 03/21/2024 Which Illicit Or Recreational Drugs Have You Used? None [id number] Information not available 09/08/2020 Do You Or Have You Ever Used E-cigarettes Or Vape? Never Used Electronic Cigarettes [id number] Information not available 09/08/2020 What Is Your Occupation? N/a [id number] Information not available 09/08/2020 Live Alone Or With Others? Alone tracymal Information not available 01/21/2015 Do You Take [...] Or Greater Than 100 Degrees Fahrenheit? No [email or web address] Information not available 05/19/2020 Are You Or Anyone In Your Household A Health Care Provider Or Emergency Responder? No [email or web address] Information not available 05/19/2020 To The Best Of Your Knowledge Have You Been In Close Proximity To Any Individual Who Tested Positive For COVID-19? No [email or web address] Information not available 05/19/2020 *AWV ONLY* Are [...] Do You Use Protection During Sex? No [id number] Information not available 09/08/2020 Seat Belts Used Routinely Yes Information not available 02/09/2016 Are You Sexually Active? Yes [id number] Information not available 09/08/2020 Smoke Alarm In Home Yes Information not available 02/09/2016 At What Age Did You Start Smoking Tobacco? 1 [id number] Information not available 09/08/2020 Are You Passively Exposed To Smoke? No Information not available 02/09/2016 Do You Or Have You Ever Used Smokeless Tobacco? Never Used Smokeless Tobacco [id number] Information not available 09/08/2020 How Much Tobacco Do You Smoke? No [id number] Information not available 09/08/2020 Do You Use Any Illicit Or Recreational Drugs? No Information not available 03/29/2022 Do You Use Sunscreen Routinely? No [id number] Information not available 09/08/2020 How Many Years Have You Smoked Tobacco? 0 [id number] Information not available 09/08/2020 Do You Or Have You Ever Used Any Other Forms Of Tobacco Or Nicotine? No Information not available 05/03/2023 Sex: Unknown Functional Status Question Answer Note LastModified by Organization D etails LastModified Time Are you able to walk? YESWOREST Information not available 08/19/2021 Are you able to care for yourself? Yes [id number] Information not available 09/08/2020 What is your exercise level? None [id number] Information not available 09/08/2020 Mental Status None [...] Total 6 Immunizations Vaccine Type Date Status Note Provider Name and Address Organization Details Recorded Time Pneumococcal conjugate PCV 13 018 completed ISAÍAS Escobar MA [facility] 05/28/2024 15:03:05 pneumococcal polysaccharide PPV23 015 completed Vonnie Vanegas MA null, [facility] 05/28/2024 15:03:05 Tdap 014 completed Vonnie Vanegas MA null, [facility] 05/28/2024 15:03:05 pneumococcal polysaccharide PPV23 021 completed Vonnie Vanegas MA null, [facility] 05/28/2024 15:03:05 COVID-19, mRNA, LNP-S, PF, 30 mcg/0.3 mL dose 021 completed Katharine Ellis CPPM null, [facility] 09/25/2024 07:51:52 COVID-19, mRNA, LNP-S, PF, 30 mcg/0.3 mL dose 021 completed Katharine Ellis CPPM null, [facility] 09/25/2024 07:51:52 COVID-19, mRNA, LNP-S, PF, 30 mcg/0.3 mL dose 021 completed Katharine Ellis CPPM null, [facility] 09/25/2024 07:51:52 COVID-19, mRNA, LNP-S, PF, 30 mcg/0.3 mL dose 021 completed Alvin chi MA null, [facility] 06/27/2024 09:57:53 COVID-19, mRNA, LNP-S, PF, 30 mcg/0.3 mL dose 021 completed Alvin chi MA null, [facility] 06/27/2024 09:57:53 COVID-19, mRNA, LNP-S, PF, 30 mcg/0.3 mL dose 021 completed Katharine Ellis CPPM null, [facility] 09/25/2024 07:52:17 COVID-19, mRNA, LNP-S, PF, 30 mcg/0.3 mL dose 021 completed PRAVEEN Hauser, [facility] 09/25/2024 09:20:28 Influenza, high-dose, trivalent, PF 018 cancelled patient objection Not Available [facility] 2019 02:22:04 Influenza, split virus, quadrivalent, PF 018 cancelled patient objection Not Available [facility] 02:22:08 Influenza, high-dose, quadrivalent, PF 020 cancelled patient objection ISAÍAS Tineo, [facility] 09/03/2020 09:54:51 Past Encounters Encounter ID Performer Location Encounter Start Date Encounter Closed Date Diagnosis/Indication Diagnosis SNOMED-CT Code Diagnosis ICD10 Code [id number] CATHIE Le [facility] [address] [facility] [address] [place] [address] 08/14/2024 09:44:54 08/14/2024 10:41:42 Chronic hoarseness 4493153140 105 R49.0 Hypothyroidism 21625208 E03.9 Anemia 952325237 D64.9 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 2000370629 98784 N18.4 Hypertensi ve renal disease 39397652 I12.9 Pain of le ft knee joint 2016852514 62823 M25.562 Type 2 hortencia betes mellitus 22751680 E11.65 Edema of l ower extremity 933620907 R60.0 Health Concerns Section Related Observation LastModified by Organization Detai ls LastModified Time None Recorded Concern Status LastModified by Organization Details LastModified Time None Recorded Payers Encounter Date Sequence Insurance Name Policy Number Policy Tam Covered Member ID Tam Member ID Guarantor Name 08/14/2024 1 [facility] - DOS ON OR AFTER 2023 - DUAL ELIGIBLE - ASSISTED OPTIONS AND ONE CARE (MEDICARE REPLACEMENT/ADV ANTAGE - HMO) [employer] [id number] [employer] Notes Date Note Type Note Provider Name and Address Organization Details Recorded Time 08/14/2024 text/html Generic HPI TemplateReported bypatient.Notes:Presen ts with c/o left knee pain and swelling [...] very cold. feels may be her thyroid [facility]ne Paz [facility] [address] [facility] [address], [place], [address], [facility] 08/14/2024 16:03:18 OBGyn Episode No OBEpisode recorded.
--- OUTSIDE RECORDS SUMMARY | 2024-10-17 00:28 | XMS_ITS | Continuity of Care Document ---
Author Organization [facility] Address [address] [place] [address] [address] [place] [address] Phone Care Team Providers Care Manager Hematology Name Role Phone Giovany WEINER, JANETH, OZ, Crow Unavailable U navailable Allergies, Adverse Reactions, Alerts Substance Reaction Status Criticality PENICILLIN Active No Information trimethoprim Active No Information sulfamethoxazole Active No Informat ion Procedures Procedure Date Varithena, Single Truncal Vein - CT & [place] Duplex Scan-extrem Veins; Uni/ CT & [place] O Varithena, Single Truncal Vein - CT & [place] Offic/outpt E&m Estab 5 Min Trial- Telem edicine CT & [place] Offic Cons New/estab Mod-hi 60- CT & [place] Surgical Stockings CVR Reveal Knee High - Surgical Stockings Return Duplex Scan-extrem Veins; Comp- CT & [place] Advance Directives Directive Yes / No Effective Date File Name No Information Encounters Encounter Description Practice Location Reason(s) For Visit Diagnoses Date Provider Providers Copied on Encounter [facility], [address] [place] [address] [address], [place], [id number], [place] tel:[phone] [facility] - [facility] Chronic venous hypertension (idiopathic) with inflammation of left lower extremity Giovany WENIER, JANETH, OZ Maria. [address] [facility] [address], Aisha [place], [id number], [place]. tel:[phone] Referring Provider: Bret Tejada, [address] [place] [address] Suite [facility], [place], [address]. tel:[phone] [facility], [address] [place] [address] Dr Cabrera [address]N[place], [id number], [place] tel:[phone] [facility] - [facility] Encounter for follow-up examination after completed treatment for conditions other than malignant nePain in right leg Oct-2 4 Giovany WEINER RVT, OZ Maria. [address] [place] [address], [place], [id number], [place]. tel:[phone] Referring Provider: Bret Tejada, [address] [place] [address] Suite [facility], [place], [address]. tel:[phone] [facility], [address] [place] [address] Dr Cabrera [address]Neri [place], [id number], [place] tel:[phone] [facility] of right lower extremity with other complication s Aug- 4 Giovany WEINER RVT, OZ Maria. [address] [place] [address], [place], [id number], [place]. tel:[phone] Referring Provider: Bret Tejada, [address] [place] [address] Suite [facility], [place], [address]. tel:[phone] [facility], [address] [place] [address] [address]Neri [place], [id number], [place] tel:[phone] [facility] No Information Aug- 4 Giovany WEINER RVT, OZ Maria. [address] [place] [address], [place], [id number], [place]. tel:[phone] Offic/outpt E&m Estab 5 Min Trial- Telemedicine [place] & [place] [facility] [place] MELENDEZ, [address] [place] [address] Dr Cabrera [address]Neri [place], [id number], [place] tel:[phone] [facility] [place] [facility] [place] Localized edemaVenous insufficienc y (chronic) (peripheral) Type 2 diabetes mellitus without complication sEssential (primary) hypertension 4 Kishore Jara. [address] [place] [address], [place], [place], [id number], [place]. tel:[phone] Referring Provider: Bret Tejada, [address] [place] [address], [place], [address]. tel:[phone] Offic Cons New/estab Mod-hi 60- CT & [place] [facility], [address] [place] [address] [address], [place], [id number], [place] tel:[phone] [facility] - [facility] Chronic venous hypertension (idiopathic) with other complication s of bilateral lower extremityTyp e 2 diabetes mellitus without complication sEssential (primary) hypertension Localized edema 4 Giovany WEINER RVT, OZ Maria. [address] [place] [address], [place], [place], [id number], [place]. tel:[phone] Referring Provider: Bret Tejada, [address] [place] [address], [place], [address]. tel:[phone] [facility], [address] [place] [address] [address], [place], [id number], [place] tel:[phone] [facility]R - [facility] Chronic venous hypertension (idiopathic) with other complication s of bilateral lower extremity 4 Giovany WEINER RVT, RPVI Robert. [address] [place] [address], [place], [place], [id number], [place]. tel:[phone] Referring Provider: Bret Tejada, [address] [place] [address], [place], [address]. tel:[phone] Family History Family Member Type Diagnosis Age At Onset No Information Payers Payer name Insurance type Covered libertarian ID Authorvianeya brittanytico(s) [facility] [id number] Social History Type Description Quantity Date Captured Comments Sex Female Smoking Status No Information Chief Complaint And Reason For Visit No Information Reason For Referral Reason For Referral No Information Plan Of Treatment Date Type Action Status Appointment Guerline Willoughby BOOKED Appointment Guerline Willoughby BOOKED Appointment [employer]er[employer] [place]ough[facility] BOOKED History Of Present Illness Encounter Date Complaint History Of Prese nt Illness No Information Functional Status Date Functional Assessmen t No Information Instructions Date Instruction Additional Infor mation Pre and post instruc tions reviewed and provided Related to Localized edema Patient education booklet given Related to Localized edema Pre and post instruc tions reviewed and provided Related to Chronic venous hypertension (idiopathic) with other complications of bilateral lower extremity Patient education booklet given Related to Chronic venous hypertension (idiopathic) with other complications of bilateral lower extremity Assessments Type Assessment Date No Information Patient Care Teams Name Effective Dates (start - stop) Status Members No Information
== END 2024-10-16 10:54 | disposition home or self-care (01) ==
PROVIDERS: PCP Internal Medicine; Visit Provider Internal Medicine Hypertension Specialist
DX: I12.9 Hypertensive chronic kidney disease with stage 1 through stage 4 chronic kidney disease, or unspecified chronic kidney disease (principal); R80.9 Proteinuria, unspecified; D64.9 Anemia, unspecified; N18.9 Chronic kidney disease, unspecified
CPT/HCPCS: 99214

== ENCOUNTER → 2024-10-16 10:24 | Outpatient (BNVA) | payer OTHER, SELFPAY | PROVIDERS: PCP Internal Medicine; Visit Provider Internal Medicine Hypertension Specialist | DX: I12.9 Hypertensive chronic kidney disease with stage 1 through stage 4 chronic kidney disease, or unspecified chronic kidney disease (principal); N18.4 Chronic kidney disease, stage 4 (severe); D63.1 Anemia in chronic kidney disease; R80.9 Proteinuria, unspecified | CPT/HCPCS: 99212 ==